=== PATIENT | male | born 1965 | race Two or more races ===

== ENCOUNTER 2024-03-12 10:45 | Emergency (ER) | payer MEDICARE, MEDICAID, SELFPAY ==
[2024-03-12] VITALS (19 sets, daily range): BP systolic 164–188; BP diastolic 84–95; PULSE 63–74; RESP 18–20; TEMP 36.1–36.7; O2SAT 96–98; BMI 30.4
--- NOTE | 2024-03-12 11:59 | EKG_ITS ---
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
--- NOTE | 2024-03-12 11:59 | XR_ITS ---
Examination: AP chest single view TECHNIQUE: AP upright portable chest single view Exam date 9: March 12, 2024 1245 hours Comparison October 26, 2023 INDICATIONS: Shortness of breath today. FINDINGS: Mild CHF Mild enlargement cardiac contour Prominent vascular congestion including central vascular engorgement Early septal edema at the lung bases IMPRESSION: Mild CHF
--- NOTE | 2024-03-12 12:00 | EDNOTE_ITS ---
ED SOB =RME/HPI General Chief Complaint: Shortness of Breath/Dyspnea Stated Complaint: PCP REQUEST REMOVAL WATER FROM LUNGS Time Seen by Provider: 03/12/24 11:35 Arrival date/time: 03/12/24 10:45 RME / HPI RME / HPI Narrative: 58-year-old male patient with significant history of hypertension, end-stage renal disease, diabetes mellitus, came in for evaluation regarding mid back pain, radiating to the left abdominal pain. This been ongoing for the last 1 month, getting worst for the last few days, described as dull ache, severity moderate. Patient also complaining of on and off shortness of breath. No vomiting no fever no other complaints noted. Patient last hemodialysis was Friday. Denies any fever. Denies any urinary or bladder incontinence. Patient is ambulatory. Denies any weakness to bilateral lower extremity. Related Data Home Medications ?Medication ?Instructions ?Recorded ?Confirmed doxazosin 2 mg tablet 2 mg PO QDAY 08/15/22 09/04/23 amlodipine 10 mg tablet 10 mg PO QDAY 09/04/23 09/04/23 ezetimibe 10 mg tablet (Zetia) 10 mg PO QDAY 09/04/23 09/04/23 furosemide 40 mg tablet 40 mg PO QAM 09/04/23 09/04/23 hydralazine 100 mg tablet 100 mg PO TID 09/04/23 09/04/23 linagliptin 5 mg tablet (Tradjenta) 5 mg PO QAM 09/04/23 09/04/23 trazodone 50 mg tablet 50 mg PO QDAY PRN Insomnia 09/04/23 09/04/23 vitamin B complex-vitamin C-folic 1 tab PO QDAY 09/04/23 09/04/23 acid 0.8 mg tablet (Mena-Anil) Previous Rx's ?Medication ?Instructions ?Recorded hydrocodone 5 mg-acetaminophen 325 1 tab PO Q8H PRN pain #10 tabs 10/26/23 mg tablet Allergies Allergy/AdvReac Type Severity Reaction Status Date / Time No Known Allergies Allergy Verified 03/12/24 10:46 Review of Systems Review of Systems Narrative Review of Systems: Review of system reviewed and within normal limits except mentioned in HPI ED Exam Narrative Physical exam: VITAL SIGNS: Reviewed. GENERAL APPEARANCE: Alert and interactive, follows commands, no acute distress, HEAD AND FACE: Non-traumatic. ENT: PERRL, pink conjunctivitis, eyelid no trauma, Mucous membrane moist. NECK: Supple, nontender, no nuchal rigidity. CHEST: No tenderness, no crepitus, no paradoxical movement, no retractions. LUNGS: Clear, well ventilated, symmetric, no rales, no wheezing, no ronchi, no stridor, good breath sounds bilaterally. HEART: Regular rate, regular rhythm, no murmur, no gallops. ABDOMEN: Soft, positive bowel sounds, nondistended, no guarding, left lower abdominal tenderness, swelling, with 4 x 10 cm palpable cystic mass left lateral wall., no rebound RECTAL: Deferred. GENITAL: Deferred. NEUROLOGICAL: Gross motor function intact sensory function intact, Appropriate for age. MUSCULOSKELETAL: Mid back tenderness,, full range of motion. EXTREMITIES: Nontender, full range of motion. SKIN: Color pink, dry, no rash, no lacerations, no abrasions, no contusions. LYMPHATICS: Deferred. Course Quality Measures none Orders Category Date Time Status CT Screening NOW Care 03/12/24 14:26 Completed Dialysis [Hemodialysis] Urgent Care 03/12/24 16:05 Active EKG (ED ONLY) *Do not use* NOW Care 03/12/24 12:00 Completed Diet Renal Diet 03/12/24 Dinner Active Transfer to another facility [Transfer/Discharge] Stat Discharge 03/12/24 19:[address] abdomen pelvis w con Stat Exams 03/12/24 14:26 Completed EKG (ED Only) Stat Exams 03/12/24 11:59 Draft US abdomen limited Stat Exams 03/12/24 13:35 Completed XR chest 1V Stat Exams 03/12/24 11:59 Completed B-Type Natriuretic Peptide Stat Lab 03/12/24 12:50 Completed CBC Stat Lab 03/12/24 12:50 Completed Comprehensive Metabolic Panel Stat Lab 03/12/24 12:50 Completed Partial Thromboplastin Time Stat Lab 03/12/24 12:50 Completed Prothrombin Time with INR Stat Lab 03/12/24 12:50 Completed Albumin Human 25% Ivpb [Albuminar-25 Ivpb] Med 03/12/24 16:06 Discontinued 25 gm in 100 ml IV PRN HYDROcodone*/APAP 5/325 [[place] 5/325] Med 03/12/24 18:39 Discontinued 1 tab PO X1 ONE Morphine Inj Med 03/13/24 01:02 Discontinued 4 mg IVP X1 ONE Piper/Tazo 3.375 gm [Zosyn] Med 03/13/24 09:00 Discontinued 3.375 gm in 50 ml IV Q12HR Piper/Tazo 3.375 gm [Zosyn] Med 03/12/24 23:30 Discontinued 3.375 gm in 50 ml IV X1 Late Tray Request Routine Oth 03/12/24 18:21 Active Vital Signs Vital signs: Vital Signs Temperature 97.9 F 03/12/24 11:04 Pulse Rate 74 03/12/24 11:04 Respiratory Rate 20 03/12/24 11:04 Blood Pressure 186/85 H 03/12/24 11:04 Pulse Oximetry (%) 96 03/12/24 11:04 Oxygen Delivery Method Room Air 03/12/24 11:04 Shortness of Breath / Dyspnea MDM Narrative MDM Narrative:: CT scan of the abdomen pelvis showed Bibasilar pneumonia Pathologic fracture T11 vertebral body with paraspinal soft tissue mass, consider osseous metastatic disease, osteomyelitis, recommend MRI thoracic spine pre and post contrast follow-up Cirrhosis, acute hepatic inflammation Mild ascites Hepatic colopathy Moderate prostatomegaly irregular prostate contour Results discussed with the patient. Spoke with Dr. Tavera , patient's central supply tech, and dialyze the patient in the emergency room. Patient is to be transferred for pathologic fracture at the 11, with paraspinal soft tissue mass, needing MRI thoracic spine, and needing neuro surgical consult and evaluation. Care transferred to Dr. Pond at 11:15 PM. For final disposition Patient data External records reviewed:: None Clinical information provided by:: none Social determinants that could affect healthcare access:: none Patient has the following chronic illnesses:: End-stage renal disease on hemodialysis, diabetes mellitus hypertension How is presenting disease/condition affected by chronic disease/condition?: uneffected by Evaluation data The following diagnostics were reviewed and interpreted by me:: lab results, radiology exam(s) and EKG tracing(s) Lab and/or radiology exams considered but not ordered:: None Interpretation Summary: Laboratory workup significant for pathologic fracture of T11 with significant paraspinal mass noted. Laboratory workup is significant for creatinine of 7.4, BUN of 59 potassium is normal. BNP more than 3280. EKG showed sinus rhythm, ventricular rate of 69 bpm, FL interval 165 MS, no ST segment elevation depression noted. Medications / Prescriptions Medications or Prescriptions considered but not ordered:: None Medication administrations:: Medication Administration History Discontinued Medications Hydrocodone Bitart/Acetaminophen (Hydrocodone/Apap 5/325 Tablet) 1 tab PO X1 ONE Stop: 03/12/24 18:40 Last Admin: 03/12/24 18:48 Dose: 1 tab Documented By: MM Albumin Human (Albuminar-25 Ivpb) 25 gm in 100 mls @ 100 mls/min IV PRN PRN PRN Reason: DIALYSIS Piperacillin/Tazobactam/Dextrose (Zosyn) 3.375 gm in 50 mls @ 12.5 mls/hr IV Q12HR LONI Stop: 03/20/24 08:59 Piperacillin/Tazobactam/Dextrose (Zosyn) 3.375 gm in 50 mls @ 100 mls/hr IV X1 ONE Stop: 03/12/24 23:59 Last Infusion: 03/13/24 00:35 Dose: Infused Documented By: Admin: 03/12/24 23:55 Dose: 100 mls/hr Documented By: KG Morphine Sulfate (Morphine Sulf Inj 10 Mg/Ml Vial) 4 mg IVP X1 ONE Stop: 03/13/24 01:03 Last Admin: 03/13/24 01:07 Dose: 4 mg Documented By: KG Chyna. Consultations Consultation(s) initiated? (list below): Yes Consultation #1 (Physician, Specialty, Details): I spoke with Dr. Tavera , patient's central supply tech, and dialyze the patient in the ED today. Diagnosis Shortness of Breath Differential Diagnosis: other Most likely diagnosis given after review of the tests above:: Pathologic fracture T11 probably secondary to malignancy Admission Indicated Admission indicated?: indicated Admission Request Was there a request for admission?: No Disposition Plan Disposition Plan: Transfer Discharge Plan Plan Patient Disposition: [facility] Acute Care [facility] Facility Pt Being Transferred to: [facility] Service Needed for Transfer: Neurosurgery Patient condition on transfer: Benefits outweigh risks Prescriptions/Referrals Prescriptions/Med Rec: No Action doxazosin 2 mg tablet 2 mg PO QDAY furosemide 40 mg Tablet 40 mg PO QAM amlodipine 10 mg Tablet 10 mg PO QDAY Mena-Anil 0.8 mg Tablet 1 tab PO QDAY ezetimibe [Zetia] 10 mg Tablet 10 mg PO QDAY trazodone 50 mg tablet 50 mg PO QDAY PRN (Reason: Insomnia) Tradjenta 5 mg Tablet 5 mg PO QAM hydralazine 100 mg tablet 100 mg PO TID Patient Comments: TAKE 1 TABLET BY MOUTH THREE TIMES DAILY hydrocodone-acetaminophen 5-325 mg tablet 1 tab PO Q8H MDD 3 tabs/day PRN (Reason: pain) Qty: 10 0RF Referrals: Andrea Bonilla FNP [Primary Care Provider] - In 1 week Problem List Clinical Impression: Back pain, End-stage renal disease (ESRD) Patient/Caregiver Discharge Instructions Print Language: Sinhala Stand Alone Forms: Neena Award Info., Patient Portal Info Letter
[2024-03-12 13:20] LABS: Basophils # (Auto) 0.1 Thou/mm3 (0.0-0.2); Basophils % (Auto) 1 % (0-2.5); Eosinophils # (Auto) 0.8 Thou/mm3 (0.0-0.5); Eosinophils % (Auto) 8 % (0-10); Hemoglobin 12.2 g/dL (13.5-16.0); Immature Granulocytes % (Auto) 0 % (0-0); Immature Granulocytes Auto 0.03 Thou/mm3 (0.00-0.00); Lymphocytes # (Auto) 0.7 Thou/mm3 (1.0-4.8); Lymphocytes % (Auto) 7 % (10-50); Mean Corpuscular HGB Conc 33.9 g/dl (31.0-37.0); Mean Corpuscular Hemoglobin 32.8 pg (25.0-35.0); Mean Corpuscular Volume 97 fL (80-100); Monocytes # (Auto) 0.8 Thou/mm3 (0.0-0.8); Monocytes % (Auto) 8 % (0-12); Neutrophils # (Auto) 7.7 Thou/mm3 (1.8-7.7); Neutrophils % (Auto) 76 % (37-80); Nucleated Red Blood Cell % 0 /100 WBC (0); Platelet Count 185 Thou/mm3 (140-440); RDW Standard Deviation 50.3 fL (35.1-43.9); Red Blood Count 3.72 Miln/mm3 (4.50-5.90); White Blood Count 10.1 Thou/mm3 (3.8-10.6)
[2024-03-12 13:35] LABS: INR 1.2 (0.9-1.3); Prothrombin Time 12.6 Seconds (9.0-12.2)
--- NOTE | 2024-03-12 13:35 | XR_ITS ---
Examination: Abdomen sonogram, Limited Date and time of exam: March 12, 2024 1447 hours INDICATIONS: Severe abdominal left lower abdominal pain today Technique: Real-time loving scale transabdominal sonographic images of the upper abdomen obtained. Findings: Prominent bowel appearance at the area concern Mild free fluid in the abdomen IMPRESSION: Consider repeat CT scan abdomen pelvis post intravenous contrast
[2024-03-12 13:49] LABS: B-Type Natriuretic Peptide > 3280 pg/mL (0-100)
[2024-03-12 13:52] LABS: Alanine Aminotransferase 10 U/L (10-49); Albumin, Serum 5.2 gm/dL (3.5-5.0); Albumin/Globulin Ratio 1.6 (1.2-2.2); Alkaline Phosphatase 166 U/L (46-116); Anion Gap 11 (7-16); Aspartate Amino Transferase 12 U/L (0-34); BUN/Creatinine Ratio 8 Ratio (12-20); Bilirubin,Total 0.5 mg/dL (0.3-1.2); Blood Urea Nitrogen 59 mg/dL (9-23); Calcium 10.6 mg/dL (8.3-10.6); Calcium (Corrected) 10.6 mg/dL (8.5-10.1); Chloride 93 mMol/L (98-107); Creatinine (Component) 7.4 mg/dL (0.6-1.3); Estimated Creatinine Clearance 10.2 mL/min (>60); Globulin 3.2 gm/dL (2.3-3.5); Glucose 147 mg/dL (74-106); Osmolality,Calculated 285 (275-295); Potassium 4.4 mMol/L (3.4-5.1); Sodium 133 mMol/L (136-145); Total Protein 8.4 gm/dL (5.7-8.2); eGFR 8 See Note
--- NOTE | 2024-03-12 14:26 | XR_ITS ---
Examination: CT abdomen with intravenous contrast CT pelvis with intravenous contrast 2-D coronal reconstructions 2-D sagittal reconstructions Date and time of exam:March 12, 2024 1636 hours INDICATIONS: Mid abdominal pain beginning several days ago. CTDI: vol (mGy) 7.4 DLP: (mGycm) 475 Technique: Multiple axial sections of the abdomen and pelvis have been obtained. 64 slice high-resolution scanner used. 3 mm axial sections have been obtained, post intravenous injection 60 cc [id number] 2-D sagittal, coronal reconstructions obtained. Low dose protocols were performed. One or more of the following dose reduction techniques were used; automated exposure control, adjustment of the mA and/or KV according to patient size, use of iterative reconstruction technique. Findings: Mild bibasilar pneumonia Cortical bone destruction T11, burst type fracture with paraspinal soft tissue mass Mild right pleural disease Cirrhosis, liver nodular in contour with heterogeneous radiodensity which may represent acute hepatic inflammation No splenic mass No pancreatic mass or adrenal mass Mild ascites No hydronephrosis Diffuse thickening of the colonic wall, hepatic colopathy pattern Normal appendix No bowel obstruction No diverticulitis Prostate irregular in contour AP dimension 4.4 cm Severe osteopenia IMPRESSION: Bibasilar pneumonia Pathologic fracture T11 vertebral body with paraspinal soft tissue mass, consider osseous metastatic disease, osteomyelitis, recommend MRI thoracic spine pre and post contrast follow-up Cirrhosis, acute hepatic inflammation Mild ascites Hepatic colopathy Moderate prostatomegaly irregular prostate contour
--- NOTE | 2024-03-12 15:45 | PC.NURSE ---
CT with contrast ok. Dr Tavera will dialyze tonight.
--- NOTE | 2024-03-12 18:09 | PC.NURSE ---
called Celestino, transfer nurse, informed her Abrea [employer] requesting neuro/spinal surgeon to t13 fx, see CT results, she will initiate transfer.
--- NOTE | 2024-03-12 18:10 | PC.CM ---
Addendum entered by Real Espinal RN 03/12/24 19:51: 1930 transfer packet with CD given to unit tender, chart nurse aware. Pending all signatures. ED to follow up with transfer at this time. Addendum entered by Real Espinal RN 03/12/24 19:18: 1902 called [facility] again to initiate the transfer, Left VM. Addendum entered by Real Espinal RN 03/12/24 18:50: 1850 Images pushed over to [facility] via [employer]. Addendum entered by Real Espinal RN 03/12/24 18:50: 1848 called [facility] to initiate the transfer, Left VM. Original Note: 1842 clinicals faxed to [facility]. 1808 received call from Charge nurse pt needs to be transferred for Pathologic fracture T11 vertebral body needs neuro-spinal services.
--- NOTE | 2024-03-12 18:38 | VVCONSULT_ITS ---
Telemedicine visit statement This visit was conducted with the use of interactive audio and video telecommunications system that permits real time communication between the patient and the provider. Patient's verbal consent for virtual visit was obtained on 03/12/24 at 1838. History of Present Illness History of Present Illness Chief complaint: Abdominal pain History of present illness: Mr. Rodriguez is a 58-year-old man with patient with significant history of hypertension, end-stage renal disease on HD MWF, diabetes mellitus, came in for evaluation regarding mid back pain, radiating to the left abdominal pain. This been ongoing for the last 1 month, getting worst for the last few days, described as dull ache, severity moderate. Patient also complaining of on and off shortness of breath. No vomiting no fever no other complaints noted. Patient last hemodialysis was Friday. Denies any fever. Denies any urinary or bladder incontinence. He missed dialysis Friday due to abdominal pain. Er called me for need for dialysis post CT with contrast. Currently seen on dialysis via virtual visit. Past Medical History Past Medical History NEUROLOGIC: Negative Neurological Disorders or Seizures CARDIAC: Positive Hypercholesterolemia and Hypertension; Negative Cardiac Disorders or Congestive Heart Failure RESPIRATORY: Negative Chronic Obstructive Pulmonary Disease (COPD) or Asthma GASTROINTESTINAL: Negative Gastrointestinal Disorders GENITOURINARY: Positive Renal Disease (on dialysis) and Dialysis MUSCULOSKELETAL: Negative Musculoskeletal Disorders ENT: Positive Cataracts ENDOCRINE: Positive Endocrine Disorders and Diabetes Mellitus Type 2 (not taking meds at the moment); Negative Diabetes Mellitus Type 1 HEMATOLOGIC: Negative Blood Disorders or Sickle Cell Disease OTHER HISTORY: Positive Hospitalization and Blood Transfusions; Negative Autoimmune Disease, Shingles, Blood Transfusion Reaction, Anesthesia Reactions or Cancer Family History FAMILY HISTORY: Negative Family Psychiatric Problems, Family Respiratory Disorders, Family Cardiac Disorders, Family Gastrointestinal Problems, Family Cancer, Family Surgery or Family Anesthesia Reaction Social History SMOKING STATUS: Never smoker TeleMedicine ROS Pertinent Review of Systems Narrative Review of Systems: c/o abdominal pain, back pain. No nausea.no fever, chills Meds Home Medications and Allergies Home Medications ?Medication ?Instructions ?Recorded ?Confirmed ?Type doxazosin 2 mg tablet 2 mg PO QDAY 08/15/22 09/04/23 History amlodipine 10 mg tablet 10 mg PO QDAY 09/04/23 09/04/23 History ezetimibe 10 mg tablet (Zetia) 10 mg PO QDAY 09/04/23 09/04/23 History furosemide 40 mg tablet 40 mg PO QAM 09/04/23 09/04/23 History hydralazine 100 mg tablet 100 mg PO TID 09/04/23 09/04/23 History linagliptin 5 mg tablet (Tradjenta) 5 mg PO QAM 09/04/23 09/04/23 History trazodone 50 mg tablet 50 mg PO QDAY PRN Insomnia 09/04/23 09/04/23 History vitamin B complex-vitamin C-folic 1 tab PO QDAY 09/04/23 09/04/23 History acid 0.8 mg tablet (Mena-Anil) Allergies Allergy/AdvReac Type Severity Reaction Status Date / Time No Known Allergies Allergy Verified 03/12/24 10:46 Virtual exam Vital Signs Temp Pulse Resp BP Pulse Ox O2 Del Method O2 Flow Rate 36.1 C 68 18 188/90 H 98 Room Air 3 03/12/24 18:01 03/12/24 18:30 03/12/24 18:01 03/12/24 18:30 03/12/24 18:01 03/12/24 17:06 03/12/24 18:01 Narrative Exam Narrative: GENERAL APPEARANCE: Patient seems to be comfortable. On dialysis 1+ edema Results Labs 03/12/24 12:50 03/12/24 12:50 Labs: Short CBC 03/12/24 Range/Units 12:50 WBC 10.1 (3.8-10.6) Thou/mm3 Hgb 12.2 L (13.5-16.0) g/dL Hct 36.0 L (41.0-53.0) % Plt Count 185 (140-440) Thou/mm3 BMP 03/12/24 12:50 Sodium 133 L Potassium 4.4 Chloride 93 L Carbon Dioxide 29.0 BUN 59 H Creatinine 7.4 H* Glucose 147 H Calcium 10.6 Liver Function 03/12/24 Range/Units 12:50 Total Bilirubin 0.5 (0.3-1.2) mg/dL AST 12 (0-34) U/L ALT 10 (10-49) U/L Alkaline Phosphatase 166 H (46-116) U/L Albumin 5.2 H (3.5-5.0) gm/dL Assessment & Plan Assessment (1) End stage chronic kidney disease: ?Status:?Acute ? ? ? 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 Patient currently seen on dialysis. Tolerating dialysis without any problems. Hemodialysis for 3 hours, 2K, ultrafiltration 2-3 L, Epogen 6000, no heparin ordered. Plan of care discussed with the dialysis nurse. Please see dialysis flowsheet for further details. (2) Hypertension: ?Status:?Acute ? ? ? Assessment and plan: On doxazosin, hydralazine, amlodipine (3) Hyperlipidemia: ?Status:?Acute ? ? ? Assessment and plan: (4) Diabetes: ?Status:?Acute ? ? ? Assessment and plan: on Tradjenta (5) Renal osteodystrophy: ?Status:?Acute ? ? ? Assessment and plan: On calcitriol at dialysis (6) low back pain-CT scan showed Acute pathologic fracture with a mass around. ?Status:?Acute ? ? ? Assessment and plan: Patient is going to be transferred to [facility] postdialysis. Thank you Clif for allowing me to participate in the care of Mr. Rodriguez
--- NOTE | 2024-03-12 18:46 | PC.NURSE ---
UF GOAL INCREASED TO 2.5L PER MD YANESURI ASA TOLERATED WILL CONT. TO MONITOR
[2024-03-12] MEDS: HYDROcodone/APAP 5/325 TABLET 1 TAB PO (18:48)
--- NOTE | 2024-03-12 22:00 | PC.NURSE ---
Pt sj in ED room 3 s/p hemodialysis treatment.
--- NOTE | 2024-03-12 23:16 | EDNOTE_ITS ---
Emergency Room Addendum <Morelia Beck - Last Filed: 03/12/24 23:45> Addendum Narrative: 2315: Care assumed from Meredith Linder NP. Past medical, surgical, social and family history reviewed. Vitals and home medications reviewed. Results and treatment plan discussed. I will assume the care of the patient at this time and will follow the patient, pending transfer. Please refer to the emergency department record for history and examination. 2344: Dr. Miranda, neurosurgeon from [facility], accepts the patient for transfer. <Theo Pond MD - Last Filed: 03/13/24 00:26> Addendum Narrative: 2315: Care assumed from Meredith Linder NP. Past medical, surgical, social and family history reviewed. Vitals and home medications reviewed. Results and treatment plan discussed. I will assume the care of the patient at this time and will follow the patient, pending transfer. Please refer to the emergency department record for history and examination. 2344: Dr. Miranda, neurosurgeon from [facility], accepts the patient for transfer. And the patient is stable for transfer. Diagnosis: Pathologic fracture of T11 Pneumonia End-stage renal failure on dialysis
--- NOTE | 2024-03-12 23:34 | PC.NURSE ---
THIS PT IS ACCEPTED BY DR. SANTOS TO THE [facility]. THIS IS ER:ER TRANSFER AND NUMBER FOR REPORT IS [phone]. LEOPOLDO WAS THE FACILITY REP I SPOKE WITH.
[2024-03-12] MEDS: PIPER/TAZO 3.375 GM 3.375 GM/50 ML BAG IV (23:55)
[2024-03-13 00:03] VITALS: BP 178/91; PULSE 67; RESP 18; O2SAT 98
--- NOTE | 2024-03-13 00:47 | PC.NURSE ---
Report called to YOHANNES Toledo via phone at [facility] in [place]. Ambulance ETA for transport 0115.
[2024-03-13] MEDS: MORPHINE SULF INJ 10 MG/ML VIAL 4 MG IVP (01:07)
--- NOTE | 2024-03-13 01:14 | PC.NURSE ---
Report given to EMS at the bedside for transfer.
== END 2024-03-13 01:16 | disposition short-term general hospital (02) ==
PROVIDERS: Nurse Practitioner Family; Emergency Provider Emergency Medicine; PCP Nurse Practitioner
DX: I12.0 Hypertensive chronic kidney disease with stage 5 chronic kidney disease or end stage renal disease (principal); N18.6 End stage renal disease; E11.22 Type 2 diabetes mellitus with diabetic chronic kidney disease; J18.9 Pneumonia, unspecified organism; M84.48XA Pathological fracture, other site, initial encounter for fracture; G95.89 Other specified diseases of spinal cord; N40.0 Benign prostatic hyperplasia without lower urinary tract symptoms; K74.60 Unspecified cirrhosis of liver; R18.8 Other ascites; R94.31 Abnormal electrocardiogram [ECG] [EKG]; Z99.2 Dependence on renal dialysis; Z79.84 Long term (current) use of oral hypoglycemic drugs; Z75.1 Person awaiting admission to adequate facility elsewhere
CPT/HCPCS: 36415; 71045; 74177; 76705; 80053; 81001; 83880; 85025; 85610; 85730; 90935; 93005; 96365; 96375; 99285; A4649; J2270; J2543; Q9967; A9270; G0257

== ENCOUNTER 2024-05-16 05:55 | Inpatient (IN) | payer MEDICARE, MEDICAID, SELFPAY ==
[2024-05-16] VITALS (13 sets, daily range): BP systolic 136–194; BP diastolic 74–93; PULSE 57–71; RESP 14–20; TEMP 34.7–37.8; O2SAT 92–98; BMI 20.9
--- NOTE | 2024-05-16 06:00 | EKG_ITS ---
[facility] Test Date: 2024-05-16 Pat Name: MAXI GRANDA Department: Room: - Gender: Male Floor Attendant: Eugene : 1965 Requested By: Ahsan Almanzar Order Number: [id number] Reading MD: Ahsan Almanzar Measurements Intervals [place] Rate: 56 P: 14 RI: 134 QRS: -5 QRSD: 99 T: 53 QT: 477 QTc: 462 Interpretive Statements SINUS BRADYCARDIA NONSPECIFIC T-WAVE ABNORMALITY PROLONGED QT INTERVAL Compared to ECG 03/12/2024 12:11:52 Prolonged QT interval now present Sinus rhythm no longer present T-wave abnormality still present /store/S0/[id number]/[id number]
--- NOTE | 2024-05-16 06:00 | EDRME_ITS ---
Rapid Medical Screening Exam RME Arrival date/time: 05/16/24 05:55 Chief Complaint: Altered Mental Status Time Seen by Provider: 05/16/24 05:58 RME Narrative: 58-year-old brought in by EMS stat for altered mental status, GCS of 14, custodial states he is altered, EMS offers no further history. Patient himself is alert he answers questions. His eyes were closed and he states is because he feels room spinning dizziness. He has a mild headache with nausea, no vomiting. Closing his eyes improves the dizziness, opening it worsens it. He denies chest pain, abdominal pain. Problem focused workup and treatment was initiated and patient will be seen by the additional provider.
--- NOTE | 2024-05-16 06:08 | PC.NURSE ---
warm blankets applied.
[2024-05-16] MEDS: ONDANSETRON INJ 2 MG/ML INJ 2 ML 4 MG IV ×2 (06:10→11:05)
[2024-05-16] MEDS: MECLIZINE HCL 25 MG TABLET 50 MG PO (06:11)
[2024-05-16 06:13] LABS: Basophils % (Auto) 1 % (0-2.5); Eosinophils # (Auto) 0.5 Thou/mm3 (0.0-0.5); Eosinophils % (Auto) 7 % (0-10); Hematocrit 37.8 % (41.0-53.0); Hemoglobin 12.4 g/dL (13.5-16.0); Immature Granulocytes % (Auto) 0 % (0-0); Immature Granulocytes Auto 0.02 Thou/mm3 (0.00-0.00); Lymphocytes # (Auto) 0.6 Thou/mm3 (1.0-4.8); Lymphocytes % (Auto) 9 % (10-50); Mean Corpuscular HGB Conc 32.8 g/dl (31.0-37.0); Mean Corpuscular Hemoglobin 32.2 pg (25.0-35.0); Mean Corpuscular Volume 98 fL (80-100); Monocytes # (Auto) 0.4 Thou/mm3 (0.0-0.8); Monocytes % (Auto) 6 % (0-12); Neutrophils # (Auto) 5.5 Thou/mm3 (1.8-7.7); Neutrophils % (Auto) 78 % (37-80); Nucleated Red Blood Cell % 0 /100 WBC (0); Platelet Count 110 Thou/mm3 (140-440); RDW Standard Deviation 44.9 fL (35.1-43.9); Red Blood Count 3.85 Miln/mm3 (4.50-5.90); White Blood Count 7.1 Thou/mm3 (3.8-10.6)
--- NOTE | 2024-05-16 06:22 | PC.NURSE ---
Pt is a dialysis pt and reports he does not make urine.
[2024-05-16 06:38] LABS: Alanine Aminotransferase 44 U/L (10-49); Albumin/Globulin Ratio 1.4 (1.2-2.2); Alkaline Phosphatase 194 U/L (46-116); Anion Gap 10 (7-16); Aspartate Amino Transferase 84 U/L (0-34); BUN/Creatinine Ratio 6 Ratio (12-20); Bilirubin,Total 0.6 mg/dL (0.3-1.2); Blood Urea Nitrogen 22 mg/dL (9-23); Calcium 8.5 mg/dL (8.3-10.6); Calcium (Corrected) 8.5 mg/dL (8.5-10.1); Carbon Dioxide 29.9 mMol/L (20.0-31.0); Chloride 94 mMol/L (98-107); Creatinine (Component) 3.6 mg/dL (0.6-1.3); Estimated Creatinine Clearance 18.9 mL/min (>60); Globulin 2.8 gm/dL (2.3-3.5); Glucose 220 mg/dL (74-106); Osmolality,Calculated 278 (275-295); Potassium 5.2 mMol/L (3.4-5.1); Sodium 134 mMol/L (136-145); Total Protein 6.8 gm/dL (5.7-8.2); eGFR 19 See Note
[2024-05-16 06:39] LABS: Troponin I 0.048 ng/mL (0.0-0.045)
--- NOTE | 2024-05-16 06:45 | PD.EDAMS ---
Altered Mental Status RME/HPI General Chief Complaint: Altered Mental Status Stated Complaint: AMS Time Seen by Provider: 05/16/24 05:58 Arrival date/time: 05/16/24 05:55 RME / HPI RME / HPI narrative: 58-year-old brought in by EMS stat for altered mental status, GCS of 14, long-term states he is altered, EMS offers no further history. Patient himself is alert he answers questions. His eyes were closed and he states is because he feels room spinning dizziness. He has a mild headache with nausea, no vomiting. Closing his eyes improves the dizziness, opening it worsens it. He denies chest pain, abdominal pain. Problem focused workup and treatment was initiated and patient will be seen by the additional provider. DR. FABIAN MAIN ED EVALUATION 58 year old male with history of ESRD on HD // followed by Dr. Tavera presents to the ED BIBA from [facility] for altered mental status today. While in the ED patient complains of dizziness that began several hours ago. Described as a spinning sensation that is worse with opening his eyes and head movements. Accompanied by nausea and vomiting. Denies fevers, chills, chest pain, shortness of breath, abdominal pain, diarrhea, constipation, or urinary symptoms. No other complaints reported. Patient last received dialysis 2 days ago Friday. Related Data Home Medications ?Medication ?Instructions ?Recorded ?Confirmed doxazosin 2 mg tablet 2 mg PO QDAY 08/15/22 09/04/23 amlodipine 10 mg tablet 10 mg PO QDAY 09/04/23 09/04/23 ezetimibe 10 mg tablet (Zetia) 10 mg PO QDAY 09/04/23 09/04/23 furosemide 40 mg tablet 40 mg PO QAM 09/04/23 09/04/23 hydralazine 100 mg tablet 100 mg PO TID 09/04/23 09/04/23 linagliptin 5 mg tablet (Tradjenta) 5 mg PO QAM 09/04/23 09/04/23 trazodone 50 mg tablet 50 mg PO QDAY PRN Insomnia 09/04/23 09/04/23 vitamin B complex-vitamin C-folic 1 tab PO QDAY 09/04/23 09/04/23 acid 0.8 mg tablet (Mena-Anil) Previous Rx's ?Medication ?Instructions ?Recorded hydrocodone 5 mg-acetaminophen 325 1 tab PO Q8H PRN pain #10 tabs 10/26/23 mg tablet Allergies Allergy/AdvReac Type Severity Reaction Status Date / Time No Known Allergies Allergy Verified 03/12/24 10:46 Review of Systems Review of Systems Narrative Review of Systems: GEN: No fever, no chills, no weight loss, +dizziness EYES: No discharge, no visual changes, no pain HEENT: No ear pain, no congestion, no sore throat PULM: No shortness of breath, no cough, no congestion CV: No chest pain, no palpitations GI: +nausea, +vomiting, no diarrhea, no pain, no constipation : No frequency, no urgency and no dysuria MUSC/SKEL No joint pain, no back pain SKIN: No rash NEURO: No weakness, no headache Past Medical History Past Medical History CARDIAC: Positive Hypercholesterolemia and Hypertension GENITOURINARY: Positive Renal Disease and Dialysis ENT: Positive Cataracts ENDOCRINE: Positive Endocrine Disorders and Diabetes Mellitus Type 2 OTHER HISTORY: Positive Hospitalization and Blood Transfusions Family History FAMILY HISTORY: Negative Family Psychiatric Problems, Family Respiratory Disorders, Family Cardiac Disorders, Family Gastrointestinal Problems, Family Cancer, Family Surgery or Family Anesthesia Reaction Social History SMOKING STATUS: Never smoker ED Exam Narrative Physical exam: GENERAL APPEARANCE: Well hydrated, well nourished, in no acute distress. Coughing frequently during exam. VITALS: All vitals were reviewed, patient is hypothermic at 95.0F rectally, the pulse ox is 92% on room air which is low. HEENT: Normocephalic, atramatic, EOMI, EACs are patent. There is no bulge or retraction. Throat without erythema or exudate. Moist oromucosa. No jaundice NECK: Supple, no JVD or bruits. CARDIOVASCULAR: Heart regular without S3-S4 or murmur. No rubs or gallops. LUNGS/CHEST: Rhonchi bilaterally. No rales or wheezing. ABDOMEN: Soft, nontender, with normal bowel sounds. No pulsatile masses. No rebound, rigidity, or guarding. No incarcerated hernia. Normal inspection and palpation. EXTREMITIES: Normal inspection and palpation. No edema, clubbing, or cyanosis. Intact CSM SKIN: Warm and dry without rashes. Normal inspection. MUSCULOSKELETAL: Normal inspection. No gross deformity, full ROM all extremities NEURO: Alert and oriented x3. Cranial nerves II through XII grossly intact. There are no other motor or sensory deficits noted. PSYCHIATRIC: Normal mood and affect. No psychosis. Course Quality Measures none Orders Category Date Time Status Bedside COVID-19 Antigen Test NOW Care 05/16/24 06:00 Active Bedside Influenza A&B Antigen Test NOW Care 05/16/24 06:00 Completed EKG (ED ONLY) *Do not use* NOW Care 05/16/24 06:00 Completed Initiate Warming Therapy NOW Care 05/16/24 07:[address] head/brain wo con Stat Exams 05/16/24 06:59 Completed EKG (ED Only) Stat Exams 05/16/24 06:00 Draft XR chest 1V portable Stat Exams 05/16/24 06:59 Completed CBC Stat Lab 05/16/24 06:02 Completed CMP [Comprehensive Metabolic Panel] Stat Lab 05/16/24 06:02 Completed Troponin I Stat Lab 05/16/24 06:02 Completed Urinalysis Stat Lab 05/16/24 05:59 Ordered Meclizine HCl [Antivert] Med 05/16/24 05:59 Discontinued 50 mg PO X1 ONE Ondansetron Inj [Zofran Inj] Med 05/16/24 05:59 Discontinued 4 mg IV X1 ONE Vital Signs Vital signs: Vital Signs Temperature 95.0 F L 05/16/24 05:57 Pulse Rate 57 L 05/16/24 05:57 Respiratory Rate 14 05/16/24 05:57 Blood Pressure 194/93 H 05/16/24 05:57 Pulse Oximetry (%) 92 L 05/16/24 05:57 Oxygen Delivery Method Room Air 05/16/24 05:57 Altered Mental Status MDM Narrative MDM Narrative:: I, Humaira Zhu, am scribing for and in the presence of Dr. Fabian. The patient came in from the long-term by ambulance. Chief complaint here is dizziness and vertigo. And I heard him coughing quite frequently. In the emergency department his temperature was 94.5 ?F rectally. On exam his O2 saturation is 98 to 92% room air. That necessitate put him on oxygen for now. CBC is negative. CMP remarkable for a potassium of 5.2. Creatinine is 3.6. Troponin is 0.048 which is slightly elevated. COVID-19 and influenza are negative. Chest x-ray reviewed by and interpreted by me as follow: No pneumothorax. Heart is enlarged. Mediastinum normal. Normal bones. Pulmonary edema secondary to end-stage kidney disease. Twelve-lead EKG that was done at 6:14 AM and interpreted by me: Normal sinus rhythm. Heart rate 56. No ST elevation or depression. No PVC. No STEMI. Regular rate and rhythm. Old Q waves are noted in leads III. CT brain reviewed by and interpreted by me: No bleed. No mass. No shifting. No swelling. Normal ventricle. Normal bones. In the emergency department with patient was on oxygen. To give his O2 saturation more than 92%. He was also given warming blanket for his hypothermia. 8 0 5 AM, I spoke to and discussed with Dr. Oswald, resident Dr. Cheng. He agreed to assess the patient for admission. Critical care time is approximately 35 minutes excluding any procedure. The high probability of sudden, clinically significant deterioration in the patient?s condition required the highest level of my preparedness to intervene urgently. The services I provided to this patient were to treat and/or prevent clinically significant deterioration. Services included the following: chart data review, reviewing nursing notes and/or old charts, documentation time, health and safety consultant collaboration regarding findings and treatment options, medication orders and management, direct patient care, vital sign assessments and ordering, interpreting and reviewing diagnostic studies and lab tests. Aggregate critical care time includes only time during which I was engaged in work directly related to the patient?s care, as described above, whether at bedside or elsewhere in the Emergency Department. It did not include time spent performing other reported procedures or the services of residents, students, nurses or physician assistants. Patient data External records reviewed:: [facility] previous records (I reviewed visit on 03/12/2024), EMS form and [facility] records (I reviewed medication list and pmhx from [facility]. ) Clinical information provided by:: patient and EMS Social determinants that could affect healthcare access:: housing ([place] resident ) Patient has the following chronic illnesses:: Hypertension, diabetes, ESRD on HD M/W/F How is presenting disease/condition affected by chronic disease/condition?: exacerbated by Evaluation data The following diagnostics were reviewed and interpreted by me:: lab results, radiology exam(s) and EKG tracing(s) Lab and/or radiology exams considered but not ordered:: None Interpretation Summary: Ordering Physician: Theo Fabian MD Date of Service: 05/16/24 Procedure(s): XR chest 1V portable Accession Number(s): [id number] cc: Jose Cedillo MD; Theo Fabian MD; Andrea Bonilla~ Examination: AP chest single view Technique one AP portable semiupright chest single view Exam date and time: May 16, 2024 at 0704 hrs. Comparison March 12, 2024 Indications:: Frequent coughing today shortness of breath Findings: Mild CHF Consider superimposed bilateral pneumonia in the perihilar basilar regions Mild to moderate enlargement cardiac contour Prominent vascular congestion Moderate osteopenia Impression: Mild CHF Consider superimposed bilateral perihilar basilar pneumonia Dictated By: Jose Cedillo MD Signed By: <Electronically signed by Jose Cedillo MD in OV> 05/16/24 0712 Ordering Physician: Theo Fabian MD Date of Service: 05/16/24 Procedure(s): CT head/brain wo con Accession Number(s): [id number] cc: Jose Cedillo MD; Theo Fabian MD; Andrea Bonilla~ Examination: CT brain head without contrast. 2-D sagittal coronal reconstructions Date and time of exam:May 16, 2024 0715 hrs. Indications: Onset altered mental status today, vertigo, dizziness CTDI: vol (mGy):50.1 DLP: (mGycm):1025 Technique: Multiple CT axial sections of the brain have been obtained, 5 mm slice thickness. Contrast has not been administered. 2-D sagittal, coronal reconstructions have been obtained Low dose protocols were performed. One or more of the following dose reduction techniques were used; automated exposure control, adjustment of the mA and/or KV according to patient size, use of iterative reconstruction technique. Findings: No significant ventricular enlargement. Intra-axial or extra-axial hemorrhage density is not seen. No mass effect or midline shift Basal cisterns are not remarkable. Fourth ventricle is midline. Cranial vault intact. Impression: Negative for acute hemorrhage, mass effect or midline shift If symptoms persist, consider brain MRI follow-up, stroke protocol Dictated By: Jose Cedillo MD Signed By: <Electronically signed by Jose Cedillo MD in OV> 05/16/24 0722 Medications / Prescriptions Medications or Prescriptions considered but not ordered:: None Medication administrations:: Medication Administration History Discontinued Medications Meclizine HCl (Meclizine Hcl 25 Mg Tablet) 50 mg PO X1 ONE Stop: 05/16/24 06:00 Last Admin: 05/16/24 06:11 Dose: 50 mg Documented By: KG Ondansetron HCl (Ondansetron Inj 2 Mg/Ml Inj 2 Ml) 4 mg IV X1 ONE; Protocol Stop: 05/16/24 06:00 Last Admin: 05/16/24 06:10 Dose: 4 mg Documented By: KG See above Consultations Consultation(s) initiated? (list below): Yes Consultation #1 (Physician, Specialty, Details): I spoke with resident Dr. Oswald working with Dr. Cheng. Discussed patients PMHx, HPI, ED course, exam findings, labs, and radiology results. The hospitalist agree to accept the patient for admission. Time: 08:05 Diagnosis Differential diagnosis altered mental status: altered mental status, delirium, hypoglycemia, hyponatremia, subarachnoid hemorrhage and sepsis Most likely diagnosis given after review of the tests above:: Hypothermia. Elevated troponin. Vertigo. End-stage renal failure. Hypoxia Admission Indicated Admission indicated?: indicated Admission Request Was there a request for admission?: Yes Admission Attestation Admission request attestation: Discussed case with [] from Hospitalist service regarding admission. Discussed patients ED course, exam findings, labs, and radiology results. The Hospitalist [agrees,declines] to accept the patient for admission. Disposition Plan Disposition Plan: Admit Discharge Plan Plan Patient Disposition: Admit Acute Care w/in Hospital Disposition Comment: Stable for admit Prescriptions/Referrals Prescriptions/Med Rec: No Action doxazosin 2 mg tablet 2 mg PO QDAY furosemide 40 mg Tablet 40 mg PO QAM amlodipine 10 mg Tablet 10 mg PO QDAY Mena-Anil 0.8 mg Tablet 1 tab PO QDAY ezetimibe [Zetia] 10 mg Tablet 10 mg PO QDAY trazodone 50 mg tablet 50 mg PO QDAY PRN (Reason: Insomnia) Tradjenta 5 mg Tablet 5 mg PO QAM hydralazine 100 mg tablet 100 mg PO TID Patient Comments: TAKE 1 TABLET BY MOUTH THREE TIMES DAILY hydrocodone-acetaminophen 5-325 mg tablet 1 tab PO Q8H MDD 3 tabs/day PRN (Reason: pain) Qty: 10 0RF Referrals: Andrea Bonilla FNP [Primary Care Provider] - In 1 week Problem List Clinical Impression: Elevated troponin, Hypothermia, Vertigo, End stage renal disease on dialysis, Hypoxia Patient/Caregiver Discharge Instructions Print Language: Romansh Stand Alone Forms: [facility]ena Award Info., Patient Portal Info Letter
--- NOTE | 2024-05-16 06:47 | PC.NURSE ---
Dr. Pond at the bedside.
--- NOTE | 2024-05-16 06:59 | XR_ITS ---
Examination: CT brain head without contrast. 2-D sagittal coronal reconstructions Date and time of exam:May 16, 2024 0715 hrs. Indications: Onset altered mental status today, vertigo, dizziness CTDI: vol (mGy):50.1 DLP: (mGycm):1025 Technique: Multiple CT axial sections of the brain have been obtained, 5 mm slice thickness. Contrast has not been administered. 2-D sagittal, coronal reconstructions have been obtained Low dose protocols were performed. One or more of the following dose reduction techniques were used; automated exposure control, adjustment of the mA and/or KV according to patient size, use of iterative reconstruction technique. Findings: No significant ventricular enlargement. Intra-axial or extra-axial hemorrhage density is not seen. No mass effect or midline shift Basal cisterns are not remarkable. Fourth ventricle is midline. Cranial vault intact. Impression: Negative for acute hemorrhage, mass effect or midline shift If symptoms persist, consider brain MRI follow-up, stroke protocol
--- NOTE | 2024-05-16 06:59 | XR_ITS ---
Examination: AP chest single view Technique one AP portable semiupright chest single view Exam date and time: May 16, 2024 at 0704 hrs. Comparison March 12, 2024 Indications:: Frequent coughing today shortness of breath Findings: Mild CHF Consider superimposed bilateral pneumonia in the perihilar basilar regions Mild to moderate enlargement cardiac contour Prominent vascular congestion Moderate osteopenia Impression: Mild CHF Consider superimposed bilateral perihilar basilar pneumonia
--- NOTE | 2024-05-16 08:35 | PC.NURSE ---
pATIENT STATES BACK PAIN 01/12. RECEIVED VERBAL ORDER FOR 1 MG HYDROMORPHONE.
[2024-05-16] MEDS: ASPIRIN EC 81 MG TABEC PO (08:58)
[2024-05-16] MEDS: HYDROmorphone INJ 2 MG/ML VIAL 1 MG IVP ×4 (08:58→17:07)
[2024-05-16] MEDS: HEPARIN SOD INJ 5000 UNIT/ML VIAL SC ×2 (09:22→20:22)
[2024-05-16 10:00] LABS: Base Excess, Venous 5 (-3-3); O2 Saturation, Venous 100 % (96-97); PCO2, Venous 43 mmHg (36-56); PO2, Venous 114 mmHg (15-58); pH, Venous 7.45 (7.33-7.66)
[2024-05-16] MEDS: INSULIN LISPRO (AdmeLOG) 1 UNIT/0.01 ML UNIT SC ×2 (11:06→17:06)
[2024-05-16] MEDS: cefTRIAXone/D5w 1gm IV premix 50 ML IV (11:08)
[2024-05-16] MEDS: AZITHROMYCIN INJ 500 MG in SODIUM CHLORIDE 0.9% 250 ML 250 ML 250 MG IV (11:48)
[2024-05-16 12:12] LABS: Troponin I 0.048 ng/mL (0.0-0.045)
[2024-05-16 14:44] LABS: Cocci Serology, IgM Negative (Negative)
--- NOTE | 2024-05-16 15:31 | ESHP_ITS ---
Documentation for date of: 05/16/24 HPI History of Present Illness Chief complaint: AMS History of present illness: 58 y/o M with PMHx significant for ESRD (dialysis Friday), HTN, oto-nojhmts-ozdbpuefe diabetes presents from SNF with chief complaint of altered mental status. Patient has been in SNF for rehab due to recent back surgery. This morning patient was more lethargic than usual and so was sent to ER. Patient remains alert and oriented but very lethargic. Complains of headache, dizziness, nausea. Denies fevers, chills, chest pain, shortness of breath, abdominal pain. ED COURSE: Lab significant for: Influenza negative, COVID-negative, cocci negative. Troponin 0.048, potassium 5.2, BUN 22, creatinine 3.6, EGFR 19. Imaging significant for: Head CT unremarkable. Chest x-ray showed congestion, and right lower lobe lung consolidation. In ED patient had severe hypertension 190/92 and was notably hypothermic, lowest temperature recorded 94.5. Patient given Mitzy hugger, meclizine, ondansetron in the ED. Temperature lulu, BP began dropping without intervention. PMH: HTN, DM, ESRD PSH: Recent back surgery Allergies:?No known drug allergies Medications: Pending med rec's Review of Systems Review of Systems Systems Reviewed: All systems reviewed, normal except as documented Past Medical History Past Medical History Comments PMH COMMENT: PMH: HTN, DM, ESRD PSH: Recent back surgery Allergies:?No known drug allergies Medications: Pending med rec's Exam Vital Signs Temp Pulse Resp BP Pulse Ox O2 Del Method O2 Flow Rate 100.0 F 63 18 150/81 H 95 Room Air 6 05/16/24 14:22 05/16/24 14:22 05/16/24 14:22 05/16/24 14:22 05/16/24 14:05/16/24 14:05/16/24 12:11 Narrative Exam PE: Gen: Well-developed and well-nourished. Appears distressed. HEENT: NCAT, PERRLA, EOMI, MMM, anicteric conjunctivae. CVS: normal S1 and S2. RRR. No M/R/G. Resp: CTA B/L. No rhonchi, rales, crackles or wheezing. Abd: soft, non-tender, non-distended. MSK: Good ROM in BUE & BLE. No edema or rash. Scar midline, upper back. Neuro: CN II-XII grossly intact. Strength 5/5 in BUE & BLE. Alert and oriented x3. Lethargic. Psych: appropriate mood and affect. Results: Labs 05/17/24 05:40 05/17/24 05:40 Labs: Short CBC 05/16/24 Range/Units 06:02 WBC 7.1 (3.8-10.6) Thou/mm3 Hgb 12.4 L (13.5-16.0) g/dL Hct 37.8 L (41.0-53.0) % Plt Count 110 L (140-440) Thou/mm3 BMP 05/16/24 06:02 Sodium 134 L Potassium 5.2 H Chloride 94 L Carbon Dioxide 29.9 BUN 22 Creatinine 3.6 H Glucose 220 H Calcium 8.5 Cardiac Enzymes 05/16/24 05/16/24 Range/Units 06:02 11:34 Troponin I 0.048 H* 0.048 H* (0.0-0.045) ng/mL Liver Function 05/16/24 Range/Units 06:02 Total Bilirubin 0.6 (0.3-1.2) mg/dL AST 84 H (0-34) U/L ALT 44 (10-49) U/L Alkaline Phosphatase 194 H (46-116) U/L Albumin 4.0 (3.5-5.0) gm/dL ABG Interpretation ABG results: 05/16/24 09:54 VBG pH 7.45 VBG pCO2 43 VBG pO2 114 H VBG Base Excess 5 H Quality Measures Quality Measures VTE prophylaxis Medications Home Medications and Allergies Home Medications ?Medication ?Instructions ?Recorded ?Confirmed ?Type acetaminophen 325 mg tablet 325 mg PO Q6HR PRN Mild Pain 05/17/24 05/17/24 History (Scale Score 1-4) atorvastatin 40 mg tablet 40 mg PO QPM 05/17/24 05/17/24 History carvedilol 12.5 mg tablet 12.5 mg PO BID 05/17/24 05/17/24 History cholecalciferol (vitamin D3) 25 25 mcg PO QDAY 05/17/24 05/17/24 History mcg (1,000 unit) tablet gabapentin 100 mg capsule 100 mg PO TID 05/17/24 05/17/24 History hydralazine 50 mg tablet 50 mg PO BID 05/17/24 05/17/24 History lidocaine 5 % topical cream 1 applic topical 1XD 05/17/24 05/17/24 History nutritional supplements 8 ea PO 1XD 05/17/24 05/17/24 History ondansetron HCl 4 mg tablet 4 mg PO Q6H PRN Nausea And Vomiting 05/17/24 05/17/24 History sacubitril 49 mg-valsartan 51 mg 1 tab PO BID 05/17/24 05/17/24 History tablet (Entresto) senna-docusate sodium tablet 1 tab PO BID 05/17/24 05/17/24 History sertraline 25 mg tablet (Zoloft) 25 mg PO TID 05/17/24 05/17/24 History sodium chloride 1,000 mg soluble 1,000 mg PO TID 05/17/24 05/17/24 History tablet tramadol 50 mg tablet 50 mg PO Q6H PRN moderate to 05/17/24 05/17/24 History severe pain vitamin B complex-vitamin C-folic 1 tab PO 1XD 05/17/24 05/17/24 History acid 0.8 mg tablet (Mena-Anil) Allergies Allergy/AdvReac Type Severity Reaction Status Date / Time No Known Allergies Allergy Verified 03/12/24 10:46 Visit Medications Acetaminophen (Acetaminophen 325 Mg Tablet) 650 mg PO Q6H PRN PRN Reason: Fever >100.4 or pain(1-3) Stop: 06/15/24 08:45 Dextrose (Dextrose 50%-Water Inj 50 Ml Syringe) 25 ml IV Q15MIN PRN PRN Reason: BG 50-70 responsive npo pt Stop: 06/15/24 08:53 Dextrose (Dextrose 50%-Water Inj 50 Ml Syringe) 50 ml IV Q15MIN PRN PRN Reason: BG <50 OR BG <70 & pt unresponsive Stop: 06/15/24 08:53 Glucagon (Glucagon Inj 1 Mg Vial) 1 mg IM Q15MIN PRN PRN Reason: BG <70, and no IV access Heparin Sodium (Porcine) (Heparin Sod Inj 5000 Unit/Ml Vial) 5,000 unit SC Q12HR LONI Stop: 05/30/24 08:59 Last Admin: 05/16/24 09:22 Dose: 5,000 unit Hydromorphone HCl (Hydromorphone Inj 2 Mg/Ml Vial) 1 mg IVP Q2H PRN PRN Reason: BREAKTHROUGH PAIN (SEVERE) Stop: 05/21/24 08:45 Last Admin: 05/16/24 13:46 Dose: 1 mg Azithromycin 500 mg/ Sodium (Chloride) 250 mls @ 250 mls/hr IV QDAY [facility] Stop: 05/24/24 08:59 Ceftriaxone Sodium/Dextrose (Rocephin/D5w 1gm Iv Premix) 50 mls @ 100 mls/hr IV QDAY [facility] Stop: 05/23/24 09:59 Last Infusion: 05/16/24 11:43 Dose: Infused Insulin Human Lispro (Insulin Lispro (Admelog) 1 Unit/0.01 Ml Unit) 0 unit SC AC [facility]; Protocol Stop: 06/15/24 11:29 Last Admin: 05/16/24 11:06 Dose: 1 unit Ondansetron HCl (Ondansetron Inj 2 Mg/Ml Inj 2 Ml) 4 mg IV Q6H PRN; Protocol PRN Reason: NAUSEA OR VOMITING Stop: 06/15/24 08:45 Last Admin: 05/16/24 11:05 Dose: 4 mg Pharmacy Consult (Pharmacy Renal Dose Adjustment 1 Ea) 1 each XX PRN PRN PRN Reason: CONSULT Stop: 06/15/24 10:52 Polyethylene Glycol (Polyethylene Glycol 17 Gm Packet) 17 gm PO QDAY [facility] Stop: 06/16/24 08:59 Sennosides (Senna Tablet) 1 tab PO QDAY [facility]; Protocol Stop: 06/16/24 08:59 Tramadol HCl (Tramadol Hcl 50 Mg Tablet) 50 mg PO Q4HR PRN PRN Reason: PAIN SCALE 4-10(Mod-Sev Stop: 05/21/24 10:54 Discontinued Medications Acetaminophen (Acetaminophen 325 Mg Tablet) 650 mg PO Q6H PRN PRN Reason: Fever >100.4 or pain Stop: 06/15/24 08:45 Hydrocodone Bitart/Acetaminophen (Hydrocodone/Apap 5/325 Tablet) 1 tab PO Q4HR PRN PRN Reason: PAIN SCALE 4-6 (Moderate Stop: 05/21/24 08:45 Aspirin (Aspirin Ec 81 Mg Tabec) 81 mg PO X1 ONE Stop: 05/16/24 08:09 Last Admin: 05/16/24 08:58 Dose: 81 mg Hydromorphone HCl (Hydromorphone Inj 2 Mg/Ml Vial) 1 mg IVP X1 ONE Stop: 05/16/24 08:38 Last Admin: 05/16/24 08:58 Dose: 1 mg Azithromycin 500 mg/ Sodium (Chloride) 250 mls @ 250 mls/hr IV X1 ONE Stop: 05/16/24 11:14 Last Infusion: 05/16/24 13:07 Dose: Infused Meclizine HCl (Meclizine Hcl 25 Mg Tablet) 50 mg PO X1 ONE Stop: 05/16/24 06:00 Last Admin: 05/16/24 06:11 Dose: 50 mg Ondansetron HCl (Ondansetron Inj 2 Mg/Ml Inj 2 Ml) 4 mg IV X1 ONE; Protocol Stop: 05/16/24 06:00 Last Admin: 05/16/24 06:10 Dose: 4 mg Assessment & Plan Plan 58 y/o M with PMHx significant for ESRD (dialysis Friday), HTN, lwo-oitgpyf-almffggmy diabetes presents from SNF with chief complaint of altered mental status, admitted for hypertensive emergency. #Hypertensive emergency Patient presented with hypertension, 194/92 and signs of endorgan damage, headache and dizziness, troponin 0.048. Patient has history of hypertension treated with outpatient medications. Med rec's pending. Blood pressure has been steadily decreasing without active intervention. -Telemetry -Monitor BP closely, goal to decrease to normal range slowly -Trend troponin -Holding antihypertensives, to prevent rapid drop in BP -Hold home antihypertensives, consider resuming pending med rec's #CAP #Mild hypothermia #Acute hypoxic respiratory failure Patient has consolidation right lower lung field on chest x-ray. Increased O2 requirements, increased to 6 L/min via nasal cannula to maintain oxygen saturations greater than 95%. Patient has decreased temperature possibly related to infection, lowest 94.5, improved with Mitzy hugger. Leukocytes normal. Cocci negative, flu negative, COVID-negative. -Blood cultures pending, follow-up -Ceftriaxone 1 g IV daily (started 05/16) -Azithromycin 500 mg IV daily (started 05/16) -Bear hugger, hold if patient temp greater than 99 ?F -Closely monitor temp -O2 titrate as needed #ESRD Patient has history of ESRD, receives dialysis M/W/F with Dr. Tavera. -Nephro consulted -Dialysis as per patient's usual schedule #DM Patient history diabetes. Patient A1c 4.5% as of 07/22/2022. -ISS -A1c ordered, follow-up DVT prophylaxis: Heparin GI prophylaxis: None Diet: Cardiac/renal Lines: Peripheral IV Code status: Full code Plan of care discussed with senior resident Dr. Oswald, PGY?[address] Cheng. Jorden Mark MD PGY?1 Senior Resident Attestation: I discussed with and supervised the internet technology manager physician involved in the care of this patient. I personally saw and examined the patient and discussed the assessment and plan with the entire medicine team, including my attending. I agree with the assessment and plan as documented above. [ 58 y/o M with PMHx significant for ESRD (dialysis Friday), HTN, gas-nykxwre-szstzhnxf diabetes presents from SNF with chief complaint of altered mental status. Plan: HTN emergency with elevated trops, decreased BP 25% in 24 hrs. Monitor trops. PNA on rocephin and azithro, pending cultures. Neph consulted ] - Patient's care was discussed with my attending physician. Keith Oswald MD Internal Medicine PGY-3 Attending Provider Attestation/Addendum I have discussed and was present for the essential components of the history, physical examination, diagnosis, and treatment plan with the resident. I agree with the patient's care as documented by the resident and amended herein by me. Rigoberto Cheng DO.
--- NOTE | 2024-05-16 15:46 | PC.CC ---
Pt Mat Rodriguez is a 58 yr old male admitted to hospitalist services for hypertensive emergency, CAP, mild hyponatremia, Acute hypoxic respiratory failure, ESRD. ASW met with pt and his Roro Rodriguez [phone] to complete initial assessment. At time of encounter pt is noted to be alert and oriented to person, place and situation. Pt expressed understanding admission order. Pt and his able to confirm demographic information. Pt is from [facility], where has been for a month (+) following neuro spinal surgery at [facility]. Pt identifies his as surrogate DM. Currently in SNF setting pt utilizes a wheel chair to support ambulation. Pt requires some assist with completion of his ADLs. Pt is diabetic, not on home medications. Pt ordered insulin upon admission. Pt is on dialysis M,W, F @ 1000. Per pt while in SNF he is being transport by SNF transport. In the ED pt is on room air. Pt is followed by [facility] for primary care. At time of D/c pt will return to [facility] to complete short term stay. Pt will require transport back to SNF.
--- NOTE | 2024-05-16 17:30 | PC.NURSE ---
Patient arrived to unit via gurney. Patient awake, alert and oriented with partner at bedside.
--- NOTE | 2024-05-16 17:50 | PD.NEPHCONS ---
History of Present Illness Data of Consult Consult date: 05/16/24 Requesting Physician: Donnie Cheng DO Primary Care Provider: MARCELA Nunez Consult Narrative Reason for consult: ESRD History of present illness: Mr. Rodriguez is a 58-year-old gentleman with extensive past medical history of diabetes, hypertension, dyslipidemia, ESRD on hemodialysis Friday, Friday, Friday currently residing at rehab presented to the emergency department with altered level of consciousness and lethargy. Apparently patient had back surgery recently. He also had weight loss and is slowly recuperating in the last couple of weeks. Rehab sent him to ER. His is at bedside. Patient currently seems to be back to his baseline. Complains of headache, dizziness, nausea. Denies fevers, chills, chest pain, shortness of breath, abdominal pain. In the emergency department-influenza negative, COVID-negative, cocci negative. Troponin 0.048, potassium 5.2, BUN 22, creatinine 3.6, EGFR 19. Imaging significant for: Head CT unremarkable. Chest x-ray showed congestion, and right lower lobe lung consolidation. In ED patient had severe hypertension 190/92 and was hypothermic, lowest temperature recorded 94.5. Patient given Mitzy hugger, meclizine, ondansetron in the ED. Patient admitted with a diagnosis of pneumonia. Renal consultation requested for need for dialysis. cc:: cc: Donnie Cheng DO Review of Systems Review of Systems Narrative Review of Systems: CONSTITUTIONAL: Complaining of chills, fatigue, weight loss HEENT: Denies any visual disturbances or hearing problems. CARDIOVASCULAR: Patient denies any chest pain, shortness of breath, swelling in the lower extremities. PULMONARY: Patient denies any shortness of breath, cough. GASTROINTESTINAL: Patient denies any abdominal pain, constipation, nausea, vomiting, diarrhea. GENITOURINARY: Patient denies any urinary symptoms of burning or frequency or hematuria, denies any form in the urine. SKIN: Denies any rash. MUSCULOSKELETAL: Denies any muscular skeletal problems of joint pains. NEUROLOGICAL: Per custodial had altered mental status although currently he seems to be stable Past Medical History Past Medical History NEUROLOGIC: Negative Neurological Disorders or Seizures CARDIAC: Positive Hypercholesterolemia and Hypertension; Negative Cardiac Disorders or Congestive Heart Failure RESPIRATORY: Negative Chronic Obstructive Pulmonary Disease (COPD) or Asthma GASTROINTESTINAL: Negative Gastrointestinal Disorders GENITOURINARY: Positive Renal Disease and Dialysis MUSCULOSKELETAL: Negative Musculoskeletal Disorders ENT: Positive Cataracts ENDOCRINE: Positive Endocrine Disorders and Diabetes Mellitus Type 2; Negative Diabetes Mellitus Type 1 HEMATOLOGIC: Negative Blood Disorders or Sickle Cell Disease OTHER HISTORY: Positive Hospitalization and Blood Transfusions; Negative Autoimmune Disease, Shingles, Blood Transfusion Reaction, Anesthesia Reactions or Cancer Family History FAMILY HISTORY: Negative Family Psychiatric Problems, Family Respiratory Disorders, Family Cardiac Disorders, Family Gastrointestinal Problems, Family Cancer, Family Surgery or Family Anesthesia Reaction Social History SMOKING STATUS: Never smoker Past Medical History Comments PMH COMMENT: PMH: HTN, DM, ESRD PSH: Recent back surgery Allergies:?No known drug allergies Medications: Pending med rec's Meds Home Medications and Allergies Home Medications ?Medication ?Instructions ?Recorded ?Confirmed ?Type doxazosin 2 mg tablet 2 mg PO QDAY 08/15/22 09/04/23 History amlodipine 10 mg tablet 10 mg PO QDAY 09/04/23 09/04/23 History ezetimibe 10 mg tablet (Zetia) 10 mg PO QDAY 09/04/23 09/04/23 History furosemide 40 mg tablet 40 mg PO QAM 09/04/23 09/04/23 History hydralazine 100 mg tablet 100 mg PO TID 09/04/23 09/04/23 History linagliptin 5 mg tablet (Tradjenta) 5 mg PO QAM 09/04/23 09/04/23 History trazodone 50 mg tablet 50 mg PO QDAY PRN Insomnia 09/04/23 09/04/23 History vitamin B complex-vitamin C-folic 1 tab PO QDAY 09/04/23 09/04/23 History acid 0.8 mg tablet (Mena-Anil) Allergies Allergy/AdvReac Type Severity Reaction Status Date / Time No Known Allergies Allergy Verified 03/12/24 10:46 Exam Vital Signs Temp Pulse Resp BP Pulse Ox O2 Del Method O2 Flow Rate 36.8 C 64 18 151/86 H 97 Nasal Cannula 2 05/16/24 17:12 05/16/24 17:12 05/16/24 17:12 05/16/24 17:12 05/16/24 17:12 05/16/24 17:12 05/16/24 17:12 Narrative Exam GENERAL APPEARANCE: Patient currently seen in the emergency department. at bedside. NECK: Neck supple, no JVD or bruit CARDIOVASCULAR: Heart regular, no murmurs LUNGS/CHEST: Few rhonchi noted the bases ABDOMEN: Soft, nontender, nondistended. No masses. Normal bowel sounds. EXTREMITIES: No edema, clubbing or cyanosis. SKIN: Skin exam normal without any rashes + left arm AV fistula MUSCULOSKELETAL: Musculoskeletal exam normal PSYCHIATRIC: Normal mood, affect LYMPHATICS: No lymphadenopathy noted NEUROLOGICAL : No neurological deficits Results Labs 05/16/24 06:02 05/16/24 06:02 Labs: Short CBC 05/16/24 Range/Units 06:02 WBC 7.1 (3.8-10.6) Thou/mm3 Hgb 12.4 L (13.5-16.0) g/dL Hct 37.8 L (41.0-53.0) % Plt Count 110 L (140-440) Thou/mm3 BMP 05/16/24 06:02 Sodium 134 L Potassium 5.2 H Chloride 94 L Carbon Dioxide 29.9 BUN 22 Creatinine 3.6 H Glucose 220 H Calcium 8.5 Cardiac Enzymes 05/16/24 05/16/24 Range/Units 06:02 11:34 Troponin I 0.048 H* 0.048 H* (0.0-0.045) ng/mL Liver Function 05/16/24 Range/Units 06:02 Total Bilirubin 0.6 (0.3-1.2) mg/dL AST 84 H (0-34) U/L ALT 44 (10-49) U/L Alkaline Phosphatase 194 H (46-116) U/L Albumin 4.0 (3.5-5.0) gm/dL ABG Interpretation ABG results: 05/16/24 09:54 VBG pH 7.45 VBG pCO2 43 VBG pO2 114 H VBG Base Excess 5 H Assessment & Plan Assessment and plan (1) End stage chronic kidney disease: Status: Acute (2) Hypertension: Status: Acute (3) Hyperlipidemia: Status: Acute (4) Diabetes: Status: Acute (5) Renal osteodystrophy: Status: Acute (6) Bacterial pneumonia: Status: Acute Additional Assessment & Plan Additional Plan: (1) End stage chronic kidney disease: ?Status:?Acute ? ? ? 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 Next dialysis scheduled for a.m. (2) Hypertension: ?Status:?Acute ? ? ? Assessment and plan: On nicardipine, hydralazine, losartan (3) Hyperlipidemia: ?Status:?Acute ? ? ? Assessment and plan: Lipids check (4) Diabetes: ?Status:?Acute ? ? ? Assessment and plan: A1c check (5) Renal osteodystrophy: ?Status:?Acute ? ? ? Assessment and plan: On calcitriol at dialysis (6) pneumonia/hypoxia/AMS: ?Status:?Acute ? ? ? Assessment and plan: Continue with antibiotics and oxygen. Plan of care discussed with the , Dr. Cheng Thank you Rigoberto for allowing me to participate in the care of Mr. Rodriguez
[2024-05-16 18:28] LABS: Troponin I 0.057 ng/mL (0.0-0.045)
[2024-05-17] VITALS (31 sets, daily range): BP systolic 130–188; BP diastolic 68–92; PULSE 61–76; RESP 12–18; TEMP 36.2–37.2; O2SAT 92–98; BMI 22.6
[2024-05-17 06:22] LABS: Basophils # (Auto) 0.1 Thou/mm3 (0.0-0.2); Basophils % (Auto) 1 % (0-2.5); Eosinophils # (Auto) 0.4 Thou/mm3 (0.0-0.5); Eosinophils % (Auto) 6 % (0-10); Hematocrit 34.8 % (41.0-53.0); Hemoglobin 11.5 g/dL (13.5-16.0); Immature Granulocytes % (Auto) 0 % (0-0); Immature Granulocytes Auto 0.02 Thou/mm3 (0.00-0.00); Lymphocytes # (Auto) 0.9 Thou/mm3 (1.0-4.8); Lymphocytes % (Auto) 13 % (10-50); Mean Corpuscular Hemoglobin 31.9 pg (25.0-35.0); Mean Corpuscular Volume 97 fL (80-100); Monocytes # (Auto) 0.6 Thou/mm3 (0.0-0.8); Monocytes % (Auto) 8 % (0-12); Neutrophils # (Auto) 4.9 Thou/mm3 (1.8-7.7); Neutrophils % (Auto) 71 % (37-80); Nucleated Red Blood Cell % 0 /100 WBC (0); Platelet Count 121 Thou/mm3 (140-440); RDW Standard Deviation 44.6 fL (35.1-43.9); White Blood Count 6.9 Thou/mm3 (3.8-10.6)
[2024-05-17 06:23] LABS: INR 1.3 (0.9-1.3); Prothrombin Time 13.7 Seconds (9.0-12.2)
[2024-05-17 06:44] LABS: Glucose Estimated Average 128 mg/dL (80-131); Hemoglobin A1C 6.1 % Hgb (4.8-6.0)
[2024-05-17 07:21] LABS: Alanine Aminotransferase 26 U/L (10-49); Albumin, Serum 3.7 gm/dL (3.5-5.0); Albumin/Globulin Ratio 1.3 (1.2-2.2); Alkaline Phosphatase 176 U/L (46-116); Anion Gap 10 (7-16); Aspartate Amino Transferase 21 U/L (0-34); BUN/Creatinine Ratio 7 Ratio (12-20); Bilirubin,Total 0.4 mg/dL (0.3-1.2); Blood Urea Nitrogen 30 mg/dL (9-23); Calcium 8.9 mg/dL (8.3-10.6); Calcium (Corrected) 9.1 mg/dL (8.5-10.1); Carbon Dioxide 29.6 mMol/L (20.0-31.0); Cardiac Risk Estimate 2.6 RATIO (4.0-6.7); Chloride 96 mMol/L (98-107); Cholesterol 82 mg/dL (132-200); Creatinine (Component) 4.3 mg/dL (0.6-1.3); Globulin 2.9 gm/dL (2.3-3.5); Glucose 75 mg/dL (74-106); HDL Cholesterol 32 mg/dL (40-60); LDL Cholesterol,Calculated 39 mg/dL (0-130); Magnesium 1.8 mg/dL (1.6-2.6); Osmolality,Calculated 277 (275-295); Phosphorous 5.2 mg/dL (2.4-5.1); Potassium 3.9 mMol/L (3.4-5.1); Sodium 136 mMol/L (136-145); Thyroid Stimulating Hormone 1.27 uIU/mL (0.55-4.78); Total Protein 6.6 gm/dL (5.7-8.2); Triglycerides 55 mg/dL (30-150); eGFR 15 See Note
[2024-05-17] MEDS: SENNA TABLET 1 TAB PO (08:24)
[2024-05-17] MEDS: HEPARIN SOD INJ 5000 UNIT/ML VIAL SC ×2 (08:24→21:01)
[2024-05-17] MEDS: cefTRIAXone/D5w 1gm IV premix 50 ML IV (08:24)
[2024-05-17] MEDS: POLYETHYLENE GLYCOL 17 GM PACKET PO (08:24)
[2024-05-17] MEDS: amLODIPine BESYLATE 5 MG TABLET 10 MG PO (08:24)
[2024-05-17] MEDS: Furosemide 40 MG TABLET PO (08:25)
--- NOTE | 2024-05-17 09:02 | PD.RESPRO ---
Documentation for date of: 05/17/24 Subjective Subjective Interval history: Mat Rodriguez is a 58-year-old gentleman with extensive past medical history of diabetes, hypertension, dyslipidemia, ESRD (HD M, W, F) currently residing at rehab presented to the emergency department with altered level of consciousness and lethargy. Apparently patient had recent back surgery with associated weight loss and is slowly recuperating for the last couple weeks and his rehab facility sent him to the ER. Also endorses headache, dizziness, nausea. Denies fever, chills, chest pain, shortness of breath, abdominal pain. In ED, vital signs showed severe hypertension 190/92 and hypothermia (low of 94.5 ?F). Influenza negative, COVID-negative, cocci negative. Troponin 0.048, K 5.2, BUN 22, Cr 3.6, GFR 19. CT head unremarkable, CXR showed congestion and RLL lung consolidation. Given. However, meclizine, ondansetron. Admitted for pneumonia and nephrology consulted for need for dialysis. 05/17: Patient seen and examined at bedside in telemetry. No acute overnight events. Labs reviewed and patient scheduled for hemodialysis today with removal of 1 to 1.5 L. Exam Vital Signs Temp Pulse Resp BP Pulse Ox O2 Del Method O2 Flow Rate 97.5 F 66 18 169/82 H 96 Nasal Cannula 1 05/17/24 04:00 05/17/24 08:25 05/17/24 06:51 05/17/24 08:25 05/17/24 06:51 05/17/24 04:00 05/17/24 06:51 Narrative Exam General: AOx3, no acute distress, able to speak full sentences HEENT: NC/AT, mucous membranes moist, bilateral sclera anicteric Cardiovascular: regular rate and rhythm, S1/S2 present, no murmurs appreciated Pulmonary: mild crackles at bases Abdominal: soft, non-tender, non-distended, no rebound/guarding, normal bowel sounds present Musculoskeletal: normal ROM, no peripheral edema Skin: warm and dry, intact, no rashes Objective Labs 05/18/24 04:33 05/18/24 04:33 Labs: Laboratory Results - last 24 hr 05/16/24 05/16/24 05/16/24 09:54 11:34 17:46 WBC RBC Hgb Hct MCV MCH MCHC RDW Std Deviation Plt Count Neut % (Auto) Lymph % (Auto) [place] % (Auto) Eos % (Auto) Baso % (Auto) Neut # (Auto) Lymph # (Auto) [place] # (Auto) Eos # (Auto) Baso # (Auto) Immature Gran # (Auto) Absolute Nucleated RBC Immature Gran % Nucleated RBC % PT INR APTT VBG pH 7.45 VBG pCO2 43 VBG pO2 114 H VBG O2 Sat (Kamran) 100 H VBG Base Excess 5 H Sodium Potassium Chloride Carbon Dioxide Anion Gap BUN Creatinine Estim Creat Clear Calc eGFR BUN/Creatinine Ratio Glucose Estimated Ave Glu mg/dL Hemoglobin A1c Calculated Osmolality Calcium Corrected Calcium Phosphorus Magnesium Total Bilirubin AST ALT Alkaline Phosphatase Troponin I 0.048 H* 0.057 H* Total Protein Albumin Globulin Albumin/Globulin Ratio Triglycerides Cholesterol LDL Cholesterol, Calc HDL Cholesterol Cholesterol/HDL Ratio TSH Coccidioides IgM Ab Negative 05/17/24 05:40 WBC 6.9 RBC 3.60 L Hgb 11.5 L Hct 34.8 L MCV 97 MCH 31.9 MCHC 33.0 RDW Std Deviation 44.6 H Plt Count 121 L Neut % (Auto) 71 Lymph % (Auto) 13 [place] % (Auto) 8 Eos % (Auto) 6 Baso % (Auto) 1 Neut # (Auto) 4.9 Lymph # (Auto) 0.9 L [place] # (Auto) 0.6 Eos # (Auto) 0.4 Baso # (Auto) 0.1 Immature Gran # (Auto) 0.02 H Absolute Nucleated RBC 0.00 Immature Gran % 0 Nucleated RBC % 0 PT 13.7 H INR 1.3 APTT 30.0 VBG pH VBG pCO2 VBG pO2 VBG O2 Sat (Kamran) VBG Base Excess Sodium 136 Potassium 3.9 D Chloride 96 L Carbon Dioxide 29.6 Anion Gap 10 BUN 30 H Creatinine 4.3 H* D Estim Creat Clear Calc 17.0 L eGFR 15 L BUN/Creatinine Ratio 7 L Glucose [address] Glu mg/dL 128 Hemoglobin A1c 6.1 H Calculated Osmolality 277 Calcium 8.9 Corrected Calcium 9.1 Phosphorus 5.2 H Magnesium 1.8 Total Bilirubin 0.4 AST 21 ALT 26 Alkaline Phosphatase 176 H Troponin I Total Protein 6.6 Albumin 3.7 Globulin 2.9 Albumin/Globulin Ratio 1.3 Triglycerides 55 Cholesterol 82 L LDL Cholesterol, Calc 39 HDL Cholesterol 32 L Cholesterol/HDL Ratio 2.6 L TSH 1.27 Coccidioides IgM Ab ABG Interpretation ABG results: 05/16/24 09:54 VBG pH 7.45 VBG pCO2 43 VBG pO2 114 H VBG Base Excess 5 H Quality Measures Quality Measures VTE prophylaxis Assessment & Plan Assessment Current Active Medications: Generic Name Dose Route Start Last Admin Trade Name Freq PRN Reason Stop Dose Admin Acetaminophen 650 mg 05/16/24 08:51 Acetaminophen 325 Mg Tablet PO 06/15/24 08:45 Q6H PRN Fever >100.4 or pain(1-3) Amlodipine Besylate 10 mg 05/17/24 09:00 05/17/24 08:24 Amlodipine Besylate 5 Mg Tablet PO 06/16/24 08:59 10 mg QDAY LONI Administration Dextrose 25 ml 05/16/24 08:54 Dextrose 50%-Water Inj 50 Ml Syringe IV 06/15/24 08:53 Q15MIN PRN BG 50-70 responsive npo pt Dextrose 50 ml 05/16/24 08:54 Dextrose 50%-Water Inj 50 Ml Syringe IV 06/15/24 08:53 Q15MIN PRN BG <50 OR BG <70 & pt unresponsive Furosemide 40 mg 05/17/24 09:00 05/17/24 08:25 Furosemide 40 Mg Tablet PO 06/16/24 08:59 40 mg QDAY LONI Administration Glucagon 1 mg 05/16/24 08:54 Glucagon Inj 1 Mg Vial IM Q15MIN PRN BG <70, and no IV access Heparin Sodium (Porcine) 5,000 unit 05/16/24 09:00 05/17/24 08:24 Heparin Sod Inj 5000 Unit/Ml Vial SC 05/30/24 08:59 5,000 unit Q12HR LONI Administration Hydralazine HCl 100 mg 05/17/24 10:00 Hydralazine Hcl 25 Mg Tablet PO 06/16/24 09:59 TID LONI Hydromorphone HCl 1 mg 05/16/24 08:46 05/16/24 17:07 Hydromorphone Inj 2 Mg/Ml Vial IVP 05/21/24 08:45 1 mg Q2H PRN Administration BREAKTHROUGH PAIN (SEVERE) Azithromycin 500 mg/ Sodium 250 mls @ 250 mls/hr 05/17/24 09:00 Chloride IV 05/24/24 08:59 QDAY LONI Ceftriaxone Sodium/Dextrose 50 mls @ 100 mls/hr 05/16/24 10:00 05/17/24 08:24 Rocephin/D5w 1gm Iv Premix IV 05/23/24 09:59 100 mls/hr QDAY LONI Administration Insulin Human Lispro 0 unit 05/16/24 11:30 05/17/24 07:19 Insulin Lispro (Admelog) 1 Unit/0.01 Ml Unit SC 06/15/24 11:29 Not Given AC LONI Protocol Ondansetron HCl 4 mg 05/16/24 08:46 05/16/24 11:05 Ondansetron Inj 2 Mg/Ml Inj 2 Ml IV 06/15/24 08:45 4 mg Q6H PRN Administration NAUSEA OR VOMITING Protocol Pharmacy Consult 1 each 05/16/24 10:53 Pharmacy Renal Dose Adjustment 1 Ea XX 06/15/24 10:52 PRN PRN CONSULT Polyethylene Glycol 17 gm 05/17/24 09:00 05/17/24 08:24 Polyethylene Glycol 17 Gm Packet PO 06/16/24 08:59 17 gm QDAY LONI Administration Sennosides 1 tab 05/17/24 09:00 05/17/24 08:24 Senna Tablet PO 06/16/24 08:59 1 tab QDAY LONI Administration Protocol Tramadol HCl 50 mg 05/16/24 10:55 Tramadol Hcl 50 Mg Tablet PO 05/21/24 10:54 Q4HR PRN PAIN SCALE 4-10(Mod-Sev Plan Mat Rodriguez is a 58-year-old gentleman with extensive past medical history of diabetes, hypertension, dyslipidemia, ESRD (HD M, W, F) currently residing at rehab presented to the emergency department with altered level of consciousness and lethargy. Apparently patient had recent back surgery with associated weight loss and is slowly recuperating for the last couple weeks and his rehab facility sent him to the ER. Also endorses headache, dizziness, nausea. Denies fever, chills, chest pain, shortness of breath, abdominal pain. Admitted for pneumonia and nephrology consulted for need for dialysis. #ESRD (HD on M, W, F) secondary to diabetic/hypertensive nephrosclerosis ? Hemodialysis today with removal of 1 to 1.5 L ? Will follow-up outpatient dialysis regimen #Renal osteodystrophy ? On calcitriol during dialysis #Hypertension On nicardipine, hydralazine, losartan #Hyperlipidemia #Diabetes mellitus #Pneumonia #Altered mental status ? Continue management per primary team ----- Plan discussed with attending physician Dr. Liang Garcia MD PGY-1 Internal Medicine Attending Provider Attestation/Addendum Patient seen and examined with resident physician Dr. Griffin. Note reviewed, agree with findings and recommendations. Patient currently seen on dialysis. Tolerating dialysis without any problems. Hemodialysis for 3 hours, 2K, ultrafiltration 2L, Epogen 6000, no heparin ordered. Plan of care discussed with the dialysis nurse. Please see dialysis flowsheet for further details.
--- NOTE | 2024-05-17 09:11 | PC.NURSE ---
Patient transported to dialysis via bed. Patient awake, alert and oriented with no signs of acute distress.
[2024-05-17 09:59] LABS: Troponin I 0.056 ng/mL (0.0-0.045)
--- NOTE | 2024-05-17 11:17 | PC.NURSE ---
[facility] contact regarding medication list for patient. Patient is not aware of what medications he is taking. Per Lydia at [facility] she will fax medication list over.
--- NOTE | 2024-05-17 12:49 | PC.NURSE ---
Dialysis completed for 3 hrs, tolerated well. Pt australian speaking awake, A/O x4, no complaint of pain. Respiration even and unlabored sating at 95% on O2 at 2L/min via nc. Able to removed 2000 ml of fluid net. Post tx BP 180/92, HR 71, Temp 97.2. Pressure dressing on left upper arm AV fistula clean/dry/intact. No bleeding noted. Pressure dressing to be remove at 1500. Report given to Trixie SHEFFIELD
--- NOTE | 2024-05-17 12:58 | PC.NURSE ---
Patient arrived back to room from dialysis.
[2024-05-17 13:18] LABS: Cocci Serology, IgG Negative (Negative)
[2024-05-17] MEDS: AZITHROMYCIN INJ 500 MG in SODIUM CHLORIDE 0.9% 250 ML 250 ML 250 MG IV (13:24)
[2024-05-17] MEDS: hydrALAZINE HCL 25 MG TABLET 100 MG PO ×2 (13:27→21:00)
[2024-05-17] MEDS: cloNIDine HCL 0.1 MG TABLET PO (14:05)
--- NOTE | 2024-05-17 14:06 | PC.SS ---
Rounding note; Cultures pending, BP being managed.
--- NOTE | 2024-05-17 14:20 | ESPR_ITS ---
<Statement entered by Skyler Wilson MD - 05/17/24 16:48> Patient was seen and examined at the bedside. Patient reported that he was feeling dizzy however had no active concerns. Patient receiving with dialysis per schedule. Will continue with ceftriaxone and azithromycin and await on blood cultures. Blood pressure this morning was elevated therefore hydralazine 100 mg 3 times daily was restarted. Rest of the labs were unremarkable. Kidney functions are consistent with ESRD. A1c 6.1. Will continue with current management and follow-up on cultures tomorrow morning. Anticipate discharge tomorrow. All labs and orders were reviewed. I saw and examined the patient, and I agree with current management stated by Dr Deedee MD,PGY1. Plan of care was discussed with the attending physician and resident physician. Disclaimer: Despite multiple revisions, due to the dictation software being used, the document bellow may not be free of grammatical errors including phonetic/typographic errors. However, this does not deter from our commitment to providing health care in the patient's best interest in mind. Dr. Katie MD, PGY 2 Documentation for date of: 05/17/24 Subjective Subjective Interval history: No overnight events. Patient seen and examined during dialysis. Patient resting comfortably. Alert, denies headache, chest pain, SOB. Resume patients home BP meds for better HTN control. Exam Vital Signs Temp Pulse Resp BP Pulse Ox O2 Del Method O2 Flow Rate 98.1 F 76 17 150/79 H 98 Nasal Cannula 2 05/17/24 12:55 05/17/24 14:05 05/17/24 12:55 05/17/24 14:05 05/17/24 12:55 05/17/24 12:55 05/17/24 12:55 Narrative Exam PE: Gen: Well-developed and well-nourished. HEENT: NCAT, PERRLA, EOMI, MMM, anicteric conjunctivae. CVS: normal S1 and S2. RRR. No M/R/G. Resp: CTA B/L. No rhonchi, rales, crackles or wheezing. Abd: soft, non-tender, non-distended. MSK: Good ROM in BUE & BLE. No edema or rash. Scar midline, upper back. Neuro: CN II-XII grossly intact. Strength 5/5 in BUE & BLE. Alert and oriented x3. Psych: appropriate mood and affect. Objective Labs 05/17/24 05:40 05/17/24 05:40 Labs: Laboratory Results - last 24 hr 05/16/24 05/16/24 05/17/24 11:34 17:46 05:40 WBC 6.9 RBC 3.60 L Hgb 11.5 L Hct 34.8 L MCV 97 MCH 31.9 MCHC 33.0 RDW Std Deviation 44.6 H Plt Count 121 L Neut % (Auto) 71 Lymph % (Auto) 13 [place] % (Auto) 8 Eos % (Auto) 6 Baso % (Auto) 1 Neut # (Auto) 4.9 Lymph # (Auto) 0.9 L [place] # (Auto) 0.6 Eos # (Auto) 0.4 Baso # (Auto) 0.1 Immature Gran # (Auto) 0.02 H Absolute Nucleated RBC 0.00 Immature Gran % 0 Nucleated RBC % 0 PT 13.7 H INR 1.3 APTT 30.0 Sodium 136 Potassium 3.9 D Chloride 96 L Carbon Dioxide 29.6 Anion Gap 10 BUN 30 H Creatinine 4.3 H* D Estim Creat Clear Calc 17.0 L eGFR 15 L BUN/Creatinine Ratio 7 L Glucose [address] Glu mg/dL 128 Hemoglobin A1c 6.1 H Calculated Osmolality 277 Calcium 8.9 Corrected Calcium 9.1 Phosphorus 5.2 H Magnesium 1.8 Total Bilirubin 0.4 AST 21 ALT 26 Alkaline Phosphatase 176 H Troponin I 0.057 H* Total Protein 6.6 Albumin 3.7 Globulin 2.9 Albumin/Globulin Ratio 1.3 Triglycerides 55 Cholesterol 82 L LDL Cholesterol, Calc 39 HDL Cholesterol 32 L Cholesterol/HDL Ratio 2.6 L TSH 1.27 Coccidioides IgG Ab Negative Coccidioides IgM Ab Negative 05/17/24 09:26 WBC RBC Hgb Hct MCV MCH MCHC RDW Std Deviation Plt Count Neut % (Auto) Lymph % (Auto) [place] % (Auto) Eos % (Auto) Baso % (Auto) Neut # (Auto) Lymph # (Auto) [place] # (Auto) Eos # (Auto) Baso # (Auto) Immature Gran # (Auto) Absolute Nucleated RBC Immature Gran % Nucleated RBC % PT INR APTT Sodium Potassium Chloride Carbon Dioxide Anion Gap BUN Creatinine Estim Creat Clear Calc eGFR BUN/Creatinine Ratio Glucose Estimated Ave Glu mg/dL Hemoglobin A1c Calculated Osmolality Calcium Corrected Calcium Phosphorus Magnesium Total Bilirubin AST ALT Alkaline Phosphatase Troponin I 0.056 H* Total Protein Albumin Globulin Albumin/Globulin Ratio Triglycerides Cholesterol LDL Cholesterol, Calc HDL Cholesterol Cholesterol/HDL Ratio TSH Coccidioides IgG Ab Coccidioides IgM Ab ABG Interpretation ABG results: 05/16/24 09:54 VBG pH 7.45 VBG pCO2 43 VBG pO2 114 H VBG Base Excess 5 H Quality Measures Quality Measures VTE prophylaxis Assessment & Plan Assessment Current Active Medications: Generic Name Dose Route Start Last Admin Trade Name Freq PRN Reason Stop Dose Admin Acetaminophen 650 mg 05/16/24 08:51 Acetaminophen 325 Mg Tablet PO 06/15/24 08:45 Q6H PRN Fever >100.4 or pain(1-3) Amlodipine Besylate 10 mg 05/17/24 09:00 05/17/24 08:24 Amlodipine Besylate 5 Mg Tablet PO 06/16/24 08:59 10 mg QDAY LONI Administration Clonidine 0.1 mg 05/17/24 13:30 05/17/24 14:05 Clonidine Hcl 0.1 Mg Tablet PO 06/16/24 13:29 0.1 mg DAILY LONI Administration Dextrose 25 ml 05/16/24 08:54 Dextrose 50%-Water Inj 50 Ml Syringe IV 06/15/24 08:53 Q15MIN PRN BG 50-70 responsive npo pt Dextrose 50 ml 05/16/24 08:54 Dextrose 50%-Water Inj 50 Ml Syringe IV 06/15/24 08:53 Q15MIN PRN BG <50 OR BG <70 & pt unresponsive Doxazosin Mesylate 2 mg 05/17/24 21:00 Doxazosin Mesylate 2 Mg Tablet PO 06/16/24 20:59 HS LONI Furosemide 40 mg 05/17/24 09:00 05/17/24 08:25 Furosemide 40 Mg Tablet PO 06/16/24 08:59 40 mg QDAY LONI Administration Glucagon 1 mg 05/16/24 08:54 Glucagon Inj 1 Mg Vial IM Q15MIN PRN BG <70, and no IV access Heparin Sodium (Porcine) 5,000 unit 05/16/24 09:00 05/17/24 08:24 Heparin Sod Inj 5000 Unit/Ml Vial SC 05/30/24 08:59 5,000 unit Q12HR LONI Administration Hydralazine HCl 100 mg 05/17/24 10:00 05/17/24 13:27 Hydralazine Hcl 25 Mg Tablet PO 06/16/24 09:59 100 mg TID LONI Administration Hydromorphone HCl 1 mg 05/16/24 08:46 05/16/24 17:07 Hydromorphone Inj 2 Mg/Ml Vial IVP 05/21/24 08:45 1 mg Q2H PRN Administration BREAKTHROUGH PAIN (SEVERE) Azithromycin 500 mg/ Sodium 250 mls @ 250 mls/hr 05/17/24 09:00 05/17/24 13:24 Chloride IV 05/24/24 08:59 250 mls/hr QDAY LONI Administration Ceftriaxone Sodium/Dextrose 50 mls @ 100 mls/hr 05/16/24 10:00 05/17/24 08:24 Rocephin/D5w 1gm Iv Premix IV 05/23/24 09:59 100 mls/hr QDAY LONI Administration Insulin Human Lispro 0 unit 05/16/24 11:30 05/17/24 13:17 Insulin Lispro (Admelog) 1 Unit/0.01 Ml Unit SC 06/15/24 11:29 Not Given AC LONI Protocol Ondansetron HCl 4 mg 05/16/24 08:46 05/16/24 11:05 Ondansetron Inj 2 Mg/Ml Inj 2 Ml IV 06/15/24 08:45 4 mg Q6H PRN Administration NAUSEA OR VOMITING Protocol Pharmacy Consult 1 each 05/16/24 10:53 Pharmacy Renal Dose Adjustment 1 Ea XX 06/15/24 10:52 PRN PRN CONSULT Polyethylene Glycol 17 gm 05/17/24 09:00 05/17/24 08:24 Polyethylene Glycol 17 Gm Packet PO 06/16/24 08:59 17 gm QDAY LONI Administration Sennosides 1 tab 05/17/24 09:00 05/17/24 08:24 Senna Tablet PO 06/16/24 08:59 1 tab QDAY LONI Administration Protocol Tramadol HCl 50 mg 05/17/24 09:49 Tramadol Hcl 50 Mg Tablet PO 05/22/24 09:48 BID PRN PAIN SCALE 4-10(Mod-Sev Protocol Plan 58 y/o M with PMHx significant for ESRD (dialysis Friday), HTN, [id number] diabetes presents from SNF with chief complaint of altered mental status, admitted for hypertensive emergency. #Hypertensive emergency, improving #Hypertensive encephalopathy, resolved #NSTEMI Type 2, Patient presented with hypertension, 194/92 and signs of end-organ damage, headache and dizziness, troponin 0.048. Patient has history of hypertension treated with outpatient medications. Med rec's pending. Blood pressure has been steadily decreasing without active intervention. Neuro symptoms resolved as BP decreased. Home BP meds resumed. Troponin peaked at 0.057 -Telemetry -Monitor BP closely -Holding antihypertensives, to prevent rapid drop in BP -Hold home antihypertensives, consider resuming pending med rec's #CAP #Mild hypothermia, resolved #Acute hypoxic respiratory failure, resolved Patient has consolidation right lower lung field on chest x-ray. Increased O2 requirements, increased to 6 L/min via nasal cannula to maintain oxygen saturations greater than 95%. Patient has decreased temperature possibly related to infection, lowest 94.5, improved with Mitzy hugger. Leukocytes normal. Cocci negative, flu negative, COVID-negative. -Blood cultures pending, follow-up -Ceftriaxone 1 g IV daily (started 05/16) -Azithromycin 500 mg IV daily (started 05/16) -Bear hugger, hold if patient temp greater than 99 ?F -Closely monitor temp -O2 titrate as needed #ESRD Patient has history of ESRD, receives dialysis M/W/F with Dr. Tavera. -Nephro consulted -Dialysis as per patient's usual schedule #DM Patient history diabetes. Patient A1c 4.5% on 07/22/2022, 6.1% as of 05/16/24. -ISS DVT prophylaxis: Heparin GI prophylaxis: None Diet: Cardiac/renal Lines: Peripheral IV Code status: Full code Plan of care discussed with senior resident Dr. Wilson PGY-[address] Cheng. Jorden Mark MD PGY?1 Attending Provider Attestation/Addendum I have discussed and was present for the essential components of the history, physical examination, diagnosis, and treatment plan with the resident. I agree with the patient's care as documented by the resident and amended herein by me. Rigoberto Cheng DO.
[2024-05-17 14:42] LABS: Troponin I 0.048 ng/mL (0.0-0.045)
[2024-05-17] MEDS: INSULIN LISPRO (AdmeLOG) 1 UNIT/0.01 ML UNIT SC (17:19)
[2024-05-17 19:27] LABS: Hepatitis A Antibody IgM Non Reactive (Non React); Hepatitis B Core Antibody IgM Non Reactive (Non React); Hepatitis B Surface Ab Reactive (Immune) (Immune); Hepatitis B Surface Antigen Non Reactive (Non React); Hepatitis C Antibody Non Reactive (Non React)
[2024-05-17 20:44] LABS: Troponin I 0.046 ng/mL (0.0-0.045)
[2024-05-17] MEDS: DOXAZOSIN MESYLATE 2 MG TABLET PO (21:01)
[2024-05-18] VITALS (14 sets, daily range): BP systolic 127–162; BP diastolic 59–79; PULSE 62–72; RESP 14–82; TEMP 36.1–36.6; O2SAT 91–97; BMI 22.2
[2024-05-18] MEDS: hydrALAZINE HCL 25 MG TABLET 100 MG PO ×3 (05:12→21:31)
[2024-05-18 05:57] LABS: Basophils # (Auto) 0.1 Thou/mm3 (0.0-0.2); Basophils % (Auto) 1 % (0-2.5); Eosinophils # (Auto) 0.6 Thou/mm3 (0.0-0.5); Eosinophils % (Auto) 8 % (0-10); Hematocrit 32.2 % (41.0-53.0); Hemoglobin 10.6 g/dL (13.5-16.0); Immature Granulocytes % (Auto) 0 % (0-0); Immature Granulocytes Auto 0.03 Thou/mm3 (0.00-0.00); Lymphocytes % (Auto) 14 % (10-50); Mean Corpuscular HGB Conc 32.9 g/dl (31.0-37.0); Mean Corpuscular Hemoglobin 31.9 pg (25.0-35.0); Mean Corpuscular Volume 97 fL (80-100); Monocytes # (Auto) 0.5 Thou/mm3 (0.0-0.8); Monocytes % (Auto) 8 % (0-12); Neutrophils # (Auto) 4.7 Thou/mm3 (1.8-7.7); Neutrophils % (Auto) 68 % (37-80); Nucleated Red Blood Cell % 0 /100 WBC (0); Platelet Count 119 Thou/mm3 (140-440); RDW Standard Deviation 44.9 fL (35.1-43.9); Red Blood Count 3.32 Miln/mm3 (4.50-5.90); White Blood Count 6.9 Thou/mm3 (3.8-10.6)
[2024-05-18 06:52] LABS: Alanine Aminotransferase 21 U/L (10-49); Albumin, Serum 3.6 gm/dL (3.5-5.0); Albumin/Globulin Ratio 1.3 (1.2-2.2); Alkaline Phosphatase 166 U/L (46-116); Anion Gap 9 (7-16); Aspartate Amino Transferase 21 U/L (0-34); BUN/Creatinine Ratio 7 Ratio (12-20); Bilirubin,Total 0.4 mg/dL (0.3-1.2); Blood Urea Nitrogen 21 mg/dL (9-23); Calcium 8.8 mg/dL (8.3-10.6); Calcium (Corrected) 9.1 mg/dL (8.5-10.1); Carbon Dioxide 29.7 mMol/L (20.0-31.0); Chloride 97 mMol/L (98-107); Creatinine (Component) 3.1 mg/dL (0.6-1.3); Estimated Creatinine Clearance 23.2 mL/min (>60); Globulin 2.7 gm/dL (2.3-3.5); Glucose 76 mg/dL (74-106); Magnesium 1.8 mg/dL (1.6-2.6); Osmolality,Calculated 273 (275-295); Phosphorous 3.5 mg/dL (2.4-5.1); Potassium 3.8 mMol/L (3.4-5.1); Sodium 136 mMol/L (136-145); Total Protein 6.3 gm/dL (5.7-8.2); eGFR 23 See Note
--- NOTE | 2024-05-18 08:45 | PD.RESPRO ---
Documentation for date of: 05/18/24 Subjective Subjective Interval history: Mat Rodriguez is a 58-year-old gentleman with extensive past medical history of diabetes, hypertension, dyslipidemia, ESRD (HD M, W, F) currently residing at rehab presented to the emergency department with altered level of consciousness and lethargy. Apparently patient had recent back surgery with associated weight loss and is slowly recuperating for the last couple weeks and his rehab facility sent him to the ER. Also endorses headache, dizziness, nausea. Denies fever, chills, chest pain, shortness of breath, abdominal pain. In ED, vital signs showed severe hypertension 190/92 and hypothermia (low of 94.5 ?F). Influenza negative, COVID-negative, cocci negative. Troponin 0.048, K 5.2, BUN 22, Cr 3.6, GFR 19. CT head unremarkable, CXR showed congestion and RLL lung consolidation. Given. However, meclizine, ondansetron. Admitted for pneumonia and nephrology consulted for need for dialysis. 05/17: Patient seen and examined at bedside in telemetry. No acute overnight events. Labs reviewed and patient scheduled for hemodialysis today with removal of 1 to 1.5 L. 05/18: Patient seen and examined at bedside in telemetry. No acute overnight events. Labs and medications reviewed. Underwent dialysis yesterday and tolerated well. Next session planned for Friday if patient remains in-house. Otherwise, patient stable for discharge from nephrology standpoint. Exam Vital Signs Temp Pulse Resp BP Pulse Ox O2 Del Method O2 Flow Rate 97.8 F 65 19 153/79 H 94 L Nasal Cannula 1 05/18/24 08:00 05/18/24 08:00 05/18/24 08:00 05/18/24 08:00 05/18/24 08:00 05/18/24 08:00 05/18/24 08:00 Narrative Exam General: AOx3, no acute distress, able to speak full sentences HEENT: NC/AT, mucous membranes moist, bilateral sclera anicteric Cardiovascular: regular rate and rhythm, S1/S2 present, no murmurs appreciated Pulmonary: mild crackles at bases Abdominal: soft, non-tender, non-distended, no rebound/guarding, normal bowel sounds present Musculoskeletal: normal ROM, no peripheral edema Skin: warm and dry, intact, no rashes Objective Labs 05/18/24 04:33 05/18/24 04:33 Labs: Laboratory Results - last 24 hr 05/16/24 05/17/24 05/17/24 11:34 09:26 13:52 WBC RBC Hgb Hct MCV MCH MCHC RDW Std Deviation Plt Count Neut % (Auto) Lymph % (Auto) [place] % (Auto) Eos % (Auto) Baso % (Auto) Neut # (Auto) Lymph # (Auto) [place] # (Auto) Eos # (Auto) Baso # (Auto) Immature Gran # (Auto) Absolute Nucleated RBC Immature Gran % Nucleated RBC % Sodium Potassium Chloride Carbon Dioxide Anion Gap BUN Creatinine Estim Creat Clear Calc eGFR BUN/Creatinine Ratio Glucose Calculated Osmolality Calcium Corrected Calcium Phosphorus Magnesium Total Bilirubin AST ALT Alkaline Phosphatase Troponin I 0.056 H* 0.048 H* Total Protein Albumin Globulin Albumin/Globulin Ratio Coccidioides IgG Ab Negative Hepatitis A IgM Ab Non Reactive Hep Bs Antigen Non Reactive Hep Bs Antibody Reactive (Immune) Hep B Core IgM Ab Non Reactive Hepatitis C Antibody Non Reactive 05/17/24 05/18/24 20:13 04:33 WBC 6.9 RBC 3.32 L Hgb 10.6 L Hct 32.2 L MCV 97 MCH 31.9 MCHC 32.9 RDW Std Deviation 44.9 H Plt Count 119 L Neut % (Auto) 68 Lymph % (Auto) 14 [place] % (Auto) 8 Eos % (Auto) 8 Baso % (Auto) 1 Neut # (Auto) 4.7 Lymph # (Auto) 1.0 [place] # (Auto) 0.5 Eos # (Auto) 0.6 H Baso # (Auto) 0.1 Immature Gran # (Auto) 0.03 H Absolute Nucleated RBC 0.00 Immature Gran % 0 Nucleated RBC % 0 Sodium 136 Potassium 3.8 Chloride 97 L Carbon Dioxide 29.7 Anion Gap 9 BUN 21 Creatinine 3.1 H D Estim Creat Clear Calc 23.2 L eGFR 23 L BUN/Creatinine Ratio 7 L Glucose 76 Calculated Osmolality 273 L Calcium 8.8 Corrected Calcium 9.1 Phosphorus 3.5 Magnesium 1.8 Total Bilirubin 0.4 AST 21 ALT 21 Alkaline Phosphatase 166 H Troponin I 0.046 H* Total Protein 6.3 Albumin 3.6 Globulin 2.7 Albumin/Globulin Ratio 1.3 Coccidioides IgG Ab Hepatitis A IgM Ab Hep Bs Antigen Hep Bs Antibody Hep B Core IgM Ab Hepatitis C Antibody ABG Interpretation ABG results: 05/16/24 09:54 VBG pH 7.45 VBG pCO2 43 VBG pO2 114 H VBG Base Excess 5 H Quality Measures Quality Measures VTE prophylaxis Assessment & Plan Assessment Current Active Medications: Generic Name Dose Route Start Last Admin Trade Name Johnq PRN Reason Stop Dose Admin Acetaminophen 650 mg 05/16/24 08:51 Acetaminophen 325 Mg Tablet PO 06/15/24 08:45 Q6H PRN Fever >100.4 or pain(1-3) Amlodipine Besylate 10 mg 05/17/24 09:00 05/17/24 08:24 Amlodipine Besylate 5 Mg Tablet PO 06/16/24 08:59 10 mg QDAY LONI Administration Clonidine 0.1 mg 05/17/24 13:30 05/17/24 14:05 Clonidine Hcl 0.1 Mg Tablet PO 06/16/24 13:29 0.1 mg DAILY LONI Administration Dextrose 25 ml 05/16/24 08:54 Dextrose 50%-Water Inj 50 Ml Syringe IV 06/15/24 08:53 Q15MIN PRN BG 50-70 responsive npo pt Dextrose 50 ml 05/16/24 08:54 Dextrose 50%-Water Inj 50 Ml Syringe IV 06/15/24 08:53 Q15MIN PRN BG <50 OR BG <70 & pt unresponsive Doxazosin Mesylate 2 mg 05/17/24 21:00 05/17/24 21:01 Doxazosin Mesylate 2 Mg Tablet PO 06/16/24 20:59 2 mg HS LONI Administration Furosemide 40 mg 05/17/24 09:00 05/17/24 08:25 Furosemide 40 Mg Tablet PO 06/16/24 08:59 40 mg QDAY LONI Administration Glucagon 1 mg 05/16/24 08:54 Glucagon Inj 1 Mg Vial IM Q15MIN PRN BG <70, and no IV access Heparin Sodium (Porcine) 5,000 unit 05/16/24 09:00 05/17/24 21:01 Heparin Sod Inj 5000 Unit/Ml Vial SC 05/30/24 08:59 5,000 unit Q12HR LONI Administration Hydralazine HCl 100 mg 05/17/24 10:00 05/18/24 05:12 Hydralazine Hcl 25 Mg Tablet PO 06/16/24 09:59 100 mg TID LONI Administration Hydromorphone HCl 1 mg 05/16/24 08:46 05/16/24 17:07 Hydromorphone Inj 2 Mg/Ml Vial IVP 05/21/24 08:45 1 mg Q2H PRN Administration BREAKTHROUGH PAIN (SEVERE) Azithromycin 500 mg/ Sodium 250 mls @ 250 mls/hr 05/17/24 09:00 05/17/24 13:24 Chloride IV 05/24/24 08:59 250 mls/hr QDAY LONI Administration Ceftriaxone Sodium/Dextrose 50 mls @ 100 mls/hr 05/16/24 10:00 05/17/24 08:24 Rocephin/D5w 1gm Iv Premix IV 05/23/24 09:59 100 mls/hr QDAY LONI Administration Insulin Human Lispro 0 unit 05/16/24 11:30 05/18/24 07:01 Insulin Lispro (Admelog) 1 Unit/0.01 Ml Unit SC 06/15/24 11:29 Not Given AC LONI Protocol Ondansetron HCl 4 mg 05/16/24 08:46 05/16/24 11:05 Ondansetron Inj 2 Mg/Ml Inj 2 Ml IV 06/15/24 08:45 4 mg Q6H PRN Administration NAUSEA OR VOMITING Protocol Pharmacy Consult 1 each 05/16/24 10:53 Pharmacy Renal Dose Adjustment 1 Ea XX 06/15/24 10:52 PRN PRN CONSULT Polyethylene Glycol 17 gm 05/17/24 09:00 05/17/24 08:24 Polyethylene Glycol 17 Gm Packet PO 06/16/24 08:59 17 gm QDAY LONI Administration Sennosides 1 tab 05/17/24 09:00 05/17/24 08:24 Senna Tablet PO 06/16/24 08:59 1 tab QDAY LONI Administration Protocol Tramadol HCl 50 mg 05/17/24 09:49 Tramadol Hcl 50 Mg Tablet PO 05/22/24 09:48 BID PRN PAIN SCALE 4-10(Mod-Sev Protocol Plan Mat Rodriguez is a 58-year-old gentleman with extensive past medical history of diabetes, hypertension, dyslipidemia, ESRD (HD M, W, F) currently residing at rehab presented to the emergency department with altered level of consciousness and lethargy. Apparently patient had recent back surgery with associated weight loss and is slowly recuperating for the last couple weeks and his rehab facility sent him to the ER. Also endorses headache, dizziness, nausea. Denies fever, chills, chest pain, shortness of breath, abdominal pain. Admitted for pneumonia and nephrology consulted for need for dialysis. #ESRD (HD on M, W, F) secondary to diabetic/hypertensive nephrosclerosis ? Planned hemodialysis on Friday if patient remains in-house ? Will follow-up outpatient dialysis regimen #Renal osteodystrophy ? On calcitriol during dialysis #Hypertension #Hyperlipidemia #Diabetes mellitus #Pneumonia #Altered mental status ? Continue management per primary team ----- Plan discussed with attending physician Dr. Liang Garcia MD PGY-1 Internal Medicine Attending Provider Attestation/Addendum Patient seen and examined with resident physician Dr. Griffin. Note reviewed, agree with findings and recommendations. Patient clinically seems to be slightly better. Renal martinez stable for discharge.
[2024-05-18] MEDS: cefTRIAXone/D5w 1gm IV premix 50 ML IV (09:27)
[2024-05-18] MEDS: amLODIPine BESYLATE 5 MG TABLET 10 MG PO (09:28)
[2024-05-18] MEDS: cloNIDine HCL 0.1 MG TABLET PO (09:28)
[2024-05-18] MEDS: POLYETHYLENE GLYCOL 17 GM PACKET PO (09:28)
[2024-05-18] MEDS: Furosemide 40 MG TABLET PO (09:29)
[2024-05-18] MEDS: HEPARIN SOD INJ 5000 UNIT/ML VIAL SC ×2 (09:29→21:31)
[2024-05-18] MEDS: SENNA TABLET 1 TAB PO (09:29)
[2024-05-18] MEDS: AZITHROMYCIN INJ 500 MG in SODIUM CHLORIDE 0.9% 250 ML 250 ML 250 MG IV (09:51)
--- NOTE | 2024-05-18 10:58 | PC.SS ---
SS follow up note; SS contacted Marzena from [facility] and informed her patient had discharge orders. Marzena informed SS that patient was needing auth. SS inquired about patient having Medicare, however Marzena informed SS that they are utilizing patient's secondary insurance and therefore will need auth. SS informed Dr. Wilson in regard to PT order. SS contacted Lucio from PT and he said he will see patient, SS informed him if PT eval could be done by 12PM Marzena from [facility] informed SS that auth could be obtained today.
--- NOTE | 2024-05-18 12:10 | PC.SS ---
SS follow up notes; SS sent PT notes Through [employer] platform to [facility]. Marzena informed SS she will submit auth in about an hour.
--- NOTE | 2024-05-18 17:24 | ESPR_ITS ---
<Statement entered by Skyler Wilson MD - 05/18/24 17:29> I saw and examined the patient, and I agree with current management stated by Dr Deedee MD,PGY1. Plan of care was discussed with the attending physician and resident physician. Disclaimer: Despite multiple revisions, due to the dictation software being used, the document bellow may not be free of grammatical errors including phonetic/typographic errors. However, this does not deter from our commitment to providing health care in the patient's best interest in mind. Dr. Katie MD, PGY 2 Documentation for date of: 05/18/24 Subjective Subjective Interval history: No overnight events. Patient seen examined resting in bed. Patient complains of mild dizziness, normal for patient. Denies headache, chest pain, shortness of breath, nausea, vomiting. Plan to DC tomorrow pending insurance authorization. Exam Vital Signs Temp Pulse Resp BP Pulse Ox O2 Del Method O2 Flow Rate 97.4 F 63 20 127/59 L 92 L Nasal Cannula 2 05/18/24 16:00 05/18/24 16:00 05/18/24 16:00 05/18/24 16:00 05/18/24 16:00 05/18/24 16:05/18/24 16:00 Narrative Exam PE: Gen: Well-developed and well-nourished. HEENT: NCAT, PERRLA, EOMI, MMM, anicteric conjunctivae. CVS: normal S1 and S2. RRR. No M/R/G. Resp: CTA B/L. No rhonchi, rales, crackles or wheezing. Abd: soft, non-tender, non-distended. MSK: Good ROM in BUE & BLE. No edema or rash. Scar midline, upper back. Neuro: CN II-XII grossly intact. Strength 5/5 in BUE & BLE. Alert and oriented x3. Psych: appropriate mood and affect. Objective Labs 05/18/24 04:33 05/18/24 04:33 Labs: Laboratory Results - last 24 hr 05/17/24 05/17/24 05/18/24 09:26 20:13 04:33 WBC 6.9 RBC 3.32 L Hgb 10.6 L Hct 32.2 L MCV 97 MCH 31.9 MCHC 32.9 RDW Std Deviation 44.9 H Plt Count 119 L Neut % (Auto) 68 Lymph % (Auto) 14 [place] % (Auto) 8 Eos % (Auto) 8 Baso % (Auto) 1 Neut # (Auto) 4.7 Lymph # (Auto) 1.0 [place] # (Auto) 0.5 Eos # (Auto) 0.6 H Baso # (Auto) 0.1 Immature Gran # (Auto) 0.03 H Absolute Nucleated RBC 0.00 Immature Gran % 0 Nucleated RBC % 0 Sodium 136 Potassium 3.8 Chloride 97 L Carbon Dioxide 29.7 Anion Gap 9 BUN 21 Creatinine 3.1 H D Estim Creat Clear Calc 23.2 L eGFR 23 L BUN/Creatinine Ratio 7 L Glucose 76 Calculated Osmolality 273 L Calcium 8.8 Corrected Calcium 9.1 Phosphorus 3.5 Magnesium 1.8 Total Bilirubin 0.4 AST 21 ALT 21 Alkaline Phosphatase 166 H Troponin I 0.046 H* Total Protein 6.3 Albumin 3.6 Globulin 2.7 Albumin/Globulin Ratio 1.3 Hepatitis A IgM Ab Non Reactive Hep Bs Antigen Non Reactive Hep Bs Antibody Reactive (Immune) Hep B Core IgM Ab Non Reactive Hepatitis C Antibody Non Reactive ABG Interpretation ABG results: 05/16/24 09:54 VBG pH 7.45 VBG pCO2 43 VBG pO2 114 H VBG Base Excess 5 H Quality Measures Quality Measures VTE prophylaxis Assessment & Plan Assessment Current Active Medications: Generic Name Dose Route Start Last Admin Trade Name Freq PRN Reason Stop Dose Admin Acetaminophen 650 mg 05/16/24 08:51 Acetaminophen 325 Mg Tablet PO 06/15/24 08:45 Q6H PRN Fever >100.4 or pain(1-3) Amlodipine Besylate 10 mg 05/17/24 09:00 05/18/24 09:28 Amlodipine Besylate 5 Mg Tablet PO 06/16/24 08:59 10 mg QDAY LONI Administration Azithromycin 500 mg 05/19/24 09:00 Azithromycin 250 Mg Tablet PO 05/24/24 08:59 QDAY LONI Clonidine 0.1 mg 05/17/24 13:30 05/18/24 09:28 Clonidine Hcl 0.1 Mg Tablet PO 06/16/24 13:29 0.1 mg DAILY LONI Administration Dextrose 25 ml 05/16/24 08:54 Dextrose 50%-Water Inj 50 Ml Syringe IV 06/15/24 08:53 Q15MIN PRN BG 50-70 responsive npo pt Dextrose 50 ml 05/16/24 08:54 Dextrose 50%-Water Inj 50 Ml Syringe IV 06/15/24 08:53 Q15MIN PRN BG <50 OR BG <70 & pt unresponsive Doxazosin Mesylate 2 mg 05/17/24 21:00 05/17/24 21:01 Doxazosin Mesylate 2 Mg Tablet PO 06/16/24 20:59 2 mg HS LONI Administration Furosemide 40 mg 05/17/24 09:00 05/18/24 09:29 Furosemide 40 Mg Tablet PO 06/16/24 08:59 40 mg QDAY LONI Administration Glucagon 1 mg 05/16/24 08:54 Glucagon Inj 1 Mg Vial IM Q15MIN PRN BG <70, and no IV access Heparin Sodium (Porcine) 5,000 unit 05/16/24 09:00 05/18/24 09:29 Heparin Sod Inj 5000 Unit/Ml Vial SC 05/30/24 08:59 5,000 unit Q12HR LONI Administration Hydralazine HCl 100 mg 05/17/24 10:00 05/18/24 14:13 Hydralazine Hcl 25 Mg Tablet PO 06/16/24 09:59 100 mg TID LONI Administration Hydromorphone HCl 1 mg 05/16/24 08:46 05/16/24 17:07 Hydromorphone Inj 2 Mg/Ml Vial IVP 05/21/24 08:45 1 mg Q2H PRN Administration BREAKTHROUGH PAIN (SEVERE) Ceftriaxone Sodium/Dextrose 50 mls @ 100 mls/hr 05/16/24 10:00 05/18/24 09:27 Rocephin/D5w 1gm Iv Premix IV 05/23/24 09:59 100 mls/hr QDAY LONI Administration Insulin Human Lispro 0 unit 05/16/24 11:30 05/18/24 16:38 Insulin Lispro (Admelog) 1 Unit/0.01 Ml Unit SC 06/15/24 11:29 Not Given AC [facility] Protocol Ondansetron HCl 4 mg 05/16/24 08:46 05/16/24 11:05 Ondansetron Inj 2 Mg/Ml Inj 2 Ml IV 06/15/24 08:45 4 mg Q6H PRN Administration NAUSEA OR VOMITING Protocol Pharmacy Consult 1 each 05/16/24 10:53 Pharmacy Renal Dose Adjustment 1 Ea XX 06/15/24 10:52 PRN PRN CONSULT Polyethylene Glycol 17 gm 05/17/24 09:00 05/18/24 09:28 Polyethylene Glycol 17 Gm Packet PO 06/16/24 08:59 17 gm QDAY LONI Administration Sennosides 1 tab 05/17/24 09:00 05/18/24 09:29 Senna Tablet PO 06/16/24 08:59 1 tab QDAY LONI Administration Protocol Tramadol HCl 50 mg 05/17/24 09:49 Tramadol Hcl 50 Mg Tablet PO 05/22/24 09:48 BID PRN PAIN SCALE 4-10(Mod-Sev Protocol Plan 58 y/o M with PMHx significant for ESRD (dialysis Friday), HTN, [id number] diabetes presents from [facility] with chief complaint of altered mental status, admitted for hypertensive emergency. #Hypertensive emergency, resolved #Hypertensive encephalopathy, resolved #NSTEMI Type 2 Patient presented with hypertension, 194/92 and signs of end-organ damage, headache and dizziness, troponin 0.048. Patient has history of hypertension treated with outpatient medications. Med rec's pending. Blood pressure has been steadily decreasing without active intervention. Neuro symptoms resolved as BP decreased. Home BP meds resumed. Troponin peaked at 0.057 -Telemetry -Monitor BP closely -Resumed home BP meds: Amlodipine, clonidine, doxazosin, hydralazine #CAP #Mild hypothermia, resolved #Acute hypoxic respiratory failure, resolved Patient has consolidation right lower lung field on chest x-ray. Increased O2 requirements, increased to 6 L/min via nasal cannula to maintain oxygen saturations greater than 95%. Patient has decreased temperature possibly related to infection, lowest 94.5, improved with Mitzy hugger. Leukocytes normal. Cocci negative, flu negative, COVID-negative. Patient has been on 2 L O2 chronically at [facility]. Blood cultures negative -Ceftriaxone 1 g IV daily (started 05/16) -Azithromycin 500 mg IV daily (started 05/16) -O2, titrate as needed #ESRD Patient has history of ESRD, receives dialysis M/W/F with Dr. Tavera. -Nephro consulted -Dialysis as per patient's usual schedule #DM Patient history diabetes. Patient A1c 4.5% on 07/22/2022, 6.1% as of 05/16/24. -ISS DVT prophylaxis: Heparin GI prophylaxis: None Diet: Cardiac/renal Lines: Peripheral IV Code status: Full code Plan of care discussed with senior resident Dr. Wilson PGY-[address] Cheng. Jorden Mark MD PGY?1 Attending Provider Attestation/Addendum I have discussed and was present for the essential components of the history, physical examination, diagnosis, and treatment plan with the resident. I agree with the patient's care as documented by the resident and amended herein by me. Rigoberto Cheng DO. Although this document has been carefully reviewed, there may still be some phonetic and other typographical errors. These errors are purely grammatical due to imperfections in the software program and should not be construed in any way to compromise the substance of the patient's medical care during this visit.
[2024-05-18] MEDS: DOXAZOSIN MESYLATE 2 MG TABLET PO (21:31)
[2024-05-19] VITALS (29 sets, daily range): BP systolic 121–175; BP diastolic 63–92; PULSE 56–88; RESP 16–99; TEMP 36.1–36.7; O2SAT 94–99; BMI 22.2
[2024-05-19] MEDS: hydrALAZINE HCL 25 MG TABLET 100 MG PO ×3 (05:05→21:02)
[2024-05-19 06:21] LABS: Basophils # (Auto) 0.1 Thou/mm3 (0.0-0.2); Basophils % (Auto) 1 % (0-2.5); Eosinophils # (Auto) 0.6 Thou/mm3 (0.0-0.5); Eosinophils % (Auto) 9 % (0-10); Hematocrit 32.8 % (41.0-53.0); Hemoglobin 10.9 g/dL (13.5-16.0); Immature Granulocytes % (Auto) 0 % (0-0); Immature Granulocytes Auto 0.02 Thou/mm3 (0.00-0.00); Lymphocytes # (Auto) 0.6 Thou/mm3 (1.0-4.8); Lymphocytes % (Auto) 9 % (10-50); Mean Corpuscular HGB Conc 33.2 g/dl (31.0-37.0); Mean Corpuscular Hemoglobin 31.4 pg (25.0-35.0); Mean Corpuscular Volume 95 fL (80-100); Monocytes # (Auto) 0.6 Thou/mm3 (0.0-0.8); Monocytes % (Auto) 8 % (0-12); Neutrophils % (Auto) 72 % (37-80); Nucleated Red Blood Cell % 0 /100 WBC (0); Platelet Count 162 Thou/mm3 (140-440); RDW Standard Deviation 43.9 fL (35.1-43.9); Red Blood Count 3.47 Miln/mm3 (4.50-5.90); White Blood Count 6.9 Thou/mm3 (3.8-10.6)
[2024-05-19 06:46] LABS: Alanine Aminotransferase 19 U/L (10-49); Albumin, Serum 3.8 gm/dL (3.5-5.0); Albumin/Globulin Ratio 1.4 (1.2-2.2); Alkaline Phosphatase 164 U/L (46-116); Anion Gap 10 (7-16); Aspartate Amino Transferase 18 U/L (0-34); BUN/Creatinine Ratio 9 Ratio (12-20); Bilirubin,Total 0.4 mg/dL (0.3-1.2); Blood Urea Nitrogen 34 mg/dL (9-23); Calcium (Corrected) 9.2 mg/dL (8.5-10.1); Carbon Dioxide 29.3 mMol/L (20.0-31.0); Chloride 94 mMol/L (98-107); Creatinine (Component) 3.9 mg/dL (0.6-1.3); Estimated Creatinine Clearance 18.5 mL/min (>60); Globulin 2.8 gm/dL (2.3-3.5); Glucose 112 mg/dL (74-106); Magnesium 1.9 mg/dL (1.6-2.6); Osmolality,Calculated 274 (275-295); Phosphorous 3.6 mg/dL (2.4-5.1); Potassium 4.3 mMol/L (3.4-5.1); Sodium 133 mMol/L (136-145); Total Protein 6.6 gm/dL (5.7-8.2); eGFR 17 See Note
[2024-05-19] MEDS: POLYETHYLENE GLYCOL 17 GM PACKET PO (08:21)
[2024-05-19] MEDS: HEPARIN SOD INJ 5000 UNIT/ML VIAL SC ×2 (08:22→21:02)
[2024-05-19] MEDS: SENNA TABLET 1 TAB PO (08:22)
[2024-05-19] MEDS: amLODIPine BESYLATE 5 MG TABLET 10 MG PO (08:22)
[2024-05-19] MEDS: Furosemide 40 MG TABLET PO (08:22)
[2024-05-19] MEDS: cloNIDine HCL 0.1 MG TABLET PO (08:22)
[2024-05-19] MEDS: AZITHROMYCIN 250 MG TABLET 500 MG PO (08:22)
[2024-05-19] MEDS: cefTRIAXone/D5w 1gm IV premix 50 ML IV (08:23)
--- NOTE | 2024-05-19 09:27 | PD.RESPRO ---
Documentation for date of: 05/19/24 Subjective Subjective Interval history: Mat Rodriguez is a 58-year-old gentleman with extensive past medical history of diabetes, hypertension, dyslipidemia, ESRD (HD M, W, F) currently residing at rehab presented to the emergency department with altered level of consciousness and lethargy. Apparently patient had recent back surgery with associated weight loss and is slowly recuperating for the last couple weeks and his rehab facility sent him to the ER. Also endorses headache, dizziness, nausea. Denies fever, chills, chest pain, shortness of breath, abdominal pain. In ED, vital signs showed severe hypertension 190/92 and hypothermia (low of 94.5 ?F). Influenza negative, COVID-negative, cocci negative. Troponin 0.048, K 5.2, BUN 22, Cr 3.6, GFR 19. CT head unremarkable, CXR showed congestion and RLL lung consolidation. Given. However, meclizine, ondansetron. Admitted for pneumonia and nephrology consulted for need for dialysis. 05/17: Patient seen and examined at bedside in telemetry. No acute overnight events. Labs reviewed and patient scheduled for hemodialysis today with removal of 1 to 1.5 L. 05/18: Patient seen and examined at bedside in telemetry. No acute overnight events. Labs and medications reviewed. Underwent dialysis yesterday and tolerated well. Next session planned for Friday if patient remains in-house. Otherwise, patient stable for discharge from nephrology standpoint. 05/19: Patient seen and examined at bedside in telemetry. No acute overnight events. Labs and medications reviewed. Planned for hemodialysis today with removal of 1 L. Exam Vital Signs Temp Pulse Resp BP Pulse Ox O2 Del Method O2 Flow Rate 97.4 F 64 20 142/80 H 97 Nasal Cannula 2 05/19/24 08:44 05/19/24 09:17 05/19/24 08:44 05/19/24 09:17 05/19/24 08:44 05/19/24 08:00 05/19/24 08:44 Narrative Exam General: AOx3, no acute distress, able to speak full sentences HEENT: NC/AT, mucous membranes moist, bilateral sclera anicteric Cardiovascular: regular rate and rhythm, S1/S2 present, no murmurs appreciated Pulmonary: mild crackles at bases Abdominal: soft, non-tender, non-distended, no rebound/guarding, normal bowel sounds present Musculoskeletal: normal ROM, no peripheral edema Skin: warm and dry, intact, no rashes Objective Labs 05/19/24 05:59 05/19/24 05:59 Labs: Laboratory Results - last 24 hr 05/19/24 05:59 WBC 6.9 RBC 3.47 L Hgb 10.9 L Hct 32.8 L MCV 95 MCH 31.4 MCHC 33.2 RDW Std Deviation 43.9 Plt Count 162 D Neut % (Auto) 72 Lymph % (Auto) 9 L [place] % (Auto) 8 Eos % (Auto) 9 Baso % (Auto) 1 Neut # (Auto) 5.0 Lymph # (Auto) 0.6 L [place] # (Auto) 0.6 Eos # (Auto) 0.6 H Baso # (Auto) 0.1 Immature Gran # (Auto) 0.02 H Absolute Nucleated RBC 0.00 Immature Gran % 0 Nucleated RBC % 0 Sodium 133 L Potassium 4.3 D Chloride 94 L Carbon Dioxide 29.3 Anion Gap 10 BUN 34 H Creatinine 3.9 H D Estim Creat Clear Calc 18.5 L eGFR 17 L BUN/Creatinine Ratio 9 L Glucose 112 H Calculated Osmolality 274 L Calcium 9.0 Corrected Calcium 9.2 Phosphorus 3.6 Magnesium 1.9 Total Bilirubin 0.4 AST 18 ALT 19 Alkaline Phosphatase 164 H Total Protein 6.6 Albumin 3.8 Globulin 2.8 Albumin/Globulin Ratio 1.4 ABG Interpretation ABG results: 05/16/24 09:54 VBG pH 7.45 VBG pCO2 43 VBG pO2 114 H VBG Base Excess 5 H Quality Measures Quality Measures VTE prophylaxis Assessment & Plan Assessment Current Active Medications: Generic Name Dose Route Start Last Admin Trade Name Freq PRN Reason Stop Dose Admin Acetaminophen 650 mg 05/16/24 08:51 Acetaminophen 325 Mg Tablet PO 06/15/24 08:45 Q6H PRN Fever >100.4 or pain(1-3) Amlodipine Besylate 10 mg 05/17/24 09:00 05/19/24 08:22 Amlodipine Besylate 5 Mg Tablet PO 06/16/24 08:59 10 mg QDAY LONI Administration Azithromycin 500 mg 05/19/24 09:00 05/19/24 08:22 Azithromycin 250 Mg Tablet PO 05/24/24 08:59 500 mg QDAY LONI Administration Clonidine 0.1 mg 05/17/24 13:30 05/19/24 08:22 Clonidine Hcl 0.1 Mg Tablet PO 06/16/24 13:29 0.1 mg DAILY LONI Administration Dextrose 25 ml 05/16/24 08:54 Dextrose 50%-Water Inj 50 Ml Syringe IV 06/15/24 08:53 Q15MIN PRN BG 50-70 responsive npo pt Dextrose 50 ml 05/16/24 08:54 Dextrose 50%-Water Inj 50 Ml Syringe IV 06/15/24 08:53 Q15MIN PRN BG <50 OR BG <70 & pt unresponsive Doxazosin Mesylate 2 mg 05/17/24 21:00 05/18/24 21:31 Doxazosin Mesylate 2 Mg Tablet PO 06/16/24 20:59 2 mg HS LONI Administration Epoetin Claudio 10,000 unit 05/19/24 14:00 Epoetin Claudio-Epbx Inj 40,000 Unit/Ml Vial (Esrd) SC 05/19/24 14:01 X1 ONE Furosemide 40 mg 05/17/24 09:00 05/19/24 08:22 Furosemide 40 Mg Tablet PO 06/16/24 08:59 40 mg QDAY LONI Administration Glucagon 1 mg 05/16/24 08:54 Glucagon Inj 1 Mg Vial IM Q15MIN PRN BG <70, and no IV access Heparin Sodium (Porcine) 5,000 unit 05/16/24 09:00 05/19/24 08:22 Heparin Sod Inj 5000 Unit/Ml Vial SC 05/30/24 08:59 5,000 unit Q12HR LONI Administration Hydralazine HCl 100 mg 05/17/24 10:00 05/19/24 05:05 Hydralazine Hcl 25 Mg Tablet PO 06/16/24 09:59 100 mg TID LONI Administration Hydromorphone HCl 1 mg 05/16/24 08:46 05/16/24 17:07 Hydromorphone Inj 2 Mg/Ml Vial IVP 05/21/24 08:45 1 mg Q2H PRN Administration BREAKTHROUGH PAIN (SEVERE) Ceftriaxone Sodium/Dextrose 50 mls @ 100 mls/hr 05/16/24 10:00 05/19/24 08:23 Rocephin/D5w 1gm Iv Premix IV 05/23/24 09:59 100 mls/hr QDAY LONI Administration Insulin Human Lispro 0 unit 05/16/24 11:30 05/19/24 07:35 Insulin Lispro (Admelog) 1 Unit/0.01 Ml Unit SC 06/15/24 11:29 Not Given AC LONI Protocol Ondansetron HCl 4 mg 05/16/24 08:46 05/16/24 11:05 Ondansetron Inj 2 Mg/Ml Inj 2 Ml IV 06/15/24 08:45 4 mg Q6H PRN Administration NAUSEA OR VOMITING Protocol Pharmacy Consult 1 each 05/16/24 10:53 Pharmacy Renal Dose Adjustment 1 Ea XX 06/15/24 10:52 PRN PRN CONSULT Polyethylene Glycol 17 gm 05/17/24 09:00 05/19/24 08:21 Polyethylene Glycol 17 Gm Packet PO 06/16/24 08:59 17 gm QDAY LONI Administration Sennosides 1 tab 05/17/24 09:00 05/19/24 08:22 Senna Tablet PO 06/16/24 08:59 1 tab QDAY LONI Administration Protocol Tramadol HCl 50 mg 05/17/24 09:49 Tramadol Hcl 50 Mg Tablet PO 05/22/24 09:48 BID PRN PAIN SCALE 4-10(Mod-Sev Protocol Plan Mat Rodriguez is a 58-year-old gentleman with extensive past medical history of diabetes, hypertension, dyslipidemia, ESRD (HD M, W, F) currently residing at rehab presented to the emergency department with altered level of consciousness and lethargy. Apparently patient had recent back surgery with associated weight loss and is slowly recuperating for the last couple weeks and his rehab facility sent him to the ER. Also endorses headache, dizziness, nausea. Denies fever, chills, chest pain, shortness of breath, abdominal pain. Admitted for pneumonia and nephrology consulted for need for dialysis. #ESRD (HD on M, W, F) secondary to diabetic/hypertensive nephrosclerosis ? Planned hemodialysis with removal of 1 L ? Will follow-up outpatient dialysis regimen ? Stable for discharge from nephrology standpoint #Renal osteodystrophy ? On calcitriol during dialysis #Hypertension #Hyperlipidemia #Diabetes mellitus #Pneumonia #Altered mental status ? Continue management per primary team ----- Plan discussed with attending physician Dr. Liang Garcia MD PGY-1 Internal Medicine Attending Provider Attestation/Addendum Patient seen and examined with resident physician Dr. Griffin. Note reviewed, agree with findings and recommendations. Patient currently seen on dialysis. Tolerating dialysis without any problems. Hemodialysis for 3 hours, 2K, ultrafiltration 1-2 L, Epogen 6000, no heparin ordered. Plan of care discussed with the dialysis nurse. Please see dialysis flowsheet for further details.
[2024-05-19] MEDS: EPOETIN ALFA-EPBX INJ 40,000 UNIT/ML VIAL (ESRD) 10000 UNIT SC (09:59)
--- NOTE | 2024-05-19 10:32 | PD.RESPRO ---
Documentation for date of: 05/21/24 Subjective Subjective Interval history: Patient was seen and examined at the bedside this morning. Patient reported to feel better and had hemodialysis session per schedule. Morning labs showed hemoglobin stable at 10.9 white count within normal limits. Chemistry panel was consistent with ESRD. Blood glucose within normal limits. Will wait on SNF authorization and patient to have a bowel movement. All labs and orders were reviewed. Exam Vital Signs Temp Pulse Resp BP Pulse Ox O2 Del Method O2 Flow Rate 98.4 F 69 18 153/66 H 94 L Nasal Cannula 1 05/21/24 08:49 05/21/24 10:30 05/21/24 08:49 05/21/24 10:30 05/21/24 08:49 05/21/24 05:40 05/21/24 08:49 Narrative Exam Gen: Well-developed and well-nourished. HEENT: NCAT, PERRLA, EOMI, MMM, anicteric conjunctivae. CVS: normal S1 and S2. RRR. No M/R/G. Resp: CTA B/L. No rhonchi, rales, crackles or wheezing. Abd: soft, non-tender, non-distended. MSK: Good ROM in BUE & BLE. No edema or rash. Scar midline, upper back. Neuro: CN II-XII grossly intact. Strength 5/5 in BUE & BLE. Alert and oriented x3. Psych: appropriate mood and affect. Objective Labs 05/19/24 05:59 05/19/24 05:59 ABG Interpretation ABG results: 05/16/24 09:54 VBG pH 7.45 VBG pCO2 43 VBG pO2 114 H VBG Base Excess 5 H Quality Measures Quality Measures VTE prophylaxis Assessment & Plan Assessment Current Active Medications: Generic Name Dose Route Start Last Admin Trade Name Freq PRN Reason Stop Dose Admin Acetaminophen 650 mg 05/16/24 08:51 Acetaminophen 325 Mg Tablet PO 06/15/24 08:45 Q6H PRN Fever >100.4 or pain(1-3) Amlodipine Besylate 10 mg 05/17/24 09:00 05/20/24 08:43 Amlodipine Besylate 5 Mg Tablet PO 06/16/24 08:59 10 mg QDAY LONI Administration Azithromycin 500 mg 05/19/24 09:00 05/20/24 08:44 Azithromycin 250 Mg Tablet PO 05/24/24 08:59 500 mg QDAY LONI Administration Clonidine 0.1 mg 05/17/24 13:30 05/20/24 08:45 Clonidine Hcl 0.1 Mg Tablet PO 06/16/24 13:29 0.1 mg DAILY LONI Administration Dextrose 25 ml 05/16/24 08:54 Dextrose 50%-Water Inj 50 Ml Syringe IV 06/15/24 08:53 Q15MIN PRN BG 50-70 responsive npo pt Dextrose 50 ml 05/16/24 08:54 Dextrose 50%-Water Inj 50 Ml Syringe IV 06/15/24 08:53 Q15MIN PRN BG <50 OR BG <70 & pt unresponsive Doxazosin Mesylate 2 mg 05/17/24 21:00 05/20/24 21:17 Doxazosin Mesylate 2 Mg Tablet PO 06/16/24 20:59 2 mg HS LONI Administration Furosemide 40 mg 05/17/24 09:00 05/20/24 08:42 Furosemide 40 Mg Tablet PO 06/16/24 08:59 40 mg QDAY LONI Administration Glucagon 1 mg 05/16/24 08:54 Glucagon Inj 1 Mg Vial IM Q15MIN PRN BG <70, and no IV access Heparin Sodium (Porcine) 5,000 unit 05/16/24 09:00 05/20/24 21:18 Heparin Sod Inj 5000 Unit/Ml Vial SC 05/30/24 08:59 5,000 unit Q12HR LONI Administration Hydralazine HCl 100 mg 05/17/24 10:00 05/21/24 05:06 Hydralazine Hcl 25 Mg Tablet PO 06/16/24 09:59 100 mg TID LONI Administration Ceftriaxone Sodium/Dextrose 50 mls @ 100 mls/hr 05/16/24 10:00 05/20/24 08:47 Rocephin/D5w 1gm Iv Premix IV 05/23/24 09:59 100 mls/hr QDAY LONI Administration Insulin Human Lispro 0 unit 05/16/24 11:30 05/21/24 08:01 Insulin Lispro (Admelog) 1 Unit/0.01 Ml Unit SC 06/15/24 11:29 Not Given AC [facility] Protocol Ondansetron HCl 4 mg 05/16/24 08:46 05/16/24 11:05 Ondansetron Inj 2 Mg/Ml Inj 2 Ml IV 06/15/24 08:45 4 mg Q6H PRN Administration NAUSEA OR VOMITING Protocol Pharmacy Consult 1 each 05/16/24 10:53 Pharmacy Renal Dose Adjustment 1 Ea XX 06/15/24 10:52 PRN PRN CONSULT Polyethylene Glycol 17 gm 05/17/24 09:00 05/20/24 08:46 Polyethylene Glycol 17 Gm Packet PO 06/16/24 08:59 17 gm QDAY LONI Administration Sennosides 1 tab 05/17/24 09:00 05/20/24 08:45 Senna Tablet PO 06/16/24 08:59 1 tab QDAY LONI Administration Protocol Tramadol HCl 50 mg 05/17/24 09:49 Tramadol Hcl 50 Mg Tablet PO 05/22/24 09:48 BID PRN PAIN SCALE 4-10(Mod-Sev Protocol Plan This 58 y/o M with PMHx significant for ESRD (dialysis Friday), HTN, [id number]-[id number] diabetes presents from SNF with chief complaint of altered mental status, admitted for hypertensive emergency. #Hypertensive emergency, resolved #Hypertensive encephalopathy, resolved #NSTEMI Type 2 Patient presented with hypertension, 194/92 and signs of end-organ damage, headache and dizziness, troponin 0.048. Patient has history of hypertension treated with outpatient medications. Med rec's pending. Blood pressure has been steadily decreasing without active intervention. Neuro symptoms resolved as BP decreased. Home BP meds resumed. Troponin peaked at 0.057 -PendinG snf Placement -Telemetry -Monitor BP closely -Resumed home BP meds: Amlodipine, clonidine, doxazosin, hydralazine #CAP #Mild hypothermia, resolved #Acute hypoxic respiratory failure, resolved Patient has consolidation right lower lung field on chest x-ray. Increased O2 requirements, increased to 6 L/min via nasal cannula to maintain oxygen saturations greater than 95%. Patient has decreased temperature possibly related to infection, lowest 94.5, improved with Mitzy hugger. Leukocytes normal. Cocci negative, flu negative, COVID-negative. Patient has been on 2 L O2 chronically at [facility]. Blood cultures negative -Ceftriaxone 1 g IV daily (started 05/16) -Azithromycin 500 mg IV daily (started 05/16) -O2, titrate as needed #ESRD Patient has history of ESRD, receives dialysis M/W/F with Dr. Tavera. -Nephro consulted -Dialysis as per patient's usual schedule #DM Patient history diabetes. Patient A1c 4.5% on 07/22/2022, 6.1% as of 05/16/24. -ISS #Constipation: -Gave miralax and jaydon denied having BM. Plan: -Bowel regime as needed DVT prophylaxis: Heparin GI prophylaxis: None Diet: Cardiac/renal Lines: Peripheral IV Code status: Full code Patient was seen and discussed with attending Physician,Dr Skylar Wilson MD,PGY2 Attending Provider Attestation/Addendum I have discussed and was present for the essential components of the history, physical examination, diagnosis, and treatment plan with the resident. I agree with the patient's care as documented by the resident and amended herein by me. Rigoberto Cheng DO. Although this document has been carefully reviewed, there may still be some phonetic and other typographical errors. These errors are purely grammatical due to imperfections in the software program and should not be construed in any way to compromise the substance of the patient's medical care during this visit.
--- NOTE | 2024-05-19 11:33 | PC.NURSE ---
pt c/o GAMBINO, pt refuses need to turn uf off. goal lowered to 1.8L as tolerated, will monitor
--- NOTE | 2024-05-19 14:17 | ESDS_ITS ---
<Statement entered by Skyler Wilson MD - 05/19/24 14:46> I saw and examined the patient, and I agree with current management stated by Dr Deedee MD,PGY1. Plan of care was discussed with the attending physician and resident physician. Disclaimer: Despite multiple revisions, due to the dictation software being used, the document bellow may not be free of grammatical errors including phonetic/typographic errors. However, this does not deter from our commitment to providing health care in the patient's best interest in mind. Dr. Katie MD, PGY 2 Planned Discharge Date 05/19/24 DS: Providers Provider Date of admission: 05/16/24 08:46 Primary care physician: MARCELA Nunez Admitting Provider: Donnie Cheng DO Attending Provider on Admission: Donnie Cheng DO Consults: 05/16/24 08:50 Consult to Nephrology Routine Comment: ESRD MWF Consulting Provider: Maicol Tavera 05/16/24 18:36 [facility] Referral - Knowledge Deficit Routine Comment: Positive screening for knowledge deficit needs. [facility] Referral - Nutrition Routine Comment: Positive screening for nutrition needs. 05/18/24 10:44 Referral Physical Therapy Stat Comment: Physician Instructions: Attending Provider on DC: Donnie Cheng DO Discharging Provider: Jorden Mark MD DS: Diagnosis Problem List Completed Was Problem List Reviewed/Reconciled?: Yes Hospital Course Hospital Course Hospital course: 58 y/o M with PMHx significant for ESRD (dialysis Friday), HTN, gpp-deemijd-zprxfyaus diabetes presents from SNF with chief complaint of altered mental status. Patient has been in SNF for rehab due to recent back surgery. Patient was found to be more lethargic than usual and thus sent to ER. Patient was found to be alert and oriented but very lethargic, complained of headache dizziness and nausea. Denied fevers, chills, chest pain, shortness of breath, abdominal pain. Head CT was unremarkable but chest x-ray showed congestion and right lower lobe consolidation. In ED patient had severe hypertension 190/92 and was notably hypothermic, lowest temperature recorded 94.5. Patient given Mitzy hugger, meclizine, ondansetron in the ED. Temperature lulu, BP began dropping without intervention. By the following day patient's was normothermic without Mitzy hugger, mental status returned to baseline. During hospital stay patient received azithromycin and Rocephin for community-acquired pneumonia. Patient received dialysis as per his usual schedule. Blood pressure was controlled with amlodipine, clonidine, doxazosin, hydralazine. Patient medical clearance stable for discharge. Discharge plan: Please continue taking the following meds: -Amlodipine 10 mg once daily -Clonidine 0.1 mg once daily -Doxazosin 2 mg once daily -Hydralazine 100 mg 3 times daily -Lasix 40 mg once daily Please take the following meds for the next 2 days: -Amoxicillin 500 mg twice daily -Azithromycin 5 mg once daily We have added Toradol 50 mg. Take as needed for pain up to 2/day. We have stopped the following meds: Coreg, Entresto, Zoloft, salt tabs Please follow-up with PCP in 1-2 weeks Please return to ED if you have worsening symptoms, including confusion or chest pain. Diagnoses: #Hypertensive emergency, resolved #Hypertensive encephalopathy, resolved #NSTEMI Type 2 #CAP #Mild hypothermia, resolved #Acute hypoxic respiratory failure, resolved #ESRD #DM Plan of care discussed with senior resident Dr. Wilson PGY?[address] Cheng. Jorden Mark MD PGY?1 Time Spent with Patient Time attestation: Total time spent providing and/or coordinating discharge services: Exam Vital Signs Temp Pulse Resp BP Pulse Ox O2 Del Method O2 Flow Rate 98.0 F 67 18 175/92 H 96 Nasal Cannula 2 05/19/24 12:05/19/24 12:05/19/24 12:05/19/24 12:05/19/24 12:05/19/24 08:00 05/19/24 12:09 Narrative Exam PE: Gen: Well-developed and well-nourished. HEENT: NCAT, PERRLA, EOMI, MMM, anicteric conjunctivae. CVS: normal S1 and S2. RRR. No M/R/G. Resp: CTA B/L. No rhonchi, rales, crackles or wheezing. Abd: soft, non-tender, non-distended. MSK: Good ROM in BUE & BLE. No edema or rash. Scar midline, upper back. Neuro: CN II-XII grossly intact. Strength 5/5 in BUE & BLE. Alert and oriented x3. Psych: appropriate mood and affect. Discharge Plan Plan Patient Disposition: Xfer Skilled Nsg Fac (SNF) Disposition Comment: Stable Patient condition on transfer: Stable Care Plan Goals: Please continue taking the following meds: -Amlodipine 10 mg once daily -Clonidine 0.1 mg once daily -Doxazosin 2 mg once daily -Hydralazine 100 mg 3 times daily -Lasix 40 mg once daily Please take the following meds for the next 2 days: -Amoxicillin 500 mg twice daily -Azithromycin 5 mg once daily We have added Toradol 50 mg. Take as needed for pain up to 2/day. We have stopped the following meds: Coreg, Entresto, Zoloft, salt tabs Please follow-up with PCP in 1-2 weeks Please return to ED if you have worsening symptoms, including confusion or chest pain. Prescriptions/Referrals Prescriptions/Med Rec: New hydralazine 100 mg tablet 100 mg PO TID 30 Days Qty: 90 0RF furosemide 40 mg Tablet 40 mg PO QDAY 30 Days Qty: 30 0RF clonidine HCl 0.1 mg Tablet 0.1 mg PO DAILY 30 Days Qty: 30 0RF doxazosin 2 mg Tablet 2 mg PO HS 30 Days Qty: 30 0RF tramadol 50 mg tablet 50 mg PO BID PRN (Reason: pain) Qty: 14 0RF amlodipine 10 mg tablet 10 mg PO QDAY 30 Days Qty: 30 0RF amoxicillin 500 mg capsule 500 mg PO BID 2 Days Qty: 4 0RF azithromycin 500 mg tablet 500 mg PO QDAY 2 Days Qty: 2 0RF Rx Instructions: start on day 2 of therapy doxycycline hyclate 100 mg tablet 100 mg PO BID 1 Days Qty: 2 0RF amoxicillin 250 mg capsule 250 mg PO Q12H 1 Days Qty: 2 0RF Continued atorvastatin 40 mg Tablet 40 mg PO QPM gabapentin 100 mg Capsule 100 mg PO TID cholecalciferol (vitamin D3) 25 mcg (1,000 unit) Tablet 25 mcg PO QDAY Rx Instructions: Give 5 tablet by mouth one time a day for supplement. nutritional supplements Liquid 8 ea PO 1XD Rx Instructions: Give 8 ounce by mouth one time a day for supplement Mena-Anil 0.8 mg Tablet 1 tab PO 1XD Rx Instructions: Give 1 tablet by mouth one time a day for supplement. lidocaine 5 % Cream 1 applic TOPICAL 1XD Rx Instructions: Apply to chest wall topically in the morning for pain. Apply to back topically one time a day for back pain. ondansetron HCl 4 mg Tablet 4 mg PO Q6H PRN (Reason: Nausea And Vomiting) acetaminophen 325 mg Tablet 325 mg PO Q6HR PRN (Reason: Mild Pain (Scale Score 1-4)) Discontinued carvedilol 12.5 mg Tablet 12.5 mg PO BID Rx Instructions: must administer with a meal/food sacubitril-valsartan [Entresto] 49-51 mg Tablet 1 tab PO BID hydralazine 50 mg Tablet 50 mg PO BID senna-docusate sodium Tablet 1 tab PO BID sodium chloride 1,000 mg Tablet,Soluble 1,000 mg PO TID sertraline [Zoloft] 25 mg Tablet 25 mg PO TID tramadol 50 mg Tablet 50 mg PO Q6H PRN (Reason: moderate to severe pain) Referrals: Andrea Bonilla CERTIFIED NURSING ATTENDANT [Primary Care Provider] - Patient/Caregiver Discharge Instructions Discharge Activity: as per physical therapy Other Discharge Activity Instructions:: Please continue taking the following meds: -Amlodipine 10 mg once daily -Clonidine 0.1 mg once daily -Doxazosin 2 mg once daily -Hydralazine 100 mg 3 times daily -Lasix 40 mg once daily Please take the following meds for the next 2 days: -Amoxicillin 500 mg twice daily -Azithromycin 5 mg once daily We have added Toradol 50 mg. Take as needed for pain up to 2/day. We have stopped the following meds: Coreg, Entresto, Zoloft, salt tabs Please follow-up with PCP in 1-2 weeks Please return to ED if you have worsening symptoms, including confusion or chest pain. Education Materials: Preventing Pneumonia, Your High Blood Pressure Risk Factors, Hypertension Dc Print Language: Hungarian Stand Alone Forms: Neena Award Info., Patient Portal Info Letter Discharge Order Discharge Orders: Discharge (Routine); Ordered 05/19/24 Ordered By: Skyler Wilson Quality Discharge Quality Measures VTE prophylaxis Attestestation Attestation I have discussed and was present for the essential components of the discharge history, physical examination, diagnosis, and discharge treatment plan with the resident. I agree with the patient's discharge care as documented by the resident and amended herein by me. Rigoberto Cheng DO. The patient understood all discharge instructions, all questions were answered satisfactorily. The patient was instructed to return to the Emergency Department is symptoms worsened or persisted. Patient was stable, afebrile, tolerating p.o. intake at time of discharge to SNF. Although this document has been carefully reviewed, there may still be some phonetic and other typographical errors. These errors are purely grammatical due to imperfections in the software program and should not be construed in any way to compromise the substance of the patient's medical care during this visit.
--- NOTE | 2024-05-19 14:20 | PC.SS ---
Addendum entered by Ngozi Inman 05/19/24 15:22: SS follow up note; SS was contacted by Marzena from [facility] and she informed SS that she has been calling patient's insurance and at the time authorization is pending. Original Note: SS follow up note; SS attempted to contact Marzena from [facility] to check status on authorization, SS left Voicemail with contact number.
[2024-05-19] MEDS: DOXAZOSIN MESYLATE 2 MG TABLET PO (21:02)
[2024-05-20] VITALS (16 sets, daily range): BP systolic 139–171; BP diastolic 67–85; PULSE 62–115; RESP 14–25; TEMP 36.4–36.7; O2SAT 94–99; BMI 23.8
[2024-05-20] MEDS: hydrALAZINE HCL 25 MG TABLET 100 MG PO ×3 (05:10→21:17)
[2024-05-20] MEDS: Furosemide 40 MG TABLET PO (08:42)
[2024-05-20] MEDS: amLODIPine BESYLATE 5 MG TABLET 10 MG PO (08:43)
[2024-05-20] MEDS: AZITHROMYCIN 250 MG TABLET 500 MG PO (08:44)
[2024-05-20] MEDS: cloNIDine HCL 0.1 MG TABLET PO (08:45)
[2024-05-20] MEDS: SENNA TABLET 1 TAB PO (08:45)
[2024-05-20] MEDS: POLYETHYLENE GLYCOL 17 GM PACKET PO (08:46)
[2024-05-20] MEDS: cefTRIAXone/D5w 1gm IV premix 50 ML IV (08:47)
--- NOTE | 2024-05-20 08:47 | PD.RESPRO ---
Documentation for date of: 05/20/24 Subjective Subjective Interval history: Mat Rodriguez is a 58-year-old gentleman with extensive past medical history of diabetes, hypertension, dyslipidemia, ESRD (HD M, W, F) currently residing at rehab presented to the emergency department with altered level of consciousness and lethargy. Apparently patient had recent back surgery with associated weight loss and is slowly recuperating for the last couple weeks and his rehab facility sent him to the ER. Also endorses headache, dizziness, nausea. Denies fever, chills, chest pain, shortness of breath, abdominal pain. In ED, vital signs showed severe hypertension 190/92 and hypothermia (low of 94.5 ?F). Influenza negative, COVID-negative, cocci negative. Troponin 0.048, K 5.2, BUN 22, Cr 3.6, GFR 19. CT head unremarkable, CXR showed congestion and RLL lung consolidation. Given. However, meclizine, ondansetron. Admitted for pneumonia and nephrology consulted for need for dialysis. 05/17: Patient seen and examined at bedside in telemetry. No acute overnight events. Labs reviewed and patient scheduled for hemodialysis today with removal of 1 to 1.5 L. 05/18: Patient seen and examined at bedside in telemetry. No acute overnight events. Labs and medications reviewed. Underwent dialysis yesterday and tolerated well. Next session planned for Friday if patient remains in-house. Otherwise, patient stable for discharge from nephrology standpoint. 05/19: Patient seen and examined at bedside in telemetry. No acute overnight events. Labs and medications reviewed. Planned for hemodialysis today with removal of 1 L. 05/20: Patient seen and examined at bedside in telemetry. No acute overnight events. Labs and medications reviewed. He has been medically discharged by primary team, but remains in house due to pending authorization. If patient continues to remain in house, will plan for hemodialysis tomorrow. Exam Vital Signs Temp Pulse Resp BP Pulse Ox O2 Del Method O2 Flow Rate 97.6 F 70 25 H 142/67 H 94 L Nasal Cannula 2 05/20/24 08:00 05/20/24 08:00 05/20/24 08:00 05/20/24 08:00 05/20/24 08:00 05/20/24 08:00 05/20/24 08:00 Narrative Exam General: AOx3, no acute distress, able to speak full sentences HEENT: NC/AT, mucous membranes moist, bilateral sclera anicteric Cardiovascular: regular rate and rhythm, S1/S2 present, no murmurs appreciated Pulmonary: mild crackles at bases Abdominal: soft, non-tender, non-distended, no rebound/guarding, normal bowel sounds present Musculoskeletal: normal ROM, no peripheral edema Skin: warm and dry, intact, no rashes Objective Labs 05/19/24 05:59 05/19/24 05:59 ABG Interpretation ABG results: 05/16/24 09:54 VBG pH 7.45 VBG pCO2 43 VBG pO2 114 H VBG Base Excess 5 H Quality Measures Quality Measures VTE prophylaxis Assessment & Plan Assessment Current Active Medications: Generic Name Dose Route Start Last Admin Trade Name Freq PRN Reason Stop Dose Admin Acetaminophen 650 mg 05/16/24 08:51 Acetaminophen 325 Mg Tablet PO 06/15/24 08:45 Q6H PRN Fever >100.4 or pain(1-3) Amlodipine Besylate 10 mg 05/17/24 09:00 05/19/24 08:22 Amlodipine Besylate 5 Mg Tablet PO 06/16/24 08:59 10 mg QDAY LONI Administration Azithromycin 500 mg 05/19/24 09:00 05/19/24 08:22 Azithromycin 250 Mg Tablet PO 05/24/24 08:59 500 mg QDAY LONI Administration Clonidine 0.1 mg 05/17/24 13:30 05/19/24 08:22 Clonidine Hcl 0.1 Mg Tablet PO 06/16/24 13:29 0.1 mg DAILY LONI Administration Dextrose 25 ml 05/16/24 08:54 Dextrose 50%-Water Inj 50 Ml Syringe IV 06/15/24 08:53 Q15MIN PRN BG 50-70 responsive npo pt Dextrose 50 ml 05/16/24 08:54 Dextrose 50%-Water Inj 50 Ml Syringe IV 06/15/24 08:53 Q15MIN PRN BG <50 OR BG <70 & pt unresponsive Doxazosin Mesylate 2 mg 05/17/24 21:00 05/19/24 21:02 Doxazosin Mesylate 2 Mg Tablet PO 06/16/24 20:59 2 mg HS LONI Administration Furosemide 40 mg 05/17/24 09:00 05/19/24 08:22 Furosemide 40 Mg Tablet PO 06/16/24 08:59 40 mg QDAY LONI Administration Glucagon 1 mg 05/16/24 08:54 Glucagon Inj 1 Mg Vial IM Q15MIN PRN BG <70, and no IV access Heparin Sodium (Porcine) 5,000 unit 05/16/24 09:00 05/19/24 21:02 Heparin Sod Inj 5000 Unit/Ml Vial SC 05/30/24 08:59 5,000 unit Q12HR LONI Administration Hydralazine HCl 100 mg 05/17/24 10:00 05/20/24 05:10 Hydralazine Hcl 25 Mg Tablet PO 06/16/24 09:59 100 mg TID LONI Administration Hydromorphone HCl 1 mg 05/16/24 08:46 05/16/24 17:07 Hydromorphone Inj 2 Mg/Ml Vial IVP 05/21/24 08:45 1 mg Q2H PRN Administration BREAKTHROUGH PAIN (SEVERE) Ceftriaxone Sodium/Dextrose 50 mls @ 100 mls/hr 05/16/24 10:00 05/19/24 08:23 Rocephin/D5w 1gm Iv Premix IV 05/23/24 09:59 100 mls/hr QDAY [facility] Administration Insulin Human Lispro 0 unit 05/16/24 11:30 05/20/24 07:36 Insulin Lispro (Admelog) 1 Unit/0.01 Ml Unit SC 06/15/24 11:29 Not Given AC [facility] Protocol Ondansetron HCl 4 mg 05/16/24 08:46 05/16/24 11:05 Ondansetron Inj 2 Mg/Ml Inj 2 Ml IV 06/15/24 08:45 4 mg Q6H PRN Administration NAUSEA OR VOMITING Protocol Pharmacy Consult 1 each 05/16/24 10:53 Pharmacy Renal Dose Adjustment 1 Ea XX 06/15/24 10:52 PRN PRN CONSULT Polyethylene Glycol 17 gm 05/17/24 09:00 05/19/24 08:21 Polyethylene Glycol 17 Gm Packet PO 06/16/24 08:59 17 gm QDAY LONI Administration Sennosides 1 tab 05/17/24 09:00 05/19/24 08:22 Senna Tablet PO 06/16/24 08:59 1 tab QDAY LONI Administration Protocol Tramadol HCl 50 mg 05/17/24 09:49 Tramadol Hcl 50 Mg Tablet PO 05/22/24 09:48 BID PRN PAIN SCALE 4-10(Mod-Sev Protocol Plan Mat Rodriguez is a 58-year-old gentleman with extensive past medical history of diabetes, hypertension, dyslipidemia, ESRD (HD M, W, F) currently residing at rehab presented to the emergency department with altered level of consciousness and lethargy. Apparently patient had recent back surgery with associated weight loss and is slowly recuperating for the last couple weeks and his rehab facility sent him to the ER. Also endorses headache, dizziness, nausea. Denies fever, chills, chest pain, shortness of breath, abdominal pain. Admitted for pneumonia and nephrology consulted for need for dialysis. #ESRD (HD on M, W, F) secondary to diabetic/hypertensive nephrosclerosis ? Will follow outpatient dialysis regimen ? Stable for discharge from nephrology standpoint #Renal osteodystrophy ? On calcitriol during dialysis #Hypertension #Hyperlipidemia #Diabetes mellitus #Pneumonia #Altered mental status ? Continue management per primary team ----- Plan discussed with attending physician Dr. Liang Garcia MD PGY-1 Internal Medicine Attending Provider Attestation/Addendum Patient seen and examined with resident physician Dr. Griffin. Note reviewed, agree with findings and recommendations. Dialysis scheduled for tomorrow. Renal martinez discharge to rehab.
[2024-05-20] MEDS: HEPARIN SOD INJ 5000 UNIT/ML VIAL SC ×2 (08:48→21:18)
--- NOTE | 2024-05-20 10:32 | PD.RESPRO ---
Documentation for date of: 05/21/24 Subjective Subjective Interval history: Patient was seen and examined at the bedside this morning. Patient reported to have no bowel movement therefore bowel regimen was provided. No labs were taking as patient was currently waiting on SNF authorization we will give a bowel regimen water enema for helping with passing a bowel movement. All labs and orders were reviewed. Exam Vital Signs Temp Pulse Resp BP Pulse Ox O2 Del Method O2 Flow Rate 98.4 F 69 18 153/66 H 94 L Nasal Cannula 1 05/21/24 08:49 05/21/24 10:30 05/21/24 08:49 05/21/24 10:30 05/21/24 08:49 05/21/24 05:40 05/21/24 08:49 Narrative Exam Gen: Well-developed and well-nourished. HEENT: NCAT, PERRLA, EOMI, MMM, anicteric conjunctivae. CVS: normal S1 and S2. RRR. No M/R/G. Resp: CTA B/L. No rhonchi, rales, crackles or wheezing. Abd: soft, non-tender, non-distended. MSK: Good ROM in BUE & BLE. No edema or rash. Scar midline, upper back. Neuro: CN II-XII grossly intact. Strength 5/5 in BUE & BLE. Alert and oriented x3. Psych: appropriate mood and affect. Objective Labs 05/19/24 05:59 05/19/24 05:59 ABG Interpretation ABG results: 05/16/24 09:54 VBG pH 7.45 VBG pCO2 43 VBG pO2 114 H VBG Base Excess 5 H Quality Measures Quality Measures VTE prophylaxis Assessment & Plan Assessment Current Active Medications: Generic Name Dose Route Start Last Admin Trade Name Freq PRN Reason Stop Dose Admin Acetaminophen 650 mg 05/16/24 08:51 Acetaminophen 325 Mg Tablet PO 06/15/24 08:45 Q6H PRN Fever >100.4 or pain(1-3) Amlodipine Besylate 10 mg 05/17/24 09:00 05/20/24 08:43 Amlodipine Besylate 5 Mg Tablet PO 06/16/24 08:59 10 mg QDAY LONI Administration Azithromycin 500 mg 05/19/24 09:00 05/20/24 08:44 Azithromycin 250 Mg Tablet PO 05/24/24 08:59 500 mg QDAY LONI Administration Clonidine 0.1 mg 05/17/24 13:30 05/20/24 08:45 Clonidine Hcl 0.1 Mg Tablet PO 06/16/24 13:29 0.1 mg DAILY LONI Administration Dextrose 25 ml 05/16/24 08:54 Dextrose 50%-Water Inj 50 Ml Syringe IV 06/15/24 08:53 Q15MIN PRN BG 50-70 responsive npo pt Dextrose 50 ml 05/16/24 08:54 Dextrose 50%-Water Inj 50 Ml Syringe IV 06/15/24 08:53 Q15MIN PRN BG <50 OR BG <70 & pt unresponsive Doxazosin Mesylate 2 mg 05/17/24 21:00 05/20/24 21:17 Doxazosin Mesylate 2 Mg Tablet PO 06/16/24 20:59 2 mg HS LONI Administration Furosemide 40 mg 05/17/24 09:00 05/20/24 08:42 Furosemide 40 Mg Tablet PO 06/16/24 08:59 40 mg QDAY LONI Administration Glucagon 1 mg 05/16/24 08:54 Glucagon Inj 1 Mg Vial IM Q15MIN PRN BG <70, and no IV access Heparin Sodium (Porcine) 5,000 unit 05/16/24 09:00 05/20/24 21:18 Heparin Sod Inj 5000 Unit/Ml Vial SC 05/30/24 08:59 5,000 unit Q12HR LONI Administration Hydralazine HCl 100 mg 05/17/24 10:00 05/21/24 05:06 Hydralazine Hcl 25 Mg Tablet PO 06/16/24 09:59 100 mg TID LONI Administration Ceftriaxone Sodium/Dextrose 50 mls @ 100 mls/hr 05/16/24 10:00 05/20/24 08:47 Rocephin/D5w 1gm Iv Premix IV 05/23/24 09:59 100 mls/hr QDAY [facility]ON[facility] Administration Insulin Human Lispro 0 unit 05/16/24 11:30 05/21/24 08:01 Insulin Lispro (Admelog) 1 Unit/0.01 Ml Unit SC 06/15/24 11:29 Not Given [facility] Protocol Ondansetron HCl 4 mg 05/16/24 08:46 05/16/24 11:05 Ondansetron Inj 2 Mg/Ml Inj 2 Ml IV 06/15/24 08:45 4 mg Q6H PRN Administration NAUSEA OR VOMITING Protocol Pharmacy Consult 1 each 05/16/24 10:53 Pharmacy Renal Dose Adjustment 1 Ea XX 06/15/24 10:52 PRN PRN CONSULT Polyethylene Glycol 17 gm 05/17/24 09:00 05/20/24 08:46 Polyethylene Glycol 17 Gm Packet PO 06/16/24 08:59 17 gm QDAY [facility]ONI Administration Sennosides 1 tab 05/17/24 09:00 05/20/24 08:45 Senna Tablet PO 06/16/24 08:59 1 tab QDAY LON[facility] Administration Protocol Tramadol HCl 50 mg 05/17/24 09:49 Tramadol Hcl 50 Mg Tablet PO 05/22/24 09:48 BID PRN PAIN SCALE 4-10(Mod-Sev Protocol Plan This 58 y/o M with PMHx significant for ESRD (dialysis Friday), HTN, evp-[id number] diabetes presents from [facility] with chief complaint of altered mental status, admitted for hypertensive emergency. #Hypertensive emergency, resolved #Hypertensive encephalopathy, resolved #NSTEMI Type 2 Patient presented with hypertension, 194/92 and signs of end-organ damage, headache and dizziness, troponin 0.048. Patient has history of hypertension treated with outpatient medications. Med rec's pending. Blood pressure has been steadily decreasing without active intervention. Neuro symptoms resolved as BP decreased. Home BP meds resumed. Troponin peaked at 0.057 -Telemetry -Monitor BP closely -Resumed home BP meds: Amlodipine, clonidine, doxazosin, hydralazine #CAP #Mild hypothermia, resolved #Acute hypoxic respiratory failure, resolved Patient has consolidation right lower lung field on chest x-ray. Increased O2 requirements, increased to 6 L/min via nasal cannula to maintain oxygen saturations greater than 95%. Patient has decreased temperature possibly related to infection, lowest 94.5, improved with Mitzy hugger. Leukocytes normal. Cocci negative, flu negative, COVID-negative. Patient has been on 2 L O2 chronically at [facility]. Blood cultures negative -Ceftriaxone 1 g IV daily (started 05/16) -Azithromycin 500 mg IV daily (started 05/16) -O2, titrate as needed #ESRD Patient has history of ESRD, receives dialysis M/W/F with Dr. Tavera. -Nephro consulted -Dialysis as per patient's usual schedule #DM Patient history diabetes. Patient A1c 4.5% on 07/22/2022, 6.1% as of 05/16/24. -ISS #Constipation: -Gave miralax and jaydon denied having BM. Plan: -Bowel regime as needed -Water enema given x 1 DVT prophylaxis: Heparin GI prophylaxis: None Diet: Cardiac/renal Lines: Peripheral IV Code status: Full code Patient was seen and discussed with attending Physician,Dr Skylar Wilson MD,PGY2 Attending Provider Attestation/Addendum I attest that I was physically present for the evaluation, physical examination, lab and imaging review of the patient with the residents. I discussed the case with the residents and agree with the findings and plans of care as documented above. Patient was planned for discharge to SNF. Failed discharge as he has not passed bowel for 3 days. Oren Celeste MD
--- NOTE | 2024-05-20 11:59 | PC.SS ---
Addendum entered by Ngozi Inman 05/20/24 13:31: SS was contacted by [facility] ETA to [facility] is 1530PM. SS informed patient as well as patient's nurse and updated Marzena from [facility]. Original Note: SS follow up note; set up transportation for patient through [facility], Reference # [id number].
--- NOTE | 2024-05-20 15:10 | PC.SS ---
SS received a call from Patient's nurse Lulu and informed SS that [facility] is not accepting patient due to patient not having a bowl movement X3 days. SS informed Dr. Oswald and he input orders for an enema. SS contacted [facility] and put the transportation on hold. SS contacted [employer] Joanna and informed her once patient has a bowl movement she could contact [facility] in regards to ETA or cancel transportation if patient does not have bowl movement.
--- NOTE | 2024-05-20 16:42 | PC.NURSE ---
Spoke with Dr. Jewell concerning the patient needing to have a BM before SNF will accept patient. Water Enema administered, although patient unable to have a bowel movement. Called to see if any other measures could be added. MD to call primary team for orders.
[2024-05-20] MEDS: LACTULOSE SYRUP 20 GM/30 ML UDC PO (17:23)
[2024-05-20] MEDS: INSULIN LISPRO (AdmeLOG) 1 UNIT/0.01 ML UNIT SC (17:49)
--- NOTE | 2024-05-20 19:31 | PC.NURSE ---
notified p 3 armament/ordnance ima technician of [facility] for patient
[2024-05-20] MEDS: DOXAZOSIN MESYLATE 2 MG TABLET PO (21:17)
[2024-05-20] MEDS: MELATONIN 3 MG TABLET PO (22:03)
[2024-05-21] VITALS (28 sets, daily range): BP systolic 128–175; BP diastolic 51–85; PULSE 60–92; RESP 12–18; TEMP 36.1–36.9; O2SAT 91–99; BMI 23.6; BMI 23.4
[2024-05-21] MEDS: hydrALAZINE HCL 25 MG TABLET 100 MG PO ×2 (05:06→14:59)
--- NOTE | 2024-05-21 08:59 | ESPR_ITS ---
Documentation for date of: 05/21/24 Subjective Subjective Interval history: Mat Rodriguez is a 58-year-old gentleman with extensive past medical history of diabetes, hypertension, dyslipidemia, ESRD (HD M, W, F) currently residing at rehab presented to the emergency department with altered level of consciousness and lethargy. Apparently patient had recent back surgery with associated weight loss and is slowly recuperating for the last couple weeks and his rehab facility sent him to the ER. Also endorses headache, dizziness, nausea. Denies fever, chills, chest pain, shortness of breath, abdominal pain. In ED, vital signs showed severe hypertension 190/92 and hypothermia (low of 94.5 ?F). Influenza negative, COVID-negative, cocci negative. Troponin 0.048, K 5.2, BUN 22, Cr 3.6, GFR 19. CT head unremarkable, CXR showed congestion and RLL lung consolidation. Given. However, meclizine, ondansetron. Admitted for pneumonia and nephrology consulted for need for dialysis. 05/17: Patient seen and examined at bedside in telemetry. No acute overnight events. Labs reviewed and patient scheduled for hemodialysis today with removal of 1 to 1.5 L. 05/18: Patient seen and examined at bedside in telemetry. No acute overnight events. Labs and medications reviewed. Underwent dialysis yesterday and tolerated well. Next session planned for Friday if patient remains in-house. Otherwise, patient stable for discharge from nephrology standpoint. 05/19: Patient seen and examined at bedside in telemetry. No acute overnight events. Labs and medications reviewed. Planned for hemodialysis today with removal of 1 L. 05/20: Patient seen and examined at bedside in telemetry. No acute overnight events. Labs and medications reviewed. He has been medically discharged by primary team, but remains in house due to pending authorization. If patient continues to remain in house, will plan for hemodialysis tomorrow. 05/21: Patient seen and examined at bedside in telemetry. No acute overnight events. Labs and medications reviewed. He has been medically discharged by primary team, but remains in house due to pending authorization. Plan for hemodialysis per outpatient regimen of M, W, F. Exam Vital Signs Temp Pulse Resp BP Pulse Ox O2 Del Method O2 Flow Rate 98.4 F 67 18 141/71 H 94 L Nasal Cannula 1 05/21/24 08:49 05/21/24 08:49 05/21/24 08:49 05/21/24 08:49 05/21/24 08:49 05/21/24 05:40 05/21/24 08:49 Narrative Exam General: AOx3, no acute distress, able to speak full sentences HEENT: NC/AT, mucous membranes moist, bilateral sclera anicteric Cardiovascular: regular rate and rhythm, S1/S2 present, no murmurs appreciated Pulmonary: mild crackles at bases Abdominal: soft, non-tender, non-distended, no rebound/guarding, normal bowel sounds present Musculoskeletal: normal ROM, no peripheral edema Skin: warm and dry, intact, no rashes Objective Labs 05/19/24 05:59 05/19/24 05:59 ABG Interpretation ABG results: 05/16/24 09:54 VBG pH 7.45 VBG pCO2 43 VBG pO2 114 H VBG Base Excess 5 H Quality Measures Quality Measures VTE prophylaxis Assessment & Plan Assessment Current Active Medications: Generic Name Dose Route Start Last Admin Trade Name Freq PRN Reason Stop Dose Admin Acetaminophen 650 mg 05/16/24 08:51 Acetaminophen 325 Mg Tablet PO 06/15/24 08:45 Q6H PRN Fever >100.4 or pain(1-3) Amlodipine Besylate 10 mg 05/17/24 09:00 05/20/24 08:43 Amlodipine Besylate 5 Mg Tablet PO 06/16/24 08:59 10 mg QDAY LONI Administration Azithromycin 500 mg 05/19/24 09:00 05/20/24 08:44 Azithromycin 250 Mg Tablet PO 05/24/24 08:59 500 mg QDAY LONI Administration Clonidine 0.1 mg 05/17/24 13:30 05/20/24 08:45 Clonidine Hcl 0.1 Mg Tablet PO 06/16/24 13:29 0.1 mg DAILY LONI Administration Dextrose 25 ml 05/16/24 08:54 Dextrose 50%-Water Inj 50 Ml Syringe IV 06/15/24 08:53 Q15MIN PRN BG 50-70 responsive npo pt Dextrose 50 ml 05/16/24 08:54 Dextrose 50%-Water Inj 50 Ml Syringe IV 06/15/24 08:53 Q15MIN PRN BG <50 OR BG <70 & pt unresponsive Doxazosin Mesylate 2 mg 05/17/24 21:00 05/20/24 21:17 Doxazosin Mesylate 2 Mg Tablet PO 06/16/24 20:59 2 mg HS LONI Administration Furosemide 40 mg 05/17/24 09:00 05/20/24 08:42 Furosemide 40 Mg Tablet PO 06/16/24 08:59 40 mg QDAY LONI Administration Glucagon 1 mg 05/16/24 08:54 Glucagon Inj 1 Mg Vial IM Q15MIN PRN BG <70, and no IV access Heparin Sodium (Porcine) 5,000 unit 05/16/24 09:00 05/20/24 21:18 Heparin Sod Inj 5000 Unit/Ml Vial SC 05/30/24 08:59 5,000 unit Q12HR LONI Administration Hydralazine HCl 100 mg 05/17/24 10:00 05/21/24 05:06 Hydralazine Hcl 25 Mg Tablet PO 06/16/24 09:59 100 mg TID LONI Administration Ceftriaxone Sodium/Dextrose 50 mls @ 100 mls/hr 05/16/24 10:00 05/20/24 08:47 Rocephin/D5w 1gm Iv Premix IV 05/23/24 09:59 100 mls/hr QDAY [facility] Administration Insulin Human Lispro 0 unit 05/16/24 11:30 05/21/24 08:01 Insulin Lispro (Admelog) 1 Unit/0.01 Ml Unit SC 06/15/24 11:29 Not Given AC [facility] Protocol Ondansetron HCl 4 mg 05/16/24 08:46 05/16/24 11:05 Ondansetron Inj 2 Mg/Ml Inj 2 Ml IV 06/15/24 08:45 4 mg Q6H PRN Administration NAUSEA OR VOMITING Protocol Pharmacy Consult 1 each 05/16/24 10:53 Pharmacy Renal Dose Adjustment 1 Ea XX 06/15/24 10:52 PRN PRN CONSULT Polyethylene Glycol 17 gm 05/17/24 09:00 05/20/24 08:46 Polyethylene Glycol 17 Gm Packet PO 06/16/24 08:59 17 gm QDAY LONI Administration Sennosides 1 tab 05/17/24 09:00 05/20/24 08:45 Senna Tablet PO 06/16/24 08:59 1 tab QDAY LONI Administration Protocol Tramadol HCl 50 mg 05/17/24 09:49 Tramadol Hcl 50 Mg Tablet PO 05/22/24 09:48 BID PRN PAIN SCALE 4-10(Mod-Sev Protocol Plan Mat Rodriguez is a 58-year-old gentleman with extensive past medical history of diabetes, hypertension, dyslipidemia, ESRD (HD M, W, F) currently residing at rehab presented to the emergency department with altered level of consciousness and lethargy. Apparently patient had recent back surgery with associated weight loss and is slowly recuperating for the last couple weeks and his rehab facility sent him to the ER. Also endorses headache, dizziness, nausea. Denies fever, chills, chest pain, shortness of breath, abdominal pain. Admitted for pneumonia and nephrology consulted for need for dialysis. #ESRD (HD on M, W, F) secondary to diabetic/hypertensive nephrosclerosis ? Planned for dialysis today ? Stable for discharge from nephrology standpoint #Renal osteodystrophy ? On calcitriol during dialysis #Hypertension #Hyperlipidemia #Diabetes mellitus #Pneumonia #Altered mental status ? Continue management per primary team ----- Plan discussed with attending physician Dr. Liang Garcia MD PGY-1 Internal Medicine Attending Provider Attestation/Addendum Patient seen and examined with resident physician Dr. Griffin. Note reviewed, agree with findings and recommendations. Patient currently seen on dialysis. Tolerating dialysis without any problems. Hemodialysis for 3 hours, 2K, ultrafiltration 1-1.5 L, Epogen 6000, no heparin ordered. Plan of care discussed with the dialysis nurse. Please see dialysis flowsheet for further details.. Patient will be discharged today postdialysis.
--- NOTE | 2024-05-21 09:17 | PC.SS ---
Addendum entered by Ngozi Inman 05/21/24 11:41: SS follow up note; Auth has been obtained, however patient has not had bowl movement. Original Note: SS follow up note; Patient has not had a bowl movement, therefore could not discharge back to [facility].
--- NOTE | 2024-05-21 10:13 | PD.RESDS ---
Planned Discharge Date 05/21/24 DS: Providers Provider Date of admission: 05/16/24 08:46 Primary care physician: MARCELA Nunez Admitting Provider: Donnie Cheng DO Attending Provider on Admission: Oren Celeste MD Consults: 05/16/24 08:50 Consult to Nephrology Routine Comment: ESRD MWF Consulting Provider: Maicol Tavera 05/16/24 18:36 [facility] Referral - Knowledge Deficit Routine Comment: Positive screening for knowledge deficit needs. [facility] Referral - Nutrition Routine Comment: Positive screening for nutrition needs. 05/18/24 10:44 Referral Physical Therapy Stat Comment: Physician Instructions: Attending Provider on DC: Oren Celeste MD Discharging Provider: Oren Celeste MD DS: Diagnosis Problem List Completed Was Problem List Reviewed/Reconciled?: Yes Hospital Course Hospital Course Hospital course: This 58 y/o M with PMHx significant for ESRD (dialysis Friday), HTN, itx-xsejena-dsjsshwvn diabetes presents from SNF with chief complaint of altered mental status. Patient has been in SNF for rehab due to recent back surgery. Patient was found to be more lethargic than usual and thus sent to ER. Patient was found to be alert and oriented but very lethargic, complained of headache dizziness and nausea. Denied fevers, chills, chest pain, shortness of breath, abdominal pain. Head CT was unremarkable but chest x-ray showed congestion and right lower lobe consolidation. In ED patient had severe hypertension 190/92 and was notably hypothermic, lowest temperature recorded 94.5. Patient given Mitzy hugger, meclizine, ondansetron in the ED. Temperature lulu, BP began dropping without intervention. By the following day patient's was normothermic without Mitzy hugger, mental status returned to baseline. During hospital stay patient received azithromycin and Rocephin for community-acquired pneumonia. Patient received dialysis as per his usual schedule. Blood pressure was controlled with amlodipine, clonidine, doxazosin, hydralazine. Patient medical clearance stable for discharge. #Discharge plan: Please continue taking the following meds: -Amlodipine 10 mg once daily -Clonidine 0.1 mg once daily -Doxazosin 2 mg once daily -Hydralazine 100 mg 3 times daily -Lasix 40 mg once daily Please take the following meds for the next 2 days: -Amoxicillin 500 mg twice daily -Azithromycin 5 mg once daily We have added Toradol 50 mg. Take as needed for pain up to 2/day. We have stopped the following meds: Coreg, Entresto, Zoloft, salt tabs Please follow-up with PCP in 1-2 weeks Please return to ED if you have worsening symptoms, including confusion or chest pain. #Problem List #Hypertensive emergency, resolved #Hypertensive encephalopathy, resolved #NSTEMI Type 2 #CAP #Mild hypothermia, resolved #Acute hypoxic respiratory failure, resolved #ESRD #DM Patient was seen and discussed with attending Physician,Dr Roula Wilson MD,PGY2 Time Spent with Patient Time attestation: Total time spent providing and/or coordinating discharge services: Exam Vital Signs Temp Pulse Resp BP Pulse Ox O2 Del Method O2 Flow Rate 98.4 F 66 18 140/64 H 94 L Nasal Cannula 1 05/21/24 08:49 05/21/24 09:59 05/21/24 08:49 05/21/24 09:59 05/21/24 08:49 05/21/24 05:40 05/21/24 08:49 Narrative Exam Gen: Well-developed and well-nourished. HEENT: NCAT, PERRLA, EOMI, MMM, anicteric conjunctivae. CVS: normal S1 and S2. RRR. No M/R/G. Resp: CTA B/L. No rhonchi, rales, crackles or wheezing. Abd: soft, non-tender, non-distended. MSK: Good ROM in BUE & BLE. No edema or rash. Scar midline, upper back. Neuro: CN II-XII grossly intact. Strength 5/5 in BUE & BLE. Alert and oriented x3. Psych: appropriate mood and affect. Discharge Plan Plan Patient Disposition: Xfer Skilled Nsg Fac (SNF) Disposition Comment: Stable Patient condition on transfer: Stable Care Plan Goals: Please continue taking the following meds: -Amlodipine 10 mg once daily -Clonidine 0.1 mg once daily -Doxazosin 2 mg once daily -Hydralazine 100 mg 3 times daily -Lasix 40 mg once daily Please take the following meds for the next 2 days: -Amoxicillin 500 mg twice daily -Azithromycin 5 mg once daily We have added Toradol 50 mg. Take as needed for pain up to 2/day. We have stopped the following meds: Coreg, Entresto, Zoloft, salt tabs Please follow-up with PCP in 1-2 weeks Please return to ED if you have worsening symptoms, including confusion or chest pain. Prescriptions/Referrals Prescriptions/Med Rec: New hydralazine 100 mg tablet 100 mg PO TID 30 Days Qty: 90 0RF furosemide 40 mg Tablet 40 mg PO QDAY 30 Days Qty: 30 0RF clonidine HCl 0.1 mg Tablet 0.1 mg PO DAILY 30 Days Qty: 30 0RF doxazosin 2 mg Tablet 2 mg PO HS 30 Days Qty: 30 0RF tramadol 50 mg tablet 50 mg PO BID PRN (Reason: pain) Qty: 14 0RF amlodipine 10 mg tablet 10 mg PO QDAY 30 Days Qty: 30 0RF amoxicillin 500 mg capsule 500 mg PO BID 2 Days Qty: 4 0RF azithromycin 500 mg tablet 500 mg PO QDAY 2 Days Qty: 2 0RF Rx Instructions: start on day 2 of therapy doxycycline hyclate 100 mg tablet 100 mg PO BID 1 Days Qty: 2 0RF Continued atorvastatin 40 mg Tablet 40 mg PO QPM gabapentin 100 mg Capsule 100 mg PO TID cholecalciferol (vitamin D3) 25 mcg (1,000 unit) Tablet 25 mcg PO QDAY Rx Instructions: Give 5 tablet by mouth one time a day for supplement. nutritional supplements Liquid 8 ea PO 1XD Rx Instructions: Give 8 ounce by mouth one time a day for supplement Mena-Anil 0.8 mg Tablet 1 tab PO 1XD Rx Instructions: Give 1 tablet by mouth one time a day for supplement. lidocaine 5 % Cream 1 applic TOPICAL 1XD Rx Instructions: Apply to chest wall topically in the morning for pain. Apply to back topically one time a day for back pain. ondansetron HCl 4 mg Tablet 4 mg PO Q6H PRN (Reason: Nausea And Vomiting) acetaminophen 325 mg Tablet 325 mg PO Q6HR PRN (Reason: Mild Pain (Scale Score 1-4)) Discontinued carvedilol 12.5 mg Tablet 12.5 mg PO BID Rx Instructions: must administer with a meal/food sacubitril-valsartan [Entresto] 49-51 mg Tablet 1 tab PO BID hydralazine 50 mg Tablet 50 mg PO BID senna-docusate sodium Tablet 1 tab PO BID sodium chloride 1,000 mg Tablet,Soluble 1,000 mg PO TID sertraline [Zoloft] 25 mg Tablet 25 mg PO TID tramadol 50 mg Tablet 50 mg PO Q6H PRN (Reason: moderate to severe pain) Referrals: Andrea Bonilla, [employer] [Primary Care Provider] - Patient/Caregiver Discharge Instructions Discharge Activity: as per physical therapy Other Discharge Activity Instructions:: Please continue taking the following meds: -Amlodipine 10 mg once daily -Clonidine 0.1 mg once daily -Doxazosin 2 mg once daily -Hydralazine 100 mg 3 times daily -Lasix 40 mg once daily Please take the following meds for the next 2 days: -Amoxicillin 500 mg twice daily -Azithromycin 5 mg once daily We have added Toradol 50 mg. Take as needed for pain up to 2/day. We have stopped the following meds: Coreg, Entresto, Zoloft, salt tabs Please follow-up with PCP in 1-2 weeks Please return to ED if you have worsening symptoms, including confusion or chest pain. Education Materials: Preventing Pneumonia, Your High Blood Pressure Risk Factors, Hypertension Dc Print Language: Liberian Stand Alone Forms: Neena Award Info., Patient Portal Info Letter Quality Discharge Quality Measures VTE prophylaxis Attestestation MD Attestation I attest that I was physically present for the evaluation, physical examination, lab and imaging review of the patient with the residents. I discussed the case with the residents and agree with the findings and plans of care as documented above. At bedside patient appears comfortable, having his lunch. Denies any complaints. Saturating well on nasal cannula. Patient failed discharge yesterday as he has not had a bowel movement for 3 days, and wound not be accepted to the SNF without bowel movement. We will try some bowel softener today, patient states he feels other than we will be able to try the bedside commode. We will discharge him once he is able to pass bowel movement. Oren Celeste MD
[2024-05-21] MEDS: EPOETIN ALFA-EPBX INJ 10,000 UNIT/ML VIAL (ESRD) 10000 UNIT SC (11:40)
[2024-05-21] MEDS: amLODIPine BESYLATE 5 MG TABLET 10 MG PO (13:12)
[2024-05-21] MEDS: cefTRIAXone/D5w 1gm IV premix 50 ML IV (13:12)
[2024-05-21] MEDS: POLYETHYLENE GLYCOL 17 GM PACKET PO (13:12)
[2024-05-21] MEDS: SENNA TABLET 1 TAB PO (13:13)
[2024-05-21] MEDS: cloNIDine HCL 0.1 MG TABLET PO (13:13)
[2024-05-21] MEDS: Furosemide 40 MG TABLET PO (13:13)
[2024-05-21] MEDS: AZITHROMYCIN 250 MG TABLET 500 MG PO (13:14)
--- NOTE | 2024-05-21 15:53 | PC.SS ---
Addendum entered by PRINCESS Benitez 05/21/24 17:09: Notified patient's Roro Rodriguez [phone] Addendum entered by PRINCESS Benitez 05/21/24 17:03: Marzena at [facility] and unit technician informed of ETA. Addendum entered by PRINCESS Benitez 05/21/24 17:00: Received call, [facility] ETA 1900. Original Note: SS follow up note; SS was contacted by patient's nurse Yu and informed SS that patient had a bowl movement. SS set up transportation for patient through [facility], Reference # [id number]. SS will inform safe deposit box rental clerk Kaity that Transportation will be contacted the Nurses station. SS updated Marzena from [facility] and Patient.
--- NOTE | 2024-05-21 19:54 | PC.NURSE ---
Report given to SUMEET Briceno at [facility] at 1941. All questions answered with satisfaction.
--- NOTE | 2024-05-21 19:54 | PC.NURSE ---
Report given to SUMEET Briceno at [facility]. All questions answered with satisfaction.
--- NOTE | 2024-05-21 19:55 | PC.NURSE ---
Patient alert and oriented with GCS of 15. No complaints of pain or discomfort. Patient [facility], discharged at 1953, and left with all his belongings.
== END 2024-05-21 19:54 | disposition skilled nursing facility (03) | DRG 682 ==
LOC: SERX 08:12 → SERHOLD 08:59 → S2NX 17:31 → S3NX 05-21 05:43
PROVIDERS: Internal Medicine; Student in an Organized Health Care Education/Training Program; Admitting Provider Student in an Organized Health Care Education/Training Program; Emergency Provider Emergency Medicine; PCP Nurse Practitioner; Referring Provider Emergency Medicine; Visit Provider Student in an Organized Health Care Education/Training Program
DX: I12.0 Hypertensive chronic kidney disease with stage 5 chronic kidney disease or end stage renal disease (principal); I21.A1 Myocardial infarction type 2; J15.9 Unspecified bacterial pneumonia; N18.6 End stage renal disease; J96.01 Acute respiratory failure with hypoxia; I16.1 Hypertensive emergency; I67.4 Hypertensive encephalopathy; E11.22 Type 2 diabetes mellitus with diabetic chronic kidney disease; R68.0 Hypothermia, not associated with low environmental temperature; E78.5 Hyperlipidemia, unspecified; N25.0 Renal osteodystrophy; Z99.2 Dependence on renal dialysis; Z79.84 Long term (current) use of oral hypoglycemic drugs; K59.00 Constipation, unspecified
CPT/HCPCS: 36415; 70450; 71045; 80053; 80061; 80074; 81001; 82803; 83036; 83735; 84100; 84443; 84484; 85025; 85610; 85730; 86331; 86635; 86706; 87040; 87081; 87400; 87811; 93005; 94664; 96365; 96367; 96372; 96375; 96376; 97162; 99291; J0456; J0696; J1643; J1815; J2405; J3490; J7050; Q5105; A9270

== ENCOUNTER 2024-07-25 09:32 | Inpatient (IN) | payer MEDICARE, MEDICAID, SELFPAY ==
[2024-07-25] VITALS (14 sets, daily range): BP systolic 140–155; BP diastolic 72–81; PULSE 63–111; RESP 12–87; TEMP 36.1–36.7; O2SAT 91–98
--- NOTE | 2024-07-25 09:52 | EKG_ITS ---
[facility] Test Date: 2024-07-25 Pat Name: MAXI GRANDA Department: Room: - Gender: Male Gui Developer: : 1965 Requested By: Francisco Tavares Order Number: [id number] Reading MD: Francisco Tavares Measurements Intervals [place] Rate: 67 P: 39 [place]: 173 QRS: -6 QRSD: 89 T: 98 QT: 403 QTc: 427 Interpretive Statements SINUS RHYTHM INFERIOR MYOCARDIAL INFARCTION , PROBABLY OLD [40+ ms Q WAVE AND/OR ST/T ABNORMALITY IN II/aVF] Compared to ECG 05/16/2024 06:14:37 Myocardial infarct finding now present Sinus bradycardia no longer present T-wave abnormality no longer present Prolonged QT interval no longer present /store/S0/[id number].pdf
--- NOTE | 2024-07-25 09:53 | PD.EDADULT ---
ED General RME/HPI General Chief complaint: General Adult/Misc Complain Stated complaint: WEAKNESS Time Seen by Provider: 07/25/24 09:51 Arrival date/time: 07/25/24 09:32 RME / HPI RME / HPI narrative: DR. TAVARES MAIN ED EVALUATION: 58-year-old presents to the Emergency Department [facility] from his rehab nursing facility with complaint of complaint of generalized weakness for the past week. He is got no documented fever. For the past 4 years dependent on dialysis. He is got no history of liver disease. No history of cirrhosis or ascites he is diabetic and has congestive heart failure. Patient has no injury or trauma. He has no other complaint other than weakness and distended belly. He has dialysis Fridays and a missed Fridays dialysis. States he was feeling weak as the reason Related Data Home Medications ?Medication ?Instructions ?Recorded ?Confirmed acetaminophen 325 mg tablet 325 mg PO Q6HR PRN Mild Pain 05/17/24 05/17/24 (Scale Score 1-4) atorvastatin 40 mg tablet 40 mg PO QPM 05/17/24 05/17/24 cholecalciferol (vitamin D3) 25 25 mcg PO QDAY 05/17/24 05/17/24 mcg (1,000 unit) tablet gabapentin 100 mg capsule 100 mg PO TID 05/17/24 05/17/24 lidocaine 5 % topical cream 1 applic topical 1XD 05/17/24 05/17/24 nutritional supplements 8 ea PO 1XD 05/17/24 05/17/24 ondansetron HCl 4 mg tablet 4 mg PO Q6H PRN Nausea And Vomiting 05/17/24 05/17/24 vitamin B complex-vitamin C-folic 1 tab PO 1XD 05/17/24 05/17/24 acid 0.8 mg tablet (Mena-Anil) Previous Rx's ?Medication ?Instructions ?Recorded tramadol 50 mg tablet 50 mg PO BID PRN pain #14 tabs 05/18/24 Allergies Allergy/AdvReac Type Severity Reaction Status Date / Time No Known Allergies Allergy Verified 07/25/24 10:58 Review of Systems Review of Systems Systems Reviewed: All systems reviewed, normal except as documented Narrative Review of Systems: Constitutional: DENIES: fevers; Eyes: DENIES: loss of vision; Head/Ear/Nose: DENIES: loss of hearing. Throat: DENIES: dysphagia. Cardiovascular: DENIES: chest pain, dyspnea, or syncope. Respiratory: DENIES: shortness of breath; Gastrointestinal: POSITIVES: distended belly; DENIES: rectal bleeding or melena. Genitourinary: DENIES: dysuria (painful or difficult urination); Musculoskeletal: DENIES: arthralgia (pain in a joint); Skin: DENIES: rash; Neurological: POSITIVES: generalized weakness; DENIES: loss of function or movement; Psychiatric: DENIES: recent major life stressor, emotional problem, illicit drug use or abuse; Endocrinology: DENIES: weight change,; Hematologic/Lymphatic: DENIES: abnormal bruising. Allergic/Immunologic: DENIES: urticaria (hives). Past Medical History Past Medical History CARDIAC: Positive Cardiac Disorders, Hypercholesterolemia and Hypertension GASTROINTESTINAL: Positive Gastrointestinal Disorders (ASCITES) GENITOURINARY: Positive Renal Disease and Dialysis ENT: Positive Cataracts ENDOCRINE: Positive Endocrine Disorders and Diabetes Mellitus Type 2 HEMATOLOGIC: Positive Blood Disorders and Anemia PSYCHO/SOCIAL: Positive Depression OTHER HISTORY: Positive Hospitalization, Falls and Blood Transfusions Surgical History OTHER SURGICAL HX: AV GRAFT LEFT UPPER ARM Social History SMOKING STATUS: Never smoker SUBSTANCE USE: does not use ALCOHOL: Never ED Exam Narrative Physical exam: Physical Exam: General: The vital signs were reviewed. The patient is non-toxic, in no apparent distress and appears healthy with a patent airway, no respiratory distress and has no apparent circulatory problems. Head & Scalp: Normocephalic, atraumatic. Face: Appears normal and is without lesions, deformity. Ears: Left external pinna appears normal. Right external pinna appears normal. Eyes: The sclera is anicteric. No obvious photophobia. The Left and Right Orbit/Lid/Conjunctiva appears normal without swelling, discoloration or injection. Nose: The nose is without deformity, discharge or tenderness; Throat: Appears normal. The mucous membranes are pink and moist without exudates, redness or mass seen. The tongue appears normal. Neck: The neck is supple and no apparent mass or adenopathy. Chest: The chest wall is normal in size and symmetry and has no chest wall tenderness or crepitus. The patient displays normal ventilator effort without retractions, accessory muscle use and has adequate air movement bilaterally with no wheezes and no rales. Cardiovascular: Regular rate and rhythm; No murmurs, rubs, or gallops; Gastrointestinal: The abdomen appears grossly distended and nontender is a difficult time sitting up due to the protuberant abdomen pushing back. No obvious hernias or mass. The abdomen is soft and benign, non-distended, with no pain, no guarding and no rebound tenderness. Bowel sounds are present and normal sounding. No CVA tenderness. Genitourinary: Back/Spine: Normal inspection no redness no swelling nontender. Extremities/Musculoskeletal/lymphatic: Left arm has a shunt that seems to be working in place. Appears normal otherwise. The bilateral upper and lower extremities are warm. There is no evidence of arterial insufficiency. There is no evidence of venous insufficiency/edema. The patient spontaneously moves bilateral upper and lower extremities with no pain and no limitation of movement. There is no apparent, injury or trauma. Skin: The skin is warm, dry and intact. No rashes. No petechia. No purpura. No abnormal bruising. The color is appropriate with no cyanosis. Mental status/Psychiatric: Mental status is appropriate for age. The patient has no apparent delusions, visual hallucinations, no apparent audible hallucinations. The patient has no apparent suicidal thoughts/ideation and no apparent homicidal thoughts/ideation. Neurological: The patient is awake, alert, interactive, cordial, cooperative and is oriented to name and situation. The patient follows commands and answers historical question with no impairment. There is no visual disturbance apparent. The pupils are equal and reactive bilaterally with normal eye movements and no diplopia The bilateral upper and lower extremities have normal strength, normal range of motion and normal functioning. The gait, station and balance appear to be baseline with no acute change Course Quality Measures none Orders Category Date Time Status Bedside Blood Glucose NOW Care 07/25/24 09:52 Active Bedside COVID-19 Antigen Test NOW Care 07/25/24 16:00 Active EKG (ED ONLY) *Do not use* NOW Care 07/25/24 09:52 Completed Miscellaneous Nursing Order NOW Care 07/25/24 09:[address] chest abdomen pelvis wo Stat Exams 07/25/24 13:15 Completed EKG (ED Only) Stat Exams 07/25/24 09:52 Draft XR chest 1V portable Stat Exams 07/25/24 09:52 Completed Alcohol, Blood Medical Stat Lab 07/25/24 10:10 Completed Ammonia Stat Lab 07/25/24 10:10 Completed B-Type Natriuretic Peptide Stat Lab 07/25/24 10:10 Completed Blood Culture (Lab) Stat Lab 07/25/24 10:17 Received CBC Stat Lab 07/25/24 10:10 Completed Comprehensive Metabolic Panel Stat Lab 07/25/24 10:10 Completed Drug Screen,Urine Stat Lab 07/25/24 09:52 Ordered Lactate (Lactic Acid) Stat Lab 07/25/24 10:10 Completed Procalcitonin Stat Lab 07/25/24 10:10 Completed Prothrombin Time with INR Stat Lab 07/25/24 10:10 Completed Troponin I Stat Lab 07/25/24 10:10 Completed Type and Screen Stat Lab 07/25/24 10:10 Completed Urinalysis Stat Lab 07/25/24 09:52 Ordered Urinalysis, C/S if Indicated Stat Lab 07/25/24 09:52 Ordered Venous Blood Gas Stat Lab 07/25/24 10:10 Completed Sodium Chloride 0.9% 1000 ml [Ns] 2,000 ml Med 07/25/24 09:52 Active IV 80 mls/hr Vital Signs Vital signs: Vital Signs Temperature 97.7 F 07/25/24 09:51 Pulse Rate 86 07/25/24 09:51 Respiratory Rate 22 H 07/25/24 09:51 Blood Pressure 155/72 H 07/25/24 09:51 Pulse Oximetry (%) 95 07/25/24 09:51 Oxygen Delivery Method Nasal Cannula 07/25/24 09:51 Oxygen Flow Rate 5 07/25/24 09:51 [facility] Patient data External records reviewed:: [facility] previous records (Reviewed last admission discharge dated 05/21/24, patient admitted for the following: Elevated troponin) and EMS form Clinical information provided by:: patient and EMS Social determinants that could affect healthcare access:: housing (rehab nursing facility) Patient has the following chronic illnesses:: For the past 4 years dependent on dialysis. He is got no history of liver disease. No history of cirrhosis or ascites he is diabetic and has congestive heart failure. Reviewed records and he does have liver disease and history of ascites. How is presenting disease/condition affected by chronic disease/condition?: exacerbated by Evaluation data The following diagnostics were reviewed and interpreted by me:: lab results, radiology exam(s) and EKG tracing(s) (EKG#1: EKG at 1013 hours. Interpreted by me: sinus rhythm, rate 67, no STEMI) Lab and/or radiology exams considered but not ordered:: none Interpretation Summary: See under MDM narrative. RADIOLOGY Procedure(s): XR chest 1V portable Accession Number(s): [id number] cc: Francisco Tavares MD; Jose Cedillo MD~ Examination: AP chest single view TECHNIQUE: AP portable semiupright chest single view Exam date and time: July 25, 2024 at 0858 hours Comparison May 16, 2024 INDICATIONS: Chest pain today. FINDINGS: Underpenetrated chest film Mild heart failure Mild enlargement cardiac contour with prominent vascular congestion suspicious for early perihilar edema Significant osteopenia IMPRESSION: Suspicious for early heart failure Dictated By: Jose Cedillo MD Procedure(s): CT chest abdomen pelvis wo Accession Number(s): [id number] cc: Sj Beck MD; Francisco Tavares MD; Jose Cedillo MD~ Examination: CT chest, without intravenous contrast. CT abdomen, without intravenous contrast. CT pelvis, without intravenous contrast. 2-D sagittal and coronal reconstructions. 3-D reconstructions. Date and time of exam:July 25, 2024 at [address] abdomen and pelvis March 12, 2024 INDICATION: Chest pain shortness of breath today, missed dialysis for 5 days, distended abdomen CTDI vol (mgy) 8.42 DLP (MGycm)864 Technique: Multiple CT images, 3.0 mm slice thickness, obtained chest, abdomen, pelvis, with the high-resolution 64 slice scanner.. Sagittal and coronal 2-D reconstructions are obtained. 3-D reconstructions Low dose protocols were performed. One or more of the following dose reduction techniques were used; automated exposure control, adjustment of the mA and/or KV according to patient size, use of iterative reconstruction technique. Findings: No thoracic or aneurysmal dilatation Pulmonary artery segments are not enlarged Moderate enlargement left Atrium left ventricle Prominent vascular congestion with septal edema in the lung crane, mild right minimal left pleural fluid Atelectasis versus pneumonia right base Cirrhosis Diffuse anasarca No focal liver lesions Absent gallbladder No splenomegaly Moderate ascites Small fat-containing fluid containing umbilical hernia No pancreatic mass Atrophic kidneys with heavy vascular calcification Periaortic pericaval lymph nodes, the largest lymph node left lateral periaortic measuring 13 mm No bowel obstruction AP prostate dimension 4.3 cm Urinary bladder wall prominent thickening anteriorly Fluid-containing left inguinal hernia Severe osteopenia, lumbar transpedicular stabilization centered around a severely compressed T11 vertebral body noted on the March 2024 exam IMPRESSION: Mild heart failure Mild right and minimal left pleural fluid Atelectasis versus pneumonia right base, clinical correlation advised Cirrhosis Moderate ascites Anasarca Atrophic [place] kidneys Moderate prostatomegaly Significant urinary bladder wall thickening, differential would include cystitis Dictated By: Jose Cedillo MD Medications Medications considered but not ordered:: none Medication administrations:: Medication Administration History Sodium Chloride (Ns) 2,000 mls @ 80 mls/hr IV .Q24H ONE Stop: 07/26/24 09:51 Last Admin: 07/25/24 10:17 Dose: 80 mls/hr Documented By: C see above Consultations Consultation(s) initiated? (list below): Yes Consultation #1 (Physician, Specialty, Details): Discussed test HPI, PMHx, lab, radiology results and/or management with Dr. Tavera. Will consult an admission to the hospitalist. Time: 15:52 Consultation #2 (Physician, Specialty, Details): Discussed test HPI, PMHx, lab, radiology results and/or management with hospitalist. Will admit for further evaluation and management. Accepts patient for admission. Time: 15:55 Diagnosis Differential Diagnosis ED Complaint MDM: dehydration, sepsis, electrolyte imbalance Most likely diagnosis given after review of the tests above:: See below Admission Indicated Admission indicated?: indicated Explain why admission is indicated or not indicated:: Diagnoses meet admission criteria. Admission Request Was there a request for admission?: Yes Admission Attestation Admission request attestation: Discussed case with [] from Hospitalist service regarding admission. Discussed patients ED course, exam findings, labs, and radiology results. The Hospitalist [agrees,declines] to accept the patient for admission. Disposition Plan Disposition Plan: Admit Medical Decision Making MDM Narrative MDM Narrative: Patient is a 58-year-old dialysis patient who comes in with a complaint of general weakness. Was also found to be hypoxic in the mid 80s on room air requiring oxygen. He states he has no liver disease but review of the records reveal he does have previous ascites. He also has a increased distended abdomen which is worse than its ever been before medical workup revealed white count of 9.5 hemoglobin of 10.9 PT 13.2 INR 1.2 venous blood gas with a pH of 7.30 pCO2 of 56 with some mild respiratory acidosis. Sodium 133 potassium 5.0 chloride 95 CO2 25.4 BUN 57 creatinine 5.4 consistent with his chronic renal failure. Glucose 135 lactic acid 0.8 ammonia slightly elevated 62 troponin slightly bumped at 0.124 which is a little bit above his usual baseline in the 0.06 range. BNP is elevated 825 he is an uric so we are unable to collect any urine his procalcitonin is negative. CT of the chest abdomen pelvis was done because the plain chest x-ray reveals what appears to be a widened chest x-ray of the mediastinum at least and poor inspiration and big heart but similar to previous chest x-rays and since he has a distended abdomen we just scanned his chest abdomen pelvis without contrast which reveals moderate ascites some got some bladder wall thickening. He is got a small left inguinal hernia. There is fluid contained in that left inguinal hernia. Elnny is severely compressed T11 vertebral body bilateral pleural effusions anasarca Long discussion with the patient in [place]ian and his brother who is present where he is dependent at oxygen at night but not the daytime. He states he gets weak and short of breath with minimal exertion in general he is fluid overloaded by the CT of his chest abdomen pelvis. Called Dr Tavera his mail delivery supervisor and discussed the case and he is missed 4 days of dialysis and he is dropping O2 sats into the 86 range on room air therefore he probably should be admitted stay on oxygen and get dialysis as soon as possible. Then spoke with the resident on-call Dr. Zaidi the attending and they are going to admit for fluid overload hypoxemia. Differential Diagnosis Differential Diagnosis: dehydration, sepsis, electrolyte imbalance Lab Data 07/25/24 10:10 07/25/24 10:10 Labs: Lab Results 07/25/24 Range/Units 10:10 WBC 9.5 (3.8-10.6) Thou/mm3 RBC 3.49 L (4.50-5.90) Miln/mm3 Hgb 10.9 L (13.5-16.0) g/dL Hct 32.7 L (41.0-53.0) % MCV 94 (80-100) fL MCH 31.2 (25.0-35.0) pg MCHC 33.3 (31.0-37.0) g/dl RDW Std Deviation 44.5 H (35.1-43.9) fL Plt Count 199 (140-440) Thou/mm3 Neut % (Auto) 75 (37-80) % Lymph % (Auto) 6 L (10-50) % [place] % (Auto) 10 (0-12) % Eos % (Auto) 8 (0-10) % Baso % (Auto) 1 (0-2.5) % Neut # (Auto) 7.1 (1.8-7.7) Thou/mm3 Lymph # (Auto) 0.6 L (1.0-4.8) Thou/mm3 [place] # (Auto) 0.9 H (0.0-0.8) Thou/mm3 Eos # (Auto) 0.7 H (0.0-0.5) Thou/mm3 Baso # (Auto) 0.1 (0.0-0.2) Thou/mm3 Immature Gran # (Auto) 0.03 H (0.00-0.00) Thou/mm3 Absolute Nucleated RBC 0.00 (0.00-0.00) Thou/mm3 Immature Gran % 0 (0-0) % Nucleated RBC % 0 (0) /100 WBC PT 13.2 H (9.0-12.2) Seconds INR 1.2 (0.9-1.3) VBG pH 7.30 L (7.33-7.66) VBG pCO2 56 (36-56) mmHg VBG pO2 56 (15-58) mmHg VBG O2 Sat (Kamran) 85 L (96-97) % VBG Base Excess 0 (-3-3) Sodium 133 L (136-145) mMol/L Potassium 5.0 (3.4-5.1) mMol/L Chloride 95 L (98-107) mMol/L Carbon Dioxide 25.4 (20.0-31.0) mMol/L Anion Gap 13 (7-16) BUN 57 H (9-23) mg/dL Creatinine 5.4 H* (0.6-1.3) mg/dL Estim Creat Clear Calc Not Performed. eGFR 12 L* (60 - ) See Note BUN/Creatinine Ratio 11 L (12-20) Ratio Glucose 135 H (74-106) mg/dL Calculated Osmolality 284 (275-295) Lactic Acid 0.8 (0.4-2.0) mMol/L Calcium 8.5 (8.3-10.6) mg/dL Corrected Calcium 8.7 (8.5-10.1) mg/dL Total Bilirubin 0.3 (0.3-1.2) mg/dL AST 13 (0-34) U/L ALT 12 (10-49) U/L Alkaline Phosphatase 219 H (46-116) U/L Ammonia 62 H (11-32) uMol/L Troponin I 0.124 H* (0.0-0.045) ng/mL B-Natriuretic Peptide 825 H* (0-100) pg/mL Total Protein 7.1 (5.7-8.2) gm/dL Albumin 3.8 (3.5-5.0) gm/dL Globulin 3.3 (2.3-3.5) gm/dL Albumin/Globulin Ratio 1.2 (1.2-2.2) Procalcitonin 0.29 (0.0-0.49) ng/ml Ethyl Alcohol < 3.0 (0-10.0) mg/dL Blood Type A Positive Antibody Screen NEGATIVE Blood Bank Wristband ID Yes Discharge Plan Plan Patient Disposition: Admit Acute Care w/in Hospital Disposition Comment: Hospitalist to admit Dr Tavera to consult Prescriptions/Referrals Prescriptions/Med Rec: No Action atorvastatin 40 mg Tablet 40 mg PO QPM gabapentin 100 mg Capsule 100 mg PO TID cholecalciferol (vitamin D3) 25 mcg (1,000 unit) Tablet 25 mcg PO QDAY Rx Instructions: Give 5 tablet by mouth one time a day for supplement. nutritional supplements Liquid 8 ea PO 1XD Rx Instructions: Give 8 ounce by mouth one time a day for supplement Mena-Anil 0.8 mg Tablet 1 tab PO 1XD Rx Instructions: Give 1 tablet by mouth one time a day for supplement. lidocaine 5 % Cream 1 applic TOPICAL 1XD Rx Instructions: Apply to chest wall topically in the morning for pain. Apply to back topically one time a day for back pain. ondansetron HCl 4 mg Tablet 4 mg PO Q6H PRN (Reason: Nausea And Vomiting) acetaminophen 325 mg Tablet 325 mg PO Q6HR PRN (Reason: Mild Pain (Scale Score 1-4)) tramadol 50 mg tablet 50 mg PO BID PRN (Reason: pain) Qty: 14 0RF Referrals: Sj Beck MD [Primary Care Provider] - In 1 week Problem List Clinical Impression: Fluid overload, End stage renal failure on dialysis, Weakness, Hypoxemia, Elevated troponin, Bilateral pleural effusion, Lymphadenopathy, periaortic, Hernia, umbilical, Left inguinal hernia Patient/Caregiver Discharge Instructions Print Language: Algerian Stand Alone Forms: Neena Award Info., Patient Portal Info Letter
--- NOTE | 2024-07-25 10:00 | PC.NURSE ---
Patient to er via ems from [facility], weak x 1 week, abdominal distention x 3 weeks
[2024-07-25] MEDS: SODIUM CHLORIDE 0.9% 1000 ML 2,000 ML 80 ML IV (10:17)
--- NOTE | 2024-07-25 10:20 | PC.NURSE ---
pt states goes to dialysis friday/friday/friday but missed on friday
[2024-07-25 10:33] LABS: Base Excess, Venous 0 (-3-3); Lactate (Lactic Acid) 0.8 mMol/L (0.4-2.0); O2 Saturation, Venous 85 % (96-97); PCO2, Venous 56 mmHg (36-56); PO2, Venous 56 mmHg (15-58)
[2024-07-25 10:34] LABS: Basophils # (Auto) 0.1 Thou/mm3 (0.0-0.2); Basophils % (Auto) 1 % (0-2.5); Eosinophils # (Auto) 0.7 Thou/mm3 (0.0-0.5); Eosinophils % (Auto) 8 % (0-10); Hematocrit 32.7 % (41.0-53.0); Hemoglobin 10.9 g/dL (13.5-16.0); Immature Granulocytes % (Auto) 0 % (0-0); Immature Granulocytes Auto 0.03 Thou/mm3 (0.00-0.00); Lymphocytes # (Auto) 0.6 Thou/mm3 (1.0-4.8); Lymphocytes % (Auto) 6 % (10-50); Mean Corpuscular HGB Conc 33.3 g/dl (31.0-37.0); Mean Corpuscular Hemoglobin 31.2 pg (25.0-35.0); Mean Corpuscular Volume 94 fL (80-100); Monocytes # (Auto) 0.9 Thou/mm3 (0.0-0.8); Monocytes % (Auto) 10 % (0-12); Neutrophils # (Auto) 7.1 Thou/mm3 (1.8-7.7); Neutrophils % (Auto) 75 % (37-80); Nucleated Red Blood Cell % 0 /100 WBC (0); Platelet Count 199 Thou/mm3 (140-440); RDW Standard Deviation 44.5 fL (35.1-43.9); Red Blood Count 3.49 Miln/mm3 (4.50-5.90); White Blood Count 9.5 Thou/mm3 (3.8-10.6)
[2024-07-25 10:48] LABS: INR 1.2 (0.9-1.3); Prothrombin Time 13.2 Seconds (9.0-12.2)
[2024-07-25 10:58] LABS: Alanine Aminotransferase 12 U/L (10-49); Albumin, Serum 3.8 gm/dL (3.5-5.0); Albumin/Globulin Ratio 1.2 (1.2-2.2); Alcohol, Blood Medical < 3.0 mg/dL (0-10.0); Alkaline Phosphatase 219 U/L (46-116); Anion Gap 13 (7-16); Aspartate Amino Transferase 13 U/L (0-34); BUN/Creatinine Ratio 11 Ratio (12-20); Bilirubin,Total 0.3 mg/dL (0.3-1.2); Blood Urea Nitrogen 57 mg/dL (9-23); Calcium 8.5 mg/dL (8.3-10.6); Calcium (Corrected) 8.7 mg/dL (8.5-10.1); Carbon Dioxide 25.4 mMol/L (20.0-31.0); Chloride 95 mMol/L (98-107); Creatinine (Component) 5.4 mg/dL (0.6-1.3); Globulin 3.3 gm/dL (2.3-3.5); Glucose 135 mg/dL (74-106); Osmolality,Calculated 284 (275-295); Procalcitonin 0.29 ng/ml (0.0-0.49); Sodium 133 mMol/L (136-145); Total Protein 7.1 gm/dL (5.7-8.2); eGFR 12 See Note
[2024-07-25 11:00] LABS: Troponin I 0.124 ng/mL (0.0-0.045)
[2024-07-25 11:02] LABS: Ammonia 62 uMol/L (11-32)
[2024-07-25 11:40] LABS: B-Type Natriuretic Peptide 825 pg/mL (0-100)
--- NOTE | 2024-07-25 12:30 | PC.NURSE ---
PT STATES DOES NOT VOIF AND DR. WRIGHT INFORMED
--- NOTE | 2024-07-25 13:15 | XR_ITS ---
Examination: CT chest, without intravenous contrast. CT abdomen, without intravenous contrast. CT pelvis, without intravenous contrast. 2-D sagittal and coronal reconstructions. 3-D reconstructions. Date and time of exam:July 25, 20[address] abdomen and pelvis March 12, 2024 INDICATION: Chest pain shortness of breath today, missed dialysis for 5 days, distended abdomen CTDI vol (mgy) 8.42 DLP (MGycm)864 Technique: Multiple CT images, 3.0 mm slice thickness, obtained chest, abdomen, pelvis, with the high-resolution 64 slice scanner.. Sagittal and coronal 2-D reconstructions are obtained. 3-D reconstructions Low dose protocols were performed. One or more of the following dose reduction techniques were used; automated exposure control, adjustment of the mA and/or KV according to patient size, use of iterative reconstruction technique. Findings: No thoracic or aneurysmal dilatation Pulmonary artery segments are not enlarged Moderate enlargement left Atrium left ventricle Prominent vascular congestion with septal edema in the lung crane, mild right minimal left pleural fluid Atelectasis versus pneumonia right base Cirrhosis Diffuse anasarca No focal liver lesions Absent gallbladder No splenomegaly Moderate ascites Small fat-containing fluid containing umbilical hernia No pancreatic mass Atrophic kidneys with heavy vascular calcification Periaortic pericaval lymph nodes, the largest lymph node left lateral periaortic measuring 13 mm No bowel obstruction AP prostate dimension 4.3 cm Urinary bladder wall prominent thickening anteriorly Fluid-containing left inguinal hernia Severe osteopenia, lumbar transpedicular stabilization centered around a severely compressed T11 vertebral body noted on the March 2024 exam IMPRESSION: Mild heart failure Mild right and minimal left pleural fluid Atelectasis versus pneumonia right base, clinical correlation advised Cirrhosis Moderate ascites Anasarca Atrophic [place] kidneys Moderate prostatomegaly Significant urinary bladder wall thickening, differential would include cystitis
--- NOTE | 2024-07-25 16:30 | PC.NURSE ---
hospitalist in to see pt. Pending admit
--- NOTE | 2024-07-25 17:03 | PD.RESPRO ---
Documentation for date of: 07/25/24 Subjective Subjective Interval history: 58 y/o M with PMHx significant for hypertension, diabetes, ESRD on dialysis (M/W/F) brought to ED from [facility] on 07/25/2024 with chief complaint of worsening shortness of breath. Patient states that he has had shortness of breath for several weeks, on Friday patient felt weak and refused his dialysis appointment. Since he missed his dialysis appointment Friday, patient has been experiencing worsening shortness of breath. In ED patient denies fever, chills, chest pain, nausea, vomiting. ED COURSE: Lab significant for: Ammonia 62, troponin 0.124, BNP 825, Pro-Aniceto 0.29. Imaging significant for: Chest x-ray showing possible pneumonia right lower lobe, vascular congestion indicating fluid overload. CT chest/abdomen/pelvis showing mild right and minimal left pleural fluid, cirrhosis, moderate ascites, anasarca, atrophic [place] kidneys. Exam Vital Signs Temp Pulse Resp BP Pulse Ox O2 Del Method O2 Flow Rate 98 F 63 12 144/75 H 91 L Nasal Cannula 3 07/25/24 16:47 07/25/24 16:47 07/25/24 16:47 07/25/24 16:47 07/25/24 16:47 07/25/24 16:47 07/25/24 16:47 Objective Labs 07/25/24 10:10 07/25/24 10:10 Labs: Laboratory Results - last 24 hr 07/25/24 10:10 WBC 9.5 RBC 3.49 L Hgb 10.9 L Hct 32.7 L MCV 94 MCH 31.2 MCHC 33.3 RDW Std Deviation 44.5 H Plt Count 199 Neut % (Auto) 75 Lymph % (Auto) 6 L [place] % (Auto) 10 Eos % (Auto) 8 Baso % (Auto) 1 Neut # (Auto) 7.1 Lymph # (Auto) 0.6 L [place] # (Auto) 0.9 H Eos # (Auto) 0.7 H Baso # (Auto) 0.1 Immature Gran # (Auto) 0.03 H Absolute Nucleated RBC 0.00 Immature Gran % 0 Nucleated RBC % 0 PT 13.2 H INR 1.2 VBG pH 7.30 L VBG pCO2 56 VBG pO2 56 VBG O2 Sat (Kamran) 85 L VBG Base Excess 0 Sodium 133 L Potassium 5.0 Chloride 95 L Carbon Dioxide 25.4 Anion Gap 13 BUN 57 H Creatinine 5.4 H* Estim Creat Clear Calc Not Performed. eGFR 12 L* BUN/Creatinine Ratio 11 L Glucose 135 H Calculated Osmolality 284 Lactic Acid 0.8 Calcium 8.5 Corrected Calcium 8.7 Total Bilirubin 0.3 AST 13 ALT 12 Alkaline Phosphatase 219 H Ammonia 62 H Troponin I 0.124 H* B-Natriuretic Peptide 825 H* Total Protein 7.1 Albumin 3.8 Globulin 3.3 Albumin/Globulin Ratio 1.2 Procalcitonin 0.29 Ethyl Alcohol < 3.0 Blood Type A Positive Antibody Screen NEGATIVE Blood Bank Wristband ID Yes ABG Interpretation ABG results: 07/25/24 10:10 VBG pH 7.30 L VBG pCO2 56 VBG pO2 56 VBG Base Excess 0 Quality Measures Quality Measures none Assessment & Plan Assessment Current Active Medications: Generic Name Dose Route Start Last Admin Trade Name Freq PRN Reason Stop Dose Admin Acetaminophen 650 mg 07/25/24 16:46 Acetaminophen 325 Mg Tablet PO 08/24/24 16:45 Q6H PRN Fever >100.4 or pain Amlodipine Besylate 10 mg 07/26/24 09:00 Amlodipine Besylate 5 Mg Tablet PO 08/25/24 08:59 DAILY LONI Atorvastatin Calcium 40 mg 07/25/24 21:00 Atorvastatin Calcium 20 Mg Tablet PO 08/24/24 20:59 QPM LONI Dextrose 25 ml 07/25/24 16:46 Dextrose 50%-Water Inj 50 Ml Syringe IV 08/24/24 16:45 Q15MIN PRN BG 50-70 responsive npo pt Dextrose 50 ml 07/25/24 16:46 Dextrose 50%-Water Inj 50 Ml Syringe IV 08/24/24 16:45 Q15MIN PRN BG <50 OR BG <70 & pt unresponsive Doxazosin Mesylate 2 mg 07/25/24 21:00 Doxazosin Mesylate 2 Mg Tablet PO 08/24/24 20:59 HS LONI Gabapentin 100 mg 07/25/24 22:00 Gabapentin 100 Mg Capsule PO 08/24/24 21:59 TID LONI Glucagon 1 mg 07/25/24 16:46 Glucagon Inj 1 Mg Vial IM Q15MIN PRN BG <70, and no IV access Heparin Sodium (Porcine) 5,000 unit 07/25/24 21:00 Heparin Sod Inj 5000 Unit/Ml Vial SC 08/08/24 20:59 Q12HR [facility] Hydralazine HCl 100 mg 07/25/24 22:00 Hydralazine Hcl 25 Mg Tablet PO 08/24/24 21:59 TID [facility] Insulin Human Lispro 0 unit 07/25/24 17:00 Insulin Lispro (Admelog) 1 Unit/0.01 Ml Unit SC 08/24/24 16:59 AC [facility] Protocol Magnesium Hydroxide 30 ml 07/25/24 16:46 Milk Of Magnesia Susp 30 Ml Udc PO 08/24/24 16:45 QDAY PRN CONSTIPATION Protocol Ondansetron HCl 4 mg 07/25/24 16:46 Ondansetron Inj 2 Mg/Ml Inj 2 Ml IV 08/24/24 16:45 Q6H PRN NAUSEA OR VOMITING Protocol Sennosides 1 tab 07/25/24 17:00 Senna Tablet PO 08/24/24 16:59 BID [facility] Protocol Sevelamer Carbonate 800 mg 07/25/24 17:00 Sevelamer Carbonate 800 Mg Tablet PO 08/24/24 16:59 [facility] Vitamin D 1,000 iu 07/26/24 09:00 Cholecalciferol (Vitamin D3) 1,000 Iu Tablet PO 08/25/24 08:59 QDAY [facility]
--- NOTE | 2024-07-25 17:18 | PD.RESHP ---
Documentation for date of: 07/25/24 HPI History of Present Illness Chief complaint: Shortness of breath History of present illness: 58 y/o M with PMHx significant for hypertension, diabetes, ESRD on dialysis (M/W/F) brought to ED from [facility] on 07/25/2024 with chief complaint of worsening shortness of breath. Patient states that he has had shortness of breath for several weeks, on Friday patient felt weak and refused his dialysis appointment. Since he missed his dialysis appointment Friday, patient has been experiencing worsening shortness of breath. He occasionally wears 2 L O2 via nasal cannula as needed, typically while sleeping. In ED patient denies fever, chills, chest pain, nausea, vomiting. ED COURSE: Lab significant for: Ammonia 62, troponin 0.124, BNP 825, Pro-Aniceto 0.29. Imaging significant for: Chest x-ray showing possible pneumonia right lower lobe, vascular congestion indicating fluid overload. CT chest/abdomen/pelvis showing mild right and minimal left pleural fluid, cirrhosis, moderate ascites, anasarca, atrophic [place] kidneys. [employer] Dr. Tavera was consulted in ED for dialysis inpatient. While in ED, patient desaturated down to 88%, required supplemental O2 via nasal cannula to maintain saturations. PMH: Hypertension, diabetes, ESRD on dialysis PSH: Cholecystectomy. Back surgery. SH: Denies alcohol, tobacco, illicit drug use. FH: Brother with colon cancer. Allergies: NKDA Medications: Amlodipine, atorvastatin, vitamin D3, vitamin D2, doxazosin, clonidine, furosemide, gabapentin, hydralazine, Ativan, Mena-Anil, sevelamer carbonate, tramadol Review of Systems Review of Systems Systems Reviewed: All systems reviewed, normal except as documented Past Medical History Past Medical History Comments PMH COMMENT: PMH: Hypertension, diabetes, ESRD on dialysis PSH: Cholecystectomy. Back surgery. SH: Denies alcohol, tobacco, illicit drug use. FH: Brother with colon cancer. Allergies: NKDA Medications: Amlodipine, atorvastatin, vitamin D3, vitamin D2, doxazosin, clonidine, furosemide, gabapentin, hydralazine, Ativan, Mena-Anil, sevelamer carbonate, tramadol Exam Vital Signs Temp Pulse Resp BP Pulse Ox O2 Del Method O2 Flow Rate 98 F 63 12 144/75 H 91 L Nasal Cannula 3 07/25/24 16:47 07/25/24 16:47 07/25/24 16:47 07/25/24 16:47 07/25/24 16:47 07/25/24 16:47 07/25/24 16:47 Narrative Exam PE: Gen: Well-developed and well-nourished. HEENT: NCAT, PERRLA, EOMI, MMM, anicteric conjunctivae. CVS: normal S1 and S2. RRR. No M/R/G. Resp: Mild wheezing right lower lobe. Abd: Distended, mild abdominal tenderness. MSK: Good ROM in BUE & BLE. No edema or rash. Neuro: CN II-XII grossly intact. Strength 5/5 in BUE & BLE. Alert and oriented x3. Psych: appropriate mood and affect. Results: Labs 07/26/24 05:30 07/26/24 05:30 Labs: Short CBC 07/25/24 Range/Units 10:10 WBC 9.5 (3.8-10.6) Thou/mm3 Hgb 10.9 L (13.5-16.0) g/dL Hct 32.7 L (41.0-53.0) % Plt Count 199 (140-440) Thou/mm3 BMP 07/25/24 10:10 Sodium 133 L Potassium 5.0 Chloride 95 L Carbon Dioxide 25.4 BUN 57 H Creatinine 5.4 H* Glucose 135 H Calcium 8.5 Cardiac Enzymes 07/25/24 Range/Units 10:10 Troponin I 0.124 H* (0.0-0.045) ng/mL Liver Function 07/25/24 Range/Units 10:10 Total Bilirubin 0.3 (0.3-1.2) mg/dL AST 13 (0-34) U/L ALT 12 (10-49) U/L Alkaline Phosphatase 219 H (46-116) U/L Albumin 3.8 (3.5-5.0) gm/dL ABG Interpretation ABG results: 07/25/24 10:10 VBG pH 7.30 L VBG pCO2 56 VBG pO2 56 VBG Base Excess 0 Quality Measures Quality Measures VTE prophylaxis Medications Home Medications and Allergies Home Medications ?Medication ?Instructions ?Recorded ?Confirmed ?Type acetaminophen 325 mg tablet 325 mg PO Q6HR PRN Mild Pain 05/17/24 07/25/24 History (Scale Score 1-4) atorvastatin 40 mg tablet 40 mg PO QPM 05/17/24 07/25/24 History cholecalciferol (vitamin D3) 25 25 mcg PO QDAY 05/17/24 07/25/24 History mcg (1,000 unit) tablet gabapentin 100 mg capsule 100 mg PO TID 05/17/24 07/25/24 History lidocaine 5 % topical cream 1 applic topical 1XD 05/17/24 07/25/24 History nutritional supplements 8 ea PO 1XD 05/17/24 05/17/24 History ondansetron HCl 4 mg tablet 4 mg PO Q6H PRN Nausea And Vomiting 05/17/24 07/25/24 History vitamin B complex-vitamin C-folic 1 tab PO 1XD 05/17/24 07/25/24 History acid 0.8 mg tablet (Mena-Anil) amlodipine 10 mg tablet 10 mg PO DAILY 07/25/24 07/25/24 History clonidine HCl 0.1 mg tablet 0.1 mg PO HS htn 07/25/24 07/25/24 History doxazosin 2 mg tablet 2 mg PO HS 07/25/24 07/25/24 History ergocalciferol (vitamin D2) 1,250 50,000 unit PO .weekly 07/25/24 07/25/24 History mcg (50,000 unit) capsule (Vitamin D2) furosemide 40 mg tablet 40 mg PO DAILY 07/25/24 07/25/24 History hydralazine 100 mg tablet 100 mg PO TID 07/25/24 07/25/24 History lorazepam 0.5 mg tablet (Ativan) 0.5 mg PO Q6H PRN anxiety 07/25/24 07/25/24 History sevelamer carbonate 800 mg tablet 800 mg PO .tidac 07/25/24 07/25/24 History Allergies Allergy/AdvReac Type Severity Reaction Status Date / Time No Known Allergies Allergy Verified 07/25/24 10:58 Visit Medications Acetaminophen (Acetaminophen 325 Mg Tablet) 650 mg PO Q6H PRN PRN Reason: Fever >100.4 or pain Stop: 08/24/24 16:45 Amlodipine Besylate (Amlodipine Besylate 5 Mg Tablet) 10 mg PO DAILY LONI Stop: 08/25/24 08:59 Atorvastatin Calcium (Atorvastatin Calcium 20 Mg Tablet) 40 mg PO QPM LONI Stop: 08/24/24 20:59 Dextrose (Dextrose 50%-Water Inj 50 Ml Syringe) 25 ml IV Q15MIN PRN PRN Reason: BG 50-70 responsive npo pt Stop: 08/24/24 16:45 Dextrose (Dextrose 50%-Water Inj 50 Ml Syringe) 50 ml IV Q15MIN PRN PRN Reason: BG <50 OR BG <70 & pt unresponsive Stop: 08/24/24 16:45 Doxazosin Mesylate (Doxazosin Mesylate 2 Mg Tablet) 2 mg PO HS [facility] Stop: 08/24/24 20:59 Gabapentin (Gabapentin 100 Mg Capsule) 100 mg PO TID [facility] Stop: 08/24/24 21:59 Glucagon (Glucagon Inj 1 Mg Vial) 1 mg IM Q15MIN PRN PRN Reason: BG <70, and no IV access Heparin Sodium (Porcine) (Heparin Sod Inj 5000 Unit/Ml Vial) 5,000 unit SC Q12HR [facility] Stop: 08/08/24 20:59 Hydralazine HCl (Hydralazine Hcl 25 Mg Tablet) 100 mg PO TID [facility] Stop: 08/24/24 21:59 Insulin Human Lispro (Insulin Lispro (Admelog) 1 Unit/0.01 Ml Unit) 0 unit SC AC [facility]; Protocol Stop: 08/24/24 16:59 Magnesium Hydroxide (Milk Of Magnesia Susp 30 Ml Udc) 30 ml PO QDAY PRN; Protocol PRN Reason: CONSTIPATION Stop: 08/24/24 16:45 Ondansetron HCl (Ondansetron Inj 2 Mg/Ml Inj 2 Ml) 4 mg IV Q6H PRN; Protocol PRN Reason: NAUSEA OR VOMITING Stop: 08/24/24 16:45 Sennosides (Senna Tablet) 1 tab PO BID [facility]; Protocol Stop: 08/24/24 16:59 Sevelamer Carbonate (Sevelamer Carbonate 800 Mg Tablet) 800 mg PO AC [facility] Stop: 08/24/24 16:59 Vitamin D (Cholecalciferol (Vitamin D3) 1,000 Iu Tablet) 1,000 iu PO QDAY [facility] Stop: 08/25/24 08:59 Discontinued Medications Sodium Chloride (Ns) 2,000 mls @ 80 mls/hr IV .Q24H ONE Stop: 07/26/24 09:51 Last Infusion: 07/25/24 15:52 Dose: 0 mls/hr Sennosides (Senna Tablet) 1 tab PO BID PRN; Protocol PRN Reason: CONSTIPATION Stop: 08/24/24 16:45 Assessment & Plan Plan 58 y/o M with PMHx significant for hypertension, diabetes, ESRD on dialysis (M/W/F) brought to ED from [facility] on 07/25/2024 with chief complaint of worsening shortness of breath, admitted for acute on chronic hypoxic respiratory failure secondary to volume overload. #Acute on chronic hypoxic respiratory failure 2/2 #Volume overload 2/2 missed HD session #ESRD on dialysis (M/W/F) Patient presented with progressive shortness of breath after missing dialysis session on Friday. In ED, patient noted to have hypoxia, placed on O2 via nasal cannula due to O2 saturations down to 88%. On exam, patient saturating 89-94% on 4 L via nasal cannula. Patient typically wears 2 L nasal cannula while sleeping as needed. Patient chest imaging indicated volume overload, with mild pleural effusions. Patient BNP elevated, 825, normal for this patient. [employer] consulted for inpatient dialysis. -Nephrology consulted, dialysis as per patient's usual schedule. -O2 as needed for hypoxia, titrate to maintain saturations greater than 92% -Renally dose meds -Avoid nephrotoxins -Monitor O2 saturations -Resume home meds as follows: Sevelamer carbonate 100 mg p.o., vitamin D2 and D3 #NSTEMI type I versus type II Patient has mildly elevated troponins: 0.124. Suspect demand ischemia in setting of volume overload. -Trend troponins #Incidental finding imaging concerning for cirrhosis Patient had CT of the abdomen which showed moderate ascites and liver findings concerning for cirrhosis without focal liver lesions. Patient LFTs WNL except for ALP which is elevated at 219. Ammonia elevated at 62. Patient had hepatitis panel negative as of 05/17/2024. Possible etiology mass. Patient has distended abdomen with mild diffuse tenderness. -Follow-up outpatient for further workup -Avoid hepatotoxins #Diabetes, patient history #Hypertension, patient history Patient history as stated. A1c 6.1% as of 05/17/2024. -Insulin sliding scale -Resume home meds as follows: Amlodipine 10 mg p.o. daily, atorvastatin 40 mg p.o. daily, doxazosin 2 mg p.o. at bedtime, gabapentin 100 mg p.o. 3 times daily, hydralazine 100 mg p.o. 3 times daily DVT prophylaxis: Heparin GI prophylaxis: Not indicated Diet: Carb consistent low, cardiac, renal Lines: Peripheral IV Code status: Full code Plan of care discussed with attending Dr. Zaidi. Jorden Mark MD PGY?1 Attending Provider Attestation/Addendum I have examined the patient, reviewed labs and imaging findings, discussed the case with the resident(s), and reviewed entered orders. I agree with the plan of care as outlined in this note, with these additional summaries/recommendations: Patient seen at bedside. Patient endorses shortness of breath. He reports he missed his hemodialysis session on Friday. He states he uses O2 at home intermittently mostly at night. Patient diagnosed with acute on chronic hypoxic respiratory failure. O2 saturation dropped to 86% in the ED. We will continue supplemental oxygen and wean as tolerated. Secondary to fluid overload status from missed dialysis session. Nephrology consulted, recommendations appreciated. Patient was also found to have elevated troponin most likely secondary to demand ischemia versus ESRD and no EKG changes indicative of acute ischemia. Continue to trend troponins until downtrend. Start insulin sliding scale for diabetes mellitus type 2. Resume home antihypertensives. Patient updated on the plan and in agreement. Repeat hematology and chemistry panel in AM. Dr. Dyan MD
--- NOTE | 2024-07-25 18:50 | PC.NURSE ---
ATTEMPTED TO CALL REPORT AND NURSE UNAVAILABLE
--- NOTE | 2024-07-25 19:23 | PC.NURSE ---
Telephone report received from ED.
[2024-07-25] MEDS: DOXAZOSIN MESYLATE 2 MG TABLET PO (21:36)
[2024-07-25] MEDS: SENNA TABLET 1 TAB PO (21:36)
[2024-07-25] MEDS: GABAPENTIN 100 MG CAPSULE PO (21:37)
[2024-07-25] MEDS: ATORVASTATIN CALCIUM 20 MG TABLET 40 MG PO (21:37)
[2024-07-25] MEDS: hydrALAZINE HCL 25 MG TABLET 100 MG PO (21:39)
[2024-07-25] MEDS: HEPARIN SOD INJ 5000 UNIT/ML VIAL SC (21:41)
[2024-07-25 23:17] LABS: Troponin I 0.107 ng/mL (0.0-0.045)
[2024-07-26] VITALS (33 sets, daily range): BP systolic 120–177; BP diastolic 56–92; PULSE 61–96; RESP 16–18; TEMP 36.1–37.2; O2SAT 90–97
[2024-07-26] MEDS: GABAPENTIN 100 MG CAPSULE PO ×3 (05:25→22:57)
[2024-07-26] MEDS: hydrALAZINE HCL 25 MG TABLET 100 MG PO ×3 (05:25→22:57)
[2024-07-26 06:18] LABS: Basophils # (Auto) 0.1 Thou/mm3 (0.0-0.2); Basophils % (Auto) 1 % (0-2.5); Eosinophils # (Auto) 0.8 Thou/mm3 (0.0-0.5); Eosinophils % (Auto) 8 % (0-10); Hematocrit 32.3 % (41.0-53.0); Hemoglobin 10.8 g/dL (13.5-16.0); Immature Granulocytes % (Auto) 0 % (0-0); Immature Granulocytes Auto 0.04 Thou/mm3 (0.00-0.00); Lymphocytes # (Auto) 0.6 Thou/mm3 (1.0-4.8); Lymphocytes % (Auto) 5 % (10-50); Mean Corpuscular HGB Conc 33.4 g/dl (31.0-37.0); Mean Corpuscular Hemoglobin 31.7 pg (25.0-35.0); Mean Corpuscular Volume 95 fL (80-100); Monocytes % (Auto) 10 % (0-12); Neutrophils # (Auto) 8.3 Thou/mm3 (1.8-7.7); Neutrophils % (Auto) 77 % (37-80); Nucleated Red Blood Cell % 0 /100 WBC (0); Platelet Count 197 Thou/mm3 (140-440); RDW Standard Deviation 45.3 fL (35.1-43.9); Red Blood Count 3.41 Miln/mm3 (4.50-5.90); White Blood Count 10.8 Thou/mm3 (3.8-10.6)
[2024-07-26 06:42] LABS: Alanine Aminotransferase 11 U/L (10-49); Albumin, Serum 3.7 gm/dL (3.5-5.0); Albumin/Globulin Ratio 1.2 (1.2-2.2); Alkaline Phosphatase 214 U/L (46-116); Anion Gap 15 (7-16); Aspartate Amino Transferase < 10 U/L (0-34); BUN/Creatinine Ratio 12 Ratio (12-20); Bilirubin,Total 0.2 mg/dL (0.3-1.2); Blood Urea Nitrogen 67 mg/dL (9-23); Calcium 8.3 mg/dL (8.3-10.6); Calcium (Corrected) 8.5 mg/dL (8.5-10.1); Carbon Dioxide 24.5 mMol/L (20.0-31.0); Chloride 95 mMol/L (98-107); Creatinine (Component) 5.7 mg/dL (0.6-1.3); Globulin 3.2 gm/dL (2.3-3.5); Glucose 102 mg/dL (74-106); Magnesium 1.9 mg/dL (1.6-2.6); Osmolality,Calculated 287 (275-295); Phosphorous 7.4 mg/dL (2.4-5.1); Potassium 5.5 mMol/L (3.4-5.1); Sodium 134 mMol/L (136-145); Total Protein 6.9 gm/dL (5.7-8.2); eGFR 11 See Note
[2024-07-26 06:52] LABS: Troponin I 0.105 ng/mL (0.0-0.045)
--- NOTE | 2024-07-26 07:24 | PC.NURSE ---
Dr. Knott made aware of that patient has a critically high troponin at 0.105.
--- NOTE | 2024-07-26 10:13 | ESPR_ITS ---
<Statement entered by Erin Lockhart MD - 07/26/24 15:10> I discussed with and supervised the customer experience intern physician who took care of this patient. I personally saw and examined the patient and discussed the assessment and plan with the entire medicine team, including my attending Dr. Zaidi, I agree with the assessment and plan as documented below Patient seen and examined at bedside today. Labs and imaging reviewed. This morning the bedside patient is AOx4, respond to voice probably denied any acute complaint at the moment is sedated and much better compared to yesterday. Seen troponin downtrending patient denied chest pain or any other associated symptoms. CT findings patient periaortic lymph nodes that he will need to follow-up as an outpatient for further workup. If patient remains stable we will anticipate discharge in next 24 to 48 hours. Erin Lockhart MD PGY-3 Disclaimer: Despite multiple revisions, due to the dictation software being used, the document bellow may not be free of grammatical errors including phonetic/typographic errors. However, this does not deter from our commitment to providing health care in the patient's best interest in mind. <Statement entered by Diana Mak MD - 07/26/24 15:05> Patient seen and examined at bedside while receiving dialysis. No acute overnight events reported. Patient CT noted to have periaortic pericaval lymph nodes, and will have to follow-up outpatient. Will continue to wean O2 as tolerated. Troponin peaked at 0.124, and since has down trended. Anticipate discharge within 24 to 48 hours. I discussed with and supervised the customer experience intern physician who took care of this patient. I personally saw and examined the patient and discussed the assessment and plan with the entire medicine team, including my attending , I agree with most of the assessment and plan as documented below Diana Mak M.D. PGY-2 Disclaimer: Despite multiple revisions, due to the dictation software being used, the document bellow may not be free of grammatical errors including phonetic/typographic errors. However, this does not deter from our commitment to providing health care in the patient's best interest in mind. Documentation for date of: 07/26/24 Subjective Subjective Interval history: Patient seen today in the dialysis unit found awake, alert, oriented x 3. No overnight events reported. Vital signs significant for hypertension. States no active complaints at this time and states he is breathing much better than previous day. Patient currently undergoing hemodialysis session Exam Vital Signs Temp Pulse Resp BP Pulse Ox O2 Del Method O2 Flow Rate 97.8 F 83 18 164/81 H 95 Nasal Cannula 2 07/26/24 08:12 07/26/24 10:00 07/26/24 08:12 07/26/24 10:00 07/26/24 08:12 07/26/24 08:00 07/26/24 07:45 Narrative Exam Physical Exam GENERAL: NAD, AAOx3 HEENT: Moist mucosa. Eyes open, symmetrical, & clear CARDIO: Heart RRR, no obvious murmurs PULM: No noted coughing/dyspnea CTA B/L, no R/W/R GI: Abdomen soft, nondistended, no pain on palpation. BSx4 SKIN/MSK/EXT: No wounds/rashes/edema/amputations, no pain on palpation. Pedal pulses present B/L NEURO: AAOx3, no focal neuro deficits, able to move all 4 extremities Objective Labs 07/26/24 05:30 07/26/24 05:30 Labs: Laboratory Results - last 24 hr 07/25/24 07/25/24 07/25/24 10:10 17:14 22:38 WBC 9.5 RBC 3.49 L Hgb 10.9 L Hct 32.7 L MCV 94 MCH 31.2 MCHC 33.3 RDW Std Deviation 44.5 H Plt Count 199 Neut % (Auto) 75 Lymph % (Auto) 6 L [place] % (Auto) 10 Eos % (Auto) 8 Baso % (Auto) 1 Neut # (Auto) 7.1 Lymph # (Auto) 0.6 L [place] # (Auto) 0.9 H Eos # (Auto) 0.7 H Baso # (Auto) 0.1 Immature Gran # (Auto) 0.03 H Absolute Nucleated RBC 0.00 Immature Gran % 0 Nucleated RBC % 0 PT 13.2 H INR 1.2 VBG pH 7.30 L VBG pCO2 56 VBG pO2 56 VBG O2 Sat (Kamran) 85 L VBG Base Excess 0 Sodium 133 L Potassium 5.0 Chloride 95 L Carbon Dioxide 25.4 Anion Gap 13 BUN 57 H Creatinine 5.4 H* Estim Creat Clear Calc Not Performed. eGFR 12 L* BUN/Creatinine Ratio 11 L Glucose 135 H Calculated Osmolality 284 Lactic Acid 0.8 Calcium 8.5 Corrected Calcium 8.7 Phosphorus Magnesium Total Bilirubin 0.3 AST 13 ALT 12 Alkaline Phosphatase 219 H Ammonia 62 H Troponin I 0.124 H* 0.110 H* 0.107 H* B-Natriuretic Peptide 825 H* Total Protein 7.1 Albumin 3.8 Globulin 3.3 Albumin/Globulin Ratio 1.2 Procalcitonin 0.29 Ethyl Alcohol < 3.0 Blood Type A Positive Antibody Screen NEGATIVE Blood Bank Wristband ID Yes 07/26/24 05:30 WBC 10.8 H RBC 3.41 L Hgb 10.8 L Hct 32.3 L MCV 95 MCH 31.7 MCHC 33.4 RDW Std Deviation 45.3 H Plt Count 197 Neut % (Auto) 77 Lymph % (Auto) 5 L [place] % (Auto) 10 Eos % (Auto) 8 Baso % (Auto) 1 Neut # (Auto) 8.3 H Lymph # (Auto) 0.6 L [place] # (Auto) 1.0 H Eos # (Auto) 0.8 H Baso # (Auto) 0.1 Immature Gran # (Auto) 0.04 H Absolute Nucleated RBC 0.00 Immature Gran % 0 Nucleated RBC % 0 PT INR VBG pH VBG pCO2 VBG pO2 VBG O2 Sat (Kamran) VBG Base Excess Sodium 134 L Potassium 5.5 H D Chloride 95 L Carbon Dioxide 24.5 Anion Gap 15 BUN 67 H Creatinine 5.7 H* Estim Creat Clear Calc Not Performed. eGFR 11 L* BUN/Creatinine Ratio 12 Glucose 102 Calculated Osmolality 287 Lactic Acid Calcium 8.3 Corrected Calcium 8.5 Phosphorus 7.4 H Magnesium 1.9 Total Bilirubin 0.2 L AST < 10 ALT 11 Alkaline Phosphatase 214 H Ammonia Troponin I 0.105 H* B-Natriuretic Peptide Total Protein 6.9 Albumin 3.7 Globulin 3.2 Albumin/Globulin Ratio 1.2 Procalcitonin Ethyl Alcohol Blood Type Antibody Screen Blood Bank Wristband ID ABG Interpretation ABG results: 07/25/24 10:10 VBG pH 7.30 L VBG pCO2 56 VBG pO2 56 VBG Base Excess 0 Quality Measures Quality Measures VTE prophylaxis Assessment & Plan Assessment Current Active Medications: Generic Name Dose Route Start Last Admin Trade Name Freq PRN Reason Stop Dose Admin Acetaminophen 650 mg 07/25/24 16:46 Acetaminophen 325 Mg Tablet PO 08/24/24 16:45 Q6H PRN Fever >100.4 or pain Amlodipine Besylate 10 mg 07/26/24 09:00 Amlodipine Besylate 5 Mg Tablet PO 08/25/24 08:59 DAILY LONI Atorvastatin Calcium 40 mg 07/25/24 21:00 07/25/24 21:37 Atorvastatin Calcium 20 Mg Tablet PO 08/24/24 20:59 40 mg QPM LONI Administration Dextrose 25 ml 07/25/24 16:46 Dextrose 50%-Water Inj 50 Ml Syringe IV 08/24/24 16:45 Q15MIN PRN BG 50-70 responsive npo pt Dextrose 50 ml 07/25/24 16:46 Dextrose 50%-Water Inj 50 Ml Syringe IV 08/24/24 16:45 Q15MIN PRN BG <50 OR BG <70 & pt unresponsive Doxazosin Mesylate 2 mg 07/25/24 21:00 07/25/24 21:36 Doxazosin Mesylate 2 Mg Tablet PO 08/24/24 20:59 2 mg HS LONI Administration Gabapentin 100 mg 07/25/24 22:00 07/26/24 05:25 Gabapentin 100 Mg Capsule PO 08/24/24 21:59 100 mg TID LONI Administration Glucagon 1 mg 07/25/24 16:46 Glucagon Inj 1 Mg Vial IM Q15MIN PRN BG <70, and no IV access Heparin Sodium (Porcine) 5,000 unit 07/25/24 21:00 07/25/24 21:41 Heparin Sod Inj 5000 Unit/Ml Vial SC 08/08/24 20:59 5,000 unit Q12HR LONI Administration Hydralazine HCl 100 mg 07/25/24 22:00 07/26/24 05:25 Hydralazine Hcl 25 Mg Tablet PO 08/24/24 21:59 100 mg TID LONI Administration Insulin Human Lispro 0 unit 07/25/24 17:00 07/25/24 18:57 Insulin Lispro (Admelog) 1 Unit/0.01 Ml Unit SC 08/24/24 16:59 Not Given AC LONI Protocol Magnesium Hydroxide 30 ml 07/25/24 16:46 Milk Of Magnesia Susp 30 Ml Udc PO 08/24/24 16:45 QDAY PRN CONSTIPATION Protocol Ondansetron HCl 4 mg 07/25/24 16:46 Ondansetron Inj 2 Mg/Ml Inj 2 Ml IV 08/24/24 16:45 Q6H PRN NAUSEA OR VOMITING Protocol Sennosides 1 tab 07/25/24 17:00 07/25/24 21:36 Senna Tablet PO 08/24/24 16:59 1 tab BID LONI Administration Protocol Sevelamer Carbonate 800 mg 07/25/24 17:00 07/25/24 21:26 Sevelamer Carbonate 800 Mg Tablet PO 08/24/24 16:59 Not Given AC [facility] Vitamin D 1,000 iu 07/26/24 09:00 Cholecalciferol (Vitamin D3) 1,000 Iu Tablet PO 08/25/24 08:59 QDAY [facility] Plan 58 y/o M with PMHx significant for hypertension, diabetes, ESRD on dialysis (M/W/F) brought to ED from [facility] on 07/25/2024 with chief complaint of worsening shortness of breath, admitted for acute on chronic hypoxic respiratory failure secondary to volume overload. #Acute on chronic hypoxic respiratory failure 2/2 #Volume overload 2/2 missed HD session #ESRD on dialysis (M/W/F) Patient presented with progressive shortness of breath after missing dialysis session on Friday. In ED, patient noted to have hypoxia, placed on O2 via nasal cannula due to O2 saturations down to 88%. On exam, patient saturating 89-94% on 4 L via nasal cannula. Patient typically wears 2 L nasal cannula while sleeping as needed. Patient chest imaging indicated volume overload, with mild pleural effusions. Patient BNP elevated, 825, normal for this patient. Tubing Drier consulted for inpatient dialysis. -Nephrology consulted, dialysis as per patient's usual schedule. -O2 as needed for hypoxia, titrate to maintain saturations greater than 92% -Renally dose meds -Avoid nephrotoxins -Monitor O2 saturations -Resume home meds as follows: Sevelamer carbonate 100 mg p.o., vitamin D2 and D3 #NSTEMI type I versus type II Patient has mildly elevated troponins: 0.124. Suspect demand ischemia in setting of volume overload. -Trend troponins #Incidental finding imaging concerning for cirrhosis Patient had CT of the abdomen which showed moderate ascites and liver findings concerning for cirrhosis without focal liver lesions. Patient LFTs WNL except for ALP which is elevated at 219. Ammonia elevated at 62. Patient had hepatitis panel negative as of 05/17/2024. Possible etiology mass. Patient has distended abdomen with mild diffuse tenderness. -Follow-up outpatient for further workup -Avoid hepatotoxins #Diabetes, patient history #Hypertension, patient history Patient history as stated. A1c 6.1% as of 05/17/2024. -Insulin sliding scale -Resume home meds as follows: Amlodipine 10 mg p.o. daily, atorvastatin 40 mg p.o. daily, doxazosin 2 mg p.o. at bedtime, gabapentin 100 mg p.o. 3 times daily, hydralazine 100 mg p.o. 3 times daily #Periaortic pericaval lymphnodes - f/u as outpatient Case discussed with my seniors Dr. Mak PGY-2, Dr. Lockhart PGY-3, and my attending Dr. Dyan Beck MD PGY-1 DVT prophylaxis: Heparin GI prophylaxis: Not indicated Diet: Carb consistent low, cardiac, renal Lines: Peripheral IV Code status: Full code Attending Provider Attestation/Addendum I have examined the patient, reviewed labs and imaging findings, discussed the case with the resident(s), and reviewed entered orders. I agree with the plan of care as outlined in this note. Dr. Dyan MD
[2024-07-26] MEDS: CHOLECALCIFEROL (Vitamin D3) 1,000 IU TABLET 1000 IU PO (12:03)
[2024-07-26] MEDS: amLODIPine BESYLATE 5 MG TABLET 10 MG PO (12:03)
[2024-07-26] MEDS: SENNOSIDES SYRUP 8.8 MG/5 ML UDC PO (12:03)
[2024-07-26] MEDS: SENNA TABLET 1 TAB PO ×2 (12:04→20:23)
[2024-07-26] MEDS: HEPARIN SOD INJ 5000 UNIT/ML VIAL SC ×2 (12:04→20:23)
[2024-07-26] MEDS: SEVELAMER CARBONATE 800 MG TABLET PO ×2 (12:04→17:44)
--- NOTE | 2024-07-26 13:27 | PD.RESCONSUL ---
HPI Data of Consult Consult date: 07/26/24 Requesting Physician: Tigre Zaidi MD Admitting Provider: Tigre Zaidi MD Attending Provider: Tigre Zaidi MD Primary Care Provider: Sj Beck MD Consult Narrative Reason for consult: ESRD on HD History of present illness: 58-year-old male with past medical history of hypertension, diabetes, ESRD on hemodialysis [M/W/F] who lives in [facility] was brought to the hospital with chief complaints of shortness of breath. Patient was noted to have a shortness of breath from several weeks which got worsened in the recent days. On 07/23/2024, patient felt really weak for which he did not get his routine dialysis session on the day. Since then patient noted severe worsening in shortness of breath. Also reported that he uses 2 L oxygen through nasal cannula as needed. Denies fever, chest pain, cough, nausea, vomiting, diarrhea, constipation ED Course: Vitals at the time of admission are blood pressure 155/72 mmHg, pulse rate 86 bpm, respiratory rate 22/min, temperature 97.7 ?F, SpO2 95% with 5 L oxygen Labs at the time of admission showed WBC 9.5, Hb 10.9, platelets 199, sodium 133, potassium 5, chloride 95, bicarb 25.4, BUN 57, creatinine 5.4 lactate 0.8, troponin 0.124, BNP 825, procalcitonin 0.29 Chest x-ray showed prominent vascular congestion. EKG showed normal sinus rhythm. CT chest/abdomen/pelvis showed mild left pleural effusion, cirrhosis, moderate ascites, atrophic [place] kidneys, moderate prostatomegaly Nephrology is consulted as patient is having ESRD and is on HD, missed dialysis on 07/23/2024 07/26/2024 Patient is seen and examined in the dialysis unit Patient is tolerating dialysis well. Vitals are stable with mildly elevated blood pressures Labs showed WBC 10.8, Hb 10.8, platelets 197, sodium 134, potassium 5.5, BUN 67, creatinine 5.7, phosphorus 7.4 Patient will get dialysis today as per his routine schedule PTH is ordered cc:: cc: Tigre Zaidi MD Review of Systems Review of Systems Systems Reviewed: All systems reviewed, normal except as documented Past Medical History Past Medical History CARDIAC: Positive Hypertension GENITOURINARY: Positive Dialysis ENDOCRINE: Positive Diabetes Mellitus Type 2 Exam Vital Signs Temp Pulse Resp BP Pulse Ox O2 Del Method O2 Flow Rate 98.9 F 83 16 174/82 H 95 Nasal Cannula 4 07/26/24 12:00 07/26/24 13:19 07/26/24 12:00 07/26/24 13:19 07/26/24 12:00 07/26/24 12:00 07/26/24 12:00 Narrative Exam General: Awake. On dialysis HEENT: Normocephalic, atraumatic, mucous membranes moist. Heart: Regular rate and rhythm, no murmurs. Lungs: Clear to auscultation with no wheezing or crackles. Abdomen: Soft, nondistended, nontender, positive bowel sounds. ?No guarding or rebound tenderness. Neurologic: Alert and oriented x3, no gross neurological deficit, and patient able to move all 4 extremities. Extremities: No edema. AV fistula on left arm Skin: No rash or ecchymoses. Results Labs 07/27/24 05:09 07/27/24 05:09 Labs: Short CBC 07/26/24 Range/Units 05:30 WBC 10.8 H (3.8-10.6) Thou/mm3 Hgb 10.8 L (13.5-16.0) g/dL Hct 32.3 L (41.0-53.0) % Plt Count 197 (140-440) Thou/mm3 BMP 07/26/24 05:30 Sodium 134 L Potassium 5.5 H D Chloride 95 L Carbon Dioxide 24.5 BUN 67 H Creatinine 5.7 H* Glucose 102 Calcium 8.3 Cardiac Enzymes 07/25/24 07/25/24 07/26/24 Range/Units 17:14 22:38 05:30 Troponin I 0.110 H* 0.107 H* 0.105 H* (0.0-0.045) ng/mL Liver Function 07/26/24 Range/Units 05:30 Total Bilirubin 0.2 L (0.3-1.2) mg/dL AST < 10 (0-34) U/L ALT 11 (10-49) U/L Alkaline Phosphatase 214 H (46-116) U/L Albumin 3.7 (3.5-5.0) gm/dL ABG Interpretation ABG results: 07/25/24 10:10 VBG pH 7.30 L VBG pCO2 56 VBG pO2 56 VBG Base Excess 0 Quality Measures Quality Measures VTE prophylaxis Medications Home Medications and Allergies Home Medications ?Medication ?Instructions ?Recorded ?Confirmed ?Type acetaminophen 325 mg tablet 325 mg PO Q6HR PRN Mild Pain 05/17/24 07/25/24 History (Scale Score 1-4) atorvastatin 40 mg tablet 40 mg PO QPM 05/17/24 07/25/24 History cholecalciferol (vitamin D3) 25 25 mcg PO QDAY 05/17/24 07/25/24 History mcg (1,000 unit) tablet gabapentin 100 mg capsule 100 mg PO TID 05/17/24 07/25/24 History lidocaine 5 % topical cream 1 applic topical 1XD 05/17/24 07/25/24 History nutritional supplements 8 ea PO 1XD 05/17/24 05/17/24 History ondansetron HCl 4 mg tablet 4 mg PO Q6H PRN Nausea And Vomiting 05/17/24 07/25/24 History vitamin B complex-vitamin C-folic 1 tab PO 1XD 05/17/24 07/25/24 History acid 0.8 mg tablet (Mena-Anil) amlodipine 10 mg tablet 10 mg PO DAILY 07/25/24 07/25/24 History clonidine HCl 0.1 mg tablet 0.1 mg PO HS htn 07/25/24 07/25/24 History doxazosin 2 mg tablet 2 mg PO HS 07/25/24 07/25/24 History ergocalciferol (vitamin D2) 1,250 50,000 unit PO .weekly 07/25/24 07/25/24 History mcg (50,000 unit) capsule (Vitamin D2) furosemide 40 mg tablet 40 mg PO DAILY 07/25/24 07/25/24 History hydralazine 100 mg tablet 100 mg PO TID 07/25/24 07/25/24 History lorazepam 0.5 mg tablet (Ativan) 0.5 mg PO Q6H PRN anxiety 07/25/24 07/25/24 History sevelamer carbonate 800 mg tablet 800 mg PO .tidac 07/25/24 07/25/24 History Allergies Allergy/AdvReac Type Severity Reaction Status Date / Time No Known Allergies Allergy Verified 07/25/24 10:58 Visit Medications Acetaminophen (Acetaminophen 325 Mg Tablet) 650 mg PO Q6H PRN PRN Reason: Fever >100.4 or pain Stop: 08/24/24 16:45 Amlodipine Besylate (Amlodipine Besylate 5 Mg Tablet) 10 mg PO DAILY [facility] Stop: 08/25/24 08:59 Last Admin: 07/26/24 12:03 Dose: 10 mg Atorvastatin Calcium (Atorvastatin Calcium 20 Mg Tablet) 40 mg PO QPM [facility] Stop: 08/24/24 20:59 Last Admin: 07/25/24 21:37 Dose: 40 mg Dextrose (Dextrose 50%-Water Inj 50 Ml Syringe) 25 ml IV Q15MIN PRN PRN Reason: BG 50-70 responsive npo pt Stop: 08/24/24 16:45 Dextrose (Dextrose 50%-Water Inj 50 Ml Syringe) 50 ml IV Q15MIN PRN PRN Reason: BG <50 OR BG <70 & pt unresponsive Stop: 08/24/24 16:45 Doxazosin Mesylate (Doxazosin Mesylate 2 Mg Tablet) 2 mg PO HS [facility] Stop: 08/24/24 20:59 Last Admin: 07/25/24 21:36 Dose: 2 mg Gabapentin (Gabapentin 100 Mg Capsule) 100 mg PO TID [facility] Stop: 08/24/24 21:59 Last Admin: 07/26/24 13:19 Dose: 100 mg Glucagon (Glucagon Inj 1 Mg Vial) 1 mg IM Q15MIN PRN PRN Reason: BG <70, and no IV access Heparin Sodium (Porcine) (Heparin Sod Inj 5000 Unit/Ml Vial) 5,000 unit SC Q12HR [facility] Stop: 08/08/24 20:59 Last Admin: 07/26/24 12:04 Dose: 5,000 unit Hydralazine HCl (Hydralazine Hcl 25 Mg Tablet) 100 mg PO TID [facility] Stop: 08/24/24 21:59 Last Admin: 07/26/24 13:19 Dose: 100 mg Insulin Human Lispro (Insulin Lispro (Admelog) 1 Unit/0.01 Ml Unit) 0 unit SC AC [facility]; Protocol Stop: 08/24/24 16:59 Last Admin: 07/26/24 12:34 Dose: Not Given Magnesium Hydroxide (Milk Of Magnesia Susp 30 Ml Udc) 30 ml PO QDAY PRN; Protocol PRN Reason: CONSTIPATION Stop: 08/24/24 16:45 Ondansetron HCl (Ondansetron Inj 2 Mg/Ml Inj 2 Ml) 4 mg IV Q6H PRN; Protocol PRN Reason: NAUSEA OR VOMITING Stop: 08/24/24 16:45 Sennosides (Senna Tablet) 1 tab PO BID LONI; Protocol Stop: 08/24/24 16:59 Last Admin: 07/26/24 12:04 Dose: 1 tab Sennosides (Sennosides Syrup 8.8 Mg/5 Ml Udc) 8.8 mg PO QDAY LONI; Protocol Stop: 08/25/24 10:59 Last Admin: 07/26/24 12:03 Dose: 8.8 mg Sevelamer Carbonate (Sevelamer Carbonate 800 Mg Tablet) 800 mg PO AC LONI Stop: 08/24/24 16:59 Last Admin: 07/26/24 12:04 Dose: 800 mg Vitamin D (Cholecalciferol (Vitamin D3) 1,000 Iu Tablet) 1,000 iu PO QDAY LONI Stop: 08/25/24 08:59 Last Admin: 07/26/24 12:03 Dose: 1,000 iu Discontinued Medications Sodium Chloride (Ns) 2,000 mls @ 80 mls/hr IV .Q24H ONE Stop: 07/26/24 09:51 Last Infusion: 07/25/24 15:52 Dose: 0 mls/hr Sennosides (Senna Tablet) 1 tab PO BID PRN; Protocol PRN Reason: CONSTIPATION Stop: 08/24/24 16:45 Assessment & Plan Plan 58-year-old male with past medical history of hypertension, diabetes, ESRD on hemodialysis [M/W/F] who lives in [facility] was brought to the hospital with chief complaints of shortness of breath. Missed his dialysis session on 07/23 # ESRD on HD [M/W/F] -Likely secondary to hypertension, diabetes mellitus -Patient admitted to hospital with chief complaints of shortness of breath -Per patient, patient missed her dialysis on 07/23/2024 as he felt short of breath and weak -Vitals at the time of admission are blood pressure 155/72 mmHg -Chest x-ray showed prominent vascular congestion. -EKG showed normal sinus rhythm. CT chest/abdomen/pelvis showed mild left pleural effusion, cirrhosis, moderate ascites, atrophic [place] kidneys, moderate prostatomegaly Plan -Patient is receiving HD today and will continue his dialysis sessions as per routine schedule through AV fistula in his left arm -PTH is ordered -Avoid nephrotoxic medications and renally dose medications # Hyperkalemia Likely due to missed dialysis session -Potassium as of 07/26/2024 is 5.5 Plan - will do HD today # Hyperphosphatemia -Phosphorus is 7.4 as of 07/22/2024 Plan -Will continue sevelamer carbonate -PTH is ordered -Calcium is within normal limits # Diabetes # Hypertension -A1c is 6.1 on 05/2024 -Patient is not on any oral hypoglycemic medication -Resume his home blood pressure medication -Monitor blood pressures and titrate medications accordingly #Acute on chronic hypoxic respiratory failure 06/06 #NSTEMI type I versus type II #Incidental finding imaging concerning for cirrhosis -Rest of the medical conditions to be treated as per primary team Thank you for allowing us to participate in the care of the patient Patient plan of care was discussed with the attending physician, Dr. Liang Garza, PGY1 Attending Provider Attestation/Addendum Patient seen and examined with resident physician Dr. Venegas. Note reviewed, agree with findings and recommendations. Admitted with hypoxic respiratory failure secondary to fluid overload and pleural effusion. Noted to have ascites-question dialysis ascites Patient currently seen on dialysis. Tolerating dialysis without any problems. Hemodialysis for 3 hours, 2K, ultrafiltration 2-3 L, Epogen 6000, no heparin ordered. Plan of care discussed with the dialysis nurse. Please see dialysis flowsheet for further details. Thank you Tigre for allowing me to participate in the care of Mr. Rodriguez
[2024-07-26] MEDS: ATORVASTATIN CALCIUM 20 MG TABLET 40 MG PO (20:22)
[2024-07-26] MEDS: DOXAZOSIN MESYLATE 2 MG TABLET PO (20:24)
[2024-07-27] VITALS (18 sets, daily range): BP systolic 129–157; BP diastolic 63–83; PULSE 72–85; RESP 10–20; TEMP 36–36.8; O2SAT 91–95
[2024-07-27] MEDS: hydrALAZINE HCL 25 MG TABLET 100 MG PO ×3 (05:44→22:41)
[2024-07-27] MEDS: GABAPENTIN 100 MG CAPSULE PO ×3 (05:44→21:41)
[2024-07-27 05:56] LABS: Basophils # (Auto) 0.1 Thou/mm3 (0.0-0.2); Basophils % (Auto) 1 % (0-2.5); Eosinophils # (Auto) 0.6 Thou/mm3 (0.0-0.5); Eosinophils % (Auto) 7 % (0-10); Hematocrit 31.9 % (41.0-53.0); Hemoglobin 10.5 g/dL (13.5-16.0); Immature Granulocytes % (Auto) 0 % (0-0); Immature Granulocytes Auto 0.02 Thou/mm3 (0.00-0.00); Lymphocytes # (Auto) 0.5 Thou/mm3 (1.0-4.8); Lymphocytes % (Auto) 6 % (10-50); Mean Corpuscular HGB Conc 32.9 g/dl (31.0-37.0); Mean Corpuscular Hemoglobin 31.1 pg (25.0-35.0); Mean Corpuscular Volume 94 fL (80-100); Monocytes # (Auto) 0.8 Thou/mm3 (0.0-0.8); Monocytes % (Auto) 9 % (0-12); Neutrophils # (Auto) 6.7 Thou/mm3 (1.8-7.7); Neutrophils % (Auto) 77 % (37-80); Nucleated Red Blood Cell % 0 /100 WBC (0); Platelet Count 189 Thou/mm3 (140-440); RDW Standard Deviation 45.7 fL (35.1-43.9); Red Blood Count 3.38 Miln/mm3 (4.50-5.90); White Blood Count 8.6 Thou/mm3 (3.8-10.6)
[2024-07-27 06:21] LABS: Parathyroid Hormone Intact 299.3 pg/ml (18.5-88.0)
[2024-07-27 06:36] LABS: Alanine Aminotransferase 7 U/L (10-49); Albumin, Serum 3.6 gm/dL (3.5-5.0); Albumin/Globulin Ratio 1.2 (1.2-2.2); Alkaline Phosphatase 191 U/L (46-116); Anion Gap 12 (7-16); Aspartate Amino Transferase 13 U/L (0-34); BUN/Creatinine Ratio 9 Ratio (12-20); Bilirubin,Total 0.4 mg/dL (0.3-1.2); Blood Urea Nitrogen 39 mg/dL (9-23); Calcium 8.7 mg/dL (8.3-10.6); Carbon Dioxide 27.7 mMol/L (20.0-31.0); Chloride 96 mMol/L (98-107); Creatinine (Component) 4.2 mg/dL (0.6-1.3); Glucose 85 mg/dL (74-106); Osmolality,Calculated 280 (275-295); Potassium 4.4 mMol/L (3.4-5.1); Sodium 136 mMol/L (136-145); Total Protein 6.6 gm/dL (5.7-8.2); eGFR 16 See Note
[2024-07-27] MEDS: SEVELAMER CARBONATE 800 MG TABLET PO ×3 (07:35→17:27)
[2024-07-27] MEDS: SENNOSIDES SYRUP 8.8 MG/5 ML UDC PO (08:21)
[2024-07-27] MEDS: CHOLECALCIFEROL (Vitamin D3) 1,000 IU TABLET 1000 IU PO (08:22)
[2024-07-27] MEDS: HEPARIN SOD INJ 5000 UNIT/ML VIAL SC ×2 (08:22→21:41)
[2024-07-27] MEDS: amLODIPine BESYLATE 5 MG TABLET 10 MG PO (08:22)
[2024-07-27] MEDS: SENNA TABLET 1 TAB PO ×2 (08:22→21:40)
--- NOTE | 2024-07-27 09:52 | XR_ITS ---
Examination: CT brain head without contrast. 2-D sagittal coronal reconstructions Date and time of exam:July 27, 2024 0955 hours Comparison May 16, 2024 INDICATIONS: Stroke alert, onset focal neurologic deficit, altered mental status, slurred speech, left-sided body weakness CTDI: vol (mGy):50.5 DLP: (mGycm):1039 Technique: Multiple CT axial sections of the brain have been obtained, 5 mm slice thickness. Contrast has not been administered. 2-D sagittal, coronal reconstructions have been obtained Low dose protocols were performed. One or more of the following dose reduction techniques were used; automated exposure control, adjustment of the mA and/or KV according to patient size, use of iterative reconstruction technique. Findings: No significant ventricular enlargement. Intra-axial or extra-axial hemorrhage density is not seen. No mass effect or midline shift Basal cisterns are not remarkable. Fourth ventricle is midline. Cranial vault intact. Impression: Negative for acute hemorrhage, mass effect or midline shift As clinically warranted, brain MRI MRA without contrast, stroke protocol, would best assess for demyelinating disease, acute ischemic change
--- NOTE | 2024-07-27 09:52 | XR_ITS ---
Examination: CTA carotids with intravenous contrast CTA brain, head with intravenous contrast. 2-D sagittal, coronal reconstructions. 3-D reconstructions. Exam date and time: July 27, 2024 1014 hours INDICATIONS: Stroke alert, onset focal neurologic deficit today CTDI: vol (mGy) 25.6 DLP: (mGycm) 443 Technique: Multiple CTA axial brain, head carotid images post intravenous contrast injection 75 cc, [id number]. 2-D sagittal, coronal reconstructions. 3-D reconstructions, 3-D post processing including vascular maximum intensity projection images. Low dose protocols were performed. One or more of the following dose reduction techniques were used; automated exposure control, adjustment of the mA and/or KV according to patient size, use of iterative reconstruction technique. Findings: Multiple bilateral subcentimeter thyroid nodules Consolidation in the right upper lobe with bilateral partially visualized pleural effusions No common carotid significant carotid bifurcation or internal carotid artery stenoses Mildly dominant right vertebral artery with no critical stenoses No cerebral large vessel arterial occlusions thrombus IMPRESSION: Multiple bilateral subcentimeter thyroid nodules, recommend dedicated thyroid sonography follow-up No significant neck arterial stenoses No cerebral large vessel arterial occlusions Parenchymal disease in the right upper lobe with partially visualized pleural effusions, please see the CT chest report July 25, 2024
--- NOTE | 2024-07-27 09:53 | XR_ITS ---
Examinations: MRI Brain without intravenous contrast. MRA brain without intravenous contrast. MRA carotids without intravenous contrast 3-D vascular reconstructions Date and time of exam: July 27, 2024 1238 hours INDICATIONS: Stroke alert this a.m. onset focal neurologic deficit, altered mental status, slurred speech, left-sided body weakness Technique: Multiple axial and sagittal images of the brain have been obtained MRA brain carotid images without contrast obtained, including 3-D postprocessing, vascular maximum intensity projection images Findings: Sellaturcica is not enlarged. The optic chiasm and infundibular stalk are not remarkable. Prepontine and interpeduncular cisterns are not enlarged. No localized enlargement of the medulla or rahat. Fourth ventricle and cerebellar tonsils normal in position. Subacute hemorrhage is not seen. Fourth ventricle is midline. Mass in the cerebellopontine angle region is not evident. 7th and 8th nerve complexes exhibits symmetry. Globes are symmetrical with no retro-orbital mass. Increased white matter signal evident, multiple punctate foci increased signal in the white matter Diffusion-weighted images demonstrate no focus of restricted diffusion Mass-effect upon the ventricular system is not identified. MRA carotid images degraded by patient motion. MRA brain images no cerebral large vessel occlusions Impression: Negative for acute hemorrhage mass effect or midline shift No acute infarct Multiple punctate foci increased signal in the white matter, demyelinating disease pattern
[2024-07-27 10:22] LABS: Ammonia 35 uMol/L (11-32)
--- NOTE | 2024-07-27 10:31 | ESCONSULT_ITS ---
Tele Neuro Consultation Consultation Date 07/27/24 Most Recent Vital Signs Last Vital Signs Temp 97.3 F 07/27/24 07:34 Pulse 72 07/27/24 08:22 Resp 18 07/27/24 07:34 BP 138/63 H 07/27/24 08:22 Pulse Ox 94 L 07/27/24 07:34 O2 Del Method Nasal Cannula 07/27/24 07:34 O2 Flow Rate 4 07/27/24 07:34 Laboratory-Coagulation Panel PT 13.2 Seconds (9.0-12.2) H 07/25/24 10:10 INR 1.2 (0.9-1.3) 07/25/24 10:10 Consultation Narrative [facility] Tele[facility]rology Consult [facility] Patient Name:???Mat Rodriguez Date of :???1965 Identification Number:??? Date of Service:???07/27/2024 09:41:29 Diagnosis:?G93.41 - Encephalopathy Metabolic ?R40.0 - Somnolence ?R55 - Syncope (blackout, fainting, vasovagal attack) Impression: ?58YOM with a PMHx of HTN, HLD, DM2, ESRD on HD, admitted on 07/25 in the setting of acute hypoxic respiratory failure following missed hemodialysis sessi on and found to have bilateral pleural effusions in setting of volume overload, and for whom stroke alert called in setting of transient episode of dysarthria and confusion, now resolved. Suspect transient neurological symptoms in setting of recent dialysis and subtle encephalopathy with waxing and waning wakefulness in setting of admission, yet given concern for ongoing facial weakness, would recommend empirically treating as a stroke for now until proven otherwise. Our recommendations are outlined below. Recommendations: ? Stroke/Telemetry Floor ? Neuro Checks ? Bedside Swallow Eval ? DVT Prophylaxis ? IV Fluids, Normal Saline ? Head of Bed 30 Degrees ? Euglycemia and Avoid Hyperthermia (PRN Acetaminophen) ? Initiate or continue Aspirin 81 MG daily ?Goal normotensive ?Full delirium precautions ?MRI brain wo contrast ?Infectious and metabolic workup per primary team Sign Out: ? Discussed with Primary Attending Advanced Imaging: Advanced Imaging Deferred because: Non-disabling symptoms as verified by the patient; no cortical signs so not consistent with LVO Metrics: Last Known Well: 07/27/2024 08:55:00 Dispatch Time: 07/27/2024 09:41:29 Initial Response Time: 07/27/2024 09:48:58Symptoms: Confusion, lethargy, slurred speech. Initial patient interaction: 07/27/2024 09:55:45 NIHSS Assessment Completed: 07/27/2024 10:01:01Patient is not a candidate for Thrombolytic. Thrombolytic Medical Decision: 07/27/2024 10:01:02Patient was not deemed candidate for Thrombolytic because of following reasons: Resolved symptoms . Stroke severity too mild (non-disabling) . I personally Reviewed the CT Head and it Showed no blood products or early ischemic changes Primary Provider Notified of Diagnostic Impression and Management Plan on: 07/27/2024 10:21:57 Spoke With: Dr Zaidi Able to Reach 07/27/2024 10:21:57 History of Present Illness:Patient is a 58 year old Male. Inpatient stroke alert was called for symptoms of Confusion, lethargy, slurred speech. 58YOM with a PMHx of HTN, HLD, DM2, ESRD on HD, admitted on 07/25 in the setting of acute hypoxic respiratory failure following missed hemodialysis session and found to have bilateral pleural effusions in setting of volume overload, and for whom Neurology consulted in setting of acute onset change in mental status, slurred speech, and facial droop. Per staff, patient was last seen intact at 0855; at 0930 staff entered room and found patient asleep, yet patient unresponsive to loud verbal and tactile stimuli. AFter painful stimuli patient finally awoke confused and lethargic, with subtle L facial asymmetry and slurred speech. Per staff this was not his previous baseline. Per patient, he recalls being awoken with no abnormal movements or focal weakness, and notes that he was extremely sleepy this morning, prompting lethargy. He states that, on being sat up, he felt significant dizziness which he describes as lightheadedness, which quickly passed. Denies history of stroke or seizure and per staff, no abnormal movements, perioral movements, incontinence of bowel or bladder, or other notable abnormalities. Past Medical History: ?Hypertension ?Diabetes Mellitus ?Hyperlipidemia ?Coronary Artery Disease ?There is no history of Atrial Fibrillation ?There is no history of Stroke ?There is no history of Seizures Medications: No Anticoagulant use? No Antiplatelet use Reviewed EMR for current medications Allergies:? Reviewed Social History: Drug Use: No Family History: There is no family history of premature cerebrovascular disease pertinent to this consultation ROS : 14 Points Review of Systems was performed and was negative except mentioned in HPI. Past Surgical History: There Is No Surgical History Contributory To Today?s Visit Examination: BP(138/63),?Pulse(72), 1A: Level of Consciousness - Alert; keenly responsive?+ 0 1B: Ask Month and Age - Both Questions Right?+ 0 1C: Blink Eyes & Squeeze Hands - Performs Both Tasks?+ 0 2: Test Horizontal Extraocular Movements - Normal?+ 0 3: Test Visual Jenkins - No Visual Loss?+ 0 4: Test Facial Palsy (Use Grimace if Obtunded) - Minor paralysis (flat nasolabial fold, smile asymmetry)?+ 1 5A: Test Left Arm Motor Drift - No Drift for 10 Seconds?+ 0 5B: Test Right Arm Motor Drift - No Drift for 10 Seconds?+ 0 6A: Test Left Leg Motor Drift - No Drift for 5 Seconds?+ 0 6B: Test Right Leg Motor Drift - No Drift for 5 Seconds?+ 0 7: Test Limb Ataxia (FNF/Heel-Morales) - No Ataxia?+ 0 8: Test Sensation - Normal; No sensory loss?+ 0 9: Test Language/Aphasia - Normal; No aphasia?+ 0 10: Test Dysarthria - Normal?+ 0 11: Test Extinction/Inattention - No abnormality?+ 0 NIHSS Score:?1 NIHSS Free Text :?Trace L facial asymmetry, unknown if baseline Pre-Morbid Modified [place] Scale:3 Points = Moderate disability; requiring some help, but able to walk without assistance Spoke with :?Dr Zaidi This consult was conducted in real time using interactive audio and video technology. Patient was informed of the technology being used for this visit and agreed to proceed. Patient located in hospital and provider located at home/office setting. Patient is being evaluated for possible acute neurologic impairment and high probability of imminent or life-threatening deterioration. I spent total of 25 minutes providing care to this patient, including time for face to face visit via telemedicine, review of medical records, imaging studies and discussion of findings with providers, the patient and/or family. Dr Scotty Galindo [facility] For Inpatient follow-up with [facility] physician please call [facility] at . As we are not an outpatient service for any post hospital discharge needs please contact the hospital for assistance. If you have any questions for the [facility] physicians or need to reconsult for clinical or diagnostic changes please contact us via [facility] at .
[2024-07-27 11:05] LABS: INR 1.3 (0.9-1.3); Partial Thromboplastin Time 30.8 Seconds (22.0-36.0); Prothrombin Time 13.6 Seconds (9.0-12.2)
--- NOTE | 2024-07-27 11:09 | EVENTNT_ITS ---
<Statement entered by Erin Lockhart MD - 07/27/24 15:40> I discussed with and supervised the media intern physician who took care of this patient. I personally saw and examined the patient and discussed the assessment and plan with the entire medicine team, including my attending Dr. Zaidi, I agree with the assessment and plan as documented below This morning the bedside patient was lethargic and difficult to arouse, per patient nurse in the morning he was having breakfast and AOx3, on physical exam patient was having left facial drooping as well as slurred speech for which stroke alert was called and patient was transferred to telemetry. Erin Lockhart MD PGY-3 Disclaimer: Despite multiple revisions, due to the dictation software being used, the document bellow may not be free of grammatical errors including phonetic/typographic errors. However, this does not deter from our commitment to providing health care in the patient's best interest in mind. Documentation for date of: 07/27/24 Event Note Event Note: This a.m. rapid response was called due to left facial drooping decree sensation on the left side of the face, slurred speech and left upper extremity drift, and left lower extremity weakness. Stroke alert was called teleneurology was con sulted and stroke workup initiated. Case discussed with my senior Dr. Mak PGY-2, Dr. Lockhart PGY-[address] Dyan Beck MD PGY-1
--- NOTE | 2024-07-27 11:20 | PC.NURSE ---
Rapid response called and then Stroke alert initiated by nursing staff on the med/surg floor with MD at bedside. Stroke alert protocol followed and patient taken for CT with teleneurology consulted by staff. Patient upgraded to telemetry and no TnKase recommended per teleneurologist. Patient to have MRI as follow up per Teleneurologist.
[2024-07-27] MEDS: ASPIRIN 81 MG CHEW PO (13:23)
--- NOTE | 2024-07-27 15:07 | ESPR_ITS ---
<Statement entered by Diana Mak MD - 07/27/24 16:22> Patient seen and examined at bedside. Patient appeared to be very somnolent, and difficult to arouse, however after several sternal rubs, patient able to follow commands and was able to state his name and place. Patient endorsed left sided weakness including decreased sensation compared to right side of body and left central facial palsy. Patient's pupils were round and reactive to light. Stroke alert was quickly initiated, and CT Head and CTA negative for any hemorrhage or acute infarcts or large vessel occlusion. Will f/u with the MRI. During Tele- neuro consultation, patient's baseline appearance significantly improved. Patient will be transferred to telemetry for higher level of care including Q4H neuro checks. I discussed with and supervised the sales and marketing intern physician who took care of this patient. I personally saw and examined the patient and discussed the assessment and plan with the entire medicine team, including my attending , I agree with most of the assessment and plan as documented below Diana Mak M.D. PGY-2 <Statement entered by Erin Lockhart MD - 07/27/24 15:48> I discussed with and supervised the sales and marketing intern physician who took care of this patient. I personally saw and examined the patient and discussed the assessment and plan with the entire medicine team, including my attending Dr. Zaidi, I agree with the assessment and plan as documented below This morning the bedside patient was lethargic and difficult to arouse, per patient nurse in the morning he was having breakfast and AOx3, on physical exam patient was having left facial drooping as well as slurred speech for which stroke alert was called and patient was transferred to telemetry. Erin Lockhart MD PGY-3 Disclaimer: Despite multiple revisions, due to the dictation software being used, the document bellow may not be free of grammatical errors including phonetic/typographic errors. However, this does not deter from our commitment to providing health care in the patient's best interest in mind. Documentation for date of: 07/27/24 Subjective Subjective Interval history: Patient seen today at the bedside fine awake, alert, oriented x 3. Rapid response was called this morning and stroke alert was initiated as patient was having left-sided facial droop, slurred speech, lethargy, weakness and left lower extremity. Teleneurology was consulted and stroke workup was initiated. Exam Vital Signs Temp Pulse Resp BP Pulse Ox O2 Del Method O2 Flow Rate 96.8 F 73 20 140/67 H 94 L Nasal Cannula 4 07/27/24 14:07/27/24 14:07/27/24 14:07/27/24 14:26 07/27/24 14:26 07/27/24 14:07/27/24 14:26 Narrative Exam Physical Exam GENERAL: NAD, AAOx3, left-sided facial droop, slurred speech HEENT: Moist mucosa. Eyes open, symmetrical, & clear CARDIO: Heart RRR, no obvious murmurs PULM: No noted coughing/dyspnea CTA B/L, no R/W/R GI: Abdomen soft, nondistended, no pain on palpation. BSx4 SKIN/MSK/EXT: No wounds/rashes/edema/amputations, no pain on palpation. Pedal pulses present B/L NEURO: AAOx3, left-sided weakness Objective Labs 07/28/24 05:36 07/28/24 05:36 Labs: Laboratory Results - last 24 hr 07/27/24 07/27/24 05:09 09:55 WBC 8.6 RBC 3.38 L Hgb 10.5 L Hct 31.9 L MCV 94 MCH 31.1 MCHC 32.9 RDW Std Deviation 45.7 H Plt Count 189 Neut % (Auto) 77 Lymph % (Auto) 6 L Storey % (Auto) 9 Eos % (Auto) 7 Baso % (Auto) 1 Neut # (Auto) 6.7 Lymph # (Auto) 0.5 L Storey # (Auto) 0.8 Eos # (Auto) 0.6 H Baso # (Auto) 0.1 Immature Gran # (Auto) 0.02 H Absolute Nucleated RBC 0.00 Immature Gran % 0 Nucleated RBC % 0 PT 13.6 H INR 1.3 APTT 30.8 Sodium 136 Potassium 4.4 D Chloride 96 L Carbon Dioxide 27.7 Anion Gap 12 BUN 39 H Creatinine 4.2 H* D Estim Creat Clear Calc Not Performed. eGFR 16 L BUN/Creatinine Ratio 9 L Glucose 85 Calculated Osmolality 280 Calcium 8.7 Corrected Calcium 9.0 Total Bilirubin 0.4 AST 13 ALT 7 L Alkaline Phosphatase 191 H D Ammonia 35 H Total Protein 6.6 Albumin 3.6 Globulin 3.0 Albumin/Globulin Ratio 1.2 PTH Intact 299.3 H ABG Interpretation ABG results: 07/25/24 10:10 VBG pH 7.30 L VBG pCO2 56 VBG pO2 56 VBG Base Excess 0 Quality Measures Quality Measures VTE prophylaxis Assessment & Plan Assessment Current Active Medications: Generic Name Dose Route Start Last Admin Trade Name Johnq PRN Reason Stop Dose Admin Acetaminophen 650 mg 07/25/24 16:46 Acetaminophen 325 Mg Tablet PO 08/24/24 16:45 Q6H PRN Fever >100.4 or pain Amlodipine Besylate 10 mg 07/26/24 09:00 07/27/24 08:22 Amlodipine Besylate 5 Mg Tablet PO 08/25/24 08:59 10 mg DAILY LONI Administration Aspirin 81 mg 07/27/24 10:30 07/27/24 13:23 Aspirin 81 Mg Chew PO 08/26/24 10:29 81 mg QDAY LONI Administration Atorvastatin Calcium 40 mg 07/25/24 21:00 07/26/24 20:22 Atorvastatin Calcium 20 Mg Tablet PO 08/24/24 20:59 40 mg QPM LONI Administration Dextrose 25 ml 07/25/24 16:46 Dextrose 50%-Water Inj 50 Ml Syringe IV 08/24/24 16:45 Q15MIN PRN BG 50-70 responsive npo pt Dextrose 50 ml 07/25/24 16:46 Dextrose 50%-Water Inj 50 Ml Syringe IV 08/24/24 16:45 Q15MIN PRN BG <50 OR BG <70 & pt unresponsive Doxazosin Mesylate 2 mg 07/25/24 21:00 07/26/24 20:24 Doxazosin Mesylate 2 Mg Tablet PO 08/24/24 20:59 2 mg HS LONI Administration Gabapentin 100 mg 07/25/24 22:00 07/27/24 05:44 Gabapentin 100 Mg Capsule PO 08/24/24 21:59 100 mg TID LONI Administration Glucagon 1 mg 07/25/24 16:46 Glucagon Inj 1 Mg Vial IM Q15MIN PRN BG <70, and no IV access Heparin Sodium (Porcine) 5,000 unit 07/25/24 21:00 07/27/24 08:22 Heparin Sod Inj 5000 Unit/Ml Vial SC 08/08/24 20:59 5,000 unit Q12HR LONI Administration Hydralazine HCl 100 mg 07/25/24 22:00 07/27/24 05:44 Hydralazine Hcl 25 Mg Tablet PO 08/24/24 21:59 100 mg TID LONI Administration Insulin Human Lispro 0 unit 07/25/24 17:00 07/27/24 11:10 Insulin Lispro (Admelog) 1 Unit/0.01 Ml Unit SC 08/24/24 16:59 Not Given AC LONI Protocol Magnesium Hydroxide 30 ml 07/25/24 16:46 Milk Of Magnesia Susp 30 Ml Udc PO 08/24/24 16:45 QDAY PRN CONSTIPATION Protocol Ondansetron HCl 4 mg 07/25/24 16:46 Ondansetron Inj 2 Mg/Ml Inj 2 Ml IV 08/24/24 16:45 Q6H PRN NAUSEA OR VOMITING Protocol Sennosides 1 tab 07/25/24 17:00 07/27/24 08:22 Senna Tablet PO 08/24/24 16:59 1 tab BID LONI Administration Protocol Sennosides 8.8 mg 07/26/24 11:00 07/27/24 08:21 Sennosides Syrup 8.8 Mg/5 Ml Udc PO 08/25/24 10:59 8.8 mg QDAY LONI Administration Protocol Sevelamer Carbonate 800 mg 07/25/24 17:00 07/27/24 13:23 Sevelamer Carbonate 800 Mg Tablet PO 08/24/24 16:59 800 mg AC LONI Administration Vitamin D 1,000 iu 07/26/24 09:00 07/27/24 08:22 Cholecalciferol (Vitamin D3) 1,000 Iu Tablet PO 08/25/24 08:59 1,000 iu QDAY LONI Administration Plan 58 y/o M with PMHx significant for hypertension, diabetes, ESRD on dialysis (M/W/F) brought to ED from SNF on 07/25/2024 with chief complaint of worsening shortness of breath, admitted for acute on chronic hypoxic respiratory failure secondary to volume overload. #Left-sided facial droop Rapid response and stroke alert was called due to left-sided weakness and facial droop with slurred speech Head CT was negative for acute hemorrhage, mass effect or midline shift Head/neck CTA no neck stenosis Brain MRI showed Negative for acute hemorrhage mass effect or midline shift, No acute infarct, Multiple punctate foci increased signal in the white matter, demyelinating disease pattern ? Telemetry ? Neurochecks every 4 ? Bedside swallow screen ? Speech eval and physical therapy ordered ? Head of bed 30 degrees #Acute on chronic hypoxic respiratory failure 2/2 #Volume overload 2/2 missed HD session #ESRD on dialysis (M/W/F) Patient presented with progressive shortness of breath after missing dialysis session on Friday. In ED, patient noted to have hypoxia, placed on O2 via nasal cannula due to O2 saturations down to 88%. On exam, patient saturating 89-94% on 4 L via nasal cannula. Patient typically wears 2 L nasal cannula while sleeping as needed. Patient chest imaging indicated volume overload, with mild pleural effusions. Patient BNP elevated, 825, normal for this patient. Automotive Service Director consulted for inpatient dialysis. -Nephrology consulted, dialysis as per patient's usual schedule. -O2 as needed for hypoxia, titrate to maintain saturations greater than 92% -Renally dose meds -Avoid nephrotoxins -Monitor O2 saturations -Resume home meds as follows: Sevelamer carbonate 100 mg p.o., vitamin D2 and D3 #NSTEMI type I versus type II Patient has mildly elevated troponins: 0.124. Suspect demand ischemia in setting of volume overload. -Trend troponins #Incidental finding imaging concerning for cirrhosis Patient had CT of the abdomen which showed moderate ascites and liver findings concerning for cirrhosis without focal liver lesions. Patient LFTs WNL except for ALP which is elevated at 219. Ammonia elevated at 62. Patient had hepatitis panel negative as of 05/17/2024. Possible etiology mass. Patient has distended abdomen with mild diffuse tenderness. -Follow-up outpatient for further workup -Avoid hepatotoxins #Diabetes, patient history #Hypertension, patient history Patient history as stated. A1c 6.1% as of 05/17/2024. -Insulin sliding scale -Resume home meds as follows: Amlodipine 10 mg p.o. daily, atorvastatin 40 mg p.o. daily, doxazosin 2 mg p.o. at bedtime, gabapentin 100 mg p.o. 3 times daily, hydralazine 100 mg p.o. 3 times daily #Periaortic pericaval lymphnodes #Multiple bilateral subcentimeter thyroid nodules - f/u as outpatient Case discussed with my seniors Dr. Mak PGY-2, Dr. Lockhart PGY-3, and my attending Dr. Dyan Beck MD PGY-1 DVT prophylaxis: Heparin GI prophylaxis: Not indicated Diet: Carb consistent low, cardiac, renal Lines: Peripheral IV Code status: Full code Attending Provider Attestation/Addendum I have examined the patient, reviewed labs and imaging findings, discussed the case with the resident(s), and reviewed entered orders. I agree with the plan of care as outlined in this note, with these additional summaries/recommendations: Patient seen at bedside. No acute overnight events. Patient was being evaluated by medical team this morning after breakfast and noticed patient was encephalopathic with left facial weakness/droop. Stroke alert was initiated and patient was evaluated by teleneurology. Etiology most likely metabolic versus syncope. MRI revealed multiple punctate foci increased signal in the white matter although no acute infarct. Consult in-house neurology. Order echocardiogram and orthostatic vital signs. Patient transferred to telemetry and will monitor for arrhythmia. Patient originally admitted for acute on chronic hypoxic respiratory failure secondary to fluid overload from missed hemodialysis. Patient currently requiring 4L NC and 02 sat 94%. Continue hemodialysis and wean 02 supplementation as tolerated. Patient was found to have elevated troponins on admission which have peaked and most likely chronically elevated from decreased clearance from end stage renal disease. Continue insulin sliding scale for diabetes mellitus type II. Continue home atorvastatin and home antihypertensives. Repeat hematology and chemistry panel in am. Dr. Dyan MD
--- NOTE | 2024-07-27 15:51 | PC.SS ---
Patient was on med/surg. Patient had rapid response. Stroke alert. Patient was tranferred to Tele unit. and niece are listed as point of contact. Patient was previously at [facility] and admitted to hospital from their facility. Patient had been at facility since March. Tentative d/c plan is to return to facility. Patient is on hemodialysis at [facility]. remains the alt medical decision maker. PCP: Dr. Davies/Dr. Beck transport: [facility] medical decision maker: , [place],
--- NOTE | 2024-07-27 16:22 | PD.RESPRO ---
Documentation for date of: 07/27/24 Subjective Subjective Interval history: 58-year-old male with past medical history of hypertension, diabetes, ESRD on hemodialysis [M/W/F] who lives in SNF was brought to the hospital with chief complaints of shortness of breath. Patient was noted to have a shortness of breath from several weeks which got worsened in the recent days. On 07/23/2024, patient felt really weak for which he did not get his routine dialysis session on the day. Since then patient noted severe worsening in shortness of breath. Also reported that he uses 2 L oxygen through nasal cannula as needed. Denies fever, chest pain, cough, nausea, vomiting, diarrhea, constipation ED Course: Vitals at the time of admission are blood pressure 155/72 mmHg, pulse rate 86 bpm, respiratory rate 22/min, temperature 97.7 ?F, SpO2 95% with 5 L oxygen Labs at the time of admission showed WBC 9.5, Hb 10.9, platelets 199, sodium 133, potassium 5, chloride 95, bicarb 25.4, BUN 57, creatinine 5.4 lactate 0.8, troponin 0.124, BNP 825, procalcitonin 0.29 Chest x-ray showed prominent vascular congestion. EKG showed normal sinus rhythm. CT chest/abdomen/pelvis showed mild left pleural effusion, cirrhosis, moderate ascites, atrophic [place] kidneys, moderate prostatomegaly Nephrology is consulted as patient is having ESRD and is on HD, missed dialysis on 07/23/2024 07/26/2024 Patient is seen and examined in the dialysis unit Patient is tolerating dialysis well. Vitals are stable with mildly elevated blood pressures Labs showed WBC 10.8, Hb 10.8, platelets 197, sodium 134, potassium 5.5, BUN 67, creatinine 5.7, phosphorus 7.4 Patient will get dialysis today as per his routine schedule PTH is ordered 07/27/2024 Patient is seen and examined at the bedside No acute overnight events. But patient got a rapid response this morning because of weakness in left arm and lower extremity with angle of mouth deviation to left side, also noted slurring of speech Patient is transferred to telemetry and is evaluated for stroke/TIA Vitals are stable. Labs showed Hb 10.5, sodium 136, potassium 4.4, BUN 39, creatinine 4.2 Will get dialysis tomorrow as per his routine schedule. PTH is elevated, which is appropriate for his ESRD Exam Vital Signs Temp Pulse Resp BP Pulse Ox O2 Del Method O2 Flow Rate 96.8 F 85 20 140/67 H 94 L Nasal Cannula 4 07/27/24 14:26 07/27/24 15:12 07/27/24 14:26 07/27/24 15:12 07/27/24 14:26 07/27/24 14:26 07/27/24 14:26 Narrative Exam General: Awake. On dialysis HEENT: Normocephalic, atraumatic, mucous membranes moist. Heart: Regular rate and rhythm, no murmurs. Lungs: Clear to auscultation with no wheezing or crackles. Abdomen: Soft, nondistended, nontender, positive bowel sounds. ?No guarding or rebound tenderness. Neurologic: Alert and oriented x3, noted slurred speech, angle of mouth deviation to left side Extremities: No edema. AV fistula on left arm Skin: No rash or ecchymoses. Objective Labs 07/27/24 05:09 07/27/24 05:09 Labs: Laboratory Results - last 24 hr 07/27/24 07/27/24 05:09 09:55 WBC 8.6 RBC 3.38 L Hgb 10.5 L Hct 31.9 L MCV 94 MCH 31.1 MCHC 32.9 RDW Std Deviation 45.7 H Plt Count 189 Neut % (Auto) 77 Lymph % (Auto) 6 L [place] % (Auto) 9 Eos % (Auto) 7 Baso % (Auto) 1 Neut # (Auto) 6.7 Lymph # (Auto) 0.5 L [place] # (Auto) 0.8 Eos # (Auto) 0.6 H Baso # (Auto) 0.1 Immature Gran # (Auto) 0.02 H Absolute Nucleated RBC 0.00 Immature Gran % 0 Nucleated RBC % 0 PT 13.6 H INR 1.3 APTT 30.8 Sodium 136 Potassium 4.4 D Chloride 96 L Carbon Dioxide 27.7 Anion Gap 12 BUN 39 H Creatinine 4.2 H* D Estim Creat Clear Calc Not Performed. eGFR 16 L BUN/Creatinine Ratio 9 L Glucose 85 Calculated Osmolality 280 Calcium 8.7 Corrected Calcium 9.0 Total Bilirubin 0.4 AST 13 ALT 7 L Alkaline Phosphatase 191 H D Ammonia 35 H Total Protein 6.6 Albumin 3.6 Globulin 3.0 Albumin/Globulin Ratio 1.2 PTH Intact 299.3 H ABG Interpretation ABG results: 07/25/24 10:10 VBG pH 7.30 L VBG pCO2 56 VBG pO2 56 VBG Base Excess 0 Quality Measures Quality Measures VTE prophylaxis Assessment & Plan Assessment Current Active Medications: Generic Name Dose Route Start Last Admin Trade Name Freq PRN Reason Stop Dose Admin Acetaminophen 650 mg 07/25/24 16:46 Acetaminophen 325 Mg Tablet PO 08/24/24 16:45 Q6H PRN Fever >100.4 or pain Amlodipine Besylate 10 mg 07/26/24 09:00 07/27/24 08:22 Amlodipine Besylate 5 Mg Tablet PO 08/25/24 08:59 10 mg DAILY LONI Administration Aspirin 81 mg 07/27/24 10:30 07/27/24 13:23 Aspirin 81 Mg Chew PO 08/26/24 10:29 81 mg QDAY LONI Administration Atorvastatin Calcium 40 mg 07/25/24 21:00 07/26/24 20:22 Atorvastatin Calcium 20 Mg Tablet PO 08/24/24 20:59 40 mg QPM LONI Administration Dextrose 25 ml 07/25/24 16:46 Dextrose 50%-Water Inj 50 Ml Syringe IV 08/24/24 16:45 Q15MIN PRN BG 50-70 responsive npo pt Dextrose 50 ml 07/25/24 16:46 Dextrose 50%-Water Inj 50 Ml Syringe IV 08/24/24 16:45 Q15MIN PRN BG <50 OR BG <70 & pt unresponsive Doxazosin Mesylate 2 mg 07/25/24 21:00 07/26/24 20:24 Doxazosin Mesylate 2 Mg Tablet PO 08/24/24 20:59 2 mg HS LONI Administration Gabapentin 100 mg 07/25/24 22:00 07/27/24 15:12 Gabapentin 100 Mg Capsule PO 08/24/24 21:59 100 mg TID LONI Administration Glucagon 1 mg 07/25/24 16:46 Glucagon Inj 1 Mg Vial IM Q15MIN PRN BG <70, and no IV access Heparin Sodium (Porcine) 5,000 unit 07/25/24 21:00 07/27/24 08:22 Heparin Sod Inj 5000 Unit/Ml Vial SC 08/08/24 20:59 5,000 unit Q12HR LONI Administration Hydralazine HCl 100 mg 07/25/24 22:00 07/27/24 15:12 Hydralazine Hcl 25 Mg Tablet PO 08/24/24 21:59 100 mg TID LONI Administration Insulin Human Lispro 0 unit 07/25/24 17:00 07/27/24 11:10 Insulin Lispro (Admelog) 1 Unit/0.01 Ml Unit SC 08/24/24 16:59 Not Given AC LONI Protocol Magnesium Hydroxide 30 ml 07/25/24 16:46 Milk Of Magnesia Susp 30 Ml Udc PO 08/24/24 16:45 QDAY PRN CONSTIPATION Protocol Ondansetron HCl 4 mg 07/25/24 16:46 Ondansetron Inj 2 Mg/Ml Inj 2 Ml IV 08/24/24 16:45 Q6H PRN NAUSEA OR VOMITING Protocol Sennosides 1 tab 07/25/24 17:00 07/27/24 08:22 Senna Tablet PO 08/24/24 16:59 1 tab BID LONI Administration Protocol Sennosides 8.8 mg 07/26/24 11:00 07/27/24 08:21 Sennosides Syrup 8.8 Mg/5 Ml Udc PO 08/25/24 10:59 8.8 mg QDAY LONI Administration Protocol Sevelamer Carbonate 800 mg 07/25/24 17:00 07/27/24 13:23 Sevelamer Carbonate 800 Mg Tablet PO 08/24/24 16:59 800 mg AC LONI Administration Vitamin D 1,000 iu 07/26/24 09:00 07/27/24 08:22 Cholecalciferol (Vitamin D3) 1,000 Iu Tablet PO 08/25/24 08:59 1,000 iu QDAY LONI Administration Plan 58-year-old male with past medical history of hypertension, diabetes, ESRD on hemodialysis [M/W/F] who lives in [facility] was brought to the hospital with chief complaints of shortness of breath. Missed his dialysis session on 07/23 # ESRD on HD [M/W/F] -Likely secondary to hypertension, diabetes mellitus -Patient admitted to hospital with chief complaints of shortness of breath -Per patient, patient missed her dialysis on 07/23/2024 as he felt short of breath and weak -Vitals at the time of admission are blood pressure 155/72 mmHg -Chest x-ray showed prominent vascular congestion. -EKG showed normal sinus rhythm. CT chest/abdomen/pelvis showed mild left pleural effusion, cirrhosis, moderate ascites, atrophic [place] kidneys, moderate prostatomegaly Plan -Patient received HD yesterday and will continue dialysis as per his routine schedule -PTH is elevated, which is appropriate for his ESRD -Avoid nephrotoxic medications and renally dose medications # Hyperkalemia, resolved Likely due to missed dialysis session -Potassium as of 07/27/2024 is 4.4 Plan - will monitor electrolytes. # Hyperphosphatemia -Phosphorus is 7.4 as of 07/26/2024 -Calcium is within normal limits Plan -Will continue sevelamer carbonate # Diabetes # Hypertension -A1c is 6.1 on 05/2024 -Patient is not on any oral hypoglycemic medication -Resume his home blood pressure medication -Monitor blood pressures and titrate medications accordingly #Acute on chronic hypoxic respiratory failure 06/06 #NSTEMI type I versus type II #Incidental finding imaging concerning for cirrhosis # Stroke versus TIA -Rest of the medical conditions to be treated as per primary team Thank you for allowing us to participate in the care of the patient Patient plan of care was discussed with the attending physician, Dr. Liang Garza, PGY1 Attending Provider Attestation/Addendum Patient seen and examined with resident physician Dr. Venegas. Note reviewed, agree with findings and recommendations. Admitted with hypoxic respiratory failure secondary to fluid overload and pleural effusion. Noted to have ascites-question dialysis ascites patient received dialysis yesterday. Next dialysis scheduled for tomorrow. Thank you Tigre for allowing me to participate in the care of Mr. Rodriguez
[2024-07-27] MEDS: LACTULOSE SYRUP 20 GM/30 ML UDC 30 GM PO (17:28)
[2024-07-27] MEDS: DOXAZOSIN MESYLATE 2 MG TABLET PO (21:40)
[2024-07-27] MEDS: ATORVASTATIN CALCIUM 20 MG TABLET 40 MG PO (21:40)
[2024-07-28] VITALS (70 sets, daily range): BP systolic 129–170; BP diastolic 62–86; PULSE 70–86; RESP 0–35; TEMP 36.3–36.9; O2SAT 77–98; BMI 26.6
[2024-07-28] MEDS: GABAPENTIN 100 MG CAPSULE PO (05:32)
[2024-07-28] MEDS: hydrALAZINE HCL 25 MG TABLET 100 MG PO ×3 (05:32→21:02)
[2024-07-28 05:50] LABS: Basophils # (Auto) 0.1 Thou/mm3 (0.0-0.2); Basophils % (Auto) 1 % (0-2.5); Eosinophils # (Auto) 0.6 Thou/mm3 (0.0-0.5); Eosinophils % (Auto) 6 % (0-10); Hematocrit 32.3 % (41.0-53.0); Hemoglobin 10.7 g/dL (13.5-16.0); Immature Granulocytes % (Auto) 0 % (0-0); Immature Granulocytes Auto 0.03 Thou/mm3 (0.00-0.00); Lymphocytes # (Auto) 0.5 Thou/mm3 (1.0-4.8); Lymphocytes % (Auto) 5 % (10-50); Mean Corpuscular HGB Conc 33.1 g/dl (31.0-37.0); Mean Corpuscular Hemoglobin 31.2 pg (25.0-35.0); Mean Corpuscular Volume 94 fL (80-100); Monocytes # (Auto) 0.8 Thou/mm3 (0.0-0.8); Monocytes % (Auto) 9 % (0-12); Neutrophils # (Auto) 7.5 Thou/mm3 (1.8-7.7); Neutrophils % (Auto) 79 % (37-80); Nucleated Red Blood Cell % 0 /100 WBC (0); Platelet Count 173 Thou/mm3 (140-440); RDW Standard Deviation 46.2 fL (35.1-43.9); Red Blood Count 3.43 Miln/mm3 (4.50-5.90); White Blood Count 9.5 Thou/mm3 (3.8-10.6)
[2024-07-28 06:44] LABS: Alanine Aminotransferase 8 U/L (10-49); Albumin, Serum 3.7 gm/dL (3.5-5.0); Albumin/Globulin Ratio 1.2 (1.2-2.2); Alkaline Phosphatase 190 U/L (46-116); Anion Gap 12 (7-16); Aspartate Amino Transferase 12 U/L (0-34); BUN/Creatinine Ratio 10 Ratio (12-20); Bilirubin,Total 0.3 mg/dL (0.3-1.2); Blood Urea Nitrogen 50 mg/dL (9-23); Calcium 8.9 mg/dL (8.3-10.6); Calcium (Corrected) 9.1 mg/dL (8.5-10.1); Carbon Dioxide 26.4 mMol/L (20.0-31.0); Chloride 95 mMol/L (98-107); Globulin 3.2 gm/dL (2.3-3.5); Glucose 101 mg/dL (74-106); Osmolality,Calculated 279 (275-295); Sodium 133 mMol/L (136-145); Total Protein 6.9 gm/dL (5.7-8.2); eGFR 13 See Note
--- NOTE | 2024-07-28 09:53 | ECHO_ITS ---
Transthoracic Echo Report Ht (in): 65 Wt (lb): 165 Exam Location: Echo Lab Status: Inpatient Community Living Specialist: JUAN DAVID Lee^^^^ Indications: Procedure Performed: BP: 164 / 83 HR: 78 Technical Quality: Fair MEASUREMENTS (Male / Female) Normal Values 2D ECHO LV Diastolic Diameter PLAX 5.3 cm 4.2 - 5.9 / 3.9 - 5.3 cm LV Systolic Diameter PLAX 3.8 cm IVS Diastolic Thickness 0.9 cm 0.6 - 1.0 / 0.6 - 0.9 cm LVPW Diastolic Thickness 1.2 cm 0.6 - 1.0 / 0.6 - 0.9 cm LV Relative Wall Thickness 0.4 LVOT Diameter 1.8 cm Aortic Root Diameter 3.3 cm LA Systolic Diameter LX 4.9 cm 3.0 - 4.0 / 2.7 - 3.8 cm LV Ejection Fraction MOD BP 41.5 % >= 55 % LV Cardiac Index MOD BP 2939.5 cm?/min?m? LV Ejection Fraction MOD 4C 47.3 % LV Cardiac Index MOD 4C 3469.1 cm?/min?m? LV Ejection Fraction 4C AL 50.0 % LV Cardiac Index 4C AL 3839.0 cm?/min?m? LV Ejection Fraction MOD 2C 33.5 % LV Cardiac Index MOD 2C 2251.6 cm?/min?m? LV Ejection Fraction 2C AL 35.7 % LV Cardiac Index 2C AL 2469.6 cm?/min?m? LA Volume Index 76.2 cm?/m? 16 - 28 cm?/m? Ascending Aorta Diameter 3.3 cm DOPPLER AV Peak Velocity 164.5 cm/s AV Peak Gradient 10.8 mmHg AV Mean Gradient 6.0 mmHg AV Velocity Time Integral 35.7 cm LVOT Peak Velocity 130.0 cm/s LVOT Peak Gradient 6.8 mmHg LVOT Velocity Time Integral 29.6 cm LVOT Cardiac Index 3140.6 cm?/min?m? AV Area Cont Eq vti 2.1 cm? AV Area Cont Eq pk 2.0 cm? MV Area PHT 4.2 cm? Mitral E Point Velocity 151.0 cm/s Mitral A Point Velocity 102.0 cm/s Mitral E to A Ratio 1.5 LV E' Lateral Velocity 10.4 cm/s Mitral E to LV E' Lateral Ratio 14.5 LV E' Septal Velocity 7.2 cm/s Mitral E to LV E' Septal Ratio 21.0 TR Peak Velocity 374.3 cm/s TR Peak Gradient 56.1 mmHg FINDINGS Left Ventricle There is abnormal septal motion. The left ventricular ejection fraction is moderately decreased, estimated at 35-40%. There is grade II diastolic dysfunction of the left ventricle (pseudonormal filling pattern). Right Ventricle The right ventricle is normal in size and systolic function. Estimated right ventricular systolic pressure is moderately elevated, 64 mmHg. Left Atrium Severely increased left atrial volume 76.2 mL/m?. Right Atrium The right atrial cavity size is mildly increased. Atrial Septum The interatrial septum is normal to color flow Doppler and agitated saline imaging. Aorta The aorta is normal by two-dimensional, color flow and Doppler interrogation. Mitral Valve [id number] mitral regurgitation. Mild thickening of the mitral valve leaflets. Mild mitral annular calcification. Aortic Valve Aortic valve sclerosis. Tricuspid Valve There is moderate to severe tricuspid valve regurgitation. Pulmonic Valve Trivial pulmonic valve regurgitation. Vessels The pulmonary artery appears normal. The inferior vena cava pulmonary and hepatic veins appear normal. Pericardium There is a small pericardial effusion. CONCLUSIONS Indication: Stroke rule out Normal LV size and function with an estimated EF of 55 to 60%. Normal diastolic function. Normal RV size and function. Moderately elevated RVSP at 60 mmHg. Bubble study negative for PFO or ASD. Consider HECTOR if high index of clinical suspicion. Mild aortic valve sclerosis without stenosis. Mild calcification of the mitral valve leaflets with mild MR and mild MAC. Biatrial dilatation. Trace to small pericardial effusion without any evidence of any tamponade. Quinton Leiva (Electronically Signed) Final Date: 28 July 2024 20:48
[2024-07-28] MEDS: SEVELAMER CARBONATE 800 MG TABLET PO ×2 (12:37→17:29)
[2024-07-28] MEDS: ASPIRIN 81 MG CHEW PO (12:37)
--- NOTE | 2024-07-28 13:36 | ESPR_ITS ---
Documentation for date of: 07/28/24 Subjective Subjective Interval history: 58-year-old male with past medical history of hypertension, diabetes, ESRD on hemodialysis [M/W/F] who lives in SNF was brought to the hospital with chief complaints of shortness of breath. Patient was noted to have a shortness of breath from several weeks which got worsened in the recent days. On 07/23/2024, patient felt really weak for which he did not get his routine dialysis session on the day. Since then patient noted severe worsening in shortness of breath. Also reported that he uses 2 L oxygen through nasal cannula as needed. Denies fever, chest pain, cough, nausea, vomiting, diarrhea, constipation ED Course: Vitals at the time of admission are blood pressure 155/72 mmHg, pulse rate 86 bpm, respiratory rate 22/min, temperature 97.7 ?F, SpO2 95% with 5 L oxygen Labs at the time of admission showed WBC 9.5, Hb 10.9, platelets 199, sodium 133, potassium 5, chloride 95, bicarb 25.4, BUN 57, creatinine 5.4 lactate 0.8, troponin 0.124, BNP 825, procalcitonin 0.29 Chest x-ray showed prominent vascular congestion. EKG showed normal sinus rhythm. CT chest/abdomen/pelvis showed mild left pleural effusion, cirrhosis, moderate ascites, atrophic [place] kidneys, moderate prostatomegaly Nephrology is consulted as patient is having ESRD and is on HD, missed dialysis on 07/23/2024 07/26/2024 Patient is seen and examined in the dialysis unit Patient is tolerating dialysis well. Vitals are stable with mildly elevated blood pressures Labs showed WBC 10.8, Hb 10.8, platelets 197, sodium 134, potassium 5.5, BUN 67, creatinine 5.7, phosphorus 7.4 Patient will get dialysis today as per his routine schedule PTH is ordered 07/27/2024 Patient is seen and examined at the bedside No acute overnight events. But patient got a rapid response this morning because of weakness in left arm and lower extremity with angle of mouth deviation to left side, also noted slurring of speech Patient is transferred to telemetry and is evaluated for stroke/TIA Vitals are stable. Labs showed Hb 10.5, sodium 136, potassium 4.4, BUN 39, creatinine 4.2 Will get dialysis tomorrow as per his routine schedule. PTH is elevated, which is appropriate for his ESRD 07/28/2024 Patient is seen and examined at bedside in the dialysis unit No acute overnight events. Denies any other complaints. Vitals are stable. Tolerating the dialysis well. Slurring of speech appears to be improved Will continue dialysis as per his routine schedule Exam Vital Signs Temp Pulse Resp BP Pulse Ox O2 Del Method O2 Flow Rate 98.0 F 77 17 166/84 H 94 L Nasal Cannula 3 07/28/24 12:00 07/28/24 12:00 07/28/24 12:00 07/28/24 12:00 07/28/24 12:00 07/28/24 12:00 07/28/24 12:00 Narrative Exam General: Awake. On dialysis HEENT: Normocephalic, atraumatic, mucous membranes moist. Heart: Regular rate and rhythm, no murmurs. Lungs: Clear to auscultation with no wheezing or crackles. Abdomen: Soft, nondistended, nontender, positive bowel sounds. ?No guarding or rebound tenderness. Neurologic: Alert and oriented x3, noted slurred speech, angle of mouth deviation to left side Extremities: No edema. AV fistula on left arm Skin: No rash or ecchymoses. Objective Labs 07/29/24 04:46 07/29/24 04:46 Labs: Laboratory Results - last 24 hr 07/28/24 05:36 WBC 9.5 RBC 3.43 L Hgb 10.7 L Hct 32.3 L MCV 94 MCH 31.2 MCHC 33.1 RDW Std Deviation 46.2 H Plt Count 173 Neut % (Auto) 79 Lymph % (Auto) 5 L [place] % (Auto) 9 Eos % (Auto) 6 Baso % (Auto) 1 Neut # (Auto) 7.5 Lymph # (Auto) 0.5 L [place] # (Auto) 0.8 Eos # (Auto) 0.6 H Baso # (Auto) 0.1 Immature Gran # (Auto) 0.03 H Absolute Nucleated RBC 0.00 Immature Gran % 0 Nucleated RBC % 0 Sodium 133 L Potassium 5.0 D Chloride 95 L Carbon Dioxide 26.4 Anion Gap 12 BUN 50 H Creatinine 5.0 H* D Estim Creat Clear Calc Not Performed. eGFR 13 L* BUN/Creatinine Ratio 10 L Glucose 101 Calculated Osmolality 279 Calcium 8.9 Corrected Calcium 9.1 Total Bilirubin 0.3 AST 12 ALT 8 L Alkaline Phosphatase 190 H Total Protein 6.9 Albumin 3.7 Globulin 3.2 Albumin/Globulin Ratio 1.2 ABG Interpretation ABG results: 07/25/24 10:10 VBG pH 7.30 L VBG pCO2 56 VBG pO2 56 VBG Base Excess 0 Quality Measures Quality Measures VTE prophylaxis Assessment & Plan Assessment Current Active Medications: Generic Name Dose Route Start Last Admin Trade Name Freq PRN Reason Stop Dose Admin Acetaminophen 650 mg 07/25/24 16:46 Acetaminophen 325 Mg Tablet PO 08/24/24 16:45 Q6H PRN Fever >100.4 or pain Amlodipine Besylate 10 mg 07/26/24 09:00 07/28/24 12:30 Amlodipine Besylate 5 Mg Tablet PO 08/25/24 08:59 Not Given DAILY LONI Aspirin 81 mg 07/27/24 10:30 07/28/24 12:37 Aspirin 81 Mg Chew PO 08/26/24 10:29 81 mg QDAY LONI Administration Atorvastatin Calcium 40 mg 07/25/24 21:00 07/27/24 21:40 Atorvastatin Calcium 20 Mg Tablet PO 08/24/24 20:59 40 mg QPM LONI Administration Dextrose 25 ml 07/25/24 16:46 Dextrose 50%-Water Inj 50 Ml Syringe IV 08/24/24 16:45 Q15MIN PRN BG 50-70 responsive npo pt Dextrose 50 ml 07/25/24 16:46 Dextrose 50%-Water Inj 50 Ml Syringe IV 08/24/24 16:45 Q15MIN PRN BG <50 OR BG <70 & pt unresponsive Doxazosin Mesylate 2 mg 07/25/24 21:00 07/27/24 21:40 Doxazosin Mesylate 2 Mg Tablet PO 08/24/24 20:59 2 mg HS LONI Administration Gabapentin 100 mg 07/29/24 09:00 Gabapentin 100 Mg Capsule PO 08/28/24 08:59 QDAY LONI Glucagon 1 mg 07/25/24 16:46 Glucagon Inj 1 Mg Vial IM Q15MIN PRN BG <70, and no IV access Heparin Sodium (Porcine) 5,000 unit 07/25/24 21:00 07/28/24 12:31 Heparin Sod Inj 5000 Unit/Ml Vial SC 08/08/24 20:59 Not Given Q12HR LONI Hydralazine HCl 100 mg 07/25/24 22:00 07/28/24 05:32 Hydralazine Hcl 25 Mg Tablet PO 08/24/24 21:59 100 mg TID LONI Administration Insulin Human Lispro 0 unit 07/25/24 17:00 07/28/24 12:38 Insulin Lispro (Admelog) 1 Unit/0.01 Ml Unit SC 08/24/24 16:59 Not Given AC LONI Protocol Magnesium Hydroxide 30 ml 07/25/24 16:46 Milk Of Magnesia Susp 30 Ml Udc PO 08/24/24 16:45 QDAY PRN CONSTIPATION Protocol Ondansetron HCl 4 mg 07/25/24 16:46 Ondansetron Inj 2 Mg/Ml Inj 2 Ml IV 08/24/24 16:45 Q6H PRN NAUSEA OR VOMITING Protocol Sennosides 1 tab 07/25/24 17:00 07/28/24 12:31 Senna Tablet PO 08/24/24 16:59 Not Given BID LONI Protocol Sennosides 8.8 mg 07/26/24 11:00 07/27/24 08:21 Sennosides Syrup 8.8 Mg/5 Ml Udc PO 08/25/24 10:59 8.8 mg QDAY LONI Administration Protocol Sevelamer Carbonate 800 mg 07/25/24 17:00 07/28/24 12:37 Sevelamer Carbonate 800 Mg Tablet PO 08/24/24 16:59 800 mg AC LONI Administration Vitamin D 1,000 iu 07/26/24 09:00 07/27/24 08:22 Cholecalciferol (Vitamin D3) 1,000 Iu Tablet PO 08/25/24 08:59 1,000 iu QDAY LONI Administration Plan 58-year-old male with past medical history of hypertension, diabetes, ESRD on hemodialysis [M/W/F] who lives in [facility] was brought to the hospital with chief complaints of shortness of breath. Missed his dialysis session on 07/23 # ESRD on HD [M/W/F] -Likely secondary to hypertension, diabetes mellitus -Patient admitted to hospital with chief complaints of shortness of breath -Per patient, patient missed her dialysis on 07/23/2024 as he felt short of breath and weak -Vitals at the time of admission are blood pressure 155/72 mmHg -Chest x-ray showed prominent vascular congestion. -EKG showed normal sinus rhythm. CT chest/abdomen/pelvis showed mild left pleural effusion, cirrhosis, moderate ascites, atrophic [place] kidneys, moderate prostatomegaly Plan -Patient received HD today and will continue dialysis as per his routine schedule -PTH is elevated, which is appropriate for his ESRD -Avoid nephrotoxic medications and renally dose medications # Hyperkalemia, resolved Likely due to missed dialysis session -Potassium as of 07/28/2024 is 5 Plan - will monitor electrolytes. # Hyperphosphatemia -Phosphorus is 7.4 as of 07/26/2024 -Calcium is within normal limits Plan -Will continue sevelamer carbonate # Diabetes # Hypertension -A1c is 6.1 on 05/2024 -Patient is not on any oral hypoglycemic medication -Resume his home blood pressure medication -Monitor blood pressures and titrate medications accordingly #Acute on chronic hypoxic respiratory failure 06/06 #NSTEMI type I versus type II #Incidental finding imaging concerning for cirrhosis # Stroke versus TIA -Rest of the medical conditions to be treated as per primary team Thank you for allowing us to participate in the care of the patient Patient plan of care was discussed with the attending physician, Dr. Liang Garza, PGY1 Attending Provider Attestation/Addendum Patient seen and examined with resident physician Dr. Venegas. Note reviewed, agree with findings and recommendations. Admitted with hypoxic respiratory failure secondary to fluid overload and pleural effusion. Noted to have ascites-question dialysis ascites Patient currently seen on dialysis. Tolerating dialysis without any problems. Hemodialysis for 3 hours, 2K, ultrafiltration 2-3 L, Epogen 6000, no heparin ordered. Plan of care discussed with the dialysis nurse. Please see dialysis flowsheet for further details.
--- NOTE | 2024-07-28 14:05 | ESPR_ITS ---
<Statement entered by Diana Mak MD - 07/28/24 15:42> Patient is a 58 y/o M with PMHx significant for hypertension, diabetes, ESRD on dialysis (M/W/F) brought to ED from SNF on 07/25/2024 with chief complaint of worsening shortness of breath, admitted for acute on chronic hypoxic respiratory failure secondary to volume overload. Patient also presented with elevated troponins that peaked but could be elevated from his ESRD. Patient's home medications were resumed, and was planned to be discharged yesterday, however complicated by a sudden change in neurological deficits inculding left facial paralysis and weakness/numbness. Stroke alert was initiated, but ultimately stroke r/o. MRI only showed multiple punctate foci with increase signal in white matter. Patient seen and examined at bedside. Patient denies any complaints at this time. All labs and imaging reviewed. Patient has endorse mild left sided weakness of UE but back to baseline per patient, and all other symptoms including slurred speech has resolved. Pending final neuro recs prior to discharge to his SNF. Anticipate discharge within 24 hours. I discussed with and supervised the senior international tax manager physician who took care of this patient. I personally saw and examined the patient and discussed the assessment and plan with the entire medicine team, including my attending Dr. Zaidi, I agree with most of the assessment and plan as documented below Diana Mak M.D. PGY-2 <Statement entered by Erin Lockhart MD - 07/28/24 15:33> I discussed with and supervised the senior international tax manager physician who took care of this patient. I personally saw and examined the patient and discussed the assessment and plan with the entire medicine team, including my attending Dr. Zaidi, I agree with the assessment and plan as documented below No overnight acute events This morning at bedside patient is AO x 3, respond to question properly, tolerating p.o. at mentation baseline brain MRI showed multiple focciy of possible demyelinating disease. Patient has hemodialysis session today tolerating well. Pending echocardiogram bubble study, per neurology recommendations patient will be discharged with Plavix and statin. If patient remains stable we will anticipate discharge in the next 24 to 48 hours back to SNF. Erin Lockhart MD PGY-3 Disclaimer: Despite multiple revisions, due to the dictation software being used, the document bellow may not be free of grammatical errors including phonetic/typographic errors. However, this does not deter from our commitment to providing health care in the patient's best interest in mind. Documentation for date of: 07/28/24 Subjective Subjective Interval history: Patient seen today at the bedside at the dialysis unit found awake, alert and oriented x 3. No overnight events reported. Vital signs stable at this time. Patient currently undergoing hemodialysis session tolerated adequately. All stroke workup came back negative. Reached out to neurology will provide further recommendations. Exam Vital Signs Temp Pulse Resp BP Pulse Ox O2 Del Method O2 Flow Rate 98.0 F 74 17 170/86 H 94 L Nasal Cannula 3 07/28/24 12:00 07/28/24 13:41 07/28/24 12:00 07/28/24 13:41 07/28/24 12:00 07/28/24 12:00 07/28/24 12:00 Narrative Exam Physical Exam GENERAL: NAD, AAOx3 HEENT: Moist mucosa. Eyes open, symmetrical, & clear CARDIO: Heart RRR, no obvious murmurs PULM: No noted coughing/dyspnea CTA B/L, no R/W/R GI: Abdomen soft, nondistended, no pain on palpation. BSx4 SKIN/MSK/EXT: No wounds/rashes/edema/amputations, no pain on palpation. Pedal pulses present B/L NEURO: AAOx3, able to move all 4 extremities Objective Labs 07/28/24 05:36 07/28/24 05:36 Labs: Laboratory Results - last 24 hr 07/28/24 05:36 WBC 9.5 RBC 3.43 L Hgb 10.7 L Hct 32.3 L MCV 94 MCH 31.2 MCHC 33.1 RDW Std Deviation 46.2 H Plt Count 173 Neut % (Auto) 79 Lymph % (Auto) 5 L [place] % (Auto) 9 Eos % (Auto) 6 Baso % (Auto) 1 Neut # (Auto) 7.5 Lymph # (Auto) 0.5 L [place] # (Auto) 0.8 Eos # (Auto) 0.6 H Baso # (Auto) 0.1 Immature Gran # (Auto) 0.03 H Absolute Nucleated RBC 0.00 Immature Gran % 0 Nucleated RBC % 0 Sodium 133 L Potassium 5.0 D Chloride 95 L Carbon Dioxide 26.4 Anion Gap 12 BUN 50 H Creatinine 5.0 H* D Estim Creat Clear Calc Not Performed. eGFR 13 L* BUN/Creatinine Ratio 10 L Glucose 101 Calculated Osmolality 279 Calcium 8.9 Corrected Calcium 9.1 Total Bilirubin 0.3 AST 12 ALT 8 L Alkaline Phosphatase 190 H Total Protein 6.9 Albumin 3.7 Globulin 3.2 Albumin/Globulin Ratio 1.2 ABG Interpretation ABG results: 07/25/24 10:10 VBG pH 7.30 L VBG pCO2 56 VBG pO2 56 VBG Base Excess 0 Quality Measures Quality Measures VTE prophylaxis Assessment & Plan Assessment Current Active Medications: Generic Name Dose Route Start Last Admin Trade Name Freq PRN Reason Stop Dose Admin Acetaminophen 650 mg 07/25/24 16:46 Acetaminophen 325 Mg Tablet PO 08/24/24 16:45 Q6H PRN Fever >100.4 or pain Amlodipine Besylate 10 mg 07/26/24 09:00 07/28/24 12:30 Amlodipine Besylate 5 Mg Tablet PO 08/25/24 08:59 Not Given DAILY LONI Aspirin 81 mg 07/27/24 10:30 07/28/24 12:37 Aspirin 81 Mg Chew PO 08/26/24 10:29 81 mg QDAY LONI Administration Atorvastatin Calcium 40 mg 07/25/24 21:00 07/27/24 21:40 Atorvastatin Calcium 20 Mg Tablet PO 08/24/24 20:59 40 mg QPM LONI Administration Dextrose 25 ml 07/25/24 16:46 Dextrose 50%-Water Inj 50 Ml Syringe IV 08/24/24 16:45 Q15MIN PRN BG 50-70 responsive npo pt Dextrose 50 ml 07/25/24 16:46 Dextrose 50%-Water Inj 50 Ml Syringe IV 08/24/24 16:45 Q15MIN PRN BG <50 OR BG <70 & pt unresponsive Doxazosin Mesylate 2 mg 07/25/24 21:00 07/27/24 21:40 Doxazosin Mesylate 2 Mg Tablet PO 08/24/24 20:59 2 mg HS LONI Administration Gabapentin 100 mg 07/29/24 09:00 Gabapentin 100 Mg Capsule PO 08/28/24 08:59 QDAY LONI Glucagon 1 mg 07/25/24 16:46 Glucagon Inj 1 Mg Vial IM Q15MIN PRN BG <70, and no IV access Heparin Sodium (Porcine) 5,000 unit 07/25/24 21:00 07/28/24 12:31 Heparin Sod Inj 5000 Unit/Ml Vial SC 08/08/24 20:59 Not Given Q12HR LONI Hydralazine HCl 100 mg 07/25/24 22:00 07/28/24 13:41 Hydralazine Hcl 25 Mg Tablet PO 08/24/24 21:59 100 mg TID LONI Administration Insulin Human Lispro 0 unit 07/25/24 17:00 07/28/24 12:38 Insulin Lispro (Admelog) 1 Unit/0.01 Ml Unit SC 08/24/24 16:59 Not Given AC [facility] Protocol Magnesium Hydroxide 30 ml 07/25/24 16:46 Milk Of Magnesia Susp 30 Ml Udc PO 08/24/24 16:45 QDAY PRN CONSTIPATION Protocol Ondansetron HCl 4 mg 07/25/24 16:46 Ondansetron Inj 2 Mg/Ml Inj 2 Ml IV 08/24/24 16:45 Q6H PRN NAUSEA OR VOMITING Protocol Sennosides 1 tab 07/25/24 17:00 07/28/24 12:31 Senna Tablet PO 08/24/24 16:59 Not Given BID LONI Protocol Sennosides 8.8 mg 07/26/24 11:00 07/27/24 08:21 Sennosides Syrup 8.8 Mg/5 Ml Udc PO 08/25/24 10:59 8.8 mg QDAY LONI Administration Protocol Sevelamer Carbonate 800 mg 07/25/24 17:00 07/28/24 12:37 Sevelamer Carbonate 800 Mg Tablet PO 08/24/24 16:59 800 mg AC LONI Administration Vitamin D 1,000 iu 07/26/24 09:00 07/27/24 08:22 Cholecalciferol (Vitamin D3) 1,000 Iu Tablet PO 08/25/24 08:59 1,000 iu QDAY LONI Administration Plan 58 y/o M with PMHx significant for hypertension, diabetes, ESRD on dialysis (M/W/F) brought to ED from [facility] on 07/25/2024 with chief complaint of worsening shortness of breath, admitted for acute on chronic hypoxic respiratory failure secondary to volume overload. #Left-sided facial droop-resolved Rapid response and stroke alert was called due to left-sided weakness and facial droop with slurred speech Head CT was negative for acute hemorrhage, mass effect or midline shift Head/neck CTA no neck stenosis Brain MRI showed Negative for acute hemorrhage mass effect or midline shift, No acute infarct, Multiple punctate foci increased signal in the white matter, demyelinating disease pattern ? Telemetry ? Neurochecks every 4 ? Speech eval and physical therapy ordered ? Head of bed 30 degrees #Acute on chronic hypoxic respiratory failure 2/2 #Volume overload 2/2 missed HD session #ESRD on dialysis (M/W/F) Patient presented with progressive shortness of breath after missing dialysis session on Friday. In ED, patient noted to have hypoxia, placed on O2 via nasal cannula due to O2 saturations down to 88%. On exam, patient saturating 89-94% on 4 L via nasal cannula. Patient typically wears 2 L nasal cannula while sleeping as needed. Patient chest imaging indicated volume overload, with mild pleural effusions. Patient BNP elevated, 825, normal for this patient. Gaming Worker consulted for inpatient dialysis. -Nephrology consulted, dialysis as per patient's usual schedule. -O2 as needed for hypoxia, titrate to maintain saturations greater than 92% -Renally dose meds -Avoid nephrotoxins -Monitor O2 saturations -Resume home meds as follows: Sevelamer carbonate 100 mg p.o., vitamin D2 and D3 #NSTEMI type I versus type II Patient has mildly elevated troponins: 0.124. Suspect demand ischemia in setting of volume overload. Troponins already downtrending no need to further trend troponins #Incidental finding imaging concerning for cirrhosis Patient had CT of the abdomen which showed moderate ascites and liver findings concerning for cirrhosis without focal liver lesions. Patient LFTs WNL except for ALP which is elevated at 219. Ammonia elevated at 62. Patient had hepatitis panel negative as of 05/17/2024. Possible etiology mass. Patient has distended abdomen with mild diffuse tenderness. -Follow-up outpatient for further workup -Avoid hepatotoxins #Diabetes, patient history #Hypertension, patient history Patient history as stated. A1c 6.1% as of 05/17/2024. -Insulin sliding scale -Resume home meds as follows: Amlodipine 10 mg p.o. daily, atorvastatin 40 mg p.o. daily, doxazosin 2 mg p.o. at bedtime, gabapentin 100 mg p.o. 3 times daily, hydralazine 100 mg p.o. 3 times daily #Periaortic pericaval lymphnodes #Multiple bilateral subcentimeter thyroid nodules - f/u as outpatient Case discussed with my seniors Dr. Mak PGY-2, Dr. Lockhart PGY-3, and my attending Dr. Dyan Beck MD PGY-1 DVT prophylaxis: Heparin GI prophylaxis: Not indicated Diet: Carb consistent low, cardiac, renal Lines: Peripheral IV Code status: Full code Attending Provider Attestation/Addendum I have examined the patient, reviewed labs and imaging findings, discussed the case with the resident(s), and reviewed entered orders. I agree with the plan of care as outlined in this note, with these additional summaries/recommendations: Patient seen at bedside. No acute overnight events. Patients facial droop and encephalopathy and patient at baseline. Etiology most likely syncope vs TIA. MRI revealed multiple punctate foci increased signal in the white matter although no acute infarct. Consult in-house neurology. Pending echocardiogram and orthostatic vital signs. Patient on aspirin 81mg PO QD & atorvastatin 40mg PO HS. Patient originally admitted for acute on chronic hypoxic respiratory failure secondary to fluid overload from missed hemodialysis. Patient currently requiring 3L NC and 02 sat 94%. Continue hemodialysis and wean 02 supplementation as tolerated. Patient was found to have elevated troponins on admission which have peaked and most likely chronically elevated from decreased clearance from end stage renal disease. Continue insulin sliding scale for diabetes mellitus type II. Continue home atorvastatin and home antihypertensives. Repeat hematology and chemistry panel in am. Anticipate discharge in the next [address] Dyan MD
--- NOTE | 2024-07-28 14:09 | PC.NURSE ---
unable to take B/P standing,unable to stand.
--- NOTE | 2024-07-28 14:10 | ESCONSULT_ITS ---
HPI Data of Consult Requesting Physician: Tigre Zaidi MD Admitting Provider: Tigre Zaidi MD Attending Provider: Tigre Zaidi MD Primary Care Provider: Sj Beck MD Consult Narrative History of present illness: Patient is a 58-year-old male with past medical history of hypertension, diabetes, ESRD on hemodialysis [M/W/F] who lives in SNF that was brought to the hospital with chief complaints of shortness of breath. On 07-27-2024 patient had rapid response due to slurred speech and left-sided weakness. Stroke alert was called and patient was scanned for CVA workup. Neurology consulted for further CVA workup and recommendations. cc:: cc: Tigre Zaidi MD Exam Vital Signs Temp Pulse Resp BP Pulse Ox O2 Del Method O2 Flow Rate 98.0 F 74 17 170/86 H 94 L Nasal Cannula 3 07/28/24 12:00 07/28/24 13:41 07/28/24 12:00 07/28/24 13:41 07/28/24 12:00 07/28/24 12:00 07/28/24 12:00 Narrative Exam GENERAL: NAD, AAOx3, resting comfortably in bed. HEENT: Moist mucosa. Eyes open, symmetrical, & clear CARDIO: Regular rate and rhythm, no murmurs, rubs, or gallops. PULM: Chest clear to auscultation bilaterally. GI: Abdomen soft, nondistended, no pain on palpation. Active bowel sounds. SKIN/MSK/EXT: No edema noted in lower extremities. NEURO: AAOx3, able to move all 4 extremities. Equal strength upper and lower extremities. Sensations intact. No neurological deficits noted. Results Labs 07/29/24 04:46 07/28/24 05:36 Labs: Short CBC 07/28/24 Range/Units 05:36 WBC 9.5 (3.8-10.6) Thou/mm3 Hgb 10.7 L (13.5-16.0) g/dL Hct 32.3 L (41.0-53.0) % Plt Count 173 (140-440) Thou/mm3 BMP 07/28/24 05:36 Sodium 133 L Potassium 5.0 D Chloride 95 L Carbon Dioxide 26.4 BUN 50 H Creatinine 5.0 H* D Glucose 101 Calcium 8.9 Liver Function 07/28/24 Range/Units 05:36 Total Bilirubin 0.3 (0.3-1.2) mg/dL AST 12 (0-34) U/L ALT 8 L (10-49) U/L Alkaline Phosphatase 190 H (46-116) U/L Albumin 3.7 (3.5-5.0) gm/dL ABG Interpretation ABG results: 07/25/24 10:10 VBG pH 7.30 L VBG pCO2 56 VBG pO2 56 VBG Base Excess 0 Quality Measures Quality Measures VTE prophylaxis Medications Home Medications and Allergies Home Medications ?Medication ?Instructions ?Recorded ?Confirmed ?Type acetaminophen 325 mg tablet 325 mg PO Q6HR PRN Mild Pa in 05/17/24 07/25/24 History (Scale Score 1-4) atorvastatin 40 mg tablet 40 mg PO QPM 05/17/24 History cholecalciferol (vitamin D3) 25 25 mcg PO QDAY 5 07/25/24 History mcg (1,000 unit) tablet gabapentin 100 mg capsule 100 mg PO TID 05/17/2407/25 History lidocaine 5 % topical cream 1 applic topical 1XD 05/1707/25/24 History nutritional supplements 8 ea PO 1XD 05/17/24 5 History ondansetron HCl 4 mg tablet 4 mg PO Q6H PRN Nausea And Vomiting 05/17/24 07/25/24 History vitamin B complex-vitamin C-folic 1 tab PO 1XD 5 07/25/24 History acid 0.8 mg tablet (Mena-Anil) amlodipine 10 mg tablet 10 mg PO DAILY 07/25/2407/04 History clonidine HCl 0.1 mg tablet 0.1 mg PO HS htn 07/25/24 07/25/24 History doxazosin 2 mg tablet 2 mg PO HS 07/25/24 07/25/24 History ergocalciferol (vitamin D2) 1,250 50,000 unit PO .week ly 07/25/24 07/25/24 History mcg (50,000 unit) capsule (Vitamin D2) furosemide 40 mg tablet 40 mg PO DAILY 07/25/2407/04 History hydralazine 100 mg tablet 100 mg PO TID 07/25/2407/25 History lorazepam 0.5 mg tablet (Ativan) 0.5 mg PO Q6H PRN anx iety 07/25/24 07/25/24 History sevelamer carbonate 800 mg tablet 800 mg PO .tidac 07/25/24 History Allergies Allergy/AdvReac Type Severity Reaction Status Date / Time No Known Allergies Allergy Verified 07/25/24 10:58 Visit Medications Acetaminophen (Acetaminophen 325 Mg Tablet) 650 mg PO Q6H PRN PRN Reason: Fever >100.4 or pain Stop: 08/24/24 16:45 Amlodipine Besylate (Amlodipine Besylate 5 Mg Tablet) 10 mg PO DAILY LONI Stop: 08/25/24 08:59 Last Admin: 07/28/24 12:30 Dose: Not Given Aspirin (Aspirin 81 Mg Chew) 81 mg PO QDAY LONI Stop: 08/26/24 10:29 Last Admin: 07/28/24 12:37 Dose: 81 mg Atorvastatin Calcium (Atorvastatin Calcium 20 Mg Tablet) 40 mg PO QPM LONI Stop: 08/24/24 20:59 Last Admin: 07/27/24 21:40 Dose: 40 mg Dextrose (Dextrose 50%-Water Inj 50 Ml Syringe) 25 ml IV Q15MIN PRN PRN Reason: BG 50-70 responsive npo pt Stop: 08/24/24 16:45 Dextrose (Dextrose 50%-Water Inj 50 Ml Syringe) 50 ml IV Q15MIN PRN PRN Reason: BG <50 OR BG <70 & pt unresponsive Stop: 08/24/24 16:45 Doxazosin Mesylate (Doxazosin Mesylate 2 Mg Tablet) 2 mg PO HS LONI Stop: 08/24/24 20:59 Last Admin: 07/27/24 21:40 Dose: 2 mg Gabapentin (Gabapentin 100 Mg Capsule) 100 mg PO QDAY LONI Stop: 08/28/24 08:59 Glucagon (Glucagon Inj 1 Mg Vial) 1 mg IM Q15MIN PRN PRN Reason: BG <70, and no IV access Heparin Sodium (Porcine) (Heparin Sod Inj 5000 Unit/Ml Vial) 5,000 unit SC Q12HR LONI Stop: 08/08/24 20:59 Last Admin: 07/28/24 12:31 Dose: Not Given Hydralazine HCl (Hydralazine Hcl 25 Mg Tablet) 100 mg PO TID LONI Stop: 08/24/24 21:59 Last Admin: 07/28/24 13:41 Dose: 100 mg Insulin Human Lispro (Insulin Lispro (Admelog) 1 Unit/0.01 Ml Unit) 0 unit SC [facility]; Protocol Stop: 08/24/24 16:59 Last Admin: 07/28/24 12:38 Dose: Not Given Magnesium Hydroxide (Milk Of Magnesia Susp 30 Ml Udc) 30 ml PO QDAY PRN; Protocol PRN Reason: CONSTIPATION Stop: 08/24/24 16:45 Ondansetron HCl (Ondansetron Inj 2 Mg/Ml Inj 2 Ml) 4 mg IV Q6H PRN; Protocol PRN Reason: NAUSEA OR VOMITING Stop: 08/24/24 16:45 Sennosides (Senna Tablet) 1 tab PO BID [facility]; Protocol Stop: 08/24/24 16:59 Last Admin: 07/28/24 12:31 Dose: Not Given Sennosides (Sennosides Syrup 8.8 Mg/5 Ml Udc) 8.8 mg PO QDAY [facility]; Protocol Stop: 08/25/24 10:59 Last Admin: 07/27/24 08:21 Dose: 8.8 mg Sevelamer Carbonate (Sevelamer Carbonate 800 Mg Tablet) 800 mg PO [facility] Stop: 08/24/24 16:59 Last Admin: 07/28/24 12:37 Dose: 800 mg Vitamin D (Cholecalciferol (Vitamin D3) 1,000 Iu Tablet) 1,000 iu PO QDAY [facility] Stop: 08/25/24 08:59 Last Admin: 07/27/24 08:22 Dose: 1,000 iu Discontinued Medications Gabapentin (Gabapentin 100 Mg Capsule) 100 mg PO TID [facility] Stop: 08/24/24 21:59 Last Admin: 07/28/24 05:32 Dose: 100 mg Sodium Chloride (Ns) 2,000 mls @ 80 mls/hr IV .Q24H ONE Stop: 07/26/24 09:51 Last Infusion: 07/25/24 15:52 Dose: 0 mls/hr Lactulose (Lactulose Syrup 20 Gm/30 Ml Udc) 30 gm PO X1 ONE; Protocol Stop: 07/27/24 15:59 Last Admin: 07/27/24 17:28 Dose: 30 gm Sennosides (Senna Tablet) 1 tab PO BID PRN; Protocol PRN Reason: CONSTIPATION Stop: 08/24/24 16:45 Assessment & Plan Plan #CVA workup TIA VS postdialysis disequilibrium syndrome CT head negative for any acute hemorrhage MRI negative for any ischemic changes CT head and neck showed no significant stenosis or blockages Recommend patient continue aspirin 81 mg. Patient to be on high-dose statin Continue with PT #ESRD #Hypertension #Acute hypoxic respiratory failure #Diabetes mellitus Continue management per primary team Case discussed with attending Dr Aubree Rodriguez MD PGY3 Attending Provider Attestation/Addendum I personally have seen and examined the patient at the bedside and agree with the residents findings, assessment and plan of care. Continue with single antiplatelet agent therapy with statin. Workup is negative for acute CVA
--- NOTE | 2024-07-28 14:25 | PC.SS ---
rounding note: Patient is a resident of [facility] and is expected to return. Possible d/c . Not medically stable.
[2024-07-28] MEDS: ONDANSETRON INJ 2 MG/ML INJ 2 ML 4 MG IV (15:18)
[2024-07-28] MEDS: DOXAZOSIN MESYLATE 2 MG TABLET PO (20:56)
[2024-07-28] MEDS: SENNA TABLET 1 TAB PO (21:00)
[2024-07-28] MEDS: ATORVASTATIN CALCIUM 20 MG TABLET 40 MG PO (21:00)
[2024-07-28] MEDS: HEPARIN SOD INJ 5000 UNIT/ML VIAL SC (21:03)
[2024-07-29] VITALS (23 sets, daily range): BP systolic 128–173; BP diastolic 64–91; PULSE 72–84; RESP 8–22; TEMP 37–37.3; O2SAT 80–97
[2024-07-29] MEDS: hydrALAZINE HCL 25 MG TABLET 100 MG PO ×3 (05:44→21:13)
[2024-07-29 05:55] LABS: Basophils # (Auto) 0.1 Thou/mm3 (0.0-0.2); Basophils % (Auto) 1 % (0-2.5); Eosinophils # (Auto) 0.8 Thou/mm3 (0.0-0.5); Eosinophils % (Auto) 8 % (0-10); Hematocrit 31.8 % (41.0-53.0); Hemoglobin 10.3 g/dL (13.5-16.0); Immature Granulocytes % (Auto) 0 % (0-0); Immature Granulocytes Auto 0.04 Thou/mm3 (0.00-0.00); Lymphocytes # (Auto) 0.6 Thou/mm3 (1.0-4.8); Lymphocytes % (Auto) 6 % (10-50); Mean Corpuscular HGB Conc 32.4 g/dl (31.0-37.0); Mean Corpuscular Hemoglobin 31.4 pg (25.0-35.0); Mean Corpuscular Volume 97 fL (80-100); Monocytes # (Auto) 0.8 Thou/mm3 (0.0-0.8); Monocytes % (Auto) 8 % (0-12); Neutrophils # (Auto) 7.7 Thou/mm3 (1.8-7.7); Neutrophils % (Auto) 76 % (37-80); Nucleated Red Blood Cell % 0 /100 WBC (0); Platelet Count 178 Thou/mm3 (140-440); RDW Standard Deviation 47.9 fL (35.1-43.9); Red Blood Count 3.28 Miln/mm3 (4.50-5.90); White Blood Count 10.1 Thou/mm3 (3.8-10.6)
[2024-07-29 06:51] LABS: Alanine Aminotransferase < 7 U/L (10-49); Albumin, Serum 3.7 gm/dL (3.5-5.0); Albumin/Globulin Ratio 1.2 (1.2-2.2); Alkaline Phosphatase 177 U/L (46-116); Anion Gap 11 (7-16); Aspartate Amino Transferase 12 U/L (0-34); BUN/Creatinine Ratio 8 Ratio (12-20); Bilirubin,Total 0.4 mg/dL (0.3-1.2); Blood Urea Nitrogen 27 mg/dL (9-23); Calcium 8.9 mg/dL (8.3-10.6); Calcium (Corrected) 9.1 mg/dL (8.5-10.1); Carbon Dioxide 28.6 mMol/L (20.0-31.0); Chloride 97 mMol/L (98-107); Creatinine (Component) 3.6 mg/dL (0.6-1.3); Estimated Creatinine Clearance 20.4 mL/min (>60); Glucose 76 mg/dL (74-106); Magnesium 1.8 mg/dL (1.6-2.6); Osmolality,Calculated 277 (275-295); Phosphorous 4.8 mg/dL (2.4-5.1); Potassium 4.3 mMol/L (3.4-5.1); Sodium 137 mMol/L (136-145); Total Protein 6.7 gm/dL (5.7-8.2); eGFR 19 See Note
[2024-07-29] MEDS: SEVELAMER CARBONATE 800 MG TABLET PO ×3 (08:08→17:56)
[2024-07-29] MEDS: HEPARIN SOD INJ 5000 UNIT/ML VIAL SC ×2 (08:59→21:13)
[2024-07-29] MEDS: ASPIRIN 81 MG CHEW PO (08:59)
[2024-07-29] MEDS: amLODIPine BESYLATE 5 MG TABLET 10 MG PO (09:00)
[2024-07-29] MEDS: GABAPENTIN 100 MG CAPSULE PO (09:00)
[2024-07-29] MEDS: SENNA TABLET 1 TAB PO ×2 (09:00→21:13)
[2024-07-29] MEDS: SENNOSIDES SYRUP 8.8 MG/5 ML UDC PO (09:07)
[2024-07-29] MEDS: Magnesium Sulfate 2 GM Ivpb 2 GM/50 ML BAG IV (09:12)
--- NOTE | 2024-07-29 14:41 | ESDS_ITS ---
<Statement entered by Dewayne Newman MD - 07/30/24 11:25> I have discussed and was present for the essential components of the history, physical examination, diagnosis, and treatment plan with the resident. I agree with the patient's care as documented by the resident and amended herein by me. Dewayne Newman MD FACP. Planned Discharge Date 07/29/24 DS: Providers Provider Date of admission: 07/25/24 16:46 Primary care physician: Sj Beck MD Admitting Provider: Tigre Zaidi MD Attending Provider on Admission: Dewayne Newman MD Consults: 07/25/24 16:49 Consult to Nephrology Routine Comment: Consulting Provider: Maicol Tavera 07/27/24 09:52 Consult to Neurology / Tele-Neurology Routine Comment: Consulting Provider: [facility] 07/27/24 09:57 Referral Physical Therapy Routine Comment: Physician Instructions: Referral Speech Therapy Routine Comment: 07/27/24 16:07 Consult to Neurology / Tele-Neurology Routine Comment: CVA R/O Consulting Provider: Adrian Mak 07/28/24 09:00 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 During hospital stay patient's hemodialysis sessions were resumed as scheduled. On admission patient had elevated troponins most likely secondary to demand ischemia in the setting of volume overload after downtrending were no longer trended. Diabetes was managed with sliding scale insulin hypoglycemia protocol. During hospitalization patient had the levels developed some left-sided facial droop concerning for stroke. Stroke protocol was initiated all workup came back negative. Neurology was consulted and recommended Plavix and statin. At this time patient is medically stable for discharge. Follow up with primary care physician within 1 week of discharge Follow up with Nephrology within 2 weeks of discharge Please do not miss any hemodialysis sessions Please follow up with your primary care physician in regards to incidental findings concerning for cirrhosis as well as lymhnodes found on imaging studies Should any symptoms recur or worsen patient is instructed to return to the ED Please stop taking these medications: Tramadol, Doxazosin, and Ativan Problem List: #Left-sided facial droop-resolved #Acute on chronic hypoxic respiratory failure 2/2 #Volume overload 2/2 missed HD session #ESRD on dialysis (M/W/F) #NSTEMI type I versus type II #Incidental finding imaging concerning for cirrhosis #Diabetes, patient history #Hypertension, patient history #Periaortic pericaval lymphnodes #Multiple bilateral subcentimeter thyroid nodules Case discussed with my senior Dr. Oswald PGY-3, and my attending Dr. Trent Beck MD PGY-1 Status at Discharge Functional status at discharge: independent ambulation Overall status at discharge: patient is back to baseline Time Spent with Patient Time attestation: Total time spent providing and/or coordinating discharge services: Time spent: Greater than 30 minutes Quality: Stroke Pt Provided Written Stroke Discharge Instructions: Yes Exam Vital Signs Temp Pulse Resp BP Pulse Ox O2 Del Method O2 Flow Rate 99.1 F 78 18 131/64 H 94 L Nasal Cannula 4 07/29/24 12:00 07/29/24 13:11 07/29/24 13:00 07/29/24 13:11 07/29/24 13:00 07/29/24 12:00 07/29/24 12:00 Narrative Exam Physical Exam GENERAL: NAD, AAOx3 HEENT: Moist mucosa. Eyes open, symmetrical, & clear CARDIO: Heart RRR, no obvious murmurs PULM: No noted coughing/dyspnea CTA B/L, no R/W/R GI: Abdomen soft, nondistended, no pain on palpation. BSx4 SKIN/MSK/EXT: No wounds/rashes/edema/amputations, no pain on palpation. Pedal pulses present B/L NEURO: AAOx3, able to move all 4 extremities Discharge Plan Plan Patient Disposition: Xfer Skilled Nsg Fac (SNF) Patient condition on transfer: Stable Care Plan Goals: Follow up with primary care physician within 1 week of discharge Follow up with Nephrology within 2 weeks of discharge Please do not miss any hemodialysis sessions Should any symptoms recur or worsen patient is instructed to return to the ED Please stop taking these medications: Tramadol, Doxazosin, and Ativan Prescriptions/Referrals Prescriptions/Med Rec: New clopidogrel [Plavix] 75 mg tablet 75 mg PO QDAY Qty: 30 0RF Continued atorvastatin 40 mg Tablet 40 mg PO QPM gabapentin 100 mg Capsule 100 mg PO TID cholecalciferol (vitamin D3) 25 mcg (1,000 unit) Tablet 25 mcg PO QDAY Rx Instructions: Give 5 tablet by mouth one time a day for supplement. nutritional supplements Liquid 8 ea PO 1XD Rx Instructions: Give 8 ounce by mouth one time a day for supplement Mena-Anil 0.8 mg Tablet 1 tab PO 1XD Rx Instructions: Give 1 tablet by mouth one time a day for supplement. lidocaine 5 % Cream 1 applic TOPICAL 1XD Rx Instructions: Apply to chest wall topically in the morning for pain. Apply to back topically one time a day for back pain. ondansetron HCl 4 mg Tablet 4 mg PO Q6H PRN (Reason: Nausea And Vomiting) acetaminophen 325 mg Tablet 325 mg PO Q6HR PRN (Reason: Mild Pain (Scale Score 1-4)) clonidine HCl 0.1 mg tablet 0.1 mg PO HS Rx Instructions: hold for sbp <100 or dbp<60 sevelamer carbonate 800 mg tablet 800 mg PO .tidac ergocalciferol (vitamin D2) [Vitamin D2] 1,250 mcg (50,000 unit) capsule 50,000 unit PO .weekly Rx Instructions: give every friday hydralazine 100 mg tablet 100 mg PO TID Rx Instructions: hold sbp< 100 or spb <60 furosemide 40 mg tablet 40 mg PO DAILY amlodipine 10 mg tablet 10 mg PO DAILY Discontinued tramadol 50 mg tablet 50 mg PO BID PRN (Reason: pain) Qty: 14 0RF lorazepam [Ativan] 0.5 mg tablet 0.5 mg PO Q6H PRN (Reason: anxiety) doxazosin 2 mg tablet 2 mg PO HS Referrals: Sj Beck MD [Primary Care Provider] - Patient/Caregiver Discharge Instructions Discharge Activity: activity as tolerated Education Materials: What Is a TIA?, TIA Surg Print Language: Paraguayan Stand Alone Forms: Neena Award Info., Patient Portal Info Letter Discharge Order Discharge Orders: Discharge (Routine); Ordered 07/29/24 Ordered By: Diana Mak Quality Discharge Quality Measures VTE prophylaxis
--- NOTE | 2024-07-29 15:28 | PC.SS ---
Ambulance transport request submitted to [facility]. Reference #[id number]. Preferred transporter [place]. Awaiting response.
--- NOTE | 2024-07-29 16:39 | PC.SS ---
Ambulance transport scheduled for 06:00 pm. [facility] to provide transport. Bedside nurse notified.
--- NOTE | 2024-07-29 17:11 | ESPR_ITS ---
Documentation for date of: 07/29/24 Subjective Subjective Interval history: Mr. Rodriguez is a 58-year-old male with past medical history of hypertension, diabetes, ESRD on hemodialysis [M/W/F] who lives in SNF was brought to the hospital with chief complaints of shortness of breath. Patient was noted to have a shortness of breath from several weeks which got worsened in the recent days. On 07/23/2024, patient felt really weak for which he did not get his routine dialysis session on the day. Since then patient noted severe worsening in shortness of breath. Also reported that he uses 2 L oxygen through nasal cannula as needed. Denies fever, chest pain, cough, nausea, vomiting, diarrhea, constipation ED Course: Vitals at the time of admission are blood pressure 155/72 mmHg, pulse rate 86 bpm, respiratory rate 22/min, temperature 97.7 ?F, SpO2 95% with 5 L oxygen Labs at the time of admission showed WBC 9.5, Hb 10.9, platelets 199, sodium 133, potassium 5, chloride 95, bicarb 25.4, BUN 57, creatinine 5.4 lactate 0.8, troponin 0.124, BNP 825, procalcitonin 0.29 Chest x-ray showed prominent vascular congestion. EKG showed normal sinus rhythm. CT chest/abdomen/pelvis showed mild left pleural effusion, cirrhosis, moderate ascites, atrophic [place] kidneys, moderate prostatomegaly Nephrology is consulted as patient is having ESRD and is on HD, missed dialysis on 07/23/2024 07/26/2024 Patient is seen and examined in the dialysis unit Patient is tolerating dialysis well. Vitals are stable with mildly elevated blood pressures Labs showed WBC 10.8, Hb 10.8, platelets 197, sodium 134, potassium 5.5, BUN 67, creatinine 5.7, phosphorus 7.4 Patient will get dialysis today as per his routine schedule PTH is ordered 07/27/2024 Patient is seen and examined at the bedside No acute overnight events. But patient got a rapid response this morning because of weakness in left arm and lower extremity with angle of mouth deviation to left side, also noted slurring of speech Patient is transferred to telemetry and is evaluated for stroke/TIA Vitals are stable. Labs showed Hb 10.5, sodium 136, potassium 4.4, BUN 39, creatinine 4.2 Will get dialysis tomorrow as per his routine schedule. PTH is elevated, which is appropriate for his ESRD 07/28/2024 Patient is seen and examined at bedside in the dialysis unit No acute overnight events. Denies any other complaints. Vitals are stable. Tolerating the dialysis well. Slurring of speech appears to be improved Will continue dialysis as per his routine schedule 07/29/2024 Patient is seen and examined at bedside No acute overnight events. Denies any other complaints. Vitals are stable. Physical examination showed mild abdominal distention, likely due to dialysis ascites Patient is stable to discharge from nephrology Recommend to continue dialysis as per his routine schedule on outpatient basis Exam Vital Signs Temp Pulse Resp BP Pulse Ox O2 Del Method O2 Flow Rate 98.6 F 74 18 141/74 H 94 L Nasal Cannula 3 07/29/24 16:00 07/29/24 16:00 07/29/24 16:00 07/29/24 16:00 07/29/24 16:00 07/29/24 16:00 07/29/24 16:00 Narrative Exam General: Awake. HEENT: Normocephalic, atraumatic, mucous membranes moist. Heart: Regular rate and rhythm, no murmurs. Lungs: Clear to auscultation with no wheezing or crackles. Abdomen: Soft, distended, nontender, positive bowel sounds. ?No guarding or rebound tenderness. Neurologic: Alert and oriented x3, Extremities: No edema. AV fistula on left arm Skin: No rash or ecchymoses. Objective Labs 07/30/24 05:08 07/30/24 05:08 Labs: Laboratory Results - last 24 hr 07/29/24 04:46 WBC 10.1 RBC 3.28 L Hgb 10.3 L Hct 31.8 L MCV 97 MCH 31.4 MCHC 32.4 RDW Std Deviation 47.9 H Plt Count 178 Neut % (Auto) 76 Lymph % (Auto) 6 L Travis % (Auto) 8 Eos % (Auto) 8 Baso % (Auto) 1 Neut # (Auto) 7.7 Lymph # (Auto) 0.6 L Travis # (Auto) 0.8 Eos # (Auto) 0.8 H Baso # (Auto) 0.1 Immature Gran # (Auto) 0.04 H Absolute Nucleated RBC 0.00 Immature Gran % 0 Nucleated RBC % 0 Sodium 137 Potassium 4.3 D Chloride 97 L Carbon Dioxide 28.6 Anion Gap 11 BUN 27 H Creatinine 3.6 H D Estim Creat Clear Calc 20.4 L eGFR 19 L BUN/Creatinine Ratio 8 L Glucose 76 Calculated Osmolality 277 Calcium 8.9 Corrected Calcium 9.1 Phosphorus 4.8 Magnesium 1.8 Total Bilirubin 0.4 AST 12 ALT < 7 L Alkaline Phosphatase 177 H Total Protein 6.7 Albumin 3.7 Globulin 3.0 Albumin/Globulin Ratio 1.2 ABG Interpretation ABG results: 07/25/24 10:10 VBG pH 7.30 L VBG pCO2 56 VBG pO2 56 VBG Base Excess 0 Quality Measures Quality Measures VTE prophylaxis Assessment & Plan Assessment Current Active Medications: Generic Name Dose Route Start Last Admin Trade Name Freq PRN Reason Stop Dose Admin Acetaminophen 650 mg 07/25/24 16:46 Acetaminophen 325 Mg Tablet PO 08/24/24 16:45 Q6H PRN Fever >100.4 or pain Amlodipine Besylate 10 mg 07/26/24 09:00 07/29/24 09:00 Amlodipine Besylate 5 Mg Tablet PO 08/25/24 08:59 10 mg DAILY LONI Administration Aspirin 81 mg 07/27/24 10:30 07/29/24 08:59 Aspirin 81 Mg Chew PO 08/26/24 10:29 81 mg QDAY LONI Administration Atorvastatin Calcium 40 mg 07/25/24 21:00 07/28/24 21:00 Atorvastatin Calcium 20 Mg Tablet PO 08/24/24 20:59 40 mg QPM LONI Administration Dextrose 25 ml 07/25/24 16:46 Dextrose 50%-Water Inj 50 Ml Syringe IV 08/24/24 16:45 Q15MIN PRN BG 50-70 responsive npo pt Dextrose 50 ml 07/25/24 16:46 Dextrose 50%-Water Inj 50 Ml Syringe IV 08/24/24 16:45 Q15MIN PRN BG <50 OR BG <70 & pt unresponsive Doxazosin Mesylate 2 mg 07/25/24 21:00 07/28/24 20:56 Doxazosin Mesylate 2 Mg Tablet PO 08/24/24 20:59 2 mg HS LONI Administration Gabapentin 100 mg 07/29/24 09:00 07/29/24 09:00 Gabapentin 100 Mg Capsule PO 08/28/24 08:59 100 mg QDAY LONI Administration Glucagon 1 mg 07/25/24 16:46 Glucagon Inj 1 Mg Vial IM Q15MIN PRN BG <70, and no IV access Heparin Sodium (Porcine) 5,000 unit 07/25/24 21:00 07/29/24 08:59 Heparin Sod Inj 5000 Unit/Ml Vial SC 08/08/24 20:59 5,000 unit Q12HR LONI Administration Hydralazine HCl 100 mg 07/25/24 22:00 07/29/24 15:17 Hydralazine Hcl 25 Mg Tablet PO 08/24/24 21:59 100 mg TID LONI Administration Insulin Human Lispro 0 unit 07/25/24 17:00 07/29/24 12:44 Insulin Lispro (Admelog) 1 Unit/0.01 Ml Unit SC 08/24/24 16:59 Not Given AC LONI Protocol Magnesium Hydroxide 30 ml 07/25/24 16:46 Milk Of Magnesia Susp 30 Ml Udc PO 08/24/24 16:45 QDAY PRN CONSTIPATION Protocol Ondansetron HCl 4 mg 07/25/24 16:46 07/28/24 15:18 Ondansetron Inj 2 Mg/Ml Inj 2 Ml IV 08/24/24 16:45 4 mg Q6H PRN Administration NAUSEA OR VOMITING Protocol Sennosides 1 tab 07/25/24 17:00 07/29/24 09:00 Senna Tablet PO 08/24/24 16:59 1 tab BID LONI Administration Protocol Sennosides 8.8 mg 07/26/24 11:00 07/29/24 09:07 Sennosides Syrup 8.8 Mg/5 Ml Udc PO 08/25/24 10:59 8.8 mg QDAY LONI Administration Protocol Sevelamer Carbonate 800 mg 07/25/24 17:00 07/29/24 13:10 Sevelamer Carbonate 800 Mg Tablet PO 08/24/24 16:59 800 mg AC LONI Administration Vitamin D 1,000 iu 07/26/24 09:00 07/29/24 12:44 Cholecalciferol (Vitamin D3) 1,000 Iu Tablet PO 08/25/24 08:59 Not Given QDAY LONI Plan 58-year-old male with past medical history of hypertension, diabetes, ESRD on hemodialysis [M/W/F] who lives in [facility] was brought to the hospital with chief complaints of shortness of breath. Missed his dialysis session on 07/23 # ESRD on HD [M/W/F] -Likely secondary to hypertension, diabetes mellitus -Patient admitted to hospital with chief complaints of shortness of breath -Per patient, patient missed her dialysis on 07/23/2024 as he felt short of breath and weak -Vitals at the time of admission are blood pressure 155/72 mmHg -Chest x-ray showed prominent vascular congestion. -EKG showed normal sinus rhythm. CT chest/abdomen/pelvis showed mild left pleural effusion, cirrhosis, moderate ascites, atrophic [place] kidneys, moderate prostatomegaly Plan -Will continue dialysis as per his routine schedule -PTH is elevated, which is appropriate for his ESRD -Avoid nephrotoxic medications and renally dose medications # Hyperkalemia, resolved Likely due to missed dialysis session -Potassium as of 07/29/2024 is 4.3 Plan - will monitor electrolytes. # Hyperphosphatemia -Phosphorus is 7.4 as of 07/26/2024 -Calcium is within normal limits Plan -Will continue sevelamer carbonate # Diabetes # Hypertension -A1c is 6.1 on 05/2024 -Patient is not on any oral hypoglycemic medication -Resume his home blood pressure medication -Monitor blood pressures and titrate medications accordingly #Acute on chronic hypoxic respiratory failure 06/06 #NSTEMI type I versus type II #Incidental finding imaging concerning for cirrhosis # Stroke versus TIA -Rest of the medical conditions to be treated as per primary team Thank you for allowing us to participate in the care of the patient Patient plan of care was discussed with the attending physician, Dr. Liang Garza, PGY1 Attending Provider Attestation/Addendum Patient seen and examined with resident physician Dr. Venegas. Note reviewed, agree with findings and recommendations. Admitted with hypoxic respiratory failure secondary to fluid overload and pleural effusion. Noted to have ascites-question dialysis ascites. Better after HD session. Did receive dialysis in am.
--- NOTE | 2024-07-29 17:34 | PC.SS ---
Transport cancelled due to SNF notifying [employer] that insurance authorization pending. [employer] [employer] notified [facility] and [facility] staff. Bedside nurse provided with update.
--- NOTE | 2024-07-29 17:39 | PD.RESPRO ---
Documentation for date of: 07/29/24 Subjective Subjective Interval history: Patient seen and assessed at bedside in ICU. Patient feeling well no active complaints at this time. Exam Vital Signs Temp Pulse Resp BP Pulse Ox O2 Del Method O2 Flow Rate 98.6 F 74 18 141/74 H 94 L Nasal Cannula 3 07/29/24 16:00 07/29/24 16:00 07/29/24 16:00 07/29/24 16:00 07/29/24 16:00 07/29/24 16:00 07/29/24 16:00 Narrative Exam GENERAL: NAD, AAOx3, resting comfortably in bed. HEENT: Moist mucosa. Eyes open, symmetrical, & clear CARDIO: Regular rate and rhythm, no murmurs, rubs, or gallops. PULM: Chest clear to auscultation bilaterally. GI: Abdomen soft, nondistended, no pain on palpation. Active bowel sounds. SKIN/MSK/EXT: No edema noted in lower extremities. NEURO: AAOx3, able to move all 4 extremities. Equal strength upper and lower extremities. No neurological deficits noted. Objective Labs 07/29/24 04:46 07/29/24 04:46 Labs: Laboratory Results - last 24 hr 07/29/24 04:46 WBC 10.1 RBC 3.28 L Hgb 10.3 L Hct 31.8 L MCV 97 MCH 31.4 MCHC 32.4 RDW Std Deviation 47.9 H Plt Count 178 Neut % (Auto) 76 Lymph % (Auto) 6 L Stevens % (Auto) 8 Eos % (Auto) 8 Baso % (Auto) 1 Neut # (Auto) 7.7 Lymph # (Auto) 0.6 L Stevens # (Auto) 0.8 Eos # (Auto) 0.8 H Baso # (Auto) 0.1 Immature Gran # (Auto) 0.04 H Absolute Nucleated RBC 0.00 Immature Gran % 0 Nucleated RBC % 0 Sodium 137 Potassium 4.3 D Chloride 97 L Carbon Dioxide 28.6 Anion Gap 11 BUN 27 H Creatinine 3.6 H D Estim Creat Clear Calc 20.4 L eGFR 19 L BUN/Creatinine Ratio 8 L Glucose 76 Calculated Osmolality 277 Calcium 8.9 Corrected Calcium 9.1 Phosphorus 4.8 Magnesium 1.8 Total Bilirubin 0.4 AST 12 ALT < 7 L Alkaline Phosphatase 177 H Total Protein 6.7 Albumin 3.7 Globulin 3.0 Albumin/Globulin Ratio 1.2 ABG Interpretation ABG results: 07/25/24 10:10 VBG pH 7.30 L VBG pCO2 56 VBG pO2 56 VBG Base Excess 0 Quality Measures Quality Measures VTE prophylaxis Assessment & Plan Assessment Current Active Medications: Generic Name Dose Route Start Last Admin Trade Name Freq PRN Reason Stop Dose Admin Acetaminophen 650 mg 07/25/24 16:46 Acetaminophen 325 Mg Tablet PO 08/24/24 16:45 Q6H PRN Fever >100.4 or pain Amlodipine Besylate 10 mg 07/26/24 09:00 07/29/24 09:00 Amlodipine Besylate 5 Mg Tablet PO 08/25/24 08:59 10 mg DAILY LONI Administration Aspirin 81 mg 07/27/24 10:30 07/29/24 08:59 Aspirin 81 Mg Chew PO 08/26/24 10:29 81 mg QDAY LONI Administration Atorvastatin Calcium 40 mg 07/25/24 21:00 07/28/24 21:00 Atorvastatin Calcium 20 Mg Tablet PO 08/24/24 20:59 40 mg QPM LONI Administration Dextrose 25 ml 07/25/24 16:46 Dextrose 50%-Water Inj 50 Ml Syringe IV 08/24/24 16:45 Q15MIN PRN BG 50-70 responsive npo pt Dextrose 50 ml 07/25/24 16:46 Dextrose 50%-Water Inj 50 Ml Syringe IV 08/24/24 16:45 Q15MIN PRN BG <50 OR BG <70 & pt unresponsive Doxazosin Mesylate 2 mg 07/25/24 21:00 07/28/24 20:56 Doxazosin Mesylate 2 Mg Tablet PO 08/24/24 20:59 2 mg HS LONI Administration Gabapentin 100 mg 07/29/24 09:00 07/29/24 09:00 Gabapentin 100 Mg Capsule PO 08/28/24 08:59 100 mg QDAY LONI Administration Glucagon 1 mg 07/25/24 16:46 Glucagon Inj 1 Mg Vial IM Q15MIN PRN BG <70, and no IV access Heparin Sodium (Porcine) 5,000 unit 07/25/24 21:00 07/29/24 08:59 Heparin Sod Inj 5000 Unit/Ml Vial SC 08/08/24 20:59 5,000 unit Q12HR LONI Administration Hydralazine HCl 100 mg 07/25/24 22:00 07/29/24 15:17 Hydralazine Hcl 25 Mg Tablet PO 08/24/24 21:59 100 mg TID LONI Administration Insulin Human Lispro 0 unit 07/25/24 17:00 07/29/24 12:44 Insulin Lispro (Admelog) 1 Unit/0.01 Ml Unit SC 08/24/24 16:59 Not Given AC LONI Protocol Magnesium Hydroxide 30 ml 07/25/24 16:46 Milk Of Magnesia Susp 30 Ml Udc PO 08/24/24 16:45 QDAY PRN CONSTIPATION Protocol Ondansetron HCl 4 mg 07/25/24 16:46 07/28/24 15:18 Ondansetron Inj 2 Mg/Ml Inj 2 Ml IV 08/24/24 16:45 4 mg Q6H PRN Administration NAUSEA OR VOMITING Protocol Sennosides 1 tab 07/25/24 17:00 07/29/24 09:00 Senna Tablet PO 08/24/24 16:59 1 tab BID LONI Administration Protocol Sennosides 8.8 mg 07/26/24 11:00 07/29/24 09:07 Sennosides Syrup 8.8 Mg/5 Ml Udc PO 08/25/24 10:59 8.8 mg QDAY LONI Administration Protocol Sevelamer Carbonate 800 mg 07/25/24 17:00 07/29/24 13:10 Sevelamer Carbonate 800 Mg Tablet PO 08/24/24 16:59 800 mg AC LONI Administration Vitamin D 1,000 iu 07/26/24 09:00 07/29/24 12:44 Cholecalciferol (Vitamin D3) 1,000 Iu Tablet PO 08/25/24 08:59 Not Given QDAY LONI Plan #CVA workup TIA VS postdialysis disequilibrium syndrome CT head negative for any acute hemorrhage MRI negative for any ischemic changes CT head and neck showed no significant stenosis or blockages Continue patient on single antiplatelet medication Continue statin Continue with PT #ESRD #Hypertension #Acute hypoxic respiratory failure #Diabetes mellitus Continue management per primary team Case discussed with attending Dr Aubree Rodriguez MD PGY3
[2024-07-29] MEDS: ATORVASTATIN CALCIUM 20 MG TABLET 40 MG PO (21:13)
[2024-07-29] MEDS: DOXAZOSIN MESYLATE 2 MG TABLET PO (21:13)
[2024-07-30] VITALS (69 sets, daily range): BP systolic 122–165; BP diastolic 62–82; PULSE 67–88; RESP 0–34; TEMP 36.6–37.2; O2SAT 63–98
[2024-07-30 05:59] LABS: Basophils # (Auto) 0.1 Thou/mm3 (0.0-0.2); Basophils % (Auto) 1 % (0-2.5); Eosinophils # (Auto) 0.9 Thou/mm3 (0.0-0.5); Eosinophils % (Auto) 8 % (0-10); Hematocrit 30.5 % (41.0-53.0); Hemoglobin 10.2 g/dL (13.5-16.0); Immature Granulocytes % (Auto) 0 % (0-0); Immature Granulocytes Auto 0.04 Thou/mm3 (0.00-0.00); Lymphocytes # (Auto) 0.5 Thou/mm3 (1.0-4.8); Lymphocytes % (Auto) 5 % (10-50); Mean Corpuscular HGB Conc 33.4 g/dl (31.0-37.0); Mean Corpuscular Hemoglobin 31.6 pg (25.0-35.0); Mean Corpuscular Volume 94 fL (80-100); Monocytes # (Auto) 0.8 Thou/mm3 (0.0-0.8); Monocytes % (Auto) 8 % (0-12); Neutrophils # (Auto) 8.4 Thou/mm3 (1.8-7.7); Neutrophils % (Auto) 78 % (37-80); Nucleated Red Blood Cell % 0 /100 WBC (0); Platelet Count 178 Thou/mm3 (140-440); RDW Standard Deviation 46.2 fL (35.1-43.9); Red Blood Count 3.23 Miln/mm3 (4.50-5.90); White Blood Count 10.8 Thou/mm3 (3.8-10.6)
[2024-07-30] MEDS: hydrALAZINE HCL 25 MG TABLET 100 MG PO ×2 (06:06→15:00)
[2024-07-30 06:37] LABS: Alanine Aminotransferase < 7 U/L (10-49); Albumin, Serum 3.8 gm/dL (3.5-5.0); Albumin/Globulin Ratio 1.3 (1.2-2.2); Alkaline Phosphatase 170 U/L (46-116); Anion Gap 11 (7-16); Aspartate Amino Transferase 14 U/L (0-34); BUN/Creatinine Ratio 9 Ratio (12-20); Bilirubin,Total 0.3 mg/dL (0.3-1.2); Blood Urea Nitrogen 38 mg/dL (9-23); Calcium (Corrected) 9.2 mg/dL (8.5-10.1); Carbon Dioxide 27.2 mMol/L (20.0-31.0); Chloride 93 mMol/L (98-107); Creatinine (Component) 4.3 mg/dL (0.6-1.3); Estimated Creatinine Clearance 17.1 mL/min (>60); Glucose 75 mg/dL (74-106); Magnesium 2.1 mg/dL (1.6-2.6); Osmolality,Calculated 270 (275-295); Phosphorous 5.5 mg/dL (2.4-5.1); Potassium 5.2 mMol/L (3.4-5.1); Sodium 131 mMol/L (136-145); Total Protein 6.8 gm/dL (5.7-8.2); eGFR 15 See Note
[2024-07-30] MEDS: EPOETIN ALFA-EPBX INJ 10,000 UNIT/ML VIAL (ESRD) 10000 UNIT SC (09:16)
--- NOTE | 2024-07-30 10:05 | PC.SS ---
SS contacted [facility] with a reference# [id number] with a pick pulling machine tender of 2p.elijah macias transport to [facility]. Patient has receiving dialysis treatment this morning.
--- NOTE | 2024-07-30 10:09 | ESDS_ITS ---
<Statement entered by Dewayne Newman MD - 07/31/24 17:13> I have discussed and was present for the essential components of the history, physical examination, diagnosis, and treatment plan with the resident. I agree with the patient's care as documented by the resident and amended herein by me. Dewayne Newman MD FACP. <Statement entered by Diana Mak MD - 07/31/24 14:34> I discussed with and supervised the digital marketing intern physician who took care of this patient. I personally saw and examined the patient and discussed the assessment and plan with the entire medicine team, including my attending Dr. Newman, I agree with most of the assessment and plan as documented below Diana Mak M.D. PGY-2 Planned Discharge Date 07/30/24 DS: Providers Provider Date of admission: 07/25/24 16:46 Primary care physician: Sj Beck MD Admitting Provider: Tigre Zaidi MD Attending Provider on Admission: Dewayne Newman MD Consults: 07/25/24 16:49 Consult to Nephrology Routine Comment: Consulting Provider: Maicol Tavera 07/27/24 09:52 Consult to Neurology / Tele-Neurology Routine Comment: Consulting Provider: [facility] 07/27/24 09:57 Referral Physical Therapy Routine Comment: Physician Instructions: Referral Speech Therapy Routine Comment: 07/27/24 16:07 Consult to Neurology / Tele-Neurology Routine Comment: CVA R/O Consulting Provider: Adrian Mak 07/28/24 09:00 Referral - [employer] Routine Comment: sherwin Bear Attending Provider on DC: Diana Mak MD Discharging Provider: Diana Mak MD DS: Diagnosis Problem List Completed Was Problem List Reviewed/Reconciled?: Yes Hospital Course Hospital Course Hospital course: 58 y/o M with PMHx significant for hypertension, diabetes, ESRD on dialysis (M/W/F) brought to ED from [facility] on 07/25/2024 with chief complaint of worsening shortness of breath, admitted for acute on chronic hypoxic respiratory failure secondary to volume overload. During hospital stay patient's hemodialysis sessions were resumed as scheduled. On admission patient had elevated troponins most likely secondary to demand ischemia in the setting of volume overload after downtrending were no longer trended. Diabetes was managed with sliding scale insulin hypoglycemia protocol. During hospitalization patient had the levels developed some left-sided facial droop concerning for stroke. Stroke protocol was initiated all workup came back negative. Neurology was consulted and recommended Plavix and statin. At this time patient is medically stable for discharge. Follow up with primary care physician within 1 week of discharge Follow up with Nephrology within 2 weeks of discharge Please do not miss any hemodialysis sessions Please follow up with your primary care physician in regards to incidental findings concerning for cirrhosis as well as lymhnodes found on imaging studies Should any symptoms recur or worsen patient is instructed to return to the ED Please stop taking these medications: Tramadol, Doxazosin, and Ativan Problem List: #Left-sided facial droop-resolved #Acute on chronic hypoxic respiratory failure 2/2 #Volume overload 2/2 missed HD session #ESRD on dialysis (M/W/F) #NSTEMI type I versus type II #Incidental finding imaging concerning for cirrhosis #Diabetes, patient history #Hypertension, patient history #Periaortic pericaval lymphnodes #Multiple bilateral subcentimeter thyroid nodules Case discussed with my senior Dr. Mak PGY-2, and my attending Dr. Trent Bcek MD PGY-1 Status at Discharge Functional status at discharge: independent ambulation Overall status at discharge: patient is back to baseline Time Spent with Patient Time attestation: Total time spent providing and/or coordinating discharge services: Time spent: Greater than 30 minutes Quality: Stroke Pt Provided Written Stroke Discharge Instructions: Yes Exam Vital Signs Temp Pulse Resp BP Pulse Ox O2 Del Method O2 Flow Rate 98.1 F 76 14 146/71 H 93 L Oxy Mask 5 07/30/24 08:27 07/30/24 10:02 07/30/24 08:27 07/30/24 10:02 07/30/24 08:27 07/30/24 08:00 07/30/24 08:27 Narrative Exam Physical Exam GENERAL: NAD, AAOx3 HEENT: Moist mucosa. Eyes open, symmetrical, & clear CARDIO: Heart RRR, no obvious murmurs PULM: No noted coughing/dyspnea CTA B/L, no R/W/R GI: Abdomen soft, nondistended, no pain on palpation. BSx4 SKIN/MSK/EXT: No wounds/rashes/edema/amputations, no pain on palpation. Pedal pulses present B/L NEURO: AAOx3, able to move all 4 extremities Discharge Plan Plan Patient Disposition: Xfer Skilled Nsg Fac (SNF) Patient condition on transfer: Stable Care Plan Goals: Follow up with primary care physician within 1 week of discharge Follow up with Nephrology within 2 weeks of discharge Please do not miss any hemodialysis sessions Should any symptoms recur or worsen patient is instructed to return to the ED Please stop taking these medications: Tramadol, Doxazosin, and Ativan Prescriptions/Referrals Prescriptions/Med Rec: New clopidogrel [Plavix] 75 mg tablet 75 mg PO QDAY Qty: 30 0RF Continued atorvastatin 40 mg Tablet 40 mg PO QPM gabapentin 100 mg Capsule 100 mg PO TID cholecalciferol (vitamin D3) 25 mcg (1,000 unit) Tablet 25 mcg PO QDAY Rx Instructions: Give 5 tablet by mouth one time a day for supplement. nutritional supplements Liquid 8 ea PO 1XD Rx Instructions: Give 8 ounce by mouth one time a day for supplement Mena-Anil 0.8 mg Tablet 1 tab PO 1XD Rx Instructions: Give 1 tablet by mouth one time a day for supplement. lidocaine 5 % Cream 1 applic TOPICAL 1XD Rx Instructions: Apply to chest wall topically in the morning for pain. Apply to back topically one time a day for back pain. ondansetron HCl 4 mg Tablet 4 mg PO Q6H PRN (Reason: Nausea And Vomiting) acetaminophen 325 mg Tablet 325 mg PO Q6HR PRN (Reason: Mild Pain (Scale Score 1-4)) clonidine HCl 0.1 mg tablet 0.1 mg PO HS Rx Instructions: hold for sbp <100 or dbp<60 sevelamer carbonate 800 mg tablet 800 mg PO .tidac ergocalciferol (vitamin D2) [Vitamin D2] 1,250 mcg (50,000 unit) capsule 50,000 unit PO .weekly Rx Instructions: give every friday hydralazine 100 mg tablet 100 mg PO TID Rx Instructions: hold sbp< 100 or spb <60 furosemide 40 mg tablet 40 mg PO DAILY amlodipine 10 mg tablet 10 mg PO DAILY Discontinued tramadol 50 mg tablet 50 mg PO BID PRN (Reason: pain) Qty: 14 0RF lorazepam [Ativan] 0.5 mg tablet 0.5 mg PO Q6H PRN (Reason: anxiety) doxazosin 2 mg tablet 2 mg PO HS Referrals: Sj Beck MD [Primary Care Provider] - Patient/Caregiver Discharge Instructions Discharge Activity: activity as tolerated Education Materials: What Is a TIA?, TIA Surg Print Language: Tristanian Stand Alone Forms: Neena Award Info., Patient Portal Info Letter Discharge Order Discharge Orders: Discharge (Routine); Ordered 07/30/24 Ordered By: Diana Mak Quality Discharge Quality Measures VTE prophylaxis
--- NOTE | 2024-07-30 10:33 | PC.SS ---
Update: Patient participating with dialysis today.
--- NOTE | 2024-07-30 10:33 | PC.SS ---
Plan is for patient to d/c to SNF today. Confirmation received from SNF. Transportation scheduled for 02:00 pm today. Bedside nurse and SNF notified.
--- NOTE | 2024-07-30 13:33 | PC.SS ---
REPORTER utilized translation line to inform patient's spouse, Roro Rodriguez ; that patient will be discharged back to [facility] today at 02:00 pm. No response voicemail message left with update.
--- NOTE | 2024-07-30 13:35 | PC.SS ---
[employer] utilized translation line to inform patient's family member, Raquel Rodriguez ; that patient will be discharged back to [facility] today at 02:00 pm. No response voicemail message left with update.
--- NOTE | 2024-07-30 16:42 | ESPR_ITS ---
Documentation for date of: 07/30/24 Subjective Subjective Interval history: 58-year-old male with past medical history of hypertension, diabetes, ESRD on hemodialysis [M/W/F] who lives in SNF was brought to the hospital with chief complaints of shortness of breath. Patient was noted to have a shortness of breath from several weeks which got worsened in the recent days. On 07/23/2024, patient felt really weak for which he did not get his routine dialysis session on the day. Since then patient noted severe worsening in shortness of breath. Also reported that he uses 2 L oxygen through nasal cannula as needed. Denies fever, chest pain, cough, nausea, vomiting, diarrhea, constipation ED Course: Vitals at the time of admission are blood pressure 155/72 mmHg, pulse rate 86 bpm, respiratory rate 22/min, temperature 97.7 ?F, SpO2 95% with 5 L oxygen Labs at the time of admission showed WBC 9.5, Hb 10.9, platelets 199, sodium 133, potassium 5, chloride 95, bicarb 25.4, BUN 57, creatinine 5.4 lactate 0.8, troponin 0.124, BNP 825, procalcitonin 0.29 Chest x-ray showed prominent vascular congestion. EKG showed normal sinus rhythm. CT chest/abdomen/pelvis showed mild left pleural effusion, cirrhosis, moderate ascites, atrophic hughes kidneys, moderate prostatomegaly Nephrology is consulted as patient is having ESRD and is on HD, missed dialysis on 07/23/2024 07/26/2024 Patient is seen and examined in the dialysis unit Patient is tolerating dialysis well. Vitals are stable with mildly elevated blood pressures Labs showed WBC 10.8, Hb 10.8, platelets 197, sodium 134, potassium 5.5, BUN 67, creatinine 5.7, phosphorus 7.4 Patient will get dialysis today as per his routine schedule PTH is ordered 07/27/2024 Patient is seen and examined at the bedside No acute overnight events. But patient got a rapid response this morning because of weakness in left arm and lower extremity with angle of mouth deviation to left side, also noted slurring of speech Patient is transferred to telemetry and is evaluated for stroke/TIA Vitals are stable. Labs showed Hb 10.5, sodium 136, potassium 4.4, BUN 39, creatinine 4.2 Will get dialysis tomorrow as per his routine schedule. PTH is elevated, which is appropriate for his ESRD 07/28/2024 Patient is seen and examined at bedside in the dialysis unit No acute overnight events. Denies any other complaints. Vitals are stable. Tolerating the dialysis well. Slurring of speech appears to be improved Will continue dialysis as per his routine schedule 07/29/2024 Patient is seen and examined at bedside No acute overnight events. Denies any other complaints. Vitals are stable. Physical examination showed mild abdominal distention, likely due to dialysis ascites Patient is stable to discharge from nephrology Recommend to continue dialysis as per his routine schedule on outpatient basis 07/30/2024 Patient is seen and examined at bedside No acute overnight events. Denies any other complaints. Vitals are stable. Physical examination still showed mild abdominal distention Patient received dialysis for 3 hours with removal of 3 L of fluid and patient tolerated dialysis well Recommended to continue dialysis as per his routine schedule Exam Vital Signs Temp Pulse Resp BP Pulse Ox O2 Del Method O2 Flow Rate 99.0 F 81 14 142/76 H 97 Nasal Cannula 3 07/30/24 12:00 07/30/24 15:00 07/30/24 14:00 07/30/24 15:00 07/30/24 14:00 07/30/24 12:00 07/30/24 14:00 Narrative Exam General: Awake. HEENT: Normocephalic, atraumatic, mucous membranes moist. Heart: Regular rate and rhythm, no murmurs. Lungs: Clear to auscultation with no wheezing or crackles. Abdomen: Soft, distended, nontender, positive bowel sounds. ?No guarding or rebound tenderness. Neurologic: Alert and oriented x3, Extremities: No edema. AV fistula on left arm Skin: No rash or ecchymoses. Objective Labs 07/30/24 05:08 07/30/24 05:08 Labs: Laboratory Results - last 24 hr 07/30/24 05:08 WBC 10.8 H RBC 3.23 L Hgb 10.2 L Hct 30.5 L MCV 94 MCH 31.6 MCHC 33.4 RDW Std Deviation 46.2 H Plt Count 178 Neut % (Auto) 78 Lymph % (Auto) 5 L [place] % (Auto) 8 Eos % (Auto) 8 Baso % (Auto) 1 Neut # (Auto) 8.4 H Lymph # (Auto) 0.5 L [place] # (Auto) 0.8 Eos # (Auto) 0.9 H Baso # (Auto) 0.1 Immature Gran # (Auto) 0.04 H Absolute Nucleated RBC 0.00 Immature Gran % 0 Nucleated RBC % 0 Sodium 131 L Potassium 5.2 H D Chloride 93 L Carbon Dioxide 27.2 Anion Gap 11 BUN 38 H Creatinine 4.3 H* D Estim Creat Clear Calc 17.1 L eGFR 15 L BUN/Creatinine Ratio 9 L Glucose 75 Calculated Osmolality 270 L Calcium 9.0 Corrected Calcium 9.2 Phosphorus 5.5 H Magnesium 2.1 Total Bilirubin 0.3 AST 14 ALT < 7 L Alkaline Phosphatase 170 H Total Protein 6.8 Albumin 3.8 Globulin 3.0 Albumin/Globulin Ratio 1.3 ABG Interpretation ABG results: 07/25/24 10:10 VBG pH 7.30 L VBG pCO2 56 VBG pO2 56 VBG Base Excess 0 Quality Measures Quality Measures VTE prophylaxis Assessment & Plan Assessment Current Active Medications: Generic Name Dose Route Start Last Admin Trade Name Freq PRN Reason Stop Dose Admin Acetaminophen 650 mg 07/25/24 16:46 Acetaminophen 325 Mg Tablet PO 08/24/24 16:45 Q6H PRN Fever >100.4 or pain Amlodipine Besylate 10 mg 07/26/24 09:00 07/30/24 12:30 Amlodipine Besylate 5 Mg Tablet PO 08/25/24 08:59 Not Given DAILY LONI Aspirin 81 mg 07/27/24 10:30 07/30/24 12:31 Aspirin 81 Mg Chew PO 08/26/24 10:29 Not Given QDAY LONI Atorvastatin Calcium 40 mg 07/25/24 21:00 07/29/24 21:13 Atorvastatin Calcium 20 Mg Tablet PO 08/24/24 20:59 40 mg QPM LONI Administration Dextrose 25 ml 07/25/24 16:46 Dextrose 50%-Water Inj 50 Ml Syringe IV 08/24/24 16:45 Q15MIN PRN BG 50-70 responsive npo pt Dextrose 50 ml 07/25/24 16:46 Dextrose 50%-Water Inj 50 Ml Syringe IV 08/24/24 16:45 Q15MIN PRN BG <50 OR BG <70 & pt unresponsive Doxazosin Mesylate 2 mg 07/25/24 21:00 07/29/24 21:13 Doxazosin Mesylate 2 Mg Tablet PO 08/24/24 20:59 2 mg HS LONI Administration Gabapentin 100 mg 07/29/24 09:00 07/30/24 12:31 Gabapentin 100 Mg Capsule PO 08/28/24 08:59 Not Given QDAY LONI Glucagon 1 mg 07/25/24 16:46 Glucagon Inj 1 Mg Vial IM Q15MIN PRN BG <70, and no IV access Heparin Sodium (Porcine) 5,000 unit 07/25/24 21:00 07/30/24 12:31 Heparin Sod Inj 5000 Unit/Ml Vial SC 08/08/24 20:59 Not Given Q12HR LONI Hydralazine HCl 100 mg 07/25/24 22:00 07/30/24 15:00 Hydralazine Hcl 25 Mg Tablet PO 08/24/24 21:59 100 mg TID LONI Administration Insulin Human Lispro 0 unit 07/25/24 17:00 07/30/24 12:32 Insulin Lispro (Admelog) 1 Unit/0.01 Ml Unit SC 08/24/24 16:59 Not Given AC [facility] Protocol Magnesium Hydroxide 30 ml 07/25/24 16:46 Milk Of Magnesia Susp 30 Ml Udc PO 08/24/24 16:45 QDAY PRN CONSTIPATION Protocol Ondansetron HCl 4 mg 07/25/24 16:46 07/28/24 15:18 Ondansetron Inj 2 Mg/Ml Inj 2 Ml IV 08/24/24 16:45 4 mg Q6H PRN Administration NAUSEA OR VOMITING Protocol Sennosides 1 tab 07/25/24 17:00 07/30/24 12:31 Senna Tablet PO 08/24/24 16:59 Not Given BID LONI Protocol Sennosides 8.8 mg 07/26/24 11:00 07/30/24 12:31 Sennosides Syrup 8.8 Mg/5 Ml Udc PO 08/25/24 10:59 Not Given QDAY [facility] Protocol Sevelamer Carbonate 800 mg 07/25/24 17:00 07/30/24 14:55 Sevelamer Carbonate 800 Mg Tablet PO 08/24/24 16:59 Not Given AC [facility] Vitamin D 1,000 iu 07/26/24 09:00 07/30/24 12:31 Cholecalciferol (Vitamin D3) 1,000 Iu Tablet PO 08/25/24 08:59 Not Given QDAY LONI Plan 58-year-old male with past medical history of hypertension, diabetes, ESRD on hemodialysis [M/W/F] who lives in SNF was brought to the hospital with chief complaints of shortness of breath. Missed his dialysis session on 07/23 # ESRD on HD [M/W/F] -Likely secondary to hypertension, diabetes mellitus -Patient admitted to hospital with chief complaints of shortness of breath -Per patient, patient missed her dialysis on 07/23/2024 as he felt short of breath and weak -Vitals at the time of admission are blood pressure 155/72 mmHg -Chest x-ray showed prominent vascular congestion. -EKG showed normal sinus rhythm. CT chest/abdomen/pelvis showed mild left pleural effusion, cirrhosis, moderate ascites, atrophic hughes kidneys, moderate prostatomegaly Plan -Will continue dialysis as per his routine schedule -PTH is elevated, which is appropriate for his ESRD -Avoid nephrotoxic medications and renally dose medications # Hyperkalemia -Potassium as of 07/30/2024 is 5.2 Plan -Underwent HD today with removal of 3 L of fluid and for 3 hours - will monitor electrolytes. # Hyperphosphatemia -Phosphorus is 7.4 as of 07/26/2024 -Calcium is within normal limits Plan -Will continue sevelamer carbonate # Diabetes # Hypertension -A1c is 6.1 on 05/2024 -Patient is not on any oral hypoglycemic medication -Resume his home blood pressure medication -Monitor blood pressures and titrate medications accordingly #Acute on chronic hypoxic respiratory failure 2/2 #NSTEMI type I versus type II #Incidental finding imaging concerning for cirrhosis # Stroke versus TIA -Rest of the medical conditions to be treated as per primary team Thank you for allowing us to participate in the care of the patient Patient plan of care was discussed with the attending physician, Dr. Liang Garza, PGY1 Attending Provider Attestation/Addendum Patient seen and examined with resident physician Dr. Venegas. Note reviewed, agree with findings and recommendations. Admitted with hypoxic respiratory failure secondary to fluid overload and pleural effusion. Noted to have ascites-question dialysis ascites Patient currently seen on dialysis. Tolerating dialysis without any problems. Hemodialysis for 3 hours, 2K, ultrafiltration 2-3 L, Epogen 6000, no heparin ordered. Plan of care discussed with the dialysis nurse. Please see dialysis flowsheet for further details.
--- NOTE | 2024-07-30 19:39 | ESPR_ITS ---
Documentation for date of: 07/30/24 Exam - Neurology Vital Signs Temp Pulse Resp BP Pulse Ox O2 Del Method O2 Flow Rate 98.8 F 82 18 149/69 H 97 Nasal Cannula 3 07/30/24 16:00 07/30/24 16:00 07/30/24 16:00 07/30/24 16:00 07/30/24 16:00 07/30/24 12:00 07/30/24 14:00 Objective Labs 07/30/24 05:08 07/30/24 05:08 Labs: Laboratory Results - last 24 hr 07/30/24 05:08 WBC 10.8 H RBC 3.23 L Hgb 10.2 L Hct 30.5 L MCV 94 MCH 31.6 MCHC 33.4 RDW Std Deviation 46.2 H Plt Count 178 Neut % (Auto) 78 Lymph % (Auto) 5 L [place] % (Auto) 8 Eos % (Auto) 8 Baso % (Auto) 1 Neut # (Auto) 8.4 H Lymph # (Auto) 0.5 L [place] # (Auto) 0.8 Eos # (Auto) 0.9 H Baso # (Auto) 0.1 Immature Gran # (Auto) 0.04 H Absolute Nucleated RBC 0.00 Immature Gran % 0 Nucleated RBC % 0 Sodium 131 L Potassium 5.2 H D Chloride 93 L Carbon Dioxide 27.2 Anion Gap 11 BUN 38 H Creatinine 4.3 H* D Estim Creat Clear Calc 17.1 L eGFR 15 L BUN/Creatinine Ratio 9 L Glucose 75 Calculated Osmolality 270 L Calcium 9.0 Corrected Calcium 9.2 Phosphorus 5.5 H Magnesium 2.1 Total Bilirubin 0.3 AST 14 ALT < 7 L Alkaline Phosphatase 170 H Total Protein 6.8 Albumin 3.8 Globulin 3.0 Albumin/Globulin Ratio 1.3 ABG Interpretation ABG results: 07/25/24 10:10 VBG pH 7.30 L VBG pCO2 56 VBG pO2 56 VBG Base Excess 0
== END 2024-07-30 18:30 | disposition skilled nursing facility (03) | DRG 640 ==
LOC: SERX 16:09 → S3SX 07-26 06:49 → SERHOLD 07-26 06:49 → S3SX 07-26 06:51 → S2NX 07-27 14:07 → S2SX 07-29 07:27
PROVIDERS: Student in an Organized Health Care Education/Training Program; Admitting Provider Student in an Organized Health Care Education/Training Program; Emergency Provider Emergency Medicine; PCP Family Medicine; Visit Provider Internal Medicine
DX: E87.70 Fluid overload, unspecified (principal); J96.21 Acute and chronic respiratory failure with hypoxia; N18.6 End stage renal disease; I13.2 Hypertensive heart and chronic kidney disease with heart failure and with stage 5 chronic kidney disease, or end stage renal disease; I24.89 Other forms of acute ischemic heart disease; R18.8 Other ascites; E87.29 Other acidosis; E11.22 Type 2 diabetes mellitus with diabetic chronic kidney disease; Z91.158 Patient's noncompliance with renal dialysis for other reason; K74.60 Unspecified cirrhosis of liver; I50.9 Heart failure, unspecified; E87.5 Hyperkalemia; E04.2 Nontoxic multinodular goiter; K40.90 Unilateral inguinal hernia, without obstruction or gangrene, not specified as recurrent; N40.0 Benign prostatic hyperplasia without lower urinary tract symptoms; E83.39 Other disorders of phosphorus metabolism; E78.5 Hyperlipidemia, unspecified; R47.81 Slurred speech; R29.810 Facial weakness; Z90.49 Acquired absence of other specified parts of digestive tract; Z99.2 Dependence on renal dialysis; Z79.4 Long term (current) use of insulin; Z79.899 Other long term (current) drug therapy
CPT/HCPCS: 36415; 70450; 70496; 70498; 70544; 71045; 71250; 74176; 80053; 80320; 82140; 82803; 83605; 83735; 83880; 83970; 84100; 84145; 84484; 85025; 85610; 85730; 86850; 86900; 86901; 87040; 87081; 87811; 92610; 93005; 93225; 93306; 94762; 96360; 96361; 96372; 97162; 99285; A4649; J1643; J2405; J3475; J7030; Q5105; Q9967; A9270; G0480

== ENCOUNTER 2024-09-03 23:10 | Inpatient (IN) | payer MEDICARE, MEDICAID, SELFPAY ==
--- NOTE | 2024-09-03 23:12 | PD.EDAMS ---
Altered Mental Status RME/HPI General Chief Complaint: Altered Mental Status Stated Complaint: AMS Time Seen by Provider: 09/03/24 23:15 Arrival date/time: 09/03/24 23:10 RME / HPI RME / HPI narrative: Dr. Jordan?s Main ED Evaluation: 58yo male with a history of DM, HTN, ESRD on HD (M/W/F) J[facility] from [facility] presents to the ED for a chief complaint of altered mental status. Patient was seen by me at 2309. 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 EMS found the patient to be saturating in the high 60s/low 70s on room air. Patient went up to the low 80s on 6L, and was ultimately placed on 15L (satting at 100%). Per EMS, patient became more arousable after the oxygen was placed. Blood sugar en route was 150. No fever, vomiting or any other associated symptoms reported. No known allergies. Related Data Home Medications ?Medication ?Instructions ?Recorded ?Confirmed acetaminophen 325 mg tablet 325 mg PO Q6HR PRN Mild Pain 05/17/24 07/25/24 (Scale Score 1-4) atorvastatin 40 mg tablet 40 mg PO QPM 05/17/24 07/25/24 cholecalciferol (vitamin D3) 25 25 mcg PO QDAY 05/17/24 07/25/24 mcg (1,000 unit) tablet gabapentin 100 mg capsule 100 mg PO TID 05/17/24 07/25/24 lidocaine 5 % topical cream 1 applic topical 1XD 05/17/24 07/25/24 nutritional supplements 8 ea PO 1XD 05/17/24 05/17/24 ondansetron HCl 4 mg tablet 4 mg PO Q6H PRN Nausea And Vomiting 05/17/24 07/25/24 vitamin B complex-vitamin C-folic 1 tab PO 1XD 05/17/24 07/25/24 acid 0.8 mg tablet (Mena-Anil) amlodipine 10 mg tablet 10 mg PO DAILY 07/25/24 07/25/24 clonidine HCl 0.1 mg tablet 0.1 mg PO HS htn 07/25/24 07/25/24 ergocalciferol (vitamin D2) 1,250 50,000 unit PO .weekly 07/25/24 07/25/24 mcg (50,000 unit) capsule (Vitamin D2) furosemide 40 mg tablet 40 mg PO DAILY 07/25/24 07/25/24 hydralazine 100 mg tablet 100 mg PO TID 07/25/24 07/25/24 sevelamer carbonate 800 mg tablet 800 mg PO .tidac 07/25/24 07/25/24 Previous Rx's ?Medication ?Instructions ?Recorded clopidogrel 75 mg tablet (Plavix) 75 mg PO QDAY #30 tabs 07/29/24 Allergies Allergy/AdvReac Type Severity Reaction Status Date / Time No Known Allergies Allergy Verified 09/03/24 23:17 Review of Systems Review of Systems Systems Reviewed: All systems reviewed, normal except as documented ED Exam Narrative Physical exam: GENERAL APPEARANCE: alert and oriented x 4, well-developed, well-nourished, no acute distress VITALS: All vitals were reviewed and the pulse ox is % on room air, which is normal according to my interpretation. HEENT: Normocephalic, atraumatic; pupils equal, round, reactive to light; EOMI; mucous membranes pink, moist; oropharynx clear NECK: Supple LUNGS: CTABL; no wheezes, no rales, no rhonchi HEART: Regular rate, regular rhythm; normal S1, S2; no murmurs ABDOMEN: non distended; normal BS; soft, no tenderness, no guarding, no rebound; no masses, no organomegaly, no hernia BACK: no CVA tenderness EXTREMITIES: atraumatic; no edema NEUROLOGIC: awake; alert and oriented x4; cranial nerves II-XII grossly intact; no focal sensory or motor deficits PSYCHIATRIC: appropriate mood and affect SKIN: warm, dry, normal color; no rashes Course Course Course Narrative: CXR is ordered for determining the etiology of hypoxia. Quality Measures none Orders Category Date Time Status Bedside Blood Glucose NOW Care 09/03/24 23:23 Active Bedside COVID-19 Antigen Test NOW Care 09/03/24 23:30 Active Bedside Influenza A&B Antigen Test NOW Care 09/03/24 23:30 Completed Hourly Team Members NOW Care 09/03/24 23:17 Active EKG (ED ONLY) *Do not use* NOW Care 09/03/24 23:[address] head/brain wo con Stat Exams 09/03/24 23:17 Taken EKG (ED Only) Stat Exams 09/03/24 23:17 Draft XR chest 1V portable Stat Exams 09/03/24 23:17 Taken ABG [Arterial Blood Gas] Stat Lab 09/04/24 01:19 Completed B-Type Natriuretic Peptide Stat Lab 09/03/24 23:55 Completed CBC Stat Lab 09/03/24 23:55 Completed Comprehensive Metabolic Panel Stat Lab 09/03/24 23:55 Completed Lipase Stat Lab 09/03/24 23:55 Completed Magnesium Stat Lab 09/03/24 23:55 Completed Partial Thromboplastin Time Stat Lab 09/03/24 23:55 Completed Phosphorous Stat Lab 09/03/24 23:55 Completed Prothrombin Time with INR Stat Lab 09/03/24 23:55 Completed Troponin I Stat Lab 09/03/24 23:55 Completed Calcium Gluconate 10% Inj Med 09/04/24 01:43 Discontinued 1 gm IV X1 ONE Sod Polystyrene Sulfon Susp [Kayexalate Susp] Med 09/04/24 01:43 Discontinued 30 gm PO X1 ONE BiPAP / CPAP NOW RT 09/04/24 01:37 Active Vital Signs Vital signs: Vital Signs Pulse Rate 69 09/03/24 23:17 Respiratory Rate 15 09/03/24 23:17 Blood Pressure 170/88 H 09/03/24 23:17 Pulse Oximetry (%) 97 09/03/24 23:17 Oxygen Delivery Method Nasal Cannula 09/03/24 23:17 Oxygen Flow Rate 7 09/03/24 23:17 Altered Mental Status MDM Narrative MDM Narrative:: Scribe Attestation: 09/03/24 - Morelia Celis am scribing for and in the presence of Dr. Jordan. CPAP ordered due to the patient's ABG results. Patient data External records reviewed:: [facility] previous records (Per chart review, patient was admitted here on 07/25/24 for acute on chronic hypoxic respiratory failure secondary to volume overload.) Clinical information provided by:: patient Social determinants that could affect healthcare access:: housing (SNF resident) Patient has the following chronic illnesses:: DM, HTN, ESRD on dialysis (M/W/F) How is presenting disease/condition affected by chronic disease/condition?: uneffected by Evaluation data The following diagnostics were reviewed and interpreted by me:: lab results, radiology exam(s) and EKG tracing(s) Lab and/or radiology exams considered but not ordered:: none Interpretation Summary: Bedside COVID and Influenza are negative, WBC count is normal, HnH is 11.7/37.4, Potassium is 5.2, Creatinine is 4.5, BUN is 43, Glucose is 170, BNP is 954, Lipase is normal, ABG shows a pH of 7.34, pCO2 of 58, pO2 of 50, and HCO3 of 31, according to my interpretation. CXR shows cardiomegaly, widened mediastinum, patchy infiltrates, right pleural effusion, and fluid in the right fissure, according to my interpretation. EKG done at 2334, NSR, rate of 70, Q wave in lead III, no acute ST-T wave changes, no STEMI, according to my interpretation. Telerad Preliminary Report Draft Patient: MAXI GRANDA Record#: [id number] Birthdate: 1965 Age/Sex: 58 / M Location: [facility] Attending Dr: Ordering Physician: Date of Service: Procedure(s): Accession Number(s): cc: ~ CT scan of the head without intravenous contrast (axial sections with sagittal and coronal reformats). September 04, 2024 0031 hours Clinical History: AMS Findings: No evidence of intracranial hemorrhage, mass effect or midline shift. The ventricles and CSF spaces are unremarkable. The calvarium is unremarkable. The mastoid air cells are clear. Small osteoma measuring 7 mm in right anterior ethmoid air cells, otherwise the visualized paranasal sinuses are clear. Impression: No evidence of intracranial hemorrhage, mass effect or midline shift. Report Electronically Signed By: Stephen Kaiser 09/04/2024 1:01:55 AM Medications / Prescriptions Medications or Prescriptions considered but not ordered:: none Medication administrations:: Medication Administration History Discontinued Medications Calcium Gluconate (Calcium Gluconate 10% Inj 1 Gm/10 Ml Vial) 1 gm IV X1 ONE Stop: 09/04/24 01:44 Last Admin: 09/04/24 02:10 Dose: 1 gm Documented By: CONSTANZA Sodium Polystyrene Sulfonate (Sod Polystyrene Sulfon Susp 15 Gm/60 Ml Btl) 30 gm PO X1 ONE Stop: 09/04/24 01:44 Last Admin: 09/04/24 02:09 Dose: 30 gm Documented By: CONSTANZA see above Consultations Consultation(s) initiated? (list below): Yes Consultation #1 (Physician, Specialty, Details): Discussed case with Dr. Burgess from Hospitalist service regarding admission. Discussed patients ED course, exam findings, labs, and radiology results. The Hospitalist agrees to accept the patient for admission. Time: 02:17 Diagnosis Differential diagnosis altered mental status: other (pneumonia, volume overload, PE, respiratory failure) Most likely diagnosis given after review of the tests above:: see clinical impression below Admission Indicated Admission indicated?: indicated Admission Request Was there a request for admission?: Yes Admission Attestation Admission request attestation: Discussed case with [] from Hospitalist service regarding admission. Discussed patients ED course, exam findings, labs, and radiology results. The Hospitalist [agrees,declines] to accept the patient for admission. Disposition Plan Disposition Plan: Admit Critical Care Time Critical Care Time Critical Care Time: Yes Total Critical Care Time (min.): 35 Attestation: The high probability of sudden, clinically significant deterioration in the patient?s condition required the highest level of my preparedness to intervene urgently. The services I provided to this patient were to treat and/or prevent clinically significant deterioration. Services included the following: chart data review, reviewing nursing notes and/or old charts, documentation time, child welfare consultant collaboration regarding findings and treatment options, medication orders and management, direct patient care, vital sign assessments and ordering, interpreting and reviewing diagnostic studies and lab tests. Aggregate critical care time includes only time during which I was engaged in work directly related to the patient?s care, as described above, whether at bedside or elsewhere in the Emergency Department. It did not include time spent performing other reported procedures or the services of residents, students, nurses or physician assistants. Discharge Plan Plan Patient Disposition: Admit Acute Care w/in Hospital Discharge Disposition comment: Admitted to Dr. Burgess Prescriptions/Referrals Prescriptions/Med Rec: No Action atorvastatin 40 mg Tablet 40 mg PO QPM gabapentin 100 mg Capsule 100 mg PO TID cholecalciferol (vitamin D3) 25 mcg (1,000 unit) Tablet 25 mcg PO QDAY Rx Instructions: Give 5 tablet by mouth one time a day for supplement. nutritional supplements Liquid 8 ea PO 1XD Rx Instructions: Give 8 ounce by mouth one time a day for supplement Mena-Anil 0.8 mg Tablet 1 tab PO 1XD Rx Instructions: Give 1 tablet by mouth one time a day for supplement. lidocaine 5 % Cream 1 applic TOPICAL 1XD Rx Instructions: Apply to chest wall topically in the morning for pain. Apply to back topically one time a day for back pain. ondansetron HCl 4 mg Tablet 4 mg PO Q6H PRN (Reason: Nausea And Vomiting) acetaminophen 325 mg Tablet 325 mg PO Q6HR PRN (Reason: Mild Pain (Scale Score 1-4)) clonidine HCl 0.1 mg tablet 0.1 mg PO HS Rx Instructions: hold for sbp <100 or dbp<60 sevelamer carbonate 800 mg tablet 800 mg PO .tidac ergocalciferol (vitamin D2) [Vitamin D2] 1,250 mcg (50,000 unit) capsule 50,000 unit PO .weekly Rx Instructions: give every friday hydralazine 100 mg tablet 100 mg PO TID Rx Instructions: hold sbp< 100 or spb <60 furosemide 40 mg tablet 40 mg PO DAILY amlodipine 10 mg tablet 10 mg PO DAILY clopidogrel [Plavix] 75 mg tablet 75 mg PO QDAY Qty: 30 0RF Problem List Clinical Impression: Acute hypoxic respiratory failure Patient/Caregiver Discharge Instructions Print Language: Yakut Stand Alone Forms: Neena Award Info., Patient Portal Info Letter
[2024-09-03 23:17] VITALS: BP 170/88; PULSE 64; PULSE 69; RESP 15; RESP 18; O2SAT 97; O2SAT 99; BMI 26.6
--- NOTE | 2024-09-03 23:17 | XR_ITS ---
Examination: AP chest single view TECHNIQUE: AP semiupright portable chest single view Exam date and time: September 03, 2024, 2355 hours Comparison July 25, 2024 INDICATIONS: Chest pain today. FINDINGS: Moderate CHF Moderate enlargement cardiac contour. Prominent vascular congestion including central vascular engorgement. Perihilar edema. Prominent osteopenia IMPRESSION: Moderate CHF
--- NOTE | 2024-09-03 23:17 | XR_ITS ---
Examination: CT brain head without contrast. 2-D sagittal coronal reconstructions Date and time of exam:September 04, 2024 0031 hours Comparison July 27, 2024 INDICATIONS: Altered mental status today, CTDI: vol (mGy):3.6 DLP: (mGycm):1030 Technique: Multiple CT axial sections of the brain have been obtained, 5 mm slice thickness. Contrast has not been administered. 2-D sagittal, coronal reconstructions have been obtained Low dose protocols were performed. One or more of the following dose reduction techniques were used; automated exposure control, adjustment of the mA and/or KV according to patient size, use of iterative reconstruction technique. Findings: No significant ventricular enlargement. Intra-axial or extra-axial hemorrhage density is not seen. No mass effect or midline shift Basal cisterns are not remarkable. Fourth ventricle is midline. Cranial vault intact. Impression: Negative for acute hemorrhage, mass effect or midline shift Consider repeat brain MRI follow-up, stroke protocol, as clinically warranted
--- NOTE | 2024-09-03 23:17 | EKG_ITS ---
[facility] Test Date: 2024-09-03 Pat Name: MAXI GRANDA Department: Room: - Gender: Male Resident Services Coordinator: : 1965 Requested By: Padma Duarte Order Number: [id number] Reading MD: Padma Duarte Measurements Intervals Crooks Rate: 70 P: 57 MD: 182 QRS: -2 QRSD: 94 T: 50 QT: 415 QTc: 450 Interpretive Statements SINUS RHYTHM INFERIOR MYOCARDIAL INFARCTION , PROBABLY OLD [40+ ms Q WAVE AND/OR ST/T ABNORMALITY IN II/aVF] Compared to ECG 07/25/2024 10:13:16 No significant changes /store/S0/[id number]/[id number].pdf
[2024-09-03 23:23] VITALS: PULSE 70
[2024-09-04] VITALS (29 sets, daily range): BP systolic 138–170; BP diastolic 69–99; PULSE 64–77; RESP 12–24; TEMP 35.9–37.3; O2SAT 94–100
[2024-09-04 00:03] LABS: Basophils % (Auto) 0 % (0-2.5); Eosinophils % (Auto) 0 % (0-10); Hematocrit 37.4 % (41.0-53.0); Hemoglobin 11.7 g/dL (13.5-16.0); Immature Granulocytes % (Auto) 0 % (0-0); Immature Granulocytes Auto 0.04 Thou/mm3 (0.00-0.00); Lymphocytes # (Auto) 0.5 Thou/mm3 (1.0-4.8); Lymphocytes % (Auto) 5 % (10-50); Mean Corpuscular HGB Conc 31.3 g/dl (31.0-37.0); Mean Corpuscular Hemoglobin 30.7 pg (25.0-35.0); Mean Corpuscular Volume 98 fL (80-100); Monocytes # (Auto) 0.5 Thou/mm3 (0.0-0.8); Monocytes % (Auto) 6 % (0-12); Neutrophils # (Auto) 8.1 Thou/mm3 (1.8-7.7); Neutrophils % (Auto) 88 % (37-80); Nucleated Red Blood Cell % 0 /100 WBC (0); Platelet Count 257 Thou/mm3 (140-440); RDW Standard Deviation 48.1 fL (35.1-43.9); Red Blood Count 3.81 Miln/mm3 (4.50-5.90); White Blood Count 9.2 Thou/mm3 (3.8-10.6)
[2024-09-04 00:19] LABS: INR 1.4 (0.9-1.3); Partial Thromboplastin Time 28.7 Seconds (22.0-36.0); Prothrombin Time 14.8 Seconds (9.0-12.2)
[2024-09-04 00:23] LABS: Alanine Aminotransferase 50 U/L (10-49); Albumin, Serum 4.3 gm/dL (3.5-5.0); Albumin/Globulin Ratio 1.2 (1.2-2.2); Alkaline Phosphatase 200 U/L (46-116); Anion Gap 16 (7-16); Aspartate Amino Transferase 84 U/L (0-34); BUN/Creatinine Ratio 10 Ratio (12-20); Bilirubin,Total 0.4 mg/dL (0.3-1.2); Blood Urea Nitrogen 43 mg/dL (9-23); Calcium 8.6 mg/dL (8.3-10.6); Calcium (Corrected) 8.6 mg/dL (8.5-10.1); Carbon Dioxide 27.9 mMol/L (20.0-31.0); Chloride 93 mMol/L (98-107); Creatinine (Component) 4.5 mg/dL (0.6-1.3); Estimated Creatinine Clearance 15.8 mL/min (>60); Globulin 3.6 gm/dL (2.3-3.5); Glucose 170 mg/dL (74-106); Lipase 36 U/L (12-53); Magnesium 1.9 mg/dL (1.6-2.6); Osmolality,Calculated 288 (275-295); Phosphorous 6.3 mg/dL (2.4-5.1); Potassium 5.2 mMol/L (3.4-5.1); Sodium 137 mMol/L (136-145); Total Protein 7.9 gm/dL (5.7-8.2); eGFR 14 See Note
[2024-09-04 00:49] LABS: B-Type Natriuretic Peptide 954 pg/mL (0-100)
--- NOTE | 2024-09-04 01:02 | PRELIM_ITS ---
CT scan of the head without intravenous contrast (axial sections with sagittal and coronal reformats). September 04, 2024 0031 hours Clinical History: AMS Findings: No evidence of intracranial hemorrhage, mass effect or midline shift. The ventricles and CSF spaces are unremarkable. The calvarium is unremarkable. The mastoid air cells are clear. Small osteoma measuring 7 mm in right anterior ethmoid air cells, otherwise the visualized paranasal sinuses are clear. Impression: No evidence of intracranial hemorrhage, mass effect or midline shift. Report Electronically Signed By: Stephen Kiaser 09/04/2024 1:01:55 AM [EST]
[2024-09-04 01:26] LABS: Base Excess 4 (-3-3); HCO3 31 mEq/L (20-26); O2 Saturation 82 % (91-98); PCO2 58 mmHg (32.0-48.0); pH, Arterial 7.34 (7.35-7.45)
[2024-09-04 01:34] LABS: PO2 50 mmHg (83-108)
[2024-09-04 01:35] LABS: Allen Test Performed/OK; Inspired O2, VO2 Liters 6 L/min; Puncture Site Right Radial
[2024-09-04] MEDS: SOD POLYSTYRENE SULFON SUSP 15 GM/60 ML BTL 30 GM PO (02:09)
[2024-09-04] MEDS: CALCIUM GLUCONATE 10% INJ 1 GM/10 ML VIAL IV (02:10)
--- NOTE | 2024-09-04 02:46 | PD.RESHP ---
Documentation for date of: 09/04/24 HPI History of Present Illness Chief complaint: unresponsive History of present illness: Mat Rodriguez is 58 yr male with PMH of hypertension, diabetes, ESRD on dialysis (M/W/F) who was BIBA from [facility] due to altered mental status. History was unobtainable from patient. Rehab center was contacted with no success. Information retrieved through chart review and initial ED note. 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 EMS found the patient to be saturating in the high 60s/low 70s on room air. Patient went up to the low 80s on 6L, and was ultimately placed on 15L (satting at 100%). Per EMS, patient became more arousable after the oxygen was placed. Blood sugar en route was 150. He was able to open eyes but otherwise was not able to follow commands. In ED, BP 170/88, HR 69, on BIPAP 40% FIo2 saturating 95%. CBC unremarkable. Potassium 5.2, Cr 4.5, glucose 170, phosphate 6.3, BNP 954. Bedside COVID and Influenza are negative. Respiratory acidosis on ABG with pH 7.34 CO2 58. CXR, CT head pending. Admit for AHRF 2/2 fluid overload and acute encephalopathy. PMH: as noted above PSH: Cholecystectomy. Back surgery. SH: Denies alcohol, tobacco, illicit drug use. FH: Brother with colon cancer. Allergies: NKDA Medications: Amlodipine, atorvastatin, vitamin D3, vitamin D2, doxazosin, clonidine, furosemide, gabapentin, hydralazine, Ativan, Mena-Anil, sevelamer carbonate, tramadol Review of Systems Review of Systems ROS Unobtainable: unobtainable due to mental status and unobtainable due to medical condition Exam Vital Signs Temp Pulse Resp BP Pulse Ox O2 Del Method O2 Flow Rate 96.6 F L 64 16 143/83 H 94 L BiPAP 7 09/04/24 02:14 09/04/24 02:26 09/04/24 02:26 09/04/24 02:14 09/04/24 02:26 09/04/24 02:14 09/03/24 23:17 FiO2 30 09/04/24 02:26 Narrative Exam General: Middle aged male, on BiPAP, opens eyes. HEENT: NCAT, No JVD noted. Cardiovascular: Normal S1 and S2. Regular rate and rhythm. Respiratory: difficult to auscultate Abdomen: Soft, nontender, not distended, normal bowel sounds. Skin: Warm to touch, dry, no rashes noted Musculoskeletal: No gross injuries. +1 pitting edema Neuro: Alert and oriented x0. Only opened eyes to command. Psych: unable to assess Results: Labs 09/04/24 04:30 09/04/24 04:30 Labs: Short CBC 09/03/24 Range/Units 23:55 WBC 9.2 (3.8-10.6) Thou/mm3 Hgb 11.7 L (13.5-16.0) g/dL Hct 37.4 L (41.0-53.0) % Plt Count 257 D (140-440) Thou/mm3 BMP 09/03/24 23:55 Sodium 137 Potassium 5.2 H Chloride 93 L Carbon Dioxide 27.9 BUN 43 H Creatinine 4.5 H* Glucose 170 H Calcium 8.6 Cardiac Enzymes 09/03/24 Range/Units 23:55 Troponin I 0.020 (0.0-0.045) ng/mL Liver Function 09/03/24 Range/Units 23:55 Total Bilirubin 0.4 (0.3-1.2) mg/dL AST 84 H (0-34) U/L ALT 50 H (10-49) U/L Alkaline Phosphatase 200 H (46-116) U/L Albumin 4.3 (3.5-5.0) gm/dL ABG Interpretation ABG results: 09/04/24 01:19 ABG pH 7.34 L ABG pCO2 58 H ABG pO2 50 L* ABG HCO3 31 H ABG O2 Saturation 82 L ABG Base Excess 4 H Quality Measures Quality Measures none Medications Home Medications and Allergies Home Medications ?Medication ?Instructions ?Recorded ?Confirmed ?Type acetaminophen 325 mg tablet 325 mg PO Q6HR PRN Mild Pain 05/17/24 07/25/24 History (Scale Score 1-4) atorvastatin 40 mg tablet 40 mg PO QPM 05/17/24 07/25/24 History cholecalciferol (vitamin D3) 25 25 mcg PO QDAY 05/17/24 07/25/24 History mcg (1,000 unit) tablet gabapentin 100 mg capsule 100 mg PO TID 05/17/24 07/25/24 History lidocaine 5 % topical cream 1 applic topical 1XD 05/17/24 07/25/24 History nutritional supplements 8 ea PO 1XD 05/17/24 05/17/24 History ondansetron HCl 4 mg tablet 4 mg PO Q6H PRN Nausea And Vomiting 05/17/24 07/25/24 History vitamin B complex-vitamin C-folic 1 tab PO 1XD 05/17/24 07/25/24 History acid 0.8 mg tablet (Mena-Anil) amlodipine 10 mg tablet 10 mg PO DAILY 07/25/24 07/25/24 History clonidine HCl 0.1 mg tablet 0.1 mg PO HS htn 07/25/24 07/25/24 History ergocalciferol (vitamin D2) 1,250 50,000 unit PO .weekly 07/25/24 07/25/24 History mcg (50,000 unit) capsule (Vitamin D2) furosemide 40 mg tablet 40 mg PO DAILY 07/25/24 07/25/24 History hydralazine 100 mg tablet 100 mg PO TID 07/25/24 07/25/24 History sevelamer carbonate 800 mg tablet 800 mg PO .tidac 07/25/24 07/25/24 History Allergies Allergy/AdvReac Type Severity Reaction Status Date / Time No Known Allergies Allergy Verified 09/03/24 23:17 Visit Medications Discontinued Medications Calcium Gluconate (Calcium Gluconate 10% Inj 1 Gm/10 Ml Vial) 1 gm IV X1 ONE Stop: 09/04/24 01:44 Last Admin: 09/04/24 02:10 Dose: 1 gm Sodium Polystyrene Sulfonate (Sod Polystyrene Sulfon Susp 15 Gm/60 Ml Btl) 30 gm PO X1 ONE Stop: 09/04/24 01:44 Last Admin: 09/04/24 02:09 Dose: 30 gm Assessment & Plan Plan Mat Rodriguez is 58 yr male with PMH of hypertension, diabetes, ESRD on dialysis (M/W/F) who was BIBA from [facility] due to altered mental status. History was unobtainable from patient. Admit for AHRF 2/2 fluid overload and acute encephalopathy. #Acute encephalopathy Most likely due to respiratory failure leading to acidosis. #AHRF 2/2 fluid overload in setting of #ESRD on HD (MWF) Patient is on dialysis Friday. On physical exam evidence of fluid overload status by lower extremity edema. Difficult to auscultate lungs due to BiPAP. Unsuccessful at attempting to contact nursing facility. In ED, BP 170/88, HR 69, on BIPAP 40% FIo2 saturating 95%. Respiratory acidosis on ABG with pH 7.34 CO2 58. -CXR, CT head pending. ?Follow-up ABG at 7 AM ? Continue BiPAP ? Fluid restriction 1500 cc ? Strict BRANT's ? IV Lasix 40 mg daily ? 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 #Hx neuropathy Outpatient medications include amlodipine 10 mg, atorvastatin 40 mg, clonidine 0.1 mg, Plavix 75 mg, furosemide 40 mg, gabapentin 100 mg -resume after med rec Health maintenance: Dispo: tele for BiPAP. AHRF FEN: NPO while on bipap DVT prophylaxis: Subcu heparin CODE STATUS: Full code The patient's management plan was discussed with my attending physician Dr. Burgess. Renata Regan, PGY-1 Attending Provider Attestation/Addendum I have examined the patient, reviewed labs and imaging findings, discussed the case with the resident(s), and reviewed entered orders. I agree with the plan of care as outlined in this note, with these additional summaries/recommendations: 58-year-old male from [facility] presented to the ED brought in by ambulance for altered mental status and hypoxia. Per ED note, upon EMS evaluation patient was satting in the 60s to 70s on room air with improvement with nonrebreather. In the ED, patient still hypoxic and altered. ABG showed respiratory acidosis and hypoxia and patient placed on BiPAP with some improvement in mental status. Chest x-ray showed some vascular congestion. Will admit patient for further workup of acute hypoxic respiratory failure likely secondary to fluid overload. Nephrology consult placed for possible session of HD tomorrow, unclear if he had HD session today but likely fluid overload and electrolytes abnormal, may require additional session today. No signs of pneumonia/infection at this time, we will hold off on antibiotics for now. Close monitoring of electrolytes and fluid status. Patient does have h/o elevated ammonia in the past, mildly abnormal coags and imaging findings c/w cirrhosis, will obtain ammonia level and consider starting lactulose in am. Pan Burgess MD
[2024-09-04] MEDS: FUROSEMIDE INJ 10 MG/ML 4ML VIAL 40 MG IVP ×2 (03:31→14:25)
[2024-09-04 04:45] LABS: Basophils % (Auto) 0 % (0-2.5); Eosinophils % (Auto) 0 % (0-10); Hematocrit 32.7 % (41.0-53.0); Hemoglobin 10.7 g/dL (13.5-16.0); Immature Granulocytes % (Auto) 0 % (0-0); Immature Granulocytes Auto 0.03 Thou/mm3 (0.00-0.00); Lymphocytes # (Auto) 0.5 Thou/mm3 (1.0-4.8); Lymphocytes % (Auto) 6 % (10-50); Mean Corpuscular HGB Conc 32.7 g/dl (31.0-37.0); Mean Corpuscular Volume 95 fL (80-100); Monocytes # (Auto) 0.7 Thou/mm3 (0.0-0.8); Monocytes % (Auto) 8 % (0-12); Neutrophils # (Auto) 7.8 Thou/mm3 (1.8-7.7); Neutrophils % (Auto) 86 % (37-80); Nucleated Red Blood Cell % 0 /100 WBC (0); Platelet Count 160 Thou/mm3 (140-440); RDW Standard Deviation 46.4 fL (35.1-43.9); Red Blood Count 3.45 Miln/mm3 (4.50-5.90); White Blood Count 9.1 Thou/mm3 (3.8-10.6)
[2024-09-04 05:13] LABS: Alanine Aminotransferase 37 U/L (10-49); Albumin, Serum 3.9 gm/dL (3.5-5.0); Albumin/Globulin Ratio 1.3 (1.2-2.2); Anion Gap 13 (7-16); Aspartate Amino Transferase 60 U/L (0-34); BUN/Creatinine Ratio 10 Ratio (12-20); Bilirubin,Total 0.3 mg/dL (0.3-1.2); Blood Urea Nitrogen 42 mg/dL (9-23); Calcium 8.4 mg/dL (8.3-10.6); Calcium (Corrected) 8.5 mg/dL (8.5-10.1); Carbon Dioxide 30.2 mMol/L (20.0-31.0); Chloride 94 mMol/L (98-107); Creatinine (Component) 4.4 mg/dL (0.6-1.3); Estimated Creatinine Clearance 16.1 mL/min (>60); Glucose 126 mg/dL (74-106); Magnesium 1.8 mg/dL (1.6-2.6); Osmolality,Calculated 286 (275-295); Phosphorous 5.8 mg/dL (2.4-5.1); Sodium 137 mMol/L (136-145); Total Protein 6.9 gm/dL (5.7-8.2); eGFR 15 See Note
[2024-09-04 05:16] LABS: Alkaline Phosphatase 166 U/L (46-116)
--- NOTE | 2024-09-04 07:19 | PC.NURSE ---
Received report from Ngozi SHEFFIELD and assumed care of patient. Patient sleeping at this with no signs of distress.
[2024-09-04 07:43] LABS: Base Excess 6 (-3-3); HCO3 31 mEq/L (20-26); Inspired Oxygen, FIO2 40 %; O2 Saturation 98 % (91-98); PCO2 47 mmHg (32.0-48.0); PO2 89 mmHg (83-108); pH, Arterial 7.43 (7.35-7.45)
[2024-09-04 07:44] LABS: Allen Test Performed/OK; Puncture Site Right Radial
[2024-09-04 08:29] LABS: Ammonia 13 uMol/L (11-32)
--- NOTE | 2024-09-04 11:16 | PD.RESCONSUL ---
HPI Data of Consult Consult date: 09/04/24 Requesting Physician: Pan Burgess MD Admitting Provider: Pan Burgess MD Attending Provider: Pan Burgess MD Primary Care Provider: Maury Davies MD Consult Narrative Reason for consult: ESRD on hemodialysis History of present illness: 58 y/o M with PMHx significant for hypertension, diabetes, ESRD on dialysis (M/W/F) who was BIBA from [facility] due to altered mental status. History was unobtainable from patient, rehab center was unable to be contacted. Information retrieved through chart review and initial ED note. Patient was found unresponsive by facility staff, saturating low 70s on room air, placed on 15 L via oxy mask. Patient became more arousable after saturation improved, brought to the ED. Patient chest x-ray showed moderate CHF pattern with vascular congestion, head CT was unremarkable. Nephrology was consulted to manage patient's hemodialysis. Nephrology team informed the patient to miss his most recent dialysis session on Friday due to another appointment. Patient seen and examined during dialysis session, resting comfortably. Patient alert and oriented, overall feels well. Reports he has not had bowel movement in 5 days. Patient denies fever, chills, chest pain, shortness of breath, nausea, vomiting. On exam patient appears to have ascites, likely dialysis ascites, may require paracentesis. WBC 9.1, hemoglobin 10.7, potassium 5.0, BUN 42, creatinine 4.4, EGFR 15. cc:: cc: Pan Burgess MD Review of Systems Review of Systems Systems Reviewed: All systems reviewed, normal except as documented Exam Vital Signs Temp Pulse Resp BP Pulse Ox O2 Del Method O2 Flow Rate 98.0 F 74 18 149/70 H 97 Room Air 5 09/04/24 08:06 09/04/24 11:00 09/04/24 08:06 09/04/24 11:00 09/04/24 08:06 09/04/24 07:49 09/04/24 08:06 FiO2 30 09/04/24 06:22 Narrative Exam PE: Gen: Well-developed and well-nourished. HEENT: NCAT, PERRLA, EOMI, MMM, anicteric conjunctivae. CVS: normal S1 and S2. RRR. No M/R/G. Resp: CTA B/L. No rhonchi, rales, crackles or wheezing. Abd: soft. BS+ in all 4 quadrants. Mildly distended, minimal tenderness. MSK: Good ROM in BUE & BLE. No rash. 2+ pitting edema bilateral ankles. Neuro: CN II-XII grossly intact. Strength 5/5 in BUE & BLE. Alert and oriented x3. Psych: appropriate mood and affect. Results Labs 09/05/24 06:30 09/05/24 06:30 Labs: Short CBC 09/03/24 09/04/24 Range/Units 23:55 04:30 WBC 9.2 9.1 (3.8-10.6) Thou/mm3 Hgb 11.7 L 10.7 L (13.5-16.0) g/dL Hct 37.4 L 32.7 L (41.0-53.0) % Plt Count 257 D 160 D (140-440) Thou/mm3 BMP 09/03/24 09/04/24 23:55 04:30 Sodium 137 137 Potassium 5.2 H 5.0 Chloride 93 L 94 L Carbon Dioxide 27.9 30.2 BUN 43 H 42 H Creatinine 4.5 H* 4.4 H* Glucose 170 H 126 H Calcium 8.6 8.4 Cardiac Enzymes 09/03/24 Range/Units 23:55 Troponin I 0.020 (0.0-0.045) ng/mL Liver Function 09/03/24 09/04/24 Range/Units 23:55 04:30 Total Bilirubin 0.4 0.3 (0.3-1.2) mg/dL AST 84 H 60 H (0-34) U/L ALT 50 H 37 (10-49) U/L Alkaline Phosphatase 200 H 166 H D (46-116) U/L Albumin 4.3 3.9 (3.5-5.0) gm/dL ABG Interpretation ABG results: 09/04/24 09/04/24 01:19 07:40 ABG pH 7.34 L 7.43 ABG pCO2 58 H 47 D ABG pO2 50 L* 89 D ABG HCO3 31 H 31 H ABG O2 Saturation 82 L 98 ABG Base Excess 4 H 6 H Quality Measures Quality Measures VTE prophylaxis Medications Home Medications and Allergies Home Medications ?Medication ?Instructions ?Recorded ?Confirmed ?Type acetaminophen 325 mg tablet 325 mg PO Q6HR PRN Mild Pain 05/17/24 09/04/24 History (Scale Score 1-4) atorvastatin 40 mg tablet 40 mg PO QPM 05/17/24 09/04/24 History cholecalciferol (vitamin D3) 25 25 mcg PO QDAY 05/17/24 09/04/24 History mcg (1,000 unit) tablet gabapentin 100 mg capsule 100 mg PO TID 05/17/24 09/04/24 History lidocaine 5 % topical cream 1 applic topical 1XD 05/17/24 09/04/24 History nutritional supplements 8 ea PO 1XD 05/17/24 09/04/24 History ondansetron HCl 4 mg tablet 4 mg PO Q6H PRN Nausea And Vomiting 05/17/24 09/04/24 History vitamin B complex-vitamin C-folic 1 tab PO 1XD 05/17/24 09/04/24 History acid 0.8 mg tablet (Mena-Anil) amlodipine 10 mg tablet 10 mg PO DAILY 07/25/24 09/04/24 History clonidine HCl 0.1 mg tablet 0.1 mg PO HS htn 07/25/24 09/04/24 History ergocalciferol (vitamin D2) 1,250 50,000 unit PO .weekly 07/25/24 09/04/24 History mcg (50,000 unit) capsule (Vitamin D2) hydralazine 100 mg tablet 100 mg PO TID 07/25/24 09/04/24 History sevelamer carbonate 800 mg tablet 800 mg PO .tidac 07/25/24 09/04/24 History Allergies Allergy/AdvReac Type Severity Reaction Status Date / Time No Known Allergies Allergy Verified 09/03/24 23:17 Visit Medications Acetaminophen (Acetaminophen 325 Mg Tablet) 650 mg PO Q6H PRN PRN Reason: Fever >100.3 or pain Stop: 10/04/24 02:56 Furosemide (Furosemide Inj 10 Mg/Ml 4ml Vial) 40 mg IVP DAILY LONI Stop: 10/04/24 03:04 Last Admin: 09/04/24 03:31 Dose: 40 mg Heparin Sodium (Porcine) (Heparin Sod Inj 5000 Unit/Ml Vial) 5,000 unit SC Q8HR LONI Stop: 09/18/24 05:59 Ondansetron HCl (Ondansetron Inj 2 Mg/Ml Inj 2 Ml) 4 mg IV Q6H PRN; Protocol PRN Reason: NAUSEA OR VOMITING Stop: 10/04/24 02:56 Sennosides (Senna Tablet) 1 tab PO QDAY PRN; Protocol PRN Reason: constipation Stop: 10/04/24 02:56 Discontinued Medications Calcium Gluconate (Calcium Gluconate 10% Inj 1 Gm/10 Ml Vial) 1 gm IV X1 ONE Stop: 09/04/24 01:44 Last Admin: 09/04/24 02:10 Dose: 1 gm Epoetin Claudio (Epoetin Claudio Inj 1,000 Unit/0.05 Ml Unit) 10,000 unit SC X1 ONE Stop: 09/04/24 11:01 Sodium Polystyrene Sulfonate (Sod Polystyrene Sulfon Susp 15 Gm/60 Ml Btl) 30 gm PO X1 ONE Stop: 09/04/24 01:44 Last Admin: 09/04/24 02:09 Dose: 30 gm Assessment & Plan Plan 58 y/o M with PMHx significant for hypertension, diabetes, ESRD on dialysis (M/W/F) who was BIBA from [facility] due to altered mental status, admitted for acute hypoxic respiratory failure secondary to volume overload. #AHRF 2/2 fluid overload in setting of #ESRD on HD (MWF) Patient is on dialysis Friday. On physical exam evidence of fluid overload status by lower extremity edema. Patient presented with acute hypoxic respiratory failure after missing most recent dialysis session for another appointment. Clearly fluid overloaded, showed significant improvement with supplemental oxygen. Nephrology consulted for management of patient dialysis. On exam patient appears to have excessive fluid in the abdomen, suspect diabetic ascites. No known history of liver disease. 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 #Hx neuropathy Management as per primary team Thank you for allowing us to participate in the care of this patient. Plan of care discussed with attending Dr. Tavera. Jorden Mark MD PGY?1 Attending Provider Attestation/Addendum Patient seen and examined with Dr. Knott. Note reviewed, agree with findings and recommendations. Admitted with significant fluid overload. Patient also noted to have dialysis ascites. Patient currently seen on dialysis. Tolerating dialysis without any problems. Hemodialysis for 3 hours, 2K, ultrafiltration 2-3 L, Epogen 6000, no heparin ordered. Plan of care discussed with the dialysis nurse. Please see dialysis flowsheet for further details. Thank you Dr. Romeo for allowing me to participate in the care of Ms. Rodriguez.
[2024-09-04] MEDS: HEPARIN SOD INJ 5000 UNIT/ML VIAL SC ×2 (14:25→21:33)
[2024-09-04] MEDS: EPOETIN ALFA INJ 1,000 UNIT/0.05 ML UNIT 10000 UNIT SC (14:58)
--- NOTE | 2024-09-04 15:08 | ESPR_ITS ---
<Statement entered by Alfredo Romeo MD - 09/09/24 14:46> I reviewed above note and agree with findings and plans. I have also personally examined the patient with medicine team and went over assessment and plan with medical team including international project engineer and resident physician. Documentation for date of: 09/04/24 Subjective Subjective Interval history: Patient is seen and examined at bedside Admitted overnight in view of hypoxic and hypercapnic respiratory failure for which patient is started on BiPAP Patient is on oxygen through nasal cannula at the time of examination. And is getting dialysis Nephrology, is consulted and recommended HD today and tomorrow. Suspecting dialysis associated ascites Exam Vital Signs Temp Pulse Resp BP Pulse Ox O2 Del Method O2 Flow Rate 98.1 F 71 18 159/99 H 98 Nasal Cannula 4.5 09/04/24 12:09/04/24 14:09/04/24 12:09/04/24 14:09/04/24 12:09/04/24 12:09/04/24 12:25 FiO2 30 09/04/24 06:22 Narrative Exam General: Awake. HEENT: Normocephalic, atraumatic, mucous membranes moist. Heart: Regular rate and rhythm, no murmurs. Lungs: Clear to auscultation with no wheezing or crackles. Abdomen: Soft, distended, nontender, positive bowel sounds. ?No guarding or rebound tenderness. Neurologic: Alert and oriented x3, no gross neurological deficit, and patient able to move all 4 extremities. Extremities: Fistula on the left arm Skin: No rash or ecchymoses. Objective Labs 09/04/24 04:30 09/04/24 04:30 Labs: Laboratory Results - last 24 hr 09/03/24 09/04/24 09/04/24 23:55 01:19 04:30 WBC 9.2 9.1 RBC 3.81 L 3.45 L Hgb 11.7 L 10.7 L Hct 37.4 L 32.7 L MCV 98 95 MCH 30.7 31.0 MCHC 31.3 32.7 RDW Std Deviation 48.1 H 46.4 H Plt Count 257 D 160 D Neut % (Auto) 88 H 86 H Lymph % (Auto) 5 L 6 L Maverick % (Auto) 6 8 Eos % (Auto) 0 0 Baso % (Auto) 0 0 Neut # (Auto) 8.1 H 7.8 H Lymph # (Auto) 0.5 L 0.5 L Maverick # (Auto) 0.5 0.7 Eos # (Auto) 0.0 0.0 Baso # (Auto) 0.0 0.0 Immature Gran # (Auto) 0.04 H 0.03 H Absolute Nucleated RBC 0.00 0.00 Immature Gran % 0 0 Nucleated RBC % 0 0 PT 14.8 H INR 1.4 H APTT 28.7 Puncture Site Right Radial ABG pH 7.34 L ABG pCO2 58 H ABG pO2 50 L* ABG HCO3 31 H ABG O2 Saturation 82 L ABG Base Excess 4 H Oxygen Liter Flow 6 FiO2 Sodium 137 137 Potassium 5.2 H 5.0 Chloride 93 L 94 L Carbon Dioxide 27.9 30.2 Anion Gap 16 13 BUN 43 H 42 H Creatinine 4.5 H* 4.4 H* Estim Creat Clear Calc 15.8 L 16.1 L eGFR 14 L* 15 L BUN/Creatinine Ratio 10 L 10 L Glucose 170 H 126 H Calculated Osmolality 288 286 Calcium 8.6 8.4 Corrected Calcium 8.6 8.5 Phosphorus 6.3 H 5.8 H Magnesium 1.9 1.8 Total Bilirubin 0.4 0.3 AST 84 H 60 H ALT 50 H 37 Alkaline Phosphatase 200 H 166 H D Ammonia Troponin I 0.020 B-Natriuretic Peptide 954 H* Total Protein 7.9 6.9 Albumin 4.3 3.9 Globulin 3.6 H 3.0 Albumin/Globulin Ratio 1.2 1.3 Lipase 36 09/04/24 09/04/24 07:40 07:58 WBC RBC Hgb Hct MCV MCH MCHC RDW Std Deviation Plt Count Neut % (Auto) Lymph % (Auto) Maverick % (Auto) Eos % (Auto) Baso % (Auto) Neut # (Auto) Lymph # (Auto) Maverick # (Auto) Eos # (Auto) Baso # (Auto) Immature Gran # (Auto) Absolute Nucleated RBC Immature Gran % Nucleated RBC % PT INR APTT Puncture Site Right Radial ABG pH 7.43 ABG pCO2 47 D ABG pO2 89 D ABG HCO3 31 H ABG O2 Saturation 98 ABG Base Excess 6 H Oxygen Liter Flow FiO2 40 Sodium Potassium Chloride Carbon Dioxide Anion Gap BUN Creatinine Estim Creat Clear Calc eGFR BUN/Creatinine Ratio Glucose Calculated Osmolality Calcium Corrected Calcium Phosphorus Magnesium Total Bilirubin AST ALT Alkaline Phosphatase Ammonia 13 Troponin I B-Natriuretic Peptide Total Protein Albumin Globulin Albumin/Globulin Ratio Lipase ABG Interpretation ABG results: 09/04/24 09/04/24 01:19 07:40 ABG pH 7.34 L 7.43 ABG pCO2 58 H 47 D ABG pO2 50 L* 89 D ABG HCO3 31 H 31 H ABG O2 Saturation 82 L 98 ABG Base Excess 4 H 6 H Quality Measures Quality Measures VTE prophylaxis Assessment & Plan Assessment Current Active Medications: Generic Name Dose Route Start Last Admin Trade Name Freq PRN Reason Stop Dose Admin Acetaminophen 650 mg 09/04/24 02:57 Acetaminophen 325 Mg Tablet PO 10/04/24 02:56 Q6H PRN Fever >100.3 or pain Furosemide 40 mg 09/04/24 03:05 09/04/24 14:25 Furosemide Inj 10 Mg/Ml 4ml Vial IVP 10/04/24 03:04 40 mg DAILY LONI Administration Heparin Sodium (Porcine) 5,000 unit 09/04/24 06:00 09/04/24 14:25 Heparin Sod Inj 5000 Unit/Ml Vial SC 09/18/24 05:59 5,000 unit Q8HR LONI Administration Ondansetron HCl 4 mg 09/04/24 02:57 Ondansetron Inj 2 Mg/Ml Inj 2 Ml IV 10/04/24 02:56 Q6H PRN NAUSEA OR VOMITING Protocol Sennosides 1 tab 09/04/24 02:57 Senna Tablet PO 10/04/24 02:56 QDAY PRN constipation Protocol Plan I forgot including long distanceFerelisabet Rodriguez is 58 yr male with PMH of hypertension, diabetes, ESRD on dialysis (M/W/F) who was BIBA from [facility] due to altered mental status. History was unobtainable from patient. Admit for AHRF 2/2 fluid overload and acute encephalopathy. #Acute encephalopathy, resolved Most likely due to respiratory failure leading to acidosis. #Acute hypoxic hypercapneic respiratory failure 2/2 fluid overload , resolved in setting of #ESRD on HD (MWF), missed HD session #? Dialysis associated ascites Patient is on dialysis Friday. On physical exam evidence of fluid overload status by lower extremity edema. Missed his dialysis session on friday due to doctor's appointment in [place] In ED, BP 170/88, HR 69, on BIPAP 40% FIo2 saturating 95%. Respiratory acidosis on ABG with pH 7.34 CO2 58. ? Nephrology Dr Tavera consulted, HD today and tomorrow ? Fluid restriction 1500 cc ? Strict BRANT's ? 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 #Hx neuropathy Outpatient medications include amlodipine 10 mg, atorvastatin 40 mg, clonidine 0.1 mg, Plavix 75 mg, furosemide 40 mg, gabapentin 100 mg -resumed her med rec Health maintenance: Dispo: tele [facility] Bi[facility]AP. [facility] N[facility] while on bipap DVT prophylaxis: Subcu heparin CODE STATUS: Full code Patient plan of care was discussed with the attending physician, Dr. Ousmane Garza, PGY1
--- NOTE | 2024-09-04 15:30 | PC.NURSE ---
Called to ED YOHANNES Kim for report, no answer at this time.
--- NOTE | 2024-09-04 15:56 | PC.NURSE ---
PT ASKING FOR MEAL. DISCOVERED THAT NO DIET ORDERED FOR PT. CALLED DR. BROWN AND SHE WILL ORDER MEAL'S
[2024-09-04] MEDS: SEVELAMER CARBONATE 800 MG TABLET PO (17:41)
[2024-09-04] MEDS: ATORVASTATIN CALCIUM 20 MG TABLET 40 MG PO (21:33)
[2024-09-04] MEDS: hydrALAZINE HCL 25 MG TABLET 100 MG PO (21:33)
[2024-09-04] MEDS: GABAPENTIN 100 MG CAPSULE PO (21:33)
[2024-09-05] VITALS (8 sets, daily range): BP systolic 133–147; BP diastolic 58–72; PULSE 66–72; RESP 16–20; TEMP 36.1–36.7; O2SAT 95–97; BMI 25.0
[2024-09-05] MEDS: hydrALAZINE HCL 25 MG TABLET 100 MG PO ×2 (05:39→14:13)
[2024-09-05] MEDS: HEPARIN SOD INJ 5000 UNIT/ML VIAL SC ×2 (05:39→14:13)
[2024-09-05] MEDS: GABAPENTIN 100 MG CAPSULE PO ×2 (05:39→14:13)
[2024-09-05 07:08] LABS: Basophils # (Auto) 0.1 Thou/mm3 (0.0-0.2); Basophils % (Auto) 1 % (0-2.5); Eosinophils # (Auto) 0.6 Thou/mm3 (0.0-0.5); Eosinophils % (Auto) 6 % (0-10); Hematocrit 32.3 % (41.0-53.0); Hemoglobin 10.8 g/dL (13.5-16.0); Immature Granulocytes % (Auto) 0 % (0-0); Immature Granulocytes Auto 0.03 Thou/mm3 (0.00-0.00); Lymphocytes # (Auto) 0.8 Thou/mm3 (1.0-4.8); Lymphocytes % (Auto) 8 % (10-50); Mean Corpuscular HGB Conc 33.4 g/dl (31.0-37.0); Mean Corpuscular Hemoglobin 31.1 pg (25.0-35.0); Mean Corpuscular Volume 93 fL (80-100); Monocytes # (Auto) 0.9 Thou/mm3 (0.0-0.8); Monocytes % (Auto) 9 % (0-12); Neutrophils # (Auto) 7.5 Thou/mm3 (1.8-7.7); Neutrophils % (Auto) 76 % (37-80); Nucleated Red Blood Cell % 0 /100 WBC (0); Platelet Count 170 Thou/mm3 (140-440); RDW Standard Deviation 45.1 fL (35.1-43.9); Red Blood Count 3.47 Miln/mm3 (4.50-5.90); White Blood Count 9.8 Thou/mm3 (3.8-10.6)
[2024-09-05 07:37] LABS: Alanine Aminotransferase 28 U/L (10-49); Albumin, Serum 3.7 gm/dL (3.5-5.0); Albumin/Globulin Ratio 1.2 (1.2-2.2); Alkaline Phosphatase 150 U/L (46-116); Anion Gap 12 (7-16); Aspartate Amino Transferase 36 U/L (0-34); BUN/Creatinine Ratio 7 Ratio (12-20); Bilirubin,Total 0.4 mg/dL (0.3-1.2); Blood Urea Nitrogen 25 mg/dL (9-23); Calcium 8.3 mg/dL (8.3-10.6); Calcium (Corrected) 8.5 mg/dL (8.5-10.1); Carbon Dioxide 30.2 mMol/L (20.0-31.0); Chloride 96 mMol/L (98-107); Creatinine (Component) 3.4 mg/dL (0.6-1.3); Estimated Creatinine Clearance 20.9 mL/min (>60); Globulin 3.1 gm/dL (2.3-3.5); Glucose 89 mg/dL (74-106); Osmolality,Calculated 279 (275-295); Potassium 3.4 mMol/L (3.4-5.1); Sodium 138 mMol/L (136-145); Total Protein 6.8 gm/dL (5.7-8.2); eGFR 20 See Note
[2024-09-05] MEDS: SEVELAMER CARBONATE 800 MG TABLET PO ×2 (07:37→13:40)
[2024-09-05] MEDS: CLOPIDOGREL BISULFATE 75 MG TABLET PO (09:34)
[2024-09-05] MEDS: FUROSEMIDE INJ 10 MG/ML 4ML VIAL 40 MG IVP (09:35)
[2024-09-05] MEDS: amLODIPine BESYLATE 5 MG TABLET 10 MG PO (09:35)
[2024-09-05] MEDS: VIT B12/Vit C/FA (Nephrovite) TABLET 1 TAB PO (09:35)
[2024-09-05] MEDS: SENNA TABLET 1 TAB PO (10:54)
[2024-09-05] MEDS: POLYETHYLENE GLYCOL 17 GM PACKET PO (10:54)
--- NOTE | 2024-09-05 11:19 | ESDS_ITS ---
<Statement entered by Alfredo Romeo MD - 09/09/24 14:47> I reviewed above note and agree with findings and plans. I have also personally examined the patient with medicine team and went over assessment and plan with medical team including internal corrosion specialist and resident physician. Planned Discharge Date 09/05/24 DS: Providers Provider Date of admission: 09/04/24 02:57 Primary care physician: Maury Davies MD Admitting Provider: Pan Burgess MD Attending Provider on Admission: Pan Burgess MD Consults: 09/04/24 03:02 Consult to Nephrology Routine Comment: ESRD on HD Consulting Provider: Maicol Tavera Attending Provider on DC: Fidencio Moses MD Discharging Provider: Fidencio Moses MD DS: Diagnosis Problem List Completed Was Problem List Reviewed/Reconciled?: Yes Hospital Course Hospital Course Hospital course: 58-year-old male with past medical history of hypertension, type 2 diabetes, ESRD on dialysis (M/W/F) presented to the ED on 09/04 from [facility] due to acute encephalopathy secondary to hypercarbia and acute hypoxic respiratory failure secondary to volume overloaded status. In the ED, patient was hypertensive with a blood pressure 170/88, heart rate 69, desaturating and requiring BiPAP 40% FiO2. Pertinent findings included respiratory acidosis on ABG with pH of 7.34 and PCO2 of 58; moreover, nephrology was consulted for emergent need of dialysis for volume overload status. Patient's oxygenation status improved after completing dialysis and he was gradually transition to supplemental oxygen via nasal cannula. Patient will be discharged from the hospital with the following strict instructions. Please follow-up with your Dr. Tavera (nephrology) within 1 weeks Continue going to dialysis sessions as scheduled, Friday/Friday/Friday Stop taking Furosemide (Lasix) 40mg by mouth daily Continue all other home medications as prescribed Follow-up with your PCP within 1-2 weeks If your symptoms worsen or if you develop new chest pain, shortness of breath, abdominal pain or dizziness - please come back to the ED immediately. Hospital Diagnosis: #Acute encephalopathy secondary to hypercarbia #Acute hypoxic and hypercapneic respiratory failure secondary to fluid overload status, ESRD #ESRD on HD (MWF) #Hx HTN #Hx TIA #Hx neuropathy Fidencio Moses, PGY-1 Status at Discharge Overall status at discharge: patient is progressing back to baseline Time Spent with Patient Time attestation: Total time spent providing and/or coordinating discharge services: 45 minutes Time spent: Greater than 30 minutes Exam Vital Signs Temp Pulse Resp BP Pulse Ox O2 Del Method O2 Flow Rate 98.1 F 68 18 133/66 H 97 Nasal Cannula 4 09/05/24 08:00 09/05/24 09:35 09/05/24 08:00 09/05/24 09:35 09/05/24 08:00 09/05/24 08:00 09/05/24 08:00 FiO2 30 09/04/24 06:22 Narrative Exam General: Awake. HEENT: Normocephalic, atraumatic, mucous membranes moist. Heart: Regular rate and rhythm, no murmurs. Lungs: Clear to auscultation with no wheezing or crackles. Abdomen: Soft, distended, nontender, positive bowel sounds. ?No guarding or rebound tenderness. Neurologic: Alert and oriented x3, no gross neurological deficit, and patient able to move all 4 extremities. Extremities: Fistula on the left arm Skin: No rash or ecchymoses. Discharge Plan Plan Patient Disposition: Xfer Skilled Nsg Fac (SNF) Patient condition on transfer: Stable Care Plan Goals: Please follow-up with your Dr. Tavera (nephrology) within 1 weeks Continue going to dialysis sessions as scheduled, Friday/Friday/Friday Stop taking Furosemide (Lasix) 40mg by mouth daily Continue all other home medications as prescribed Follow-up with your PCP within 1-2 weeks If your symptoms worsen or if you develop new chest pain, shortness of breath, abdominal pain or dizziness - please come back to the ED immediately. Prescriptions/Referrals Prescriptions/Med Rec: Continued atorvastatin 40 mg Tablet 40 mg PO QPM gabapentin 100 mg Capsule 100 mg PO TID cholecalciferol (vitamin D3) 25 mcg (1,000 unit) Tablet 25 mcg PO QDAY Rx Instructions: Give 5 tablet by mouth one time a day for supplement. nutritional supplements Liquid 8 ea PO 1XD Rx Instructions: Give 8 ounce by mouth one time a day for supplement Mena-Anil 0.8 mg Tablet 1 tab PO 1XD Rx Instructions: Give 1 tablet by mouth one time a day for supplement. lidocaine 5 % Cream 1 applic TOPICAL 1XD Rx Instructions: Apply to chest wall topically in the morning for pain. Apply to back topically one time a day for back pain. ondansetron HCl 4 mg Tablet 4 mg PO Q6H PRN (Reason: Nausea And Vomiting) acetaminophen 325 mg Tablet 325 mg PO Q6HR PRN (Reason: Mild Pain (Scale Score 1-4)) clonidine HCl 0.1 mg tablet 0.1 mg PO HS Rx Instructions: hold for sbp <100 or dbp<60 sevelamer carbonate 800 mg tablet 800 mg PO .tidac ergocalciferol (vitamin D2) [Vitamin D2] 1,250 mcg (50,000 unit) capsule 50,000 unit PO .weekly Rx Instructions: give every friday hydralazine 100 mg tablet 100 mg PO TID Rx Instructions: hold sbp< 100 or spb <60 amlodipine 10 mg tablet 10 mg PO DAILY clopidogrel [Plavix] 75 mg tablet 75 mg PO QDAY Qty: 30 0RF Discontinued furosemide 40 mg tablet 40 mg PO DAILY Referrals: Maury Davies MD [Primary Care Provider] - Maicol Tavera MD [Physician] - Patient/Caregiver Discharge Instructions Education Materials: Kidney Failure Self Care, Coping with Kidney Failure, CKD Dc Print Language: Nepalese Stand Alone Forms: Neena Award Info., Patient Portal Info Letter Discharge Order Discharge Orders: Discharge (Routine); Ordered 09/05/24 Ordered By: Fidencio Moses Quality Discharge Quality Measures VTE prophylaxis
--- NOTE | 2024-09-05 12:08 | PD.NEPHPROG ---
Documentation for date of: 09/05/24 Subjective Subjective Interval history: 58 y/o M with PMHx significant for hypertension, diabetes, ESRD on dialysis (M/W/F) who was BIBA from [facility] due to altered mental status. History was unobtainable from patient, rehab center was unable to be contacted. Information retrieved through chart review and initial ED note. Patient was found unresponsive by facility staff, saturating low 70s on room air, placed on 15 L via oxy mask. Patient became more arousable after saturation improved, brought to the ED. Patient chest x-ray showed moderate CHF pattern with vascular congestion, head CT was unremarkable. Nephrology was consulted to manage patient's hemodialysis. Nephrology team informed the patient to miss his most recent dialysis session on Friday due to another appointment. Patient seen and examined during dialysis session, resting comfortably. Patient alert and oriented, overall feels well. Reports he has not had bowel movement in 5 days. Patient denies fever, chills, chest pain, shortness of breath, nausea, vomiting. On exam patient appears to have ascites, likely dialysis ascites, may require paracentesis. WBC 9.1, hemoglobin 10.7, potassium 5.0, BUN 42, creatinine 4.4, EGFR 15. 09/05/2024 patient currently is in medical floor. Resting comfortably. On 2 L oxygen. Possible discharge today. Review of Systems Review of Systems Narrative Review of Systems: CONSTITUTIONAL: Patient denies any fever, chills. HEENT: Denies any visual disturbances or hearing problems. CARDIOVASCULAR: Patient denies any chest pain. shortness of breath, swelling in the lower extremities- better PULMONARY: Patient better with shortness of breath GASTROINTESTINAL: Patient denies any abdominal pain, constipation, nausea, vomiting, diarrhea. GENITOURINARY: Patient denies any urinary symptoms of burning or frequency or hematuria, denies any form in the urine. SKIN: Denies any rash. MUSCULOSKELETAL: Gait imbalance and leg weakness NEUROLOGICAL: Denies any neurological problems of strokes, seizures or confusion. Denies any memory problems. PSYCHIATRIC: Denies any depression or anxiety. LYMPHATICS : No lymphadenopathy Exam Vital Signs Temp Pulse Resp BP Pulse Ox O2 Del Method O2 Flow Rate 36.7 C 68 18 133/66 H 97 Nasal Cannula 4 09/05/24 08:00 09/05/24 09:35 09/05/24 08:00 09/05/24 09:35 09/05/24 08:00 09/05/24 08:00 09/05/24 08:00 FiO2 30 09/04/24 06:22 Narrative Exam GENERAL APPEARANCE: Patient seems to be comfortable, adequately hydrated and nourished. HEENT: EOMI, PERRLA NECK: Neck supple, no JVD or bruit CARDIOVASCULAR: Heart regular, no murmurs LUNGS/CHEST: Fine crackles at the bases ABDOMEN: Soft, nontender, nondistended. No masses. Normal bowel sounds. EXTREMITIES: No edema, clubbing or cyanosis. SKIN: Skin exam normal without any rashes MUSCULOSKELETAL: Musculoskeletal exam normal PSYCHIATRIC: Normal mood, affect LYMPHATICS: No lymphadenopathy noted NEUROLOGICAL : No neurological deficits Objective Labs 09/05/24 06:30 09/05/24 06:30 Labs: Laboratory Results - last 24 hr 09/05/24 06:30 WBC 9.8 RBC 3.47 L Hgb 10.8 L Hct 32.3 L MCV 93 MCH 31.1 MCHC 33.4 RDW Std Deviation 45.1 H Plt Count 170 Neut % (Auto) 76 Lymph % (Auto) 8 L Payette % (Auto) 9 Eos % (Auto) 6 Baso % (Auto) 1 Neut # (Auto) 7.5 Lymph # (Auto) 0.8 L Payette # (Auto) 0.9 H Eos # (Auto) 0.6 H Baso # (Auto) 0.1 Immature Gran # (Auto) 0.03 H Absolute Nucleated RBC 0.00 Immature Gran % 0 Nucleated RBC % 0 Sodium 138 Potassium 3.4 D Chloride 96 L Carbon Dioxide 30.2 Anion Gap 12 BUN 25 H Creatinine 3.4 H D Estim Creat Clear Calc 20.9 L eGFR 20 L BUN/Creatinine Ratio 7 L Glucose 89 Calculated Osmolality 279 Calcium 8.3 Corrected Calcium 8.5 Total Bilirubin 0.4 AST 36 H ALT 28 Alkaline Phosphatase 150 H Total Protein 6.8 Albumin 3.7 Globulin 3.1 Albumin/Globulin Ratio 1.2 ABG Interpretation ABG results: 09/04/24 09/04/24 01:19 07:40 ABG pH 7.34 L 7.43 ABG pCO2 58 H 47 D ABG pO2 50 L* 89 D ABG HCO3 31 H 31 H ABG O2 Saturation 82 L 98 ABG Base Excess 4 H 6 H Assessment & Plan Additional Assessment & Plan Additional Plan: 58 y/o M with PMHx significant for hypertension, diabetes, ESRD on dialysis (M/W/F) who was BIBA from [facility] due to altered mental status, admitted for acute hypoxic respiratory failure secondary to volume overload. #AHRF 2/2 fluid overload in setting of #ESRD on HD (MWF) Patient is on dialysis Friday. On physical exam evidence of fluid overload status by lower extremity edema. Patient presented with acute hypoxic respiratory failure after missing most recent dialysis session for another appointment. Clearly fluid overloaded, showed significant improvement with supplemental oxygen. Nephrology consulted for management of patient dialysis. Patient received dialysis yesterday and is feeling much better. #Acute encephalopathy-resolved #Hx HTN #Hx TIA VS postdialysis disequilibrium syndrome- Resolved #Hx neuropathy Management as per primary team
[2024-09-05 12:10] LABS: Free T4 (Free Thyroxine) 1.17 ng/dL (0.89-1.76); Thyroid Stimulating Hormone 1.73 uIU/mL (0.55-4.78)
--- NOTE | 2024-09-05 13:47 | PC.SS ---
SS informed by hospitalist team patient can return to [facility]. SS contacted [facility] to confirm if patient can return, Marzena confirmed she can accept patient today. [facility] was contacted to obtain authorization for gurney transport, reservation #[phone]. [facility] was contacted, transportation was scheduled for 1529. YOHANNES Nath, CORINA Barrios, [facility], and patient's spouse Roro Rodriguez [phone] were informed of ETA for transport.
--- NOTE | 2024-09-05 15:04 | PC.LAC ---
blair catheter removed, catheter intact, pt tolerated well.
--- NOTE | 2024-09-05 15:04 | PC.NURSE ---
[facility] called and report given to [place] admissions.
--- NOTE | 2024-09-05 16:03 | PC.SS ---
SS met with patient at bedside to complete initial assessment. Patient is Citizen Of [place] speaking. ?Patient confirmed demographic information. Patient stated his spouse Roro Rodriguez [phone] is his alternate decisionmaker. Patient disclosed he resides at [facility] and will return at time of discharge, transportation needed. Patient reports he requires maximum assistance with ADLs and ambulation. Patient reports using a cane and walker to ambulate short distances. Patient stated he utilizes Patient states he uses 4L oxygen at [facility], as needed. Pharmacy: facility provides med. Services. PCP: Dr. Davies. ?Patient has HD sessions Friday, Friday, and Fridays at 9AM at [facility]. Patient is provided by [facility] transport. Discharge plan: Return to [facility], transportation needed. Alt. decisionmaker: Spouse Roro Rodriguez [phone]
== END 2024-09-05 15:31 | disposition skilled nursing facility (03) | DRG 189 ==
LOC: SERX 09-04 03:52 → SERHOLD 09-04 03:58 → S2NX 09-04 17:25
PROVIDERS: Admitting Provider Student in an Organized Health Care Education/Training Program; Emergency Provider Emergency Medicine; PCP Hospitalist; Visit Provider Student in an Organized Health Care Education/Training Program
DX: J96.01 Acute respiratory failure with hypoxia (principal); N18.6 End stage renal disease; G93.40 Encephalopathy, unspecified; I12.0 Hypertensive chronic kidney disease with stage 5 chronic kidney disease or end stage renal disease; R18.8 Other ascites; E87.29 Other acidosis; E87.70 Fluid overload, unspecified; J96.02 Acute respiratory failure with hypercapnia; E11.22 Type 2 diabetes mellitus with diabetic chronic kidney disease; K74.60 Unspecified cirrhosis of liver; G62.9 Polyneuropathy, unspecified; T80.89XA Other complications following infusion, transfusion and therapeutic injection, initial encounter; Y84.1 Kidney dialysis as the cause of abnormal reaction of the patient, or of later complication, without mention of misadventure at the time of the procedure; Z99.2 Dependence on renal dialysis; Z86.73 Personal history of transient ischemic attack (TIA), and cerebral infarction without residual deficits
CPT/HCPCS: 36415; 36600; 70450; 71045; 80053; 82140; 82803; 83690; 83735; 83880; 84100; 84439; 84443; 84484; 85025; 85610; 85730; 87081; 87400; 87811; 93005; 94660; 96372; 99291; J0612; J1644; J1938; Q4081; A9270

== ENCOUNTER → 2024-10-19 | Outpatient (CLI) | payer MEDICARE, MEDICAID, SELFPAY ==
--- NOTE | 2024-10-19 13:15 | XR_ITS ---
EXAMINATION: PET/CT FUSION SKULL TO THIGH EXAM DATE AND TIME: October 19, [address] brain scan September 04, 2024, CT chest abdomen pelvis July 25, 2024 INDICATIONS: Diagnosis malignant ascites CTDI:vol (mGy) 4.67 DLP: (mGycm) 484 PROCEDURE: 15 mCi FDG was administered intravenously To allow for distribution and uptake of radiotracer, the patient was allowed to rest quietly in a shielded room. Imaging was performed on an integrated 16-slice PET/CT scanner, with scanning from the skull base to the mid thigh. Serum blood glucose at the time of the injection was measured 84 mg/dL. CT scanning was performed without oral or intravenous contrast material. FINDINGS: Head and Neck: There is no maira hypermetabolism in the neck. The visualized portions of the brain are normal in appearance on CT. Chest: Moderate enlargement cardiac contour with prominent vascular congestion Abdomen and Pelvis: There is no maira hypermetabolism in retroperitoneal or pelvic chains. The spleen is normal in size and FDG avidity Significant ascites Subcentimeter left lateral periaortic lymph nodes. Musculoskeletal: Marrow uptake is within normal range. IMPRESSION: Mild heart failure Cirrhosis Significant ascites Subcentimeter non hypermetabolic left lateral periaortic lymph nodes
== END | disposition home or self-care (01) ==
PROVIDERS: PCP Hospitalist; Referring Provider Hospitalist; Visit Provider Hospitalist
DX: I50.89 Other heart failure (principal); K74.69 Other cirrhosis of liver; R18.8 Other ascites; C48.1 Malignant neoplasm of specified parts of peritoneum; C48.2 Malignant neoplasm of peritoneum, unspecified
CPT/HCPCS: 78815; A9552